=== PATIENT | female | born 1980 | race Caucasian/White ===

== ENCOUNTER → 2019-04-15 09:45 | Outpatient (CLI) | payer OTHER, SELFPAY ==
[2018-07-05 08:37] VITALS: BMI 45.3
[2019-04-15 09:50] LABS: Bacteria 0 SEEN /hpf (None Seen); Mucous, Urine 0 SEEN /hpf (<or=2+); Red Blood Cells-Urine 0 SEEN /hpf (0-5)
[2019-04-15 12:30] LABS: Color, Urine Yellow (Yellow); Glucose, Dipstick Normal (Normal); Ketone-Dipstick Negative (Negative); Leukocyte Esterase-Dipstick 25 /ul (Negative); Nitrite-Dipstick Negative (Negative); Occult Blood-Urine Negative /ul (Negative); Protein-Dipstick Negative (Negative); Specific Gravity, Urine 1.015 (1.002-1.030); Urine Bilirubin Dipstick Negative (Negative); Urine Clarity Clear (Clear); Urine Urobilinogen Normal (Normal)
[2019-04-15 12:39] LABS: Squamous Epithelial Cells - UA 0-5 SEEN /hpf (5-10); White Blood Cells 0-5 SEEN /hpf (0-5)
== END ==
PROVIDERS: Visit Provider Family Medicine
DX: N39.0 Urinary tract infection, site not specified (principal)
CPT/HCPCS: 81001; 87086; 87088

== ENCOUNTER → 2019-04-22 14:59 | Outpatient (CLI) | payer OTHER, SELFPAY ==
--- NOTE | 2019-04-22 15:02 | US_ITS ---
STUDY: RENAL ULTRASOUND - COMPLETE REASON FOR EXAM: Female, 39 years old. Gross hematuria. TECHNIQUE: Ultrasound evaluation of the kidneys was performed with real-time and static henderson-scale imaging. COMPARISON: None. FINDINGS: RIGHT KIDNEY: Normal location of the right kidney, which is normal in size. The right kidney measures 10.2 x 5.2 x 5.6 cm. There is a normal cortex of the right kidney. The renal cortex measures 1.9 cm. There is no right renal mass or cyst. There are no right renal calculi. There is no right hydronephrosis. DISTAL RIGHT URETER: There is non-visualization of the distal right ureter. There is no demonstrated right ureterovesical junction calculus. There is no demonstrated right ureteral jet. LEFT KIDNEY: Normal location of the left kidney, which is normal in size. The left kidney measures 10.1 x 4.1 x 4.9 cm. There is a normal cortex of the left kidney. The renal cortex measures 1.4 cm. There is no left renal mass or cyst. There are no left renal calculi. There is no left hydronephrosis. DISTAL LEFT URETER: There is non-visualization of the distal left ureter. There is no demonstrated left ureterovesical junction calculus. There is no demonstrated left ureteral jet. BLADDER: Grossly normal nondistended bladder contour. There is a normal wall thickness of the distended urinary bladder. There is no demonstrated mass within the urinary bladder. There are no demonstrated bladder calculi. US/Kidney and Bladder IMPRESSION: Normal ultrasound of the kidneys and urinary bladder. Electronically Signed: Giancarlo Villanueva MD at 16:33 EDT , Service support ,
== END ==
PROVIDERS: Family Provider Family Medicine; PCP Family Medicine; Referring Provider Family Medicine; Visit Provider Family Medicine
DX: R31.9 Hematuria, unspecified (principal)
CPT/HCPCS: 76770

== ENCOUNTER → 2019-05-09 17:28 | Outpatient (CLI) | payer OTHER, SELFPAY ==
--- NOTE | 2019-05-09 17:33 | CT_ITS ---
STUDY: CT ABDOMEN AND PELVIS WITH AND WITHOUT CONTRAST REASON FOR EXAM: Female, 39 years old. Hematuria RADIATION DOSAGE (If Supplied By Facility): CTDIvol = ( 28.38 ) mGy, DLP = ( 4203.65 ) mGycm TECHNIQUE: Transaxial images were obtained from the dome of the diaphragm to the symphysis pubis with oral contrast. 100 IV/Oral Isovue 300 was administered. Sagittal and coronal images were reconstructed. Individualized dose optimization techniques were used for this CT. COMPARISON: None. FINDINGS: The visualized lung bases are unremarkable. The visualized portions of the heart are within normal limits. Normal liver. The gallbladder has been removed. Normal spleen. Normal pancreas. Normal bilateral adrenal glands. Normal right kidney. Normal left kidney. Gastric bypass changes are present. Normal small intestine. Normal colon. The appendix is visualized and appears normal. Normal abdominal aorta. Normal inferior vena cava. Normal retroperitoneum. Normal urinary bladder. Normal abdominal wall. Normal osseous structures. CT/CT Abd/Pelvis W/WO Contrast IMPRESSION: No pathology identified in the abdomen or pelvis. Electronically Signed: Albert Jang, at 18:18 EDT Tel , Service support ,
== END ==
PROVIDERS: Family Provider Family Medicine; PCP Family Medicine; Referring Provider Urology; Visit Provider Urology
DX: R31.0 Gross hematuria (principal)
CPT/HCPCS: 74178; Q9967

== ENCOUNTER → 2019-08-09 08:35 | Outpatient (CLI) | payer OTHER, SELFPAY ==
[2019-07-08 08:14] VITALS: BMI 45.3
[2019-08-09 09:47] LABS: Erythrocyte Sedimentation Rate 10 mm/hr (0-20)
[2019-08-09 10:24] LABS: CRP, High Sensitivity Cardiac 4.52 mg/L
[2019-08-12 16:33] LABS: ANTINUCLEAR ANTIBODIES DIRECT Negative (Negative)
[2019-08-14 15:19] LABS: CCP IgG Antibodies 9 units (0-19); HLA B27 Negative (.)
== END ==
PROVIDERS: Family Provider Family Medicine; PCP Family Medicine
DX: M50.30 Other cervical disc degeneration, unspecified cervical region (principal)
CPT/HCPCS: 81374; 84550; 85652; 86038; 86141; 86200; 86431

== ENCOUNTER 2020-01-18 09:27 | Emergency (ER) | payer OTHER, SELFPAY ==
[2019-07-08 08:14] VITALS: BMI 45.3
[2020-01-18 09:28] VITALS: BP 151/114; PULSE 90; RESP 17; TEMP 36.9; O2SAT 98; BMI 44.4
--- NOTE | 2020-01-18 09:38 | RAD_ITS ---
STUDY: X-RAY - RIGHT KNEE REASON FOR EXAM: Female, 40 years old. Pain. TECHNIQUE: 4 view(s) of the knee. COMPARISON: None. FINDINGS: There is no evidence of fracture or dislocation. There are no significant degenerative changes. There are no radiodense foreign bodies. RAD/Knee 4 or More Views IMPRESSION: No fracture or dislocation. Electronically Signed: Amor Barker, at 10:04 EDT Tel , Service support ,
--- NOTE | 2020-01-18 09:39 | ED.DCSUM_ITS ---
History of Present Illness Chief Complaint: Lower Extremity Injury Informant: Patient Onset: Yesterday Mechanism/Context: Blunt Injury Quality of Pain: Dull, Aching Location: Right knee Current Severity: Mild Maximum Severity: Severe Worsened by: Weightbearing Relieved by: Better with rest Associated Symptoms: Loss of function, Inability to ambulate - Only able to toe- touch. Negative for: Parasthesias, Weakness, Loss of consciousness Narrative: Patient a 40-year-old woman who injured her right knee last evening while jumping on the trampoline. She states her knee buckled and the leg went inward and the knee went outward. She felt pops and tears. She has not been able to ambulate. She states she only able to toe-touch on the right side. The pain is predominantly anterior. She has no prior history of knee injury. She denies any other injury. She denies paresthesia, anesthesia or motor weakness. Prior similar symptoms: No Recent Illness/Hospitalization: No Past Medical History - Allergies and Home Meds Allergies/Adverse Reactions: Allergies Penicillins Allergy (Verified 07/08/19 08:07) Rash Sulfa (Sulfonamide Antibiotics) Allergy (Verified 07/08/19 08:07) Hives injectable steroids Allergy (Uncoded 07/05/18 08:39) Other Went into liver failure Primary Care Physician: Ricardo Ma MD [Primary Care Provider] - Surgical History: noncontributory Lives: With Family Smoking Status: Never smoker Alcohol: None Drugs: None Review of Systems Cardiovascular: Denies: Chest pain Respiratory: Denies: Dyspnea Musculoskeletal: Reports: Extremity Pain. Denies: Myalgias, Arthralgias, Neck pain, Back pain Skin: Denies: Rash, Abrasions Neurological: Denies: Headache, Weakness, Parasthesia, Numbness Hematologic: Denies: Easy bruising, Easy bleeding Physical Exam Vital Signs/Narrative: Vital Signs Temp Pulse Resp BP Pulse Ox 01/18/20 09:28 98.4 F 90 17 151/114 H 98 Inital Vital Signs reviewed: Yes General: Well nourished, Well developed, Obese Head: Normocephalic, Atraumatic Eyes: Perrl, EOMI. Negative for: Pale conjunctiva, Scleral icterus ENT: No trauma Neck: Nontender, Full ROM Cardiovascular: Regular rate, Regular rhythm, No murmurs Respiratory: No distress Extremeties: There is no obvious swelling of the right knee compared to left. There is joint line tenderness predominantly lateral. There is pain the patient of the patella, but the patella is not ballotable and there is no obvious effusion. Varus valgus stress testing causes discomfort laterally with no appreciable laxity. Modified Kaleb's test causes pain laterally but there was no click appreciated. Lockman's test was negative. DP and PT pulse are palpable. Skin: Normal color, No rash Neurological: Alert, Oriented x3, Cranial nerves II-XII grossly intact, Normal Strength, Normal Sensation. Negative for: Normal Gait Psychological: Normal affect - Glascow Coma Scale Eye Opening: Spontaneous Motor: Obeys Commands Verbal: Oriented Coma Scale Total: 15 Diagnostic/Tx/Re-eval Chest X-Ray - ED: Read by ED Physician - 4 view x-ray of the right knee was interpreted by me as negative for fracture. There is no soft tissue swelling. There is no effusion noted. There is no asymmetry of the joint. There is no evidence of dislocation or subluxation. Impressions Knee X-Ray 01/18/20 09:38 IMPRESSION: No fracture or dislocation. Electronically Signed: Amor Mj, at 10:04 EDT Tel , Service support , 01/18/20 09:38 Knee 4 or More Views [RAD] Stat - Medical Decision Making X-ray was obtained to evaluate for fracture. Impression is contusion versus meniscus injury versus quadricep strain versus fracture. She was offered pain medicine, which she declined Since patient is unable to weight-bear will discharge with crutches and referral to Dr. José Antonio Del Cid for repeat exam in 5 to 7 days. SPECT patient has a meniscus injury. ED Disposition - Plan for ED Patient: Disposition: Home or Assisted Living Diagnosis: Strain of knee and leg, right Instructions: ED Meniscal Injury Knee Poss Referrals: Ricardo Ma MD [Primary Care Provider] - Amor Del Cid MD [STAFF PHYSICIAN] - 5-7 Days Additional Instructions: Ice 20 to 30 minutes per application 6-8 times a day. Elevate as much as possible. Weight-bear as tolerated.
[2020-01-18 10:12] VITALS: BP 144/64; PULSE 89; RESP 17; O2SAT 98
== END 2020-01-18 10:28 | disposition home or self-care (01) ==
PROVIDERS: Emergency Provider Emergency Medicine; PCP Family Medicine
DX: S86.911A Strain of unspecified muscle(s) and tendon(s) at lower leg level, right leg, initial encounter (principal); X58.XXXA Exposure to other specified factors, initial encounter; Y93.44 Activity, trampolining; Y92.9 Unspecified place or not applicable; Y99.8 Other external cause status; E66.9 Obesity, unspecified; Z68.41 Body mass index [BMI] 40.0-44.9, adult
CPT/HCPCS: 73564; 99283

== ENCOUNTER 2020-04-06 09:06 | Day surgery (SDC) | payer OTHER, SELFPAY ==
[2020-04-06] VITALS (15 sets, daily range): BP systolic 112–160; BP diastolic 49–89; PULSE 75–102; RESP 16; TEMP 36.6–37.4; O2SAT 94–100; BMI 50.1
[2020-04-06 09:31] LABS: Hematocrit 40.8 % (37-47); Hemoglobin 13.8 g/dL (12.0-15.0); Mean Corp Hgb Conc 33.8 g/dL (32-36); Mean Corpuscular Hgb 32.6 pg (27.0-32.0); Mean Corpuscular Volume 96.5 fL (81-99); Mean Platelet Vol. 9.1 fl (6.2-12.0); Platelet Count 310 K/mm3 (150-450); RBC Distribution Width CV 13.2 % (11.6-14.6); Red Blood Count 4.23 M/mm3 (4.2-5.4)
[2020-04-06] MEDS: Lactated Ringers 1,000 ML 100 ML IV ×3 (09:43→14:35)
[2020-04-06 09:44] LABS: Prothrombin Time (Protime)PT. 13.1 SECONDS (11.7-14.9)
[2020-04-06 10:00] LABS: AST(SGOT) 15 U/L (15-37); Alanine Aminotransfer ALT/SGPT 25 U/L (13-56); Albumin, Serum 3.5 g/dL (3.2-5.0); Alkaline Phosphatase 95 U/L (45-117); Bilirubin, Direct 0.07 mg/dL (0.00-0.30); Globulin 3.8 g/dL (2.2-4.2); Protein, Total 7.3 g/dL (6.4-8.2)
[2020-04-06] MEDS: Epinephrine (1 mg/ml) 1 MG/ML VIAL (10:47)
[2020-04-06] MEDS: Bupiv/Epi 0.5% Mpf 30 ML Vial (11:40)
--- NOTE | 2020-04-06 12:43 | OP.PCM_ITS ---
Report of Operation Date of Procedure: 04/06/20 Pre-Operative Diagnosis: Right ACL and medial meniscus tear Post-Operative Diagnosis: same Surgery/Procedure Performed:: D & O arthroscopy with ACL reconstruction using allograft 8.5 mm tibialis posterior tendon and partial medial meniscectomy guillotine trimmer: Calixto Parra Type of Anesthesia:: General/Regional Anesthesiologist: Manuel Edwards - [facility] VTE Documentation VTE Present on Admission: No VTE Mechan Device Prophylaxis: SCD's, Thigh High WILMA Hose VTE Pharm Prophylaxis ordered?: Yes
== END 2020-04-06 16:01 | disposition home or self-care (01) ==
LOC: SDC 09:07 → AC 09:10
PROVIDERS: Anesthesiology; PCP Family Medicine; Referring Provider Orthopaedic Surgery; Visit Provider Orthopaedic Surgery
PROC: (CPT 29888; principal; 2020-04-06 10:30)
DX: S83.511A Sprain of anterior cruciate ligament of right knee, initial encounter (principal); S83.241A Other tear of medial meniscus, current injury, right knee, initial encounter; W19.XXXA Unspecified fall, initial encounter; Z11.59 Encounter for screening for other viral diseases; M79.7 Fibromyalgia; K58.9 Irritable bowel syndrome, unspecified; F32.9 Major depressive disorder, single episode, unspecified
CPT/HCPCS: 01400; 29881; 29888; 64447; 76942; 36415; 80076; 85027; 85610; 85730; 87635; G2023; J7120; J2405; U0003

== ENCOUNTER → 2020-07-31 16:00 | Outpatient (CLI) | payer OTHER, SELFPAY ==
[2020-07-09 08:11] VITALS: BMI 49.4
--- NOTE | 2020-07-31 16:00 | BI_ITS ---
MAMMOGRAPHY - BILATERAL SCREENING REASON FOR EXAM: Female, 40 years old. Routine annual screening examination. PERTINENT HISTORY: Grandmother with breast cancer. TECHNIQUE: Digital bilateral breast norma (3D mammographic acquisition) in the CC and MLO projections. 2-D mediolateral oblique (MLO) and craniocaudad (CC) views of both breasts were obtained. CAD: Full Field Digital Mammography with Computer Added Detection was performed. COMPARISON: Comparison is made with prior examination dated 12/11/2015. FINDINGS: Breast Composition: There are scattered areas of fibroglandular density. There are no dominant masses or suspicious calcifications. No other significant abnormalities are identified. There has been no significant change since the prior study. BI/SCREEN MAMM (CAD) W/NORMA BILAT IMPRESSION: Stable bilateral screening mammogram. Yearly follow-up mammogram recommended. (A) ASSESSMENT CATEGORY: BIRADS Category 1: Negative. A letter regarding these results will be sent to the patient by the facility within 30 days. Approximately 10% of breast cancers are not detected by mammography. A normal mammogram should not delay biopsy of a clinically suspicious abnormality. [id number] Electronically Signed: Clint Fabian, at 15:47 EST , Service support ,
== END ==
PROVIDERS: PCP Family Medicine; Referring Provider Nurse Practitioner Women's Health; Visit Provider Nurse Practitioner Women's Health
DX: Z12.31 Encounter for screening mammogram for malignant neoplasm of breast (principal)
CPT/HCPCS: 77063; 77067

== ENCOUNTER → 2020-08-17 11:46 | Outpatient (CLI) | payer OTHER, SELFPAY ==
[2020-07-09 08:11] VITALS: BMI 49.4
[2020-08-17 15:55] LABS: Absolute Neutrophil Count 5.8 X10^3/uL (2.0-7.7); Basophil# 0.11 X10^3/uL; Basophil% 1.2 % (0-1); Eosinophil# 0.66 X10^3/uL; Hematocrit 43.9 % (37-47); Hemoglobin 14.2 g/dL (12.0-15.0); Lymphocyte % 24.4 % (19-41); Mean Corp Hgb Conc 32.3 g/dL (32-36); Mean Corpuscular Hgb 30.9 pg (27.0-32.0); Mean Corpuscular Volume 95.6 fL (81-99); Mean Platelet Vol. 10.2 fl (6.2-12.0); Monocyte# 0.57 X10^3/uL; NRBC Flagged by Analyzer 0 % (0-5); Neutrophil # 5.77 X10^3/uL (2.7-7.7); Neutrophil % 61.1 % (47-70); Platelet Count 396 K/mm3 (150-450); RBC Distribution Width CV 13.2 % (11.6-14.6); RBC Distribution Width SD 46.9 fl (35.1-43.9); Red Blood Count 4.59 M/mm3 (4.2-5.4); White Blood Count 9.4 K/mm3 (4.4-11.0)
[2020-08-17 16:01] LABS: CRP, High Sensitivity Cardiac 8.51 mg/L
[2020-08-17 16:12] LABS: Erythrocyte Sedimentation Rate 13 mm/hr (0-20)
[2020-08-17 16:28] LABS: ALB/GLOB Ratio 1.1 RATIO (0.9-2.4); AST(SGOT) 57 U/L (15-37); Alanine Aminotransfer ALT/SGPT 45 U/L (13-56); Albumin, Serum 3.9 g/dL (3.2-5.0); Alkaline Phosphatase 137 U/L (45-117); Anion Gap 5 (5-15); BUN 9 mg/dL (7-18); BUN/Creat Ratio 10.9 RATIO (10-20); CRP 9.14 mg/L (0.0-3.0); Calcium,Total 9.3 mg/dL (8.5-10.1); Chloride 103 mmol/L (98-107); Creatinine, Serum 0.83 mg/dL (0.55-1.02); EST Glomerular Filtration Rate 82 mL/min (>60); Est Glom Filt Rate - Afr Amer 99 mL/min (>60); Globulin 3.4 g/dL (2.2-4.2); Glucose 63 mg/dL (74-106); Lipase 148 U/L (73-393); Potassium 3.9 mmol/L (3.5-5.1); Protein, Total 7.3 g/dL (6.4-8.2); Sodium Level 139 mmol/L (136-145)
[2020-08-19 07:05] LABS: SARS-COV-2 TOTAL ABS Nonreactive (Nonreactive)
[2020-08-19 14:59] LABS: ANTINUCLEAR ANTIBODIES DIRECT Negative (Negative)
[2020-08-25 17:30] LABS: CCP IgG Antibodies 7 units (0-19); HLA B27 Negative (.)
== END ==
PROVIDERS: PCP Family Medicine; Visit Provider Family Medicine
DX: R10.13 Epigastric pain (principal); M19.90 Unspecified osteoarthritis, unspecified site
CPT/HCPCS: 36415; 80053; 81374; 83690; 84550; 85025; 85652; 86038; 86140; 86141; 86200; 86431; 86769

== ENCOUNTER → 2020-09-11 11:55 | Outpatient (CLI) | payer OTHER, SELFPAY ==
[2020-07-09 08:11] VITALS: BMI 49.4
[2020-09-11 16:33] LABS: AST(SGOT) 10 U/L (15-37); Alanine Aminotransfer ALT/SGPT 24 U/L (13-56); Albumin, Serum 3.6 g/dL (3.2-5.0); Alkaline Phosphatase 100 U/L (45-117); Anion Gap 5 (5-15); BUN 14 mg/dL (7-18); BUN/Creat Ratio 17.6 RATIO (10-20); Calcium,Total 9.3 mg/dL (8.5-10.1); Chloride 103 mmol/L (98-107); EST Glomerular Filtration Rate 85 mL/min (>60); Est Glom Filt Rate - Afr Amer 103 mL/min (>60); Globulin 3.7 g/dL (2.2-4.2); Glucose 77 mg/dL (74-106); Protein, Total 7.3 g/dL (6.4-8.2); Sodium Level 136 mmol/L (136-145)
== END ==
PROVIDERS: PCP Family Medicine; Referring Provider Family Medicine; Visit Provider Family Medicine
DX: M79.7 Fibromyalgia (principal); R10.13 Epigastric pain
CPT/HCPCS: 36415; 80053; 86140; 86431

== ENCOUNTER → 2021-01-20 16:40 | Outpatient (CLI) | payer OTHER, SELFPAY ==
[2020-07-09 08:11] VITALS: BMI 49.4
--- NOTE | 2021-01-20 16:43 | RAD_ITS ---
STUDY: X-RAY - ABDOMEN/PELVIS REASON FOR EXAM: Female, 41 years old. ABDOMINAL PAIN TECHNIQUE: AP supine and upright views of the abdomen and pelvis. COMPARISON: Prior abdomen and pelvic CT exam of 05/09/2019 FINDINGS: Normal visualized lung bases. There is an unremarkable bowel gas pattern. Evidence of postoperative changes of the stomach. Moderate gas and stool present in the colon. There is no demonstrated free abdominal air. Negative for gross hepatomegaly. Status post cholecystectomy. Normal soft tissue structures. Normal visualized osseous structures. RAD/Abd Inc Decub and/or Erect IMPRESSION: Negative for evidence of bowel perforation or obstruction. Moderate gas and stool present in the colon. Status post cholecystectomy and evidence of prior gastric surgery. Electronically Signed: Tonya Butt MD at 17:07 EDT , Service support ,
== END ==
PROVIDERS: PCP Family Medicine; Referring Provider Family Medicine; Visit Provider Family Medicine
DX: R10.9 Unspecified abdominal pain (principal); Z90.49 Acquired absence of other specified parts of digestive tract
CPT/HCPCS: 74019

== ENCOUNTER → 2021-05-21 | Outpatient (CLI) | payer OTHER, SELFPAY | END | disposition home or self-care (01) | PROVIDERS: Visit Provider Family Medicine | DX: U07.1 COVID-19 (principal) | CPT/HCPCS: 87635; U0005; U0003 ==

== ENCOUNTER 2021-05-25 13:30 | Outpatient (CLI) | payer OTHER, SELFPAY ==
[2021-05-25 14:01] VITALS: BP 139/96; PULSE 94; RESP 18; TEMP 36.8; O2SAT 99; BMI 106.7
[2021-05-25] MEDS: 0.9% Saline Lock 10 ML Syringe IV (14:10)
[2021-05-25 14:36] VITALS: BP 133/83; PULSE 94; RESP 16; TEMP 36.8; O2SAT 99
[2021-05-25 15:35] VITALS: BP 122/86; PULSE 85; RESP 16; TEMP 36.7; O2SAT 100
== END 2021-05-25 15:39 | disposition home or self-care (01) ==
LOC: ICUOUT 13:30 → MS2 13:31
PROVIDERS: Referring Provider Nurse Practitioner Acute Care; Visit Provider Nurse Practitioner Acute Care
DX: Z23 Encounter for immunization (principal); U07.1 COVID-19
CPT/HCPCS: J7050; M0243; A4216; Q0244

== ENCOUNTER → 2021-09-02 11:01 | Outpatient (CLI) | payer OTHER, SELFPAY ==
[2021-09-02 12:04] LABS: NATERA MAILED SPECIMEN
== END ==
PROVIDERS: PCP Family Medicine; Referring Provider Obstetrics & Gynecology; Visit Provider Obstetrics & Gynecology
DX: Z12.39 Encounter for other screening for malignant neoplasm of breast (principal); Z80.3 Family history of malignant neoplasm of breast

== ENCOUNTER → 2021-09-15 14:13 | Outpatient (CLI) | payer OTHER, SELFPAY ==
--- NOTE | 2021-09-15 14:15 | BI_ITS ---
MAMMOGRAPHY - BILATERAL SCREENING REASON FOR EXAM: Female, 41 years old. Routine annual screening examination. PERTINENT HISTORY: Grandmothers with breast cancer. Prior left ultrasound-guided breast biopsy. TECHNIQUE: Digital bilateral breast norma (3D mammographic acquisition) in the CC and MLO projections. 2-D mediolateral oblique (MLO) and craniocaudad (CC) views of both breasts were obtained. CAD: Full Field Digital Mammography with Computer Added Detection was performed. COMPARISON: Comparison is made with prior study dated 07/31/2020. FINDINGS: Breast Composition: There are scattered areas of fibroglandular density. There are no dominant masses or suspicious calcifications. A tissue clip marker is seen along the anterior upper lateral portion of the left breast. Stable small benign-appearing bilateral axillary lymph nodes. No other significant abnormalities are identified. There has been no significant change since the prior study. BI/SCRN MAMM (CAD)W/NORMA BILAT IMPRESSION: Stable bilateral screening mammogram. Yearly follow-up mammogram recommended. (A) ASSESSMENT CATEGORY: BIRADS Category 2: Benign. A letter regarding these results will be sent to the patient by the facility within 30 days. Approximately 10% of breast cancers are not detected by mammography. A normal mammogram should not delay biopsy of a clinically suspicious abnormality. [id number] Electronically Signed: Clint Fabian MD at 15:09 EST , Service support ,
== END ==
PROVIDERS: PCP Family Medicine; Referring Provider Obstetrics & Gynecology; Visit Provider Obstetrics & Gynecology
DX: Z12.31 Encounter for screening mammogram for malignant neoplasm of breast (principal); Z80.3 Family history of malignant neoplasm of breast
CPT/HCPCS: 77063; 77067

== ENCOUNTER → 2022-02-02 | Outpatient (CLI) | payer OTHER, SELFPAY ==
--- NOTE | 2022-02-02 09:23 | VDLE_ITS ---
Reason For Study: Lt calf pain Procedure LEFT This is a venous duplex using B-mode, color GSV is normal. flow and spectral Doppler. CFV is compressible, spontaneous, phasic, Exam performed in department. competent, and demonstrates normal A preliminary report was called and/or faxed augmentation. to Matt. FV is compressible, spontaneous, phasic, competent and demonstrates normal augmentation. POP V is compressible, spontaneous, phasic, competent and demonstrates normal augmentation. T/P Trunk is compressible. PTV is compressible. LT PerV is compressible. VL/Venous Duplex US, Unilateral Interpretation Summary Deep veins of the left lower extremity are patent and compressible segmentally. There is no evidence of left lower extremity deep vein thrombosis. Valvular competence appears intac t within the proximal deep venous system on the left . The left great saphenous vein appears patent a nd compressible segmentally. Ordering Physician: Milagros Gutierrez Referring Physician: Ricardo Ma Performed By: Lyla Saxena RVT
--- NOTE | 2022-02-02 10:40 | CT_ITS ---
STUDY: CT CHEST WITHOUT CONTRAST REASON FOR EXAM: Female, 42 years old. Chronic cough, SOB after viral illness, known RA - concern for in RADIATION DOSAGE (If Supplied By Facility): CTDIvol = ( 20.12 ) mGy, DLP = ( 743.97 ) mGycm TECHNIQUE: Transaxial imaging was performed without the administration of intravenous contrast material. Multiplanar coronal and sagittal images were reformatted. Individualized dose optimization techniques were used for this CT. COMPARISON: No relevant priors. FINDINGS: CHEST The lungs are normal. There is no demonstrated pleural abnormality. Normal heart and pericardium. Normal mediastinum. Normal hilar regions. Normal unenhanced pulmonary arteries. Normal aorta arch and descending thoracic aorta. Normal osseous structures. There is a 1.4 cm cyst in the superior aspect of the right lobe of the liver. The patient is status post subtotal gastrectomy and cholecystectomy. CT/Chest without Contrast IMPRESSION: Normal unenhanced CT chest examination. Electronically Signed: Clint Fabian MD at 11:01 EDT ,
== END | disposition home or self-care (01) ==
PROVIDERS: PCP Family Medicine; Referring Provider Family Medicine; Visit Provider Family Medicine
DX: M79.662 Pain in left lower leg (principal); R05.3 Chronic cough; R06.02 Shortness of breath
CPT/HCPCS: 71250; 93971; 94060; 94726; 94729

== ENCOUNTER → 2022-02-09 | Outpatient (CLI) | payer OTHER, SELFPAY ==
[2022-02-09 13:02] VITALS: PULSE 102; PULSE 111; PULSE 122; PULSE 132; PULSE 136; PULSE 140; PULSE 141; PULSE 142; O2SAT 91; O2SAT 94; O2SAT 95; O2SAT 96; O2SAT 97
--- NOTE | 2022-02-09 13:07 | CPS ---
She did alot of yawning with excerise that she states she does at home also. Slight increase of SOB at end of the 6 minutes but did not really slow down her pace.
--- NOTE | 2022-02-09 15:57 | PCM.PSN.6M ---
PSN 6 Minute Walk Test 6 Minute Walk Test 6 Minute Walk Test: 6 Minute Walk Test PSN:6-Minute Walk Test Start: 02/09/22 13:02 Freq: Status: Active Protocol: [id number] Document 02/09/22 13:02 (Rec: 02/09/22 13:09 FR [id number]) 6 Minute Walk Test Date Performed 02/09/22 Time Performed 12:30 Height 5 ft 6 in Weight: 154.675 kg Weight in Pounds 341.[address]: Ricardo Ma Assistive device used: None Pre-test Oxygen Delivery Method Room Air Pulse Ox (%) 97 Pulse Rate (60-100 beats/min) 102 H Dyspnea Tawnya Scale (0-10) 3 Exertion Tawnya Scale (6-20) 8 1st minute Oxygen Delivery Method Room Air Pulse Ox (%) 96 Pulse Rate (60-100 beats/min) 122 H 2nd minute Oxygen Delivery Method Room Air Pulse Ox (%) 94 Pulse Rate (60-100 beats/min) 132 H 3rd minute Oxygen Delivery Method Room Air Pulse Ox (%) 95 Pulse Rate (60-100 beats/min) 141 H 4th minute Oxygen Delivery Method Room Air Pulse Ox (%) 91 Pulse Rate (60-100 beats/min) 140 H Reported Symptoms Increased Work of Breathing 5th minute Oxygen Delivery Method Room Air Pulse Ox (%) 94 Pulse Rate (60-100 beats/min) 142 H Reported Symptoms Increased Work of Breathing 6th minute Oxygen Delivery Method Room Air Pulse Ox (%) 95 Pulse Rate (60-100 beats/min) 136 H Dyspnea Tawnya Scale (0-10) 6 Exertion Tawnya Scale (6-20) 11 Post-test Oxygen Delivery Method Room Air Pulse Ox (%) 95 Pulse Rate (60-100 beats/min) 111 H Full Laps Walked 17 Partial Lap, Number of Tiles Walked 13 Total Distance Walked (ft) 1016 02/09/22 13:07 Cardiopulmonary Services by Eliza Osullivan She did alot of yawning with excerise that she states she does at home also. Slight increase of SOB at end of the 6 minutes but did not really slow down her pace. Initialized on 02/09/22 13:07 - END OF NOTE Interpretation Interpretation: The patient ambulated 1016 feet over the course of 6 minutes beginning on room air without assistive devices. Pretesting oxygen saturation was noted to be 97% on room air. With ambulation, the kim oxygen saturation was 91%. This represents a significant exertional oxygen desaturation, consistent with a pulmonary limitation to exercise tolerance. Recommendations Recommendations: There is no indication for the use of supplemental oxygen at this time. However, close interval follow-up is recommended, given the degree of oxygen desaturation noted during this study.
== END | disposition home or self-care (01) ==
PROVIDERS: PCP Family Medicine; Visit Provider Family Medicine
DX: R06.02 Shortness of breath (principal); R05.3 Chronic cough
CPT/HCPCS: 94618

== ENCOUNTER → 2022-03-07 | Outpatient (CLI) | payer OTHER, SELFPAY | END | disposition home or self-care (01) | LOC: SL 20:03 | PROVIDERS: PCP Family Medicine; Referring Provider Internal Medicine Critical Care Medicine; Visit Provider Internal Medicine Critical Care Medicine | DX: G47.33 Obstructive sleep apnea (adult) (pediatric) (principal) | CPT/HCPCS: 95810 ==

== ENCOUNTER → 2022-03-10 | Outpatient (CLI) | payer OTHER, SELFPAY ==
[2022-03-10] MEDS: Methacholine Chloride 18 ml neb kit INHALATION (07:07)
--- NOTE | 2022-03-11 08:19 | BRONCHALL ---
Bronchoprovocation Challenge Bronchoprovocation Challenge Bronchoprovocation Challenge: INTRODUCTION: The patient is a 42-year-old female that presents for a bronchoprovocation challenge secondary to a diagnosis of shortness of breath. Respiratory therapy reported good patient effort. INTERPRETATION: Initial spirometry did not show any large airways obstructive ventilatory defect and preserved airflows throughout. The patient was then given progressively increasing doses of methacholine in a standardized fashion. At the highest level, the patient did experience a 19% drop in FEV1. However, this does not meet the 20% drop in FEV1 threshold criteria to be considered a positive test. IMPRESSION: Negative methacholine challenge.
== END | disposition home or self-care (01) ==
PROVIDERS: PCP Family Medicine; Referring Provider Internal Medicine Critical Care Medicine; Visit Provider Internal Medicine Critical Care Medicine
DX: R06.02 Shortness of breath (principal)
CPT/HCPCS: 94070; 95070

== ENCOUNTER 2022-05-25 09:00 | Outpatient (RCR) | payer OTHER, SELFPAY | END 2022-05-25 23:59 | LOC: NS 09:00 | PROVIDERS: PCP Family Medicine; Referring Provider Nurse Practitioner Family; Visit Provider Nurse Practitioner Family | DX: Z71.3 Dietary counseling and surveillance (principal); E66.01 Morbid (severe) obesity due to excess calories; Z68.44 Body mass index [BMI] 60.0-69.9, adult | CPT/HCPCS: 97802; 97803 ==

== ENCOUNTER 2022-06-09 18:16 | Emergency (ER) | payer OTHER, SELFPAY ==
[2022-06-09 18:17] VITALS: BP 173/106; PULSE 96; RESP 16; TEMP 35.8; O2SAT 98; BMI 56.5
[2022-06-09 19:39] VITALS: BP 194/127; PULSE 89; RESP 16; O2SAT 97
[2022-06-09 19:39] LABS: Absolute Lymphocyte Count 4.27 X10^3/uL (0.83-4.51); Absolute Neutrophil Count 7.3 X10^3/uL (2.0-7.7); Basophil# 0.08 X10^3/uL; Basophil% 0.6 % (0-1); Eosinophil# 0.22 X10^3/uL; Eosinophils% 1.7 % (0-5); Hematocrit 42.5 % (37-47); Hemoglobin 14.4 g/dL (12.0-15.0); Lymphocyte # 4.27 X10^3/ul (0.83-4.51); Lymphocyte % 33.7 % (19-41); Mean Corp Hgb Conc 33.9 g/dL (32-36); Mean Corpuscular Hgb 32.7 pg (27.0-32.0); Mean Corpuscular Volume 96.6 fL (81-99); Monocyte% 6.3 % (0-10); NRBC Flagged by Analyzer 0 % (0-5); Neutrophil # 7.27 X10^3/uL (2.7-7.7); Neutrophil % 57.4 % (47-70); Platelet Count 357 K/mm3 (150-450); RBC Distribution Width CV 13.9 % (11.6-14.6); RBC Distribution Width SD 49.1 fl (35.1-43.9); White Blood Count 12.7 K/mm3 (4.4-11.0)
--- NOTE | 2022-06-09 20:06 | EDS_ITS ---
HPI History of Present Illness Chief Complaint: Hypertension Informant: patient Onset/Context/Timing Onset: Days (3) Context: Gradual Onset Timing: Continuous Quality: Aching Location: Behind her eyes Worsened by: Nothing Relieved by: Nothing Narrative Narrative: Patient presents with elevated blood pressures for the past 3 days. Patient states she was recently diagnosed with diastolic dysfunction in April. Patient states that over the last 3 days she was told by her primary care physician to monitor her blood pressure. Patient states her blood pressure at home was 222/118. Patient admits to a headache. Patient describes it as aching. Patient states it is behind her eyes. Patient states nothing makes it better and nothing makes it worse. Patient also admits to pain in her teeth. Patient admits to some nausea but denies any vomiting. Patient admits to some chest pain and shortness of breath. [facility] Medical History Abnormal mammogram Anxiety Depression Fibromyalgia Inflammatory bowel disease Liver injury Perianal fistula Rheumatoid arthritis Vestibular disequilibrium Home Medications Bifidobacterium infantis 1.5 billion cell capsule (Digestive Probiotic) 50 cell PO DAILY 07/05/18 [History Last Taken Unknown] multivitamin 1 tab PO DAILY 07/05/18 [History Last Taken Unknown] omeprazole magnesium 20 mg tablet,delayed release (Prilosec OTC) 20 mg PO DAILY 07/05/18 [History Last Taken 04/06/20 08:30] fluticasone propionate 50 mcg/actuation nasal spray,suspension 2 spray NASAL DAILY 03/30/20 [History Last Taken Unknown] hydroxyzine HCl 10 mg tablet 25 mg PO QHS 03/30/20 [History Last Taken Unknown] levocetirizine 5 mg tablet 5 mg PO DAILY 03/30/20 [History Last Taken Unknown] magnesium oxide 400 mg PO BID 03/30/20 [History Last Taken Unknown] plecanatide 3 mg tablet (Trulance) 3 mg PO DAILY 05/25/21 [History Last Taken Unknown] calcium citrate 250 mg calcium-vitamin D3 5 mcg (200 unit) tablet (Citracal Regular) 1 tab PO DAILY 09/02/21 [History Last Taken Unknown] Turmeric Curcumin 1 tab PO BID 02/17/22 [History Last Taken Unknown] cholecalciferol (vitamin D3) 25 mcg (1,000 unit) capsule 1,000 unit PO DAILY 02/17/22 [History Last Taken Unknown] folic acid 1 mg tablet 1 mg PO 6XW 02/17/22 [History Last Taken Unknown] mecobalamin (vitamin B12) 1,000 mcg chewable tablet 500 mcg PO DAILY 02/17/22 [History Last Taken Unknown] methotrexate sodium 2.5 mg tablet 15 mg PO NAVARRETE 02/17/22 [History Last Taken Unknown] omega-3 fatty acids 1,000 mg capsule 2,000 mg PO BID 02/17/22 [History Last Taken Unknown] ondansetron HCl 4 mg tablet 4 mg PO Q8H PRN motion sickness 02/17/22 [History Last Taken Unknown] promethazine 12.5 mg tablet 12.5 mg PO Q8H PRN nausea and vomiting 02/17/22 [History Last Taken Unknown] riboflavin (vitamin B2) 400 mg tablet 400 mg PO DAILY 02/17/22 [History Last Taken Unknown] albuterol sulfate 90 mcg/actuation aerosol inhaler 2 puff inhalation Q4H PRN shortness of breath or wheezing #8.5 grams 02/22/22 [Rx Last Taken Unknown] calcium carbonate 500 mg calcium (1,250 mg) tablet 500 mg PO DAILY 02/22/22 [History Last Taken Unknown] famotidine 20 mg tablet 20 mg PO BID 02/22/22 [History Last Taken Unknown] loratadine 10 mg tablet (Allergy Relief (loratadine)) 10 mg PO DAILY 02/22/22 [History Last Taken Unknown] mometasone-formoterol HFA 200 mcg-5 mcg/actuation aerosol inhaler (Dulera) 2 puff inhalation BID 02/22/22 [History Last Taken Unknown] abatacept 125 mg/mL subcutaneous auto-injector (Orencia ClickJect) 125 mg subcut QWEEK 06/09/22 [History Last Taken Unknown] duloxetine 60 mg capsule,delayed release (Cymbalta) 60 mg PO DAILY 06/09/22 [History Last Taken Unknown] losartan 25 mg tablet 25 mg PO DAILY #10 tabs 06/09/22 [Rx Last Taken Unknown] prednisone 5 mg tablet 5 mg PO DAILY 06/09/22 [History Last Taken Unknown] Allergy/AdvReac Type Severity Reaction Status Date / Time banana Allergy Unknown Hives Verified 06/09/22 19:37 Penicillins Allergy Unknown Rash/Hives Verified 06/09/22 19:37 strawberry Allergy Unknown Hives Verified 06/09/22 19:37 Sulfa (Sulfonamide Allergy Unknown Hives Verified 06/09/22 19:37 Antibiotics) watermelon Allergy Unknown Hives Verified 06/09/22 19:37 injectable steroids Allergy Other Uncoded 06/09/22 19:37 Family History Father Hypertension Gout Mother Hypotension Grandmother Breast cancer Grandmother Breast cancer Aunt Breast cancer Surgical History Gastric bypass status for obesity (~2012) H/O: hysterectomy (~2016) History of cholecystectomy History of tonsillectomy S/P ACL reconstruction Social History adopted: No household members: family housing: house number of children: 3 current occupational status: employed 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 current occupational exposures/hazards: No pets and animals: Yes history of recent travel: No Smoking Status: Never smoker second hand exposure: No alcohol intake: current alcohol intake frequency: holidays/special occasions only substance use type: does not use diet: gluten free, low salt and other caffeine: No what type of physical activity do you participate in: none seatbelt use: always do you feel safe at home: Yes additional social history: - Bill- [employer] company and Senior [employer] Experience [employer] ROS ROS ED Constitutional Constitutional ED: Denies chills or fever(s) Eyes Eyes: Reports blurry vision; Denies diplopia ENT ENT ED: Denies rhinorrhea or sore throat Cardiovascular Cardiovascular: Reports chest pain; Denies palpitations Respiratory/Chest Respiratory/Chest: Reports dyspnea; Denies cough Gastrointestinal Gastrointestinal: Reports nausea; Denies abdominal pain or vomiting Genitourinary Genitourinary ED: Denies dysuria or hematuria Musculoskeletal Musculoskeletal: Denies back pain or neck pain Integumentary Denies abscess or rash Neurologic Neurologic: Reports headache(s); Denies weakness Psychiatric Psychiatric: Reports anxiety Allergic/Immunologic Allergic/Immunologic ED: Denies mouth swelling or urticaria EXAM Physical Exam Const Vital Signs: 06/09/22 18:17 06/09/22 19:39 06/09/22 19:40 Temperature 96.5 F L Temperature Source Temporal Pulse Rate 96 89 Respiratory Rate 16 16 Respiratory Effort Normal Short of Breath Respiratory Pattern Normal Blood Pressure 173/106 H 194/127 H Blood Pressure Mean 128 149 Pulse Ox 98 97 Oxygen Delivery Method Room Air Room Air 06/09/22 20:15 06/09/22 20:29 06/09/22 21:02 Temperature Temperature Source Pulse Rate 77 Respiratory Rate 16 Respiratory Effort Respiratory Pattern Blood Pressure 159/94 H 174/95 H 148/94 H Blood Pressure Mean 115 121 112 Pulse Ox 98 Oxygen Delivery Method Room Air Positive well nourished, well developed and obese General Appearance ED: well developed and NAD Nutritional Appearance: obese HEENT normocephalic and atraumatic Eyes PERRL and EOMs intact bilaterally Neck supple and no JVD Chest Wall palpation of chest normal Resp normal respiratory effort and clear to auscultation bilaterally Effort and Inspection: Negative for respiratory distress Cardio regular rate, regular rhythm and no murmurs GI normal to inspection, nondistended, normoactive bowel sounds, soft to palpation, non-tender and non-distended Extremity normal to inspection General Extremety ED: Negative for edema or tenderness General Extremity: Negative for edema Neuro oriented x3, CN's II-XII intact bilaterally and no sensory deficits noted Sensorium / Orientation: awake and alert Motor Exam: strength 5/5 throughout Psych mental status grossly normal Skin no rashes or lesions noted MDM MDM MDM Narrative Medical decision making narrative: PA and lateral chest x-ray was obtained. There are 2 views. On my interpretation, lung cleary are clear. There is normal cardiac silhouette. Bony thorax is normal. There is no acute process noted. Radiologist also interpreted the x-ray and agrees. CBC shows a mild leukocytosis of 12.7. Basic metabolic profile was within normal limits. High-sensitivity troponin was normal. Patient was given a dose of hydralazine here. Patient's blood pressure improved with this. Patient was given a prescription for losartan. Patient was instructed to follow-up with her primary care physician in 3 to 5 days. Patient was instructed to continue to monitor her blood pressure. Patient understood and was agreeable with the plan. All questions were answered. Lab Data Labs: Laboratory Results - last 24 hr 06/09/22 06/09/22 19:20 19:20 WBC 12.7 H RBC 4.40 Hgb 14.4 Hct 42.5 MCV 96.6 MCH 32.7 H MCHC 33.9 RDW Std Deviation 49.1 H RDW Coeff of Tanvi 13.9 Plt Count 357 MPV 10.0 Immature Gran % (Auto) 0.300 Neut % (Auto) 57.4 Lymph % (Auto) 33.7 [place] % (Auto) 6.3 Eos % (Auto) 1.7 Baso % (Auto) 0.6 Absolute Neuts (auto) 7.3 Absolute Lymphs (auto) 4.27 Nucleated RBC % 0 Sodium 141 Potassium 4.0 Chloride 105 Carbon Dioxide 28.0 Anion Gap 8 BUN 15 Creatinine 0.93 Estim Creat Clear Calc 74.52 Est GFR (MDRD) Af Amer 86 Est GFR (MDRD) Non-Af 71 BUN/Creatinine Ratio 16.2 Glucose 90 Calcium 9.4 Troponin I High Sens 4 Radiography Chest X-Ray - ED: 2 View, Read by ED Physician, Read by Radiologist and No Acute Disease Diagnostic Testing: Clinical Impression(s) from Imaging Studies Chest X-Ray 06/09/22 20:16 IMPRESSION: There are no acute findings. Electronically Signed: Stewart Daly MD at 20:56 EDT Reading Location ID and State: [facility] / [place] , Service support , Discharge Plan Triage Chief Complaint: Hypertension ED Provider: Ricardo Singh Dx/Rx/DC Orders Clinical Impression: Hypertension, Morbid obesity Instructions: ED Hypertension New Begin Treatment Prescriptions: New losartan 25 mg tablet 25 mg PO DAILY Qty: 10 0RF No Action Digestive Probiotic 1.5 billion cell capsule 50 cell PO DAILY multivitamin tablet 1 tab PO DAILY Prilosec OTC 20 mg tablet,delayed release (DR/EC) 20 mg PO DAILY cholecalciferol (vitamin D3) 25 mcg (1,000 unit) capsule 1,000 unit PO DAILY calcium citrate-vitamin D3 [Citracal Regular] 250 mg-5 mcg (200 unit) tablet 1 tab PO DAILY riboflavin (vitamin B2) 400 mg tablet 400 mg PO DAILY promethazine 12.5 mg tablet 12.5 mg PO Q8H PRN (Reason: nausea and vomiting) ondansetron HCl 4 mg tablet 4 mg PO Q8H PRN (Reason: motion sickness) folic acid 1 mg tablet 1 mg PO 6XW omega-3 fatty acids 1,000 mg capsule 2,000 mg PO BID mecobalamin (vitamin B12) 1,000 mcg tablet,chewable 500 mcg PO DAILY Turmeric Curcumin 260 mg 1 tab PO BID Dulera 200-5 mcg/actuation HFA aerosol inhaler 2 puff inhalation BID loratadine [Allergy Relief (loratadine)] 10 mg tablet 10 mg PO DAILY famotidine 20 mg tablet 20 mg PO BID calcium carbonate 500 mg calcium (1,250 mg) tablet 500 mg PO DAILY albuterol sulfate 90 mcg/actuation HFA aerosol inhaler 2 puff inhalation Q4H PRN (Reason: shortness of breath or wheezing) Qty: 8.5 3RF Rx Instructions: administer with spacer hydroxyzine HCl 10 MG tablet 25 mg PO QHS fluticasone propionate 1 SPRAY spray,suspension 2 spray NASAL DAILY levocetirizine 5 MG tablet 5 mg PO DAILY magnesium oxide 400 MG capsule 400 mg PO BID Trulance 3 mg Tablet 3 mg PO DAILY methotrexate sodium 2.5 mg tablet 15 mg PO NAVARRETE Orencia ClickJect 125 mg/mL auto-injector 125 mg SUBCUT QWEEK Label Comments: USE DIRECTED prednisone 5 mg tablet 5 mg PO DAILY Label Comments: TAKE 1 TABLET BY MOUTH EVERY DAY duloxetine [Cymbalta] 60 mg capsule,delayed release(DR/EC) 60 mg PO DAILY Label Comments: TAKE 2 CAPSULES EVERY DAY BY ORAL ROUTE IN THE EVENING FOR 90 DAYS. Primary Care Provider: Ricardo Ma Referrals: Ricardo Ma MD [Primary Care Provider] - 3-5 Days Disposition Disposition: Home, Self Care
[2022-06-09 20:14] LABS: Anion Gap 8 (5-15); BUN 15 mg/dL (7-18); BUN/Creat Ratio 16.2 RATIO (10-20); Calcium,Total 9.4 mg/dL (8.5-10.1); Chloride 105 mmol/L (98-107); Creatinine, Serum 0.93 mg/dL (0.55-1.02); EST Glomerular Filtration Rate 71 mL/min (>60); Est Glom Filt Rate - Afr Amer 86 mL/min (>60); Estimated Creatinine Clearance 74.52 ml/min; Glucose 90 mg/dL (74-106); Sodium Level 141 mmol/L (136-145); Troponin-I HS 4 pg/mL (3.0-54.0)
[2022-06-09 20:15] VITALS: BP 159/94
--- NOTE | 2022-06-09 20:16 | RAD_ITS ---
STUDY: X-RAY CHEST REASON FOR EXAM: Female, 42 years old. CHEST PAIN Hypertension TECHNIQUE: XR Chest 2 Views COMPARISON: None FINDINGS: There is no demonstrated pleural abnormality. Normal size heart. Normal mediastinum and jerson. Normal visualized pulmonary arteries. Normal visualized aortic arch and descending thoracic aorta. Normal visualized thoracic spine. Normal visualized ribs, clavicles, and shoulders. There is no demonstrated abnormality of the visualized soft tissue structures of the upper abdomen. RAD/Chest PA and Lateral IMPRESSION: There are no acute findings. Electronically Signed: Stewart Daly MD at 20:56 EDT ,
[2022-06-09] MEDS: hydrALAZINE 20 MG/ML Vial 5 MG IV (20:27)
[2022-06-09 20:29] VITALS: BP 174/95; PULSE 77; RESP 16; O2SAT 98
[2022-06-09 21:02] VITALS: BP 148/94
[2022-06-09 21:58] VITALS: BP 161/88; PULSE 81; RESP 17; O2SAT 99
== END 2022-06-09 22:02 | disposition home or self-care (01) ==
PROVIDERS: Emergency Provider Emergency Medicine; PCP Family Medicine; Visit Provider Emergency Medicine
DX: I10 Essential (primary) hypertension (principal); E66.01 Morbid (severe) obesity due to excess calories; Z68.43 Body mass index [BMI] 50.0-59.9, adult
CPT/HCPCS: 71046; 80048; 84484; 85025; 96374; 99283; A4216

== ENCOUNTER → 2022-06-22 | Outpatient (CLI) | payer OTHER, SELFPAY ==
[2022-06-22 18:40] LABS: Color, Urine Yellow (Yellow); Glucose, Dipstick Normal (Normal); Ketone-Dipstick Negative (Negative); Leukocyte Esterase-Dipstick 25 /ul (Negative); Nitrite-Dipstick Negative (Negative); Occult Blood-Urine Negative /ul (Negative); Protein-Dipstick Negative (Negative); Specific Gravity, Urine 1.005 (1.002-1.030); Urine Bilirubin Dipstick Negative (Negative); Urine Clarity Clear (Clear); Urine Urobilinogen Normal (Normal)
== END | disposition home or self-care (01) ==
LOC: LABSPEC 14:36
PROVIDERS: Family Medicine; PCP Family Medicine; Referring Provider Family Medicine; Visit Provider Family Medicine
DX: N39.0 Urinary tract infection, site not specified (principal)
CPT/HCPCS: 81002; 87077; 87086; 87088; 87186

== ENCOUNTER 2022-06-28 13:38 | Outpatient (RCR) | payer OTHER, SELFPAY | END 2022-07-25 23:59 | LOC: NS 13:38 | PROVIDERS: PCP Family Medicine; Referring Provider Nurse Practitioner Family; Visit Provider Nurse Practitioner Family | DX: Z71.3 Dietary counseling and surveillance (principal); E66.01 Morbid (severe) obesity due to excess calories; Z68.44 Body mass index [BMI] 60.0-69.9, adult | CPT/HCPCS: 97803 ==

== ENCOUNTER → 2022-09-20 | Outpatient (CLI) | payer OTHER, SELFPAY ==
--- NOTE | 2022-09-20 11:57 | BI_ITS ---
MAMMOGRAPHY - BILATERAL SCREENING REASON FOR EXAM: Female, 42 years old. Routine annual screening examination. PERTINENT HISTORY: Both grandmothers with breast cancer. Aunt with breast cancer. Left breast ultrasound guided biopsy in 2015. TECHNIQUE: Digital bilateral breast norma (3D mammographic acquisition) in the CC and MLO projections. 2-D mediolateral oblique (MLO) and craniocaudad (CC) views of both breasts were obtained. CAD: Full Field Digital Mammography with Computer Added Detection was performed. COMPARISON: 09/15/2021, 07/31/2020. FINDINGS: Breast Composition: There are scattered areas of fibroglandular density. There are no dominant masses or suspicious calcifications. Stable biopsy marker in the left upper outer breast. Stable small benign-appearing axillary lymph nodes. No other significant abnormalities are identified. There has been no significant change since the prior study. BI/SCRN MAMM (CAD)W/NORMA BILAT IMPRESSION: Stable bilateral screening mammogram. Yearly follow-up mammogram recommended. (A) ASSESSMENT CATEGORY: BIRADS Category 2: Benign. A letter regarding these results will be sent to the patient by the facility within 30 days. Approximately 10% of breast cancers are not detected by mammography. A normal mammogram should not delay biopsy of a clinically suspicious abnormality. Electronically Signed: Gualberto Turner, at 10:15 EST ,
== END | disposition home or self-care (01) ==
LOC: OPBI 11:55
PROVIDERS: PCP Family Medicine; Visit Provider Obstetrics & Gynecology
DX: Z12.31 Encounter for screening mammogram for malignant neoplasm of breast (principal); Z80.3 Family history of malignant neoplasm of breast
CPT/HCPCS: 77063; 77067

== ENCOUNTER → 2022-12-13 | Outpatient (CLI) | payer OTHER, SELFPAY ==
--- NOTE | 2022-12-13 14:05 | RAD_ITS ---
INDICATION: bacterial pneumonia EXAMINATION/TECHNIQUE: X-RAY - XR Chest 2 Views COMPARISON: 06/09/2022 FINDINGS: LINES/DEVICES: None. LUNGS: No consolidation, edema or effusion. No pneumothorax. MEDIASTINUM AND CARDIOVASCULAR STRUCTURES: Cardiac silhouette not enlarged. Central airways and mediastinal contour are unremarkable. BONES AND SOFT TISSUES: Unremarkable. Stable findings. RAD/Chest PA and Lateral IMPRESSION: No radiographic evidence of acute cardiopulmonary disease. Electronically Signed: Altaf Urena MD, DREAD at 15:10 EDT ,
== END | disposition home or self-care (01) ==
LOC: MTRAD 14:04
PROVIDERS: PCP Family Medicine; Referring Provider Nurse Practitioner Family; Visit Provider Nurse Practitioner Family
DX: J15.9 Unspecified bacterial pneumonia (principal)
CPT/HCPCS: 71046

== ENCOUNTER 2023-01-06 13:00 | Outpatient (RCR) | payer OTHER, SELFPAY ==
--- NOTE | 2022-11-15 12:49 | HP.PTEVAL_ITS ---
Patient's Visit Information GALINDO HO is a 42 year old F referred to Physical Therapy by Dr. Ricardo Ma MD with a diagnosis of PFitis. Date of Evaluation: 11/15/22 Physical Therapist: Ricardo Simental, CUAUHTEMOC, OCS, CSCS - Visit Plan Frequency: 2x /Week Duration: 4-6 Weeks Plan: 2x/week for 4-6 for. 1. US nonthermal B heels, STM to B heels and plantarfascia and calves, HS and gastroc stretch. 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 2. orthotics on order for pt from [facility]. 3. educated on shockwave and ionto, but not covered by insurance, may consider these. - Subjective I have B heel pain for 4 months. Not sure what started it. I have RA and messing with meds. 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 Normal joint pain is 4/10 in most joints. Toe 3/4 hurt aloso on L foot. 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 Sleep is Ok, not keeping her up at night. Activities are effected in that getting started to mov e anywhere in after sitting for a bit, once she is up it stays the same. Walks stiff in am first thing. Trying ice and elevation. No meds, tried wall stretches and towel DF pulls and they don't help alot. No foot doctor. Basic Adls are getting done at home but painful. Hobbies: reading , kids 16,13,11. No regular exercises - Pain B heel pain Pain Intensity (Out of 10): 4 Pain Intensity Range: 4, 6 Comment: worse later in day before bed. - Objective Walks without antalgia today with weight through hindfoot and avoids pushoff. stands with weight through hindfoot. Walks safe and I. Trasnfers I bed and chair. Tender max to touch over both medial heel bones, not so much i8n achilles . AROM B ankles 4 degrees B, PF 60, inv/ev WFL. strength PF and DF 5/5, inv/ev 4+ B. reflexes 2+/4 B patella and achilles. sensation LE WNL to gross light touch in LE. - Balance/Special Test Scores Lower Extremity Functional Score: 43 - Goals Goal 1:: Pt I in use of orthotics and ex to manage condition Goal Time Frame: 4-6 Weeks Goal 2:: Pain in heels 0/10 at rest and 2/10 at most with ambulation Goal Time Frame: 4-6 Weeks Goal 3:: LEFS score 53 Goal Time Frame: 4-6 Weeks Goal 4:: Walk grocery store without pain increase. Goal Time Frame: 4-6 Weeks - Rehabilitation Potential Physical Therapy Diagnosis: PFitis, heel inflammation Rehabilitation Potential: Fair - Anticipated Interventions Patient/Client Instruction: Educate patient on: Condition, Plan of Care For the Purpose of:: To decrease pain, To improve muscle performance and motor function, To increase tolerance to activity/condition/position, To improve ability of physical actions for home/community/work/leisure Therapeutic Exercise to Include: Strength training, Flexibilty training, Passive ROM, Active ROM For the Purpose of:: To decrease swelling/inflammation, To increase ROM, To improve muscle performance and motor function, To increase tolerance to activity/condition/position, To improve gait and locomotor functions Manual Therapy Techniques to Include: Passive ROM, Soft tissue mobilization For the Purpose of:: To decrease pain, To decrease swelling/inflammation, To increase ROM, To improve muscle performance and motor function, To increase tolerance to activity/condition/position, To improve ability of physical actions for home/community/work/leisure Cryotherapy (ice pack, ice massage): Yes Ultrasound (thermal/non thermal): Yes - nonthermal B heels For the Purpose of:: To decrease pain, To decrease swelling/inflammation, To increase ROM, To improve nutrient delivery to tissue Thank you for the opportunity to evaluate your patient. For Medicare and Medicare HMO plans, please review the plan of care and approve it. It will need to be FAXED BACK to us at [phone] for Medicare purposes. For Medicare only, by signing this I certify the plan of care. Please let me know if there are questions or concerns regarding this plan of care. Physician Signature: Date:
--- NOTE | 2022-12-13 10:28 | HP.PTREVAL ---
Dr. Ricardo aM MD, It has been my pleasure to treat GALINDO HO over the last 7 visits for PFitis. Please see the progress note below for an update on the physical therapy plan of care! Subjective: Orthotics work well. Achiness if she wears them or stand too long. Pain over the weekend much improved to around 3/10. Exercises going well. Orthotics in all day now, weaned in over weekend. Walking room to room without much trouble. To doctor Anli next week. Doing wall stretch , rolling ball on foot. Activity close to normal. Objective/Function: Tender B calcaneus but mild R>L. Walking normal, steps normal with good forefoot usage. Gait looks better at foot with orthotics in. Plan Plan: Pt wishes to continue with home management vs more therapy and will f/u in 3 weeks to ensure progress. Will call prior if not going well to continue POC, will f/u with doctor next week. Balance/Gait/Functional tests - Balance/Special Test Scores Lower Extremity Functional Score: 57 Goals Goal 1:: Pt I in use of orthotics and ex to manage condition Goal Time Frame: 4-6 Weeks Goal Progress: Goal Met Goal 2:: Pain in heels 0/10 at rest and 2/10 at most with ambulation Goal Time Frame: 4-6 Weeks Goal Progress: Progressing Goal 3:: LEFS score 53 Goal Time Frame: 4-6 Weeks Goal Progress: Goal Met Goal 4:: Walk grocery store without pain increase. Goal Time Frame: 4-6 Weeks Goal Progress: not been lately Anticipated Interventions Patient/Client Instruction: Educate patient on: Condition, Plan of Care For the Purpose of:: To decrease pain, To improve muscle performance and motor function, To increase tolerance to activity/condition/position, To improve ability of physical actions for home/community/work/leisure Therapeutic Exercise to Include: Strength training, Flexibilty training, Passive ROM, Active ROM For the Purpose of:: To decrease swelling/inflammation, To increase ROM, To improve muscle performance and motor function, To increase tolerance to activity/condition/position, To improve gait and locomotor functions Manual Therapy Techniques to Include: Passive ROM, Soft tissue mobilization For the Purpose of:: To decrease pain, To decrease swelling/inflammation, To increase ROM, To improve muscle performance and motor function, To increase tolerance to activity/condition/position, To improve ability of physical actions for home/community/work/leisure Cryotherapy (ice pack, ice massage): Yes Ultrasound (thermal/non thermal): Yes - nonthermal B heels For the Purpose of:: To decrease pain, To decrease swelling/inflammation, To increase ROM, To improve nutrient delivery to tissue Please do not hesitate to contact me at [phone] by phone or if you have questions or concerns regarding this new plan of care! Sincerely, Ricardo Simental, DPT, OCS, CSCS
--- NOTE | 2023-01-06 13:17 | HP.PTDCSUM ---
It has been my pleasure to treat GALINDO HO referred by Dr. Ricardo Ma MD, with the diagnosis of PFitis for a total of 8 visit(s). Discharge Date: 01/06/23 Please see the following information for a summary of their discharge status. Subjective: I am doing OK. Not as good as she had hoped. Still has pain at night and hobbles most nights around bedtime. B foot pain to 4/10 which does not keep her up and is just stiff in the am. Wears orthotics all day and loves them. Did not see doctor as she was rescheduled for January. B heel pain Pain Intensity (Out of 10): 2 % Improvement: 80 Objective/Function: Good AROM of foot and ankle B but tightness persists in gastroc. Tenderness in PF and heel is much better B. Walking without pain today even on heels. Goal 1:: Pt I in use of orthotics and ex to manage condition Goal Progress: Goal Met Goal 2:: Pain in heels 0/10 at rest and 2/10 at most with ambulation Goal Progress: Progressing Goal 3:: LEFS score 53 Goal Progress: Goal Met Goal 4:: Walk grocery store without pain increase. Goal Progress: Goal Met Plan: d/c, pt to doctor in 3 weeks and i expect her to keep getting better. If progress stagnates, would recommned ionto, dry needle or pulse wave all of which would be added expense for patient. Possible foot doctor referral thinks patient for possible injection if progress goes BW. If there are questions or concerns regarding this patient's physical therapy, please feel free to call me at [phone]. Thank you for the referral of this patient. Sincerely, Ricardo Simental, DPT, OCS, CSCS Balance/Gait/Functional tests - Balance/Special Test Scores Lower Extremity Functional Score: 57
== END 2023-01-06 19:00 | disposition home or self-care (01) ==
LOC: PT 13:00
PROVIDERS: PCP Family Medicine; Referring Provider Family Medicine; Visit Provider Family Medicine
DX: M72.2 Plantar fascial fibromatosis (principal); M06.9 Rheumatoid arthritis, unspecified
CPT/HCPCS: 97035; 97140; 97161; 97164; 97530; 97760; 97763

== ENCOUNTER → 2023-09-21 | Outpatient (CLI) | payer OTHER, SELFPAY ==
--- NOTE | 2023-09-21 10:04 | BI_ITS ---
MAMMOGRAPHY - BILATERAL SCREENING 3-D TOMOSYNTHESIS REASON FOR EXAM: Female, 43 years old. Routine annual screening mammogram. PERTINENT HISTORY: Both grandmothers and aunt with breast cancer. Left ultrasound guided biopsy in 2015. TECHNIQUE: 2-D mammograms and 3-D Tomosynthesis of the breast (s) were performed. CAD was performed. COMPARISON: September 20, 2022, September 15, 2021 FINDINGS: The breast composition is almost entirely fat. Normal lymph nodes and scattered benign calcifications, unchanged. No dominant masses, suspicious microcalcifications, asymmetries, skin thickening or nipple retraction. BI/SCRN MAMM (CAD)W/NORMA BILAT IMPRESSION: No interval change and no mammographic signs of malignancy. Routine yearly mammogram recommended. ASSESSMENT CATEGORY: BIRADS Category 2: Benign. A letter regarding these results will be sent to the patient by the facility within 30 days. FOLLOW UP RECOMMENDATION: Yearly follow up mammogram recommended. (A) Approximately 10% of breast cancers are not detected by mammography. A normal mammogram should not delay biopsy of a clinically suspicious abnormality. Electronically Signed: Calixto Paulino MD at 12:57 EST ,
== END | disposition home or self-care (01) ==
LOC: OPBI 10:03
PROVIDERS: PCP Family Medicine; Referring Provider Obstetrics & Gynecology; Visit Provider Obstetrics & Gynecology
DX: Z12.31 Encounter for screening mammogram for malignant neoplasm of breast (principal)
CPT/HCPCS: 77063; 77067

== ENCOUNTER 2024-05-07 14:49 | Emergency (ER) | payer OTHER, SELFPAY ==
[2024-05-07 14:50] VITALS: BP 147/77; PULSE 73; RESP 18; TEMP 36.2; O2SAT 99; BMI 55.6
--- NOTE | 2024-05-07 15:43 | EDS_ITS ---
HPI History of Present Illness Chief Complaint: Syncope [facility] Medical History (Updated 09/05/23 @ 13:34 by Carolyn Matamoros) Rheumatoid arthritis Abnormal mammogram Depression Inflammatory bowel disease Vestibular disequilibrium Liver injury Anxiety Fibromyalgia Perianal fistula Home Medications ?Medication ?Instructions ?Recorded ?Last Taken ?Type Bifidobacterium infantis 1.5 50 cell PO DAILY 07/05/18 Unknown History billion cell capsule (Digestive Probiotic) multivitamin 1 tab PO DAILY 07/05/18 Unknown History fluticasone propionate 50 2 spray NASAL DAILY 03/30/20 Unknown History mcg/actuation nasal spray,suspension hydroxyzine HCl 10 mg tablet 25 mg PO QHS 03/30/20 Unknown History levocetirizine 5 mg tablet 5 mg PO DAILY 03/30/20 Unknown History magnesium oxide 400 mg PO BID 03/30/20 Unknown History calcium citrate 250 mg 1 tab PO DAILY 09/02/21 Unknown History calcium-vitamin D3 5 mcg (200 unit) tablet (Citracal Regular) cholecalciferol (vitamin D3) 25 1,000 unit PO DAILY 02/17/22 Unknown History mcg (1,000 unit) capsule folic acid 1 mg tablet 1 mg PO 6XW 02/17/22 Unknown History mecobalamin (vitamin B12) 1,000 500 mcg PO DAILY 02/17/22 Unknown History mcg chewable tablet methotrexate sodium 2.5 mg tablet 15 mg PO NAVARRETE 02/17/22 Unknown History omega-3 fatty acids 1,000 mg 2,000 mg PO BID 02/17/22 Unknown History capsule ondansetron HCl 4 mg tablet 4 mg PO Q8H PRN motion sickness 02/17/22 Unknown History promethazine 12.5 mg tablet 12.5 mg PO Q8H PRN nausea and 02/17/22 Unknown History vomiting riboflavin (vitamin B2) 400 mg 400 mg PO DAILY 02/17/22 Unknown History tablet calcium carbonate 500 mg PO DAILY 02/22/22 Unknown History loratadine 10 mg tablet (Allergy 10 mg PO DAILY 02/22/22 Unknown History Relief (loratadine)) duloxetine 60 mg capsule,delayed 60 mg PO DAILY 06/09/22 Unknown History release (Cymbalta) prednisone 5 mg tablet 5 mg PO DAILY 06/09/22 Unknown History nebivolol 10 mg tablet 10 mg PO DAILY #30 tabs 09/09/22 Unknown Rx nebivolol 20 mg tablet (Bystolic) 20 mg PO DAILY 09/09/22 Unknown History buspirone 5 mg tablet See Rx Instructions .Route 10/10/23 Unknown Rx .COMPLEX #60 tabs infliximab 100 mg intravenous mg .Route 10/13/23 Unknown History solution (Remicade) metoclopramide HCl 5 mg tablet 5 mg PO Q8H PRN PRN headache 3 05/07/24 Unknown Rx (Reglan) days #10 tabs Allergy/AdvReac Type Severity Reaction Status Date / Time banana Allergy Unknown Hives Verified 05/07/24 14:50 Penicillins Allergy Unknown Rash/Hives Verified 05/07/24 14:50 strawberry Allergy Unknown Hives Verified 05/07/24 14:50 Sulfa (Sulfonamide Allergy Unknown Hives Verified 05/07/24 14:50 Antibiotics) watermelon Allergy Unknown Hives Verified 05/07/24 14:50 Corticosteroids AdvReac Liver Verified 05/07/24 14:50 (Glucocorticoids) failure Family History Father Hypertension Gout Mother Hypotension Grandmother Breast cancer Grandmother Breast cancer Aunt Breast cancer Surgical History S/P ACL reconstruction History of tonsillectomy History of cholecystectomy Gastric bypass status for obesity (~2012) H/O: hysterectomy (~2016) Social History adopted: No household members: family housing: house number of children: 3 current occupational status: employed 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 current occupational exposures/hazards: No pets and animals: Yes history of recent travel: No Smoking Status: Never smoker second hand exposure: No alcohol intake: current alcohol intake frequency: holidays/special occasions only substance use type: does not use diet: gluten free, low salt and other caffeine: No what type of physical activity do you participate in: none seatbelt use: always do you feel safe at home: Yes 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 EXAM Physical Exam Const Vital Signs: 05/07/24 14:50 05/07/24 16:49 05/07/24 18:00 Temperature 97.2 F L Temperature Source Temporal Pulse Rate 73 70 68 Respiratory Rate 18 18 17 Blood Pressure 147/77 H 129/64 H 109/78 Blood Pressure Mean 100 85 88 Pulse Ox 99 98 98 Oxygen Delivery Method Room Air Room Air Room Air 05/07/24 18:15 Temperature 98.1 F Temperature Source Pulse Rate 78 Respiratory Rate 17 Blood Pressure 112/53 L Blood Pressure Mean 72 Pulse Ox 98 Oxygen Delivery Method [facility] Narrative Medical decision making narrative: HISTORY OF PRESENT ILLNESS: 46-year-old female presents with concern about a syncopal episode that she had at 215 p.m. she notes she fell down striking the right side of her face. Patient has had headache all day. She does note headaches started yesterday evening at approximate 7 PM is been gradual in onset. Patient states she is yelling at her daughter when she lost consciousness. She know she fell down and hit her head. Denies any chest pain, shortness of breath. Denies any personal or family history of brain aneurysms, connective tissue disorders. Patient denies sudden onset or thunderclap headache, denies maximal intensity within 1 minute, vomiting, neck pain, stiffness, changes in vision, fever, history malignancy, or seizures . She does not take blood thinners. REVIEW OF SYSTEMS: Pertinent positives: Syncope, headache Pertinent negatives: Chest pain, abdominal pain, palpitations PHYSICAL EXAM: Nursing triage notes reviewed, Vital signs reviewed Constitutional: please see mdm HENT: MMM Eyes: Pupils equal round and reactive to light, Extraocular muscles intact Neck: No stridor, no JVD, full neck ROM Lungs: Clear to auscultation, No wheezing or rales. No increased work of breathing, no conversational dyspnea, no accessory muscle use, no nasal flaring. No respiratory distress noted Heart: Regular rate and rhythm, No murmurs, No rubs and No gallops, 2+ distal pulses (radial, femoral, posterior tibial) in all extremities Abdomen: Soft, there is no tenderness, rigidity, rebound or guarding, no obvious peritoneal signs, no palpable pulsatile abdominal masses, no auscultated abdominal bruit : No CVAT Extremities: No edema Neuro: Alert and oriented x3, neuro exam at baseline, cranial nerves II through XII are intact. No pain with extraocular muscle movement. There is negative test of skew. 5 of 5 strength in upper and lower extremities in flexion extension. Intact sensation to light touch in upper and lower extremity de rmatomes. No truncal or extremity ataxia. No dysdiadochokinesia. Normal gait. 2+ reflexes in upper and lower extremities. No meningeal signs. Negative Babinski. NIH of 0. Skin: No rash or lesions noted MEDICAL DECISION MAKING: Chief Complaint: Syncope, headache External records reviewed: Imaging reviewed: No recent advanced imaging of the brain Factors affecting care: Obesity, TED, hypertension, anxiety Social determinants of health: none History obtained from others: none Consults: none [facility] Narrative: Patient was hemodynamically stable, afebrile, nontoxic-appearing. Exam without focal neurologic deficits, NIH 0. I considered the following differential diagnosis: Arrhythmia, anemia, electro disturbance, dehydration, subarachnoid hemorrhage, ICH I gave IV fluids (1 L), 5 mg IV Reglan, Tylenol for symptomatic control. While I considered pulm embolism as a potential cause of patient's syncope the patient had no chest pain, shortness of breath and low risk Wells score. Will consider obtaining a CT of the chest however thought this was not indicated at this time given low risk Wells score While I considered aortic dissection the patient had no history of connective tissue disorders, pulse deficits or focal neurologic deficits to suggest aortic dissection. I consider obtaining a CT of the chest abdomen pelvis however thought this was not indicated at this time given lack of physical exam findings to suggest this etiology. ALL IMAGES (IF OBTAINED) HAVE BEEN PERSONALLY REVIEWED AND INTERPRETED BY MYSELF. EKG with normal sinus rhythm, left axis deviation, normal intervals, no STEMI CBC without leukocytosis, severe anemia, no thrombocytopenia. CT scan of brain shows no evidence of acute intracranial normality such as ICH I have personally reviewed the patient's chest x-ray. Chest x-ray is unremarkable for pulmonary edema, pneumothorax, pneumonia or focal cardiopulmonary abnormality. High-sensitivity troponin is negative, no evidence of myocardial ischemia Urine test is negative BMP without evidence of significant electrolyte abnormalities, no anion gap, no acute kidney injury. On reassessment patient had a nonfocal neuroexam. Noted symptomatic improvement after Reglan. My suspicion is that the patient had a vasovagal event given her yelling at her daughter and syncope. Low suspicion for ACS, PE or dissection at this time. CT scan ruled out subarachnoid hemorrhage, ICH. No signs of significant cardiac abnormalities. The patient is appropriate discharge home with close outpatient follow-up for echocardiogram/Holter monitor/stress test per her PCPs recommendation. The patient and/or family, caregivers express understanding. The patient and/or family, caregivers agrees with the plan. Shared decision making: I will have a discussion with the patient and or visitors regarding risk/benefits of further testing or admission. They will be made aware of of the risk/benefits inherent in this decision they will be given the opportunity to voice understanding. Total critical care time today provided was at least 0 minutes. This excludes separately billable procedures. Critical care time (if documented) is secondary to the patient having high probability of clinically significant/life threatening deterioration in the patient's condition which required my urgent intervention. Impression: 1. Syncope 2. Headache Dispo: Discharge home This note was generated with Moven dictation software. It may contain incorrect words, spelling, and punctuation that were not noted in review of the chart prior to signing. Lab Data Labs: Laboratory Results - last 24 hr 05/07/24 05/07/24 15:14 16:16 WBC 10.4 RBC 4.12 L Hgb 13.5 Hct 39.4 MCV 95.6 MCH 32.8 H MCHC 34.3 RDW Std Deviation 47.9 H RDW Coeff of Tanvi 13.7 Plt Count 407 MPV 10.5 Sodium 137 Potassium 3.9 Chloride 101 Carbon Dioxide 31.0 Anion Gap 5 BUN 12 Creatinine 0.80 Estim Creat Clear Calc 140.42 Est GFR (MDRD) Af Amer 100 Est GFR (MDRD) Non-Af 83 BUN/Creatinine Ratio 15.0 Glucose 82 Calcium 9.6 Troponin I High Sens < 3 L Urine Test Negative Radiography Diagnostic Testing: Clinical Impression(s) from Imaging Studies Brain CT 05/07/24 16:07 IMPRESSION: 1. No acute intracranial abnormality. 2. Left maxillary sinus retention cyst or polyp. Electronically Signed: Nakul Yin MD at 16:53 EDT , Chest X-Ray 05/07/24 16:35 IMPRESSION: No radiographic evidence of acute cardiopulmonary disease. Electronically Signed: Nakul Yin MD at 16:51 EDT , Discharge Plan Triage Chief Complaint: Syncope ED Provider: iRos Bishop Dx/Rx/DC Orders Instructions: ED Fainting, Vagal Reaction Prescriptions: New metoclopramide HCl [Reglan] 5 mg tablet 5 mg PO Q8H PRN PRN (Reason: headache) 3 Days Qty: 10 0RF No Action Digestive Probiotic 1.5 billion cell capsule 50 cell PO DAILY multivitamin tablet 1 tab PO DAILY cholecalciferol (vitamin D3) 25 mcg (1,000 unit) capsule 1,000 unit PO DAILY calcium citrate-vitamin D3 [Citracal Regular] 250 mg-5 mcg (200 unit) tablet 1 tab PO DAILY nebivolol [Bystolic] 20 mg tablet 20 mg PO DAILY nebivolol 10 mg tablet 10 mg PO DAILY Qty: 30 0RF riboflavin (vitamin B2) 400 mg tablet 400 mg PO DAILY promethazine 12.5 mg tablet 12.5 mg PO Q8H PRN (Reason: nausea and vomiting) ondansetron HCl 4 mg tablet 4 mg PO Q8H PRN (Reason: motion sickness) folic acid 1 mg tablet 1 mg PO 6XW omega-3 fatty acids 1,000 mg capsule 2,000 mg PO BID mecobalamin (vitamin B12) 1,000 mcg tablet,chewable 500 mcg PO DAILY loratadine [Allergy Relief (loratadine)] 10 mg tablet 10 mg PO DAILY calcium carbonate 500 mg calcium (1,250 mg) tablet 500 mg PO DAILY infliximab [Remicade] 100 mg recon soln .Route Rx Instructions: iv infusion hydroxyzine HCl 10 MG tablet 25 mg PO QHS fluticasone propionate 1 SPRAY spray,suspension 2 spray NASAL DAILY levocetirizine 5 MG tablet 5 mg PO DAILY magnesium oxide 400 MG capsule 400 mg PO BID methotrexate sodium 2.5 mg tablet 15 mg PO NAVARRETE prednisone 5 mg tablet 5 mg PO DAILY Patient Comments: TAKE 1 TABLET BY MOUTH EVERY DAY duloxetine [Cymbalta] 60 mg capsule,delayed release(DR/EC) 60 mg PO DAILY Patient Comments: TAKE 2 CAPSULES EVERY DAY BY ORAL ROUTE IN THE EVENING FOR 90 DAYS. buspirone 5 mg tablet See Rx Instructions .ROUTE .COMPLEX Qty: 60 12RF Dose Instruction: TAKE 1 TABLET BY MOUTH TWICE A DAY Rx Instructions: TAKE 1 TABLET BY MOUTH TWICE A DAY Primary Care Provider: Ricardo Ma Referrals: Ricardo Ma MD [Primary Care Provider] - Activity Restrictions/Additional Instructions: Thank you for trusting us with your care today! Please take Tylenol (2 pills, 650 mg), ibuprofen (2 pills, 400 mg) every 6 hours as needed for pain and fever control. Please take Reglan as needed for headache control. Please return to the emergency department if your symptoms change or worsen. Please follow with your primary care physician for further outpatient evaluation and management. Print Language: Azeri Disposition Disposition: Home, Self Care Discharge Date/Time: 05/07/24 18:23
--- NOTE | 2024-05-07 16:07 | CT_ITS ---
EXAM: CT HEAD WITHOUT INTRAVENOUS CONTRAST CLINICAL INDICATION: Headache TECHNIQUE: Multiple axial images were obtained of the head without intravenous contrast. This CT exam was performed using one or more of the following dose reduction techniques: automated exposure control, adjustment of the mA and/or kV according to patient size, and/or use of iterative reconstruction technique. COMPARISON: No relevant prior studies available. FINDINGS: BRAIN AND EXTRA-AXIAL SPACES: Unremarkable. No intra- or extra-axial hemorrhage. No evidence of acute infarct. No intracranial mass or mass effect. There is preservation of the rain/white matter interface. Posterior fossa structures are unremarkable. Ventricles are appropriate for age. No hydrocephalus. Basal cisterns are patent. BONES/JOINTS: Unremarkable. No discrete lytic or blastic abnormalities. SINUSES: There is retention cyst or polyp in the left maxillary sinus. MASTOID AIR CELLS: Unremarkable. Clear. ORBITS: Visualized globes, extraocular muscles, optic nerves and retrobulbar fat appear unremarkable. CT/Brain/Head without Contrast IMPRESSION: 1. No acute intracranial abnormality. 2. Left maxillary sinus retention cyst or polyp. Electronically Signed: Nakul Yin MD at 16:53 EDT ,
[2024-05-07 16:16] LABS: Hematocrit 39.4 % (37-47); Hemoglobin 13.5 g/dL (12.0-15.0); Mean Corp Hgb Conc 34.3 g/dL (32-36); Mean Corpuscular Hgb 32.8 pg (27.0-32.0); Mean Corpuscular Volume 95.6 fL (81-99); Mean Platelet Vol. 10.5 fl (6.2-12.0); Platelet Count 407 K/mm3 (150-450); RBC Distribution Width CV 13.7 % (11.6-14.6); RBC Distribution Width SD 47.9 fl (35.1-43.9); Red Blood Count 4.12 M/mm3 (4.2-5.4); White Blood Count 10.4 K/mm3 (4.4-11.0)
[2024-05-07] MEDS: 0.9% Normal Saline (1000mL) 1,000 ML 1000 ML IV (16:21)
[2024-05-07] MEDS: Metoclopramide 10 MG/2 ML Vial 5 MG IV (16:21)
[2024-05-07] MEDS: Acetaminophen 500 MG Tablet PO (16:22)
--- NOTE | 2024-05-07 16:27 | NURSING ---
NO OLD EKGS
[2024-05-07 16:32] LABS: Anion Gap 5 (5-15); BUN 12 mg/dL (7-18); Calcium,Total 9.6 mg/dL (8.5-10.1); Chloride 101 mmol/L (98-107); EST Glomerular Filtration Rate 83 mL/min (>60); Est Glom Filt Rate - Afr Amer 100 mL/min (>60); Estimated Creatinine Clearance 140.42 ml/min; Glucose 82 mg/dL (74-106); Potassium 3.9 mmol/L (3.5-5.1); Sodium Level 137 mmol/L (136-145); Troponin-I HS < 3 pg/mL (3.0-54.0)
--- NOTE | 2024-05-07 16:35 | RAD_ITS ---
EXAM: XR CHEST, 1 VIEW CLINICAL INDICATION: Syncope TECHNIQUE: Frontal view of the chest. COMPARISON: 12/13/2022 FINDINGS: LUNGS AND PLEURAL SPACES: Unremarkable. No consolidation or edema. No pneumothorax. No effusion. HEART: Unremarkable. Cardiac silhouette not enlarged. MEDIASTINUM: Central airways and mediastinal contour are unremarkable. BONES/JOINTS: Unremarkable. No acute fracture. SOFT TISSUES: Unremarkable. RAD/Chest 1 View (Portable) IMPRESSION: No radiographic evidence of acute cardiopulmonary disease. Electronically Signed: Nakul Yin MD at 16:51 EDT ,
[2024-05-07 16:41] LABS: Internal QC Validated? YES +Cl - CLEAR BKGD; Pregnancy, Urine Negative Negative
[2024-05-07 16:49] VITALS: BP 129/64; PULSE 70; RESP 18; O2SAT 98
[2024-05-07 18:00] VITALS: BP 109/78; PULSE 68; RESP 17; O2SAT 98
[2024-05-07 18:15] VITALS: BP 112/53; PULSE 78; RESP 17; TEMP 36.7; O2SAT 98
== END 2024-05-07 18:23 | disposition home or self-care (01) ==
PROVIDERS: Emergency Provider Emergency Medicine; PCP Family Medicine; Visit Provider Emergency Medicine
DX: R55 Syncope and collapse (principal)
CPT/HCPCS: 70450; 71045; 80048; 81025; 84484; 85027; 93005; 96361; 96374; 99283; J7030; A4216

== ENCOUNTER → 2024-08-16 | Outpatient (CLI) | payer OTHER, SELFPAY | END | disposition home or self-care (01) | PROVIDERS: PCP Family Medicine; Referring Provider Family Medicine; Visit Provider Family Medicine | DX: R19.7 Diarrhea, unspecified (principal) ==

== ENCOUNTER → 2024-09-30 | Outpatient (CLI) | payer OTHER, SELFPAY ==
--- NOTE | 2024-09-30 12:43 | RAD_ITS ---
STUDY: X-RAY - LEFT FOOT CLINICAL: Female, 44 years old. Two weeks, mid foot, left pain. TECHNIQUE: 3 views of the left foot. COMPARISON: None. FINDINGS: Intact talus, calcaneus, and tarsal bones. There are small plantar and posterior calcaneal spurs. Normal visualized subtalar, talonavicular, calcaneocuboid, tarsal and tarsometatarsal articulations. Normal metatarsi. Normal metatarsophalangeal joint of the great toe. Normal tibial and fibular sesamoid bones. Normal interphalangeal joint of the great toe. Normal phalanges of the great toe. Normal second through fifth metatarsophalangeal joints. Normal interphalangeal joints and phalanges of the lesser toes. The soft tissue structures are unremarkable. There is no demonstrated fracture. RAD/Foot min 3 Views IMPRESSION: Small plantar and posterior calcaneal spurs. No demonstrated fracture. Electronically Signed: Dilan Walter MD at 12:45 EST ,
== END | disposition home or self-care (01) ==
LOC: MTRAD 12:39
PROVIDERS: PCP Family Medicine; Referring Provider Family Medicine; Visit Provider Family Medicine
DX: M79.672 Pain in left foot (principal)
CPT/HCPCS: 73630

== ENCOUNTER → 2024-11-01 | Outpatient (CLI) | payer OTHER, SELFPAY ==
--- NOTE | 2024-11-01 08:50 | BI_ITS ---
PROCEDURE: SCRN MAMM (CAD)W/NORMA BILAT REASON FOR EXAM: F, Age 44 y/o, grandmothers with breast cancer. Aunt with breast cancer. Routine annual follow-up. TECHNIQUE: Bilateral screening digital breast tomosynthesis with 2D and 3D images. Computer aided detection. COMPARISON: Prior exam(s) dating back to September 21, 2023.. FINDINGS: There are scattered areas of fibroglandular density. Stable examination. Stable small bilateral fat containing axillary lymph nodes. No suspicious masses, areas of developing architectural distortion, or suspicious calcifications. BI/SCRN MAMM (CAD)W/NORMA BILAT IMPRESSION: BI-RADS 2: BENIGN. RECOMMEND ANNUAL MAMMOGRAPHIC SCREENING. Follow-up code: Routine Follow-up The patient will be notified of the results by letter. Reading Location: [place] [id number]
== END | disposition home or self-care (01) ==
LOC: OPBI 08:50
PROVIDERS: PCP Family Medicine; Referring Provider Nurse Practitioner Family; Visit Provider Nurse Practitioner Family
DX: Z12.31 Encounter for screening mammogram for malignant neoplasm of breast (principal); Z80.3 Family history of malignant neoplasm of breast
CPT/HCPCS: 77063; 77067

== ENCOUNTER → 2024-12-16 | Outpatient (CLI) | payer OTHER, SELFPAY ==
--- NOTE | 2024-12-16 13:04 | ECHOCS_ITS ---
Reason For Study Reason For Study: DYSPNEA Procedure This was a 2D Doppler, Color Flow transthoracic echocardiogram. The study was technically difficult. Contrast injection was performed. Exam performed in department. Left Ventricle Normal LV size. Left ventricular systolic function is normal. The left ventricular ejection fraction is 65 %. No regional wall motion abnormalities noted. Right Ventricle Normal RV size. Normal systolic function. Atria Normal left atrium. Normal right atrium. Mitral Valve Normal mitral valve. Tricuspid Valve Normal tricuspid valve. Aortic Valve Trisinus/trileaflet aortic valve. Pulmonic Valve Normal pulmonic valve. Great Vessels Normal aortic root. The pulmonary artery is normal size. Inferior vena cava collapse with respiration. Pericardium/Pleural No pericardial effusion. Medication 22 gauge I.V. with prn adaptor inserted into right arm. Diluted definity 1ml given slow IV push to enhance endocardial definition. MMode/2D Measurements & Calculations LVIDd: 4.6 cm IVSd: 0.72 cm LVOT diam: 2.1 cm LVIDs: 3.2 cm LVPWd: 1.2 cm FS: 31.4 % LVOT area: 3.5 cm2 Ao root diam: 3.3 cm LAV(MOD-bp): 36.5 ml LVAd ap4: 35.7 cm2 LAV(MOD-bp) Indexed: 14.5 ml/m2 LVLd ap4: 7.7 cm LAV(MOD-sp2): 30.4 ml EDV(MOD-sp4): 137.0 ml LAV(MOD-sp4): 37.6 ml EDV(sp4-el): 140.9 ml LVAs ap4: 15.6 cm2 LVLs ap4: 6.2 cm ESV(MOD-sp4): 34.9 ml ESV(sp4-el): 33.1 ml EF(MOD-sp4): 74.6 % EF(sp4-el): 76.5 % SV(MOD-sp4): 102.1 ml SV(sp4-el): 107.9 ml LA A4 area: 14.8 cm2 SI(MOD-sp4): 40.5 ml/m2 LA dimension(2D): 3.6 cm RA A4 area: 13.6 cm2 Time Measurements MV dec time: 0.20 sec Doppler Measurements & Calculations MV E max alex: 77.7 cm/sec Lat Peak E' Alex: 17.3 cm/sec Med Peak E' Alex: 11.1 cm/sec MV A max alex: 63.8 cm/sec E/E' lat: 4.5 E/E' med: 7.0 MV E/A: 1.2 MV V2 max: 84.3 cm/sec MV dec slope: 392.7 cm/sec2 Ao V2 max: 133.1 cm/sec MV max P.8 mmHg Ao max P.1 mmHg MV V2 mean: 61.1 cm/sec Ao V2 mean: 93.8 cm/sec MV mean P.6 mmHg Ao mean P.0 mmHg MV V2 VTI: 28.8 cm Ao V2 VTI: 29.6 cm MVA(VTI): 3.4 cm2 AV (velocity ratio): 0.96 MAYELIN(I,D): 3.3 cm2 MAYELIN(V,D): 3.2 cm2 LV V1 max: 122.0 cm/sec SV(LVOT): 98.3 ml PA V2 max: 106.8 cm/sec LV V1 max P.0 mmHg PA V2 mean: 69.8 cm/sec LV V1 mean P.7 mmHg LV V1 mean: 91.4 cm/sec LV V1 VTI: 28.3 cm ECHO/Echo Complete W/ Contrast Interpretation Summary Normal LV size. Left ventricular systolic function is normal. The left ventricular ejection fraction is 65 %. Contrast injection was performed. Ordering Physician: Mateo Hunter Referring Physician: Mateo Hunter Performed By: Heather Craven RCS
== END | disposition home or self-care (01) ==
LOC: CVS 13:02
PROVIDERS: PCP Family Medicine; Referring Provider Internal Medicine Cardiovascular Disease; Visit Provider Internal Medicine Cardiovascular Disease
DX: R06.09 Other forms of dyspnea (principal)
CPT/HCPCS: 93306; Q9957; A4216; C8929

== ENCOUNTER 2025-02-04 09:00 | Outpatient (RCR) | payer OTHER, SELFPAY ==
--- NOTE | 2024-12-04 08:45 | HP.PTEVAL ---
Patient's Visit Information Visit Information Visit Information: GALINDO HO is a 44 year old F referred to Physical Therapy by TONY DICKSON with a diagnosis of Knee OA. Date of Evaluation: 12/04/24 Physical Therapist: YAN Mason Visit Plan Frequency: 2x /Week Duration: 2 Months Plan: 2X/ week for 8 weeks for AT for B knee, hip and ankle strength. Some core strength and general mobility would be beneficial as well with a HEP. Subjective Subjective: Pt saw her RA last week and had some B deep knee pain. She has fallen. She heard a popping sound and she went on vacation and over vacation she had bruising up the side of her leg and but her in a walking boot for 9 weeks. Both of her ankle hurt. She was seen 2 years ago for plantar fasciitis and does a lot of stretching. thinks that she needs to move more and she would not hurt. She has fallen 3X since April and smashes her face. She passed out in April. She is getting worked up for that. In May she was told her blood pressure had dropped. 10 days before her infusion she develops syncope. She is now having episodes of atrial tachycardia. She is getting an Echo and some point. She has not passed out since that last time in April. She reports that her knee pain is deep and constant and always hot. Her x-rays show OA. Everyone keeps saying to lose weight. Her knee pain hurts the most after she tries to walk around or push to do anything. She can do steps but she is SOB. Pain B knee pain: Pain Intensity (Out of 10): 4 Objective Objective: Gait: Walks with forefoot abduction, decreased stride and wider NORBERTO Pt is able to heel raise but increase pain in R heel and toe raise but with B decreased ROM LE MMT: R hip flex 12.3 and L 11.3 R knee ext 25.1 and L 25.6 R knee flex 16.7 and L 16.7 Hip ABD B 4/5 and hip add 4/5 B knee AROM:R -2 to 117 and L -2 to 114 degrees knee flexion Good HS length. Some B quad tightness. Bridge: Able to do a full bridge Balance/Special Test Scores Lower Extremity Functional Score: 31 Goals Goal 1:: I HEP Goal Time Frame: 8-12 Weeks Goal 2:: Increase LE strength (at the time of the eval: LE MMT: R hip flex 12.3 and L 11.3 R knee ext 25.1 and L 25.6 R knee flex 16.7 and L 16.7 Hip ABD B 4/5 and hip add 4/5). Goal Time Frame: 8-12 Weeks Goal 3:: Pt to report 50% less B knee pain with walking Goal Time Frame: 8-12 Weeks Goal 4:: Be able to go up and down the steps recip with 1 hand rail with 50% less pain Goal Time Frame: 8-12 Weeks Rehabilitation Potential Rehabilitation Potential: Good Anticipated Interventions Patient/Client Instruction: Educate patient on: Condition and Plan of Care For the Purpose of:: To decrease pain, To increase ROM, To improve nutrient delivery to tissue, To improve muscle performance and motor function, To improve ability to perform ADL's, To increase tolerance to activity/condition/position, To improve performance and independence with ADL's, To decrease level of supervision to perform tasks, To improve ability of physical actions for home/community/work/leisure, To improve gait and locomotor functions, To improve health of tissue, To decrease soft tissue restriction and To increase flexibility/ROM Therapeutic Exercise to Include: Strength training, Endurance training, Flexibilty training, Gait and locomotor training, Passive ROM and Active ROM For the Purpose of:: To decrease pain, To increase ROM, To improve nutrient delivery to tissue, To improve muscle performance and motor function, To improve ability to perform ADL's, To increase tolerance to activity/condition/position, To improve performance and independence with ADL's, To decrease level of supervision to perform tasks, To improve ability of physical actions for home/community/work/leisure, To improve gait and locomotor functions, To improve health of tissue, To decrease soft tissue restriction and To increase flexibility/ROM Functional Training to Include: Gait training For the Purpose of:: To improve gait and locomotor functions Text: Thank you for the opportunity to evaluate your patient. For Medicare and Medicare HMO plans, please review the plan of care and approve it. It will need to be FAXED BACK to us at [phone] for Medicare purposes. For Medicare only, by signing this I certify the plan of care. Please let me know if there are questions or concerns regarding this plan of care. Physician Signature: Date:
--- NOTE | 2025-02-04 09:36 | HP.PTDCSUM ---
Discharge Summary D/C summary: It has been my pleasure to treat GALINDO HO referred by TONY DICKSON, with the diagnosis of Knee OA for a total of 16 visit(s). Discharge Date: 02/04/25 Please see the following information for a summary of their discharge status. Subjective Subjective: Pt has no knee pain today. She had last pain Monday being cramped in the car. She is doin HEP on land and her parents have an inground pool and will do that when the weather is warmer. Pain B knee pain: Pain Intensity (Out of 10): 4 R hip: Pain Intensity (Out of 10): 3 B ankles: Pain Intensity (Out of 10): 4 Overall jt pn: Pain Intensity (Out of 10): 4 BACK: Pain Intensity (Out of 10): 3 R heel: Pain Intensity (Out of 10): 5 Overall Improvement % Improvement: 80 Objective Objective/Function: LE MMT: R hip flex 14.8 and L 12.3 R knee ext 30.5 and L 36 R knee flex 21.7 and L 21.7 Hip ABD B 4+/5 and hip add 4+/5 Stairs: up and down recip with no hand rail going up (slight discomfort at the top step) and light touch on the rail descending the step. Goals Goal 1:: I HEP Goal Progress: Goal Met Goal 2:: Increase LE strength (at the time of the eval: LE MMT: R hip flex 12.3 and L 11.3 R knee ext 25.1 and L 25.6 R knee flex 16.7 and L 16.7 Hip ABD B 4/5 and hip add 4/5). Goal Progress: Goal Met Goal 3:: Pt to report 50% less B knee pain with walking Goal Progress: Goal Met Goal 4:: Be able to go up and down the steps recip with 1 hand rail with 50% less pain Goal Progress: Goal Met Plan Plan: DC PT to HEP D/C Information Discharge Comments: DC PT to HEP d/c sentence: If there are questions or concerns regarding this patient's physical therapy, please feel free to call me at [phone]. Thank you for the referral of this patient. Sincerely, Ofelia Pennington, MPT Balance/Gait/Functional tests Balance/Special Test Scores Lower Extremity Functional Score: 56 Improvement % Improvement: 80
== END 2025-02-04 19:00 | disposition home or self-care (01) ==
LOC: PT 09:00
PROVIDERS: PCP Family Medicine
DX: M17.9 Osteoarthritis of knee, unspecified (principal)
CPT/HCPCS: 97113; 97161; 97530

== ENCOUNTER → 2025-06-06 | Outpatient (CLI) | payer OTHER, SELFPAY ==
--- NOTE | 2025-06-06 07:00 | MRI_ITS ---
PROCEDURE: LOWER EXT JOINT ONLY (ROUTINE) 06/06/2025 REASON FOR EXAM: RT ACHILLES TENDONITIS TECHNIQUE: Procedure Code: MRILEJ Modality: MR Procedure: LOWER EXT JOINT ONLY (ROUTINE) Multiplanar and multisequence images were obtained without IV contrast administration. COMPARISON: COMPARISON : None FINDINGS: Bone Marrow: No edema. No fracture. No destructive process. Effusion: None. Joint: No dislocation. No significant degenerative change Soft Tissues: Mild soft tissue edema both medially and laterally about the ankle. No abnormal fluid collection. No soft tissue mass. Ligaments and Tendons: Normal extensor tendons. Normal appearance of the flexor digitorum longus and tibialis posterior. Split appearance of the peroneal tendons with tenosynovitis. No full-thickness tear. Thickening of the Achilles tendon with small amount of fluid. No full-thickness tear. Plantar tendon is of normal thickness and signal. Intrinsic ligaments of the ankle appear unremarkable. Deltoid ligament is within normal limits. MRI/Lower Ext Joint Only (Routine) IMPRESSION: Tendinosis of the Achilles tendon without full-thickness tear. Mild tendinosis of the peroneal tendons. Mild soft tissue edema in the medial and lateral aspect of the ankle. No joint effusion or acute fracture. Reading Location: [id number]
--- OUTSIDE RECORDS SUMMARY | 2025-06-06 07:02 | XMS RPT_ITS | CCD ---
Author Organization [facility] Providers Care Online Content Editor Name Role Phone Unavailable Unavailable Unavailable Jaciel Pascual D Unavailable Unavailable Ankur Jaciel D Unavailable Unavailable Mutchler, Tata Unavailable Unavailable Che BLACKTOP PAVER OPERATOR, Alta Unavailable Unavailable Alonzo Mercado Unavailable Unavailable Che BLACKTOP PAVER OPERATOR, Alta Unavailable Unavailable White, Bipin W Unavailable Unavailable Che BLACKTOP PAVER OPERATOR, Alta Unavailable Unavailable Luis Alfredo Benton B Unavailable Unavailable Che BLACKTOP PAVER OPERATOR, Alta Unavailable Unavailable Zaynab, Salim W Unavailable Unavailable Che BLACKTOP PAVER OPERATOR, Alta Unavailable Unavailable Zaynab, Salim W Primary Care Provider Alonzo Mercado Unavailable Unavailable ZaynabVerenice Primary Care Provider Armand Ma MD Primary Care Provider Dr. Armand Ma Primary Care Provider Dr. Armand Ma Referring Provider Dr. Armand Ma Other Provider Dr. Julito Renee Attending Provider Dr. Virgil Dickson Attending Provider Alonzo Mercado Unavailable Unavailable Armand Ma MD Primary Care Provider Alonzo Mercado Unavailable Unavailable Armand Ma MD Primary Care Provider Dr. Armand Ma Primary Care Provider [phone] Dr. Armand Ma Referring Provider [phone] Dr. Ayala Mcgee Attending Provider Alonzo Mercado Unavailable Unavailable Armand Ma MD Primary Care Provider [phone] SYSTEM, PROVIDER NOT IN Attending Unavaila Armand Swartz MD Primary Care Provider Dr. Armand Ma Primary Care Provider [phone] Armand Ma Referring Provider [phone] Dr. Ayala Mcgee Attending Provider [phone] Anil ALEJO, Armand Jewell Primary Care Provider [phone] Alonzo Mercado DO Unavailable [phone] Anil ALEJO, Armand Jewell Primary Care Provider Verenice Worthy Primary Care Provider [phone] Alonzo Mercado DO Unavailable Anil ALEJO, Dr. Silva Primary Care Provider Anil ALEJO, Dr. Silva Attending Provider [phone] Anil ALEJO, Dr. Silva Referring Provider Avtar CHEMICAL PROJECT ENGINEER-CDalila Attending Provider Avtar DE ANDA-CDalila Referring Provider Dr. Mateo Hunter MD Attending Provider Dr. Mateo Hunter MD Referring Provider Teresa ALEJO, Dr. Dyer Attending Provider SINCERE DICKSON Attending Provider SINCERE DICKSON Referring Provider Dr. Armand Ma MD Primary Care Provider Dr. Armand Ma MD Referring Provider [phone] SINCERE DICKSON Attending Provider SINCERE DICKSON Referring Provider GARY BARRAZA Referring Unavailable ARMAND MA Primary Care Unavailable ERLINDA HARDWICK Attending Unavailab lali Ma MD, Dr. Silva Primary Care Provider [phone] Armand Ma MD Referring Provider [phone] Shanna Lucas Attending Provider [phone] ARMAND MA Primary Care Unavailable SINCERE DICKSON Referring Unavailable ARMAND MA Primary Care Unavailable SINCERE DICKSON Referring Unavailable MA, ARMAND A Primary Care Unavailable BROWN, SINCERE Referring Unavailable MA, ARMAND A Primary Care Unavailable BROWN, SINCERE Referring Unavailable JULITA BURGOS Attending Unavailable MA, ARMAND A Primary Care Unavailable BROWN, SINCERE Referring Unavailable MA, ARMAND A Primary Care Unavailable GARY BARRAZA Attending Unavailable MA, ARMAND A Primary Care Unavailable BROWN, SINCERE Referring Unavailable MA, ARMAND A Primary Care Unavailable AM, ARMAND A Primary Care Unavailable BROWN, SINCERE Referring Unavailable BROWN, SINCERE Referring Unavailable MA, ARMAND A Primary Care Unavailable DESTINEE VÁSQUEZ Attending Unavailable MA, ARMAND A Primary Care Unavailable MA, ARMAND A Primary Care Unavailable BROWN, SINCERE Referring Unavailable GARY BARRAZA Attending Unavailable MADI, XIAOXI Referring Unavailable MA, ARMAND A Primary Care Unavailable PATRICIA BUTTERFIELD Attending Unavailable BROWN, SINCERE Referring Unavailable MA, ARMAND A Primary Care Unavailable MA, ARMAND A Primary Care Unavailable BROWN, SINCERE Referring Unavailable MA, ARMAND A Primary Care Unavailable BROWN, SINCERE Referring Unavailable MA, ARMAND A Primary Care Unavailable MA, ARMAND A Primary Care Unavailable BROWN, SINCERE Referring Unavailable BROWN, SINCERE Referring Unavailable MA, ARMAND A Primary Care Unavailable MA, ARMAND A Primary Care Unavailable BROWN, SINCERE Referring Unavailable MA, ARMAND A Primary Care Unavailable BROWN, SINCERE Attending Unavailable MA, ARMAND A Primary Care Unavailable BROWN, SINCERE Referring Unavailable Ma, Armand Referring Unavailable Shanna Lucas Attending Unavail able Ma, Armand Primary Care Unavailable Ma, Armand Referring Unavailable Ma, Armand Primary Care Unavailable Dalila Nova Attending Unavailable Gomez Moore Attending Unavailable Ma, Armand Primary Care Unavailable Ma, Armand Referring Unavailable Ma, Armand Primary Care Unavailable Mateo Hunter Attending Unavailable Mateo Hunter Referring Unavailable Ma, Armand Primary Care Unavailable Mateo Hunter Attending Unavailable Ma, Armand Primary Care Unavailable Albert Abdalla Attending Unavailable Albert Abdalla Referring Unavailable RUBINASTONE Attending Unavailable RUBINA, RITTER Referring Unavailable Ma, Armand Primary Care Unavailable Ma, Armand Attending Unavailable Ma, Armand Referring Unavailable Ma, Armand Primary Care Unavailable Ma, Armand Attending Unavailable Ma, Armand Referring Unavailable Ma, Armand Primary Care Unavailable Ma, Armand Primary Care Unavailable Dalila Nova Attending Unavailable Dalila Nova Referring Unavailable Allergies Allergy Classification Reported Allergen(s) Allergy Type Date of Onset Reaction(s) Facility (1 source) Banana Extract; Translations: [MS [place]] Drug Allergy 11-04-19 [facility] Repository (20 sources) Banana Extract; Translations: [Banana] Drug Allergy 11-04-19 Shortness of Breath [facility] Comment on above: Injectable steriods (20 sources) Latex; Translations: [Latex] Propensity to adverse reactions (disorder) 11-04-19 [facility] Repository (1 source) NSAIDs; Translations: [NSAIDs] Propensity to adverse reactions (disorder) 11-04-19 [facility] Repository (1 source) Penicillin; Translations: [MS Penicillin G] Drug Allergy 11-04-19 [facility] Repository (20 sources) Penicillin; Translations: [Penicillin G] Drug Allergy 11-04-19 [facility] Repository (20 sources) strawberry allergenic extract; Translations: [[place]] Drug Allergy 11-04-19 Other: See Comments, [facility] Repository (1 source) strawberry allergenic extract; Translations: [MS [place]] Drug Allergy 11-04-19 [facility] Repository (1 source) Sulfonamides (Antibiotic); Translations: [Sulfa Antibiotics] Propensity to adverse reactions (disorder) 11-04-19 [facility] Repository (1 source) MS Sulfa Antibiotics; Translations: [MS Sulfa Antibiotics] Propensity to adverse reactions (disorder) 11-04-19 [facility] Repository (1 source) MS NSAIDs; Translations: [MS NSAIDs] Propensity to adverse reactions (disorder) 11-04-19 [facility] Repository (1 source) MS Latex; Translations: [MS Latex] Propensity to adverse reactions (disorder) 11-04-19 [facility] Repository (1 source) Fruits, Miscellaneous; Translations: [Fruits, Miscellaneous] Propensity to adverse reactions (disorder) 11-04-19 [facility] Repository (20 sources) Sulfonamides (Antibiotic); Translations: [SULFA (SULFONAMIDE ANTIBIOTICS)] Drug Allergy 04-10-20 [facility] (20 sources) watermelon preparation; Translations: [[place]] Drug Allergy 11-08-19 06 Diarrhea [facility] Work Phone: (20 sources) bananas [Other] Propensity to adverse reactions 11-08-19 06 Shortness of Breath [facility] Work Phone: (20 sources) seasonal [Other] Propensity to adverse reactions 11-08-19 06 [facility] (10 sources) Penicillins; Translations: [Penicillins] Allergy to substance 09-02-20 Rash, Rash/Hives [facility] (5 sources) injectable steroids Allergy to substance 09-02-20 21 Other [facility] (7 sources) Sulfonamides (Antibiotic) Allergy to substance 06-09-20 22 Hives [facility] (4 sources) Glucocorticoid Receptor Agonists Propensity to adverse reactions 01-19-20 23 Liver failure [facility] (1 source) OTHER; Translations: [OTHER] Propensity to adverse reactions (disorder) 11-08-19 [facility] Repository (1 source) Corticosteroids Drug allergy (disorder) 05-09-20 [facility] Repository (1 source) Sulfonamides (Antibiotic) Drug allergy (disorder) 05-09-20 [facility] Repository (1 source) watermelon allergenic extract Drug Allergy 05-09-20 [facility] Repository Medications Current Medications Medication Drug Class(es) Dates Sig (Normalized) Sig (Original) amitriptyline hydrochloride 25 mg oral tablet (4 sources) Tricyclic Antidepressant Start: 11-15-2024 End: 05-09-2025 take 1 tablet by mouth at bedtime as needed Amitriptyline 25 mg tablet Active 25 mg PO AT BEDTIME as needed May 09, 2025 11:40am baclofen 10 mg oral tablet (20 sources) gamma-Aminobutyric Acid-ergic Agonist Start: 01-03-2019 take 1 tablet by mouth three times daily as needed for muscle spasms baclofen (LIORESAL) 10 mg tablet TAKE 1 TABLET BY MOUTH 3 TIMES A DAY NEEDED FOR SPASMS 0 01/03/2019 Active Comment on above: TAKE 1 TABLET BY ADRIANO 3 TIMES A DAY NEEDED FOR SPASMS bifidobacterium infantis [id number] unt oral capsule (20 sources) Start: 07-05-2018 Bifidobacterium infantis 1.5 billion cell cap Bifidobacterium Infantis Bifidobacterium Infantis (Digestive Probiotic) 1.5 billion cell capsule Active 1500 MMU CELLS PO DAILY July 05, 2018 8:40am 07-05-2018 [facility] ([id number]) 07/05/2018 Active Start: 07-05-2018 take 1.5 capsules by mouth once daily Bifidobacterium Infantis (Digestive Probiotic) 1.5 billion cell capsule Active 50 CELL PO DAILY July 05, 2018 12:00am Comment on above: Bifidobacterium Infa ntis Bifidobacterium Infantis (Digestive Probiotic) 1.5 billion cell capsule Active 1500 MMU CELLS PO DAILY July 05, 2018 8:40am 07-05-2018 [facility] ([id number]) calcium citrate/vitamin D3 (CALCIUM CITRATE + D ORAL) (20 sources) calcium citrate/ vitamin D3 (CALCIUM CITRATE + D ORAL) Take by mouth. Active calcium citrate/ vitamin D3 (CALCIUM CITRATE + D ORAL) Take by mouth. 0 Active Comment on above: Take by mouth. docosahexaenoic acid/epa (FI SH OIL ORAL) (20 sources) docosahexaenoic acid/epa (FISH OIL ORAL) Take by mouth. Active docosahexaenoic acid/epa (FISH OIL ORAL) Take by mouth. 0 Active Comment on above: Take by mouth. doxycycline hyclate 150 mg delayed release oral tablet (20 sources) Tetracycline-class Drug take 1 tablet by mouth once daily doxycycline hyclate 150 mg Delayed Release Tablet Take 150 mg by mouth once daily. Active Comment on above: Take 150 mg by mouth once daily. DULoxetine 60 mg delayed release oral capsule (20 sources) Serotonin and Norepinephrine Reuptake Inhibitor Start: 10-22-19 take 2 capsules by mouth once daily Duloxetine (Cymbalta) 60 mg capsule,delayed release(DR/EC) Active 120 mg PO DAILY October 22, 2024 10:33am Start: 06-09-2022 End: 10-22-2024 take 1 capsule by mouth once daily Duloxetine (Cymbalta) 60 mg capsule,delayed release(DR/EC) Discontinued 60 mg PO DAILY June 09, 2022 12:00am October 22, 2024 10:42am Start: 02-17-2022 End: 02-22-2022 take 1 capsule by mouth twice daily Duloxetine (Cymbalta) 60 mg capsule,delayed release(DR/EC) Discontinued 60 mg PO TWICE A DAY February 17, 2022 10:30am February 22, 2022 10:59am Start: 07-05-2018 End: 02-17-2022 take 2 capsules by mouth once daily Duloxetine (Cymbalta) 60 mg capsule,delayed release(DR/EC) Discontinued 120 mg PO DAILY July 05, 2018 12:00am February 17, 2022 10:52am Comment on above: Take 2 capsules by m out once daily. enteric contrast (will be provided with radiology test) (2 sources) Start: 3 End: 3 enteric contrast (will be provided with radiology test) For CT ENTEROGRAPHY W IVCON order Administer, As Directed One Time Only, via Oral, Rectal, both Oral and Rectal, Enteric Tube, Stoma or Indwelling Catheter, Enteric Contrast as designated per enteric contrast guidelines. 1 Each 0 11/18/2022 11/19/2022 Active Comment on above: For CT ENTEROGRAPHY W IVCON order Administer, As Directed One Time Only, via Oral, Rectal, both Oral and Rectal, Enteric Tube, Stoma or Indwelling Catheter, Enteric Contrast as designated per enteric contrast guidelines. fluticasone propionate 0.05 mg/actuat metered dose nasal spray (20 sources) Corticosteroid Start: 0 take 2 spray(s) nasal route once daily fluticasone (FLONASE) 50 mcg/actuation nasal spray Use 2 Sprays in each nostril once daily. 08/05/2020 Active Start: 03-30-2020 Fluticasone Pr opionate 1 SPRAY spray,suspension Active 2 NMA NASAL DAILY March 30, 2020 12:00am Start: 03-30-2020 Fluticasone Pr opionate Active 2 SPRAY NASAL DAILY March 29, 2020 11:00pm Comment on above: Use 2 Sprays in each nostril once daily. folic acid 1 mg oral tablet (20 sources) Start: 08-12-2024 folic acid 1 mg tablet Take one pill each day of the week EXCEPT the day you take methotrexate 90 tablet 3 08/12/2024 Active Start: 02-17-2022 take 1 tablet by adriano six times weekly Folic Acid 1 mg tablet Active 1 mg PO 6 times per week February 17, 2022 12:00am Start: 10-02-2020 End: 08-09-2024 folic acid 1 mg tablet TAKE ONE PILL EACH DAY OF THE WEEK EXCEPT THE DAY YOU TAKE METHOTREXATE 90 tablet 3 07/05/2024 08/09/2024 Discontinued Comment on above: TAKE ONE PILL EACH D AY OF THE WEEK EXCEPT THE DAY YOU TAKE METHOTREXATE hydrOXYzine hydrochloride 25 mg oral tablet (20 sources) Antihistamine Start: 09-11-20 take 1 tablet by mouth once daily at bedtime hydrOXYzine HCl (ATARAX) 25 mg tablet Take 25 mg by mouth daily at bedtime. 09/11/2020 Active Start: 03-30-2020 Hydroxyzine Hc l 10 MG tablet Active 25 mg PO AT BEDTIME March 30, 2020 12:00am Start: 03-30-2020 take 25 mg by mouth at bedtime Hydroxyzine Hcl Active 25 MG PO AT BEDTIME March 29, 2020 11:00pm Comment on above: Take 25 mg by mouth daily at bedtime. indapamide 1.25 mg oral tablet (20 sources) Thiazide-like Diuretic Start: 09-09-2022 take 1 tablet by mouth once daily in the morning Indapamide 1.25 mg tablet Active 1.25 mg PO EVERY MORNING October 17, 2024 1:00am Comment on above: 1.25 mg once daily. inFLIXimab (18 sources) Tumor Necrosis Factor Lev infliximab (REMICADE INTRAVENOUS) Inject intravenously. Active Infliximab (Remicade) 100 mg recon soln (6 sources) Start: 10-22-2024 Infliximab (Remicade) 100 mg recon soln Active mg .Route every 6 weeks October 22, 2024 10:42am every 6 weeks; iv infusion Start: 10-13-2023 End: 10-22-2024 Infliximab (Remicade) 100 mg recon soln Discontinued mg .Route October 13, 2023 1:00am October 22, 2024 10:42am iv infusion iv contrast (will be provide d with radiology test) (3 sources) Start: 12-05-2022 End: 12-06-2022 iv contrast (will be provide d with radiology test) CT Chest W -Inject, intravenously, once for 1 dose.No IV access, insert saline lock prior to the beginning of sedation, infusion, injection of imaging exam. Discontinue saline lock post exam. If Pt. has a central line or IVAD, may access for administration according to line specific nursing protocol. Once exam is complete flush line and de-access according to line specific nursing protocol in the CT contrast administration guidelines link. 1 Each 0 12/05/2022 12/06/2022 Active Start: 11-18-2022 End: 11-19-2022 iv contrast (will be provide d with radiology test) CT Enterography W Inject, intravenously, once for 1 dose.No IV access, insert saline lock prior to the beginning of sedation, infusion, injection of imaging exam. Discontinue saline lock post exam. If Pt. has a central line or IVAD, may access for administration according to line specific nursing protocol. Once exam is complete flush line and de-access according to line specific nursing protocol in the CT contrast administration guidelines link. 1 Each 0 11/18/2022 11/19/2022 Active Comment on above: CT Enterography W In ject, intravenously, once for 1 dose.No IV access, insert saline lock prior to the beginning of sedation, infusion, injection of imaging exam. Discontinue saline lock post exam. If Pt. has a central line or IVAD, may access for administration according to line specific nursing protocol. Once exam is complete flush line and de-access according to line specific nursing protocol in the CT contrast administration guidelines link. CT Chest W -Inject, intravenously, once for 1 dose.No IV access, insert saline lock prior to the beginning of sedation, infusion, injection of imaging exam. Discontinue saline lock post exam. If Pt. has a central line or IVAD, may access for administration according to line specific nursing protocol. Once exam is complete flush line and de-access according to line specific nursing protocol in the CT contrast administration guidelines link. levocetirizine dihydrochloride 5 mg oral tablet (20 sources) Histamine-1 Receptor Antagonist Start: take 1 tablet by mouth once daily Levocetirizine 5 MG tablet Active 5 mg PO DAILY March 30, 2020 12:00am Comment on above: Take 5 mg by mouth o nce daily. magnesium oxide 400 mg oral capsule (20 sources) Start: take 1 capsule by mouth twice daily Magnesium Oxide 400 MG capsule Active 400 mg PO TWICE A DAY March 30, 2020 12:00am Start: 02-11-2019 take 1 tablet by adriano th twice daily magnesium oxide (MAG-OX) 400 mg (241.3 mg magnesium) tablet Take 1 tablet by mouth twice daily. 3 02/11/2019 Active Comment on above: [facility]. methotrexate 2.5 mg oral tablet (20 sources) Folate Analog Metabolic Inhibitor Start: take 6 tablets by mouth every week methotrexate 2.5 mg tablet Take 6 tablets by mouth one time a week. 72 tablet 3 08/12/2024 Active Start: 11-24-2022 End: 08-09-2024 take 6 tablets by mouth every week methotrexate 2.5 mg tablet TAKE 6 TABLETS BY MOUTH ONCE WEEKLY 72 tablet 3 10/27/2023 08/09/2024 Discontinued Start: 08-04-2022 End: 11-22-2022 take 6 tablets by mouth every week methotrexate 2.5 mg tablet TAKE 6 TABLETS BY MOUTH ONE TIME A WEEK. 72 tablet 3 08/04/2022 11/22/2022 Discontinued Start: 02-17-2022 Methotrexate S odium 2.5 mg tablet Active 15 mg PO NAVARRETE February 17, 2022 10:45am Start: 02-17-2022 Methotrexate S odium Active 15 MG PO NAVARRETE February 17, 2022 9:45am Start: 11-29-2021 take 6 tablets by mo [facility] every week methotrexate 2.5 mg tablet TAKE 6 TABLETS BY MOUTH ONE TIME A WEEK. 72 tablet 3 11/29/2021 Active Start: 05-25-2021 End: 02-17-2022 Methotrexate Sodium (Methotr exate (Anti-Rheumatic)) 2.5 mg Tablet Discontinued 21 mg PO NAVARRETE May 25, 2021 12:00am February 17, 2022 10:52am Start: 10-02-2020 End: 03-31-2021 take 6 tablets by mouth every week methotrexate 2.5 mg tablet Take 6 tablets by mouth one time a week. 64 tablet 2 10/02/2020 03/31/2021 Discontinued Comment on above: TAKE 6 TABLETS BY MO UT ONE TIME A WEEK. TAKE 6 TABLETS BY MO UTH ONCE WEEKLY MULTIVITAMIN ORAL (20 sources) End: 05-18-2022 MULTIVITAMIN ORAL Take by mouth. 05/18/2022 Discontinued (Duplicate Entry) MULTIVITAMIN ORA L Take by mouth once daily. Active MULTIVITAMIN ORA L Take by mouth once daily. 0 Active End: 05-18-2022 MULTIVITAMIN ORAL Take by mo [facility]. 0 05/18/2022 Discontinued (Duplicate Entry) MULTIVITAMIN ORA L Take by mouth. 0 Active Comment on above: Take by mouth. Take by mouth once d aily. Multivitamin preparation (6 sources) Start: 07-05-2018 take 1 tablet by mouth once daily Multivitamin Active 1 TABLET PO DAILY July 05, 2018 8:41am Start: 07-05-2018 take 1 tablet by adriano th once daily Multivitamin Active 1 TABLET PO DAILY July 04, 2018 11:00pm Start: 07-05-2018 take 1 tablet by adriano th once daily Multivitamin Active 1 TABLET PO DAILY July 05, 2018 12:00am nebivolol 10 mg oral tablet (20 sources) Start: 09-09-2022 take 1 tablet by mouth once daily Nebivolol 10 mg tablet Active 10 mg PO DAILY 30 0 September 09, 2022 1:00am Start: 09-09-2022 End: 10-17-2024 take 1 tablet by mouth once daily Nebivolol (Bystolic) 20 mg tablet Discontinued 20 mg PO DAILY September 09, 2022 1:00am October 17, 2024 10:30am [place]-3 Fatty Acids (5 sources) Start: 02-17-2022 take 2000 mg by mout h twice daily [place]-3 Fatty Acids Active 2000 MG PO TWICE A DAY February 16, 2022 11:00pm Start: 02-17-2022 take 2000 mg by mouth twice da juan [place]-3 Fatty Acids Active 2000 MG PO TWICE A DAY February 17, 2022 12:00am [place]-3 Fatty Acids 1,000 mg capsule (3 sources) Start: 02-17-2022 take 1 capsule by mouth twice daily [place]-3 Fatty Acids 1,000 mg capsule Active 2000 mg PO TWICE A DAY February 17, 2022 12:00am omeprazole 40 mg delayed release oral capsule (20 sources) Proton Pump Inhibitor Start: 01-29-2025 take 1 capsule by mouth once daily omeprazole (PRILOSEC) 40 mg capsule Take 1 capsule by mouth once daily. 30 capsule 1 01/29/2025 Active Start: 02-11-2019 End: 08-12-2024 take 1 capsule by mouth once daily omeprazole (PRILOSEC) 20 mg capsule TAKE ONE CAPSULE BY MOUTH EVERY DAY 02/11/2019 08/12/2024 Discontinued Start: 07-05-2018 End: 10-13-2023 take 1 tablet by mouth once daily Omeprazole Magnesium (Prilosec Otc) 20 mg tablet,delayed release (DR/EC) Discontinued 20 mg PO DAILY July 05, 2018 12:00am October 13, 2023 12:03pm Comment on above: TAKE ONE CAPSULE BY MOUTH EVERY DAY Take 20 mg by mouth once daily. ondansetron 4 mg oral tablet (20 sources) Serotonin-3 Receptor Antagonist Start: 0 take 1 tablet by mouth every eight hours as needed Ondansetron Hcl 4 mg tablet Active 4 mg PO Q8H as needed for motion sickness February 17, 2022 12:00am Comment on above: 1 (ONE) TABLET EVERY 8 HOURS FOR NAUSEA OR MOTION SICKNESS pregabalin 100 mg oral capsule (20 sources) Start: take 1 capsule by mouth twice daily Pregabalin (Lyrica) 100 mg capsule Active 100 mg PO TWICE A DAY October 22, 2024 1:00am Start: 10-17-2024 End: 10-22-2024 take 1 capsule by mouth twice daily Pregabalin (Lyrica) 25 mg capsule Discontinued 25 mg PO TWICE A DAY October 17, 2024 1:00am October 22, 2024 10:38am Start: 09-13-2021 End: 02-22-2022 take 1 capsule by mouth twice daily Pregabalin 100 mg capsule Discontinued 100 mg PO TWICE A DAY February 17, 2022 12:00am February 22, 2022 11:01am Start: 09-02-2021 End: 02-17-2022 take 1 capsule by mouth once daily Pregabalin (Lyrica) 75 mg capsule Discontinued 75 mg PO DAILY September 02, 2021 1:00am February 17, 2022 10:30am vit/iron fum/folic ac ( 1 PLUS 1 ORAL) (20 sources) take 1 dose by mouth before mealtime vit/iron fum/folic ac ( 1 PLUS 1 ORAL) Take by mouth. Active vit/iro n fum/folic ac ( 1 PLUS 1 ORAL) Take by mouth. 0 Active Comment on above: Take by mouth. promethazine hydrochloride 12.5 mg oral tablet (20 sources) Phenothiazine Start: 020 take 1 tablet by mouth every eight hours as needed for nausea and vomiting Promethazine 12.5 mg tablet Active 12.5 mg PO Q8H as needed for nausea and vomiting February 17, 2022 12:00am Comment on above: 1/2 TO 1 TABLET EVER Y 8 HOURS FOR NAUSEA, HEADACHE, OR COUGH ramipril 5 mg oral capsule (20 sources) Angiotensin Converting Enzyme Inhibitor Start: 025 take 1 capsule by mouth once daily Ramipril 5 mg capsule Active 5 mg PO daily October 17, 2024 1:00am tirzepatide, weight loss (ZEPBOUND) 2.5 mg/0.5 mL pen injector (5 sources) Start: 025 tirzepatide, weight loss (ZEPBOUND) 2.5 mg/0.5 mL pen injector Indications: Gastric bypass status for obesity , Class 3 obesity (HCC) , Body mass index 50.0-59.9, adult (HCC) Inject 2.5 mg subcutaneously one time a week. 2 mL 02/03/2025 Active Start: 02-03-2025 End: 03-05-2025 tirzepatide, weight loss (ZE PBOUND) 2.5 mg/0.5 mL pen injector Indications: Gastric bypass status for obesity , Class 3 obesity , Body mass index 50.0-59.9, adult (HCC) Inject 2.5 mg subcutaneously one time a week. 2 mL 02/03/2025 03/05/2025 Active tirzepatide, weight loss (ZEPBOUND) 5 mg/0.5 mL pen injector (5 sources) Start: 03-05-2025 End: 04-04-2025 tirzepatide, weight loss (ZEPBOUND) 5 mg/0.5 mL pen injector Indications: Gastric bypass status for obesity , Class 3 obesity (HCC) , Body mass index 50.0-59.9, adult (HCC) Inject 5 mg subcutaneously one time a week. Patient should start on March 05, 2025. 2 mL 03/05/2025 04/04/2025 Active Start: 03-05-2025 End: 04-04-2025 tirzepatide, weight loss (ZE PBOUND) 5 mg/0.5 mL pen injector Indications: Gastric bypass status for obesity , Class 3 obesity , Body mass index 50.0-59.9, adult (HCC) Inject 5 mg subcutaneously one time a week. Patient should start on March 05, 2025. 2 mL 03/05/2025 04/04/2025 Active Turmeric Curcumin (5 sources) Start: 02-17-2022 take 1 tablet by adriano th twice daily Turmeric Curcumin Active 1 TABLET PO TWICE A DAY February 16, 2022 11:00pm Start: 02-17-2022 take 1 tablet by adriano th twice daily Turmeric Curcumin Active 1 TABLET PO TWICE A DAY February 17, 2022 12:00am vitamin b12 1 mg sublingual tablet (20 sources) Vitamin B12 Cyanocobalamin 1 ,000 mcg subl Dissolve 1,000 mcg under the tongue. Vitamin b12 Active Comment on above: Dissolve 1,000 mcg u nder the tongue. Dissolve 1,000 mcg u nder the tongue. Vitamin b12 Completed/Discontinued Medications Medication Drug Class(es) Dates Sig (Normalized) Sig (Original) 1 ml abatacept 125 mg/ml auto-injector (20 sources) Selective T Cell Costimulation Modulator Start: 02-04-2022 End: 10-13-2023 Abatacept (Orencia Clickject) 125 mg/mL auto-injector Discontinued 125 mg SC EVERY WEEK June 09, 2022 12:00am October 13, 2023 12:03pm Start: 01-17-2022 End: 01-31-2022 inject 1 mL by subcutaneous injection every week abatacept (ORENCIA CLICKJECT) 125 mg/mL Indications: Seropositive rheumatoid arthritis of multiple sites (HCC) Inject 1 mL subcutaneously one time a week. 4 mL 3 01/17/2022 01/31/2022 Discontinued Comment on above: Inject 1 mL subcutan eously one time a week. acetaminophen 325 mg oral tablet (6 sources) Start: 02-05-20 End: 02-05-20 take 1 dose by mouth once, then take 4000 mg by mouth once daily 650 mg, ORAL, ONCE, 1 dose, On Mon02/04/25 at 1330, No more than 4000 mg of acetaminophen should be given per day (FROM ALL SOURCES) Start: 08-16-2024 End: 08-16-2024 take 1 dose by mouth once, then take 4000 mg by mouth once daily 650 mg, ORAL, ONCE, 1 dose, On Mon08/16/24 at 0900, No more than 4000 mg of acetaminophen should be given per day (FROM ALL SOURCES) Start: 07-05-2024 End: 07-05-2024 take 1 dose by mouth once as needed for pain, then take 4000 mg by mouth once daily as needed for pain 650 mg, ORAL, ONCE, 1 dose, On Mon07/05/24 at 0830, No more than 4000 mg of acetaminophen should be given per day (FROM ALL SOURCES), If ordered PRN for pain, patient/guardian may elect to receive this medication for higher pain levels INSTEAD of the opioid, if preferred: N/A Start: 05-16-2024 End: 05-16-2024 take 1 dose by mouth once as needed for pain, then take 4000 mg by mouth once daily as needed for pain 650 mg, ORAL, ONCE, 1 dose, On Silvia 05/16/24 at 1130, No more than 4000 mg of acetaminophen should be given per day (FROM ALL SOURCES), If ordered PRN for pain, patient/guardian may elect to receive this medication for higher pain levels INSTEAD of the opioid, if preferred: N/A Start: 04-04-2024 End: 04-04-2024 acetaminophen 650 mg tab(s) (TYLENOL) Start: 02-23-2024 End: 02-23-2024 acetaminophen 650 mg tab(s) (TYLENOL) 0.4 ml adalimumab 100 mg/ml auto-injector (10 sources) Tumor Necrosis Factor Lev Start: 08-11-2021 End: 05-18-2022 adalimumab (HUMIRA,CF, PEN) 40 mg/0.4 mL pen kit Indications: Seropositive rheumatoid arthritis (HCC) Inject 40 mg (1 pen) subcutaneously every 2 weeks. 6 Pen 2 08/11/2021 05/18/2022 Discontinued (Course of therapy completed) Start: 05-25-2021 Adalimumab (Hu maricarmen) 40 mg/0.8 mL Syringe Kit Active 40 MG SC Q14D May 25, 2021 2:08pm Comment on above: Inject 40 mg (1 pen) subcutaneously every 2 weeks. [id number] 200 actuat albuterol 0.09 mg/actuat metered dose inhaler (9 sources) beta2-Adrenergic Agonist Start: 02-22-2022 End: 05-18-2022 albuterol HFA (PROVENTIL HFA, VENTOLIN HFA) 90 mcg/actuation inhaler Inhale 1 Puff as instructed as needed. FOR SOB 0 02/22/2022 05/18/2022 Discontinued (Course of therapy completed) Start: 02-22-2022 End: 10-13-2023 Albuterol Sulfate 90 mcg/act uation HFA aerosol inhaler Discontinued 2 NMA INHALATION Q4H as needed for shortness of breath or wheezing 8.5 3 February 22, 2022 12:00am October 13, 2023 12:03pm administer with spacer Start: 02-22-2022 take 1 puff(s) by in halation every four hours Albuterol Sulfate Active 2 PUFF INHALATION Q4H 8.5 February 21, 2022 11:00pm administer with spacer Comment on above: Inhale 1 Puff as ins tructed as needed. FOR SOB Bifidobacterium Infantis (Digestive Probiotic) 1.5 billion cell capsule (6 sources) Start: 018 End: 025 take 1.5 capsules by mouth once daily Bifidobacterium Infantis (Digestive Probiotic) 1.5 billion cell capsule Discontinued 50 NMA PO DAILY July 05, 2018 12:00am May 09, 2025 11:41am Start: 07-05-2018 take 1.5 capsules by mouth once daily Bifidobacterium Infantis (Digestive Probiotic) 1.5 billion cell capsule Active 50 NMA PO DAILY July 05, 2018 12:00am Start: 07-05-2018 take 1.5 capsules by mouth once daily Bifidobacterium Infantis (Digestive Probiotic) 1.5 billion cell capsule Active 50 CELL PO DAILY July 05, 2018 12:00am Start: 07-05-2018 take 1.5 capsules by mouth once daily Bifidobacterium Infantis (Digestive Probiotic) 1.5 billion cell capsule Active 50 CELL PO DAILY July 04, 2018 11:00pm busPIRone hydrochloride 5 mg oral tablet (20 sources) Start: 09-09-2022 End: 10-17-2024 take 1 tablet by mouth twice daily Buspirone 5 mg tablet Discontinued 0 .ROUTE .COMPLEX 60 October 10, 2023 9:50am October 17, 2024 11:06am TAKE 1 TABLET BY MOUTH TWICE A DAY calcium carbonate 1250 mg oral tablet (17 sources) Start: 02-22-2022 End: 10-17-2024 take 1 tablet by mouth once daily Calcium Carbonate 500 mg calcium (1,250 mg) tablet Discontinued 500 mg PO DAILY February 22, 2022 12:00am October 17, 2024 10:29am Start: 07-05-2018 End: 09-02-2021 take 1 tablet by mouth three times daily Calcium Carbonate (Calcium 500) 500 mg calcium (1,250 mg) tablet,chewable Discontinued 500 mg PO THREE TIMES A DAY July 05, 2018 12:00am September 02, 2021 11:17am calcium citrate 1190 mg / cholecalciferol 0.005 mg oral tablet (9 sources) Vitamin D Start: 09-02-2021 End: 05-09-2025 Calcium Citrate-Vitamin D3 (Citracal Regular) 250 mg-5 mcg (200 unit) tablet Discontinued 1 {tbl} PO DAILY September 02, 2021 1:00am May 09, 2025 11:41am 1 ml certolizumab pegol 200 mg/ml prefilled syringe (20 sources) Start: 11-04-2022 End: 08-12-2024 certolizumab pegol (CIMZIA) 400 mg/2 mL (200 mg/mL x 2) sub-q syringe kit Inject 400mg (2 syringes) subcutaneously every 4 weeks. 3 Kit 1 11/04/2022 08/12/2024 Discontinued Start: 11-04-2022 End: 08-12-2024 certolizumab pegol (CIMZIA S ADITHYA KIT) 400 mg/2 mL (200 mg/mL x 2) sub-q syringe kit Inject 400 mg (2 syringes) subcutaneously on weeks 0, 2, and 4 3 Each 11/04/2022 08/12/2024 Discontinued Start: 11-04-2022 certolizumab p egol (CIMZIA) 400 mg/2 mL (200 mg/mL x 2) sub-q syringe kit Starter kid 400 mg subcut x1 on week 0,2,4 3 Kit 0 11/04/2022 Active Comment on above: Starter kid 400 mg s ubcut x1 on week 0,2,4 Inject 2 mL subcutan eously every 4 weeks. Inject 400 mg (2 syr inges) subcutaneously on weeks 0, 2, and 4 Inject 400mg (2 syri nges) subcutaneously every 4 weeks. cholecalciferol 0.025 mg oral capsule (20 sources) Vitamin D Start: 022 End: take 1 capsule by mouth once daily Cholecalciferol (Vitamin D3) 25 mcg (1,000 unit) capsule Discontinued 1000 U PO DAILY February 17, 2022 10:44am May 09, 2025 11:41am Start: 07-08-2019 End: 02-17-2022 take 5 capsules by mouth once daily Cholecalciferol (Vitamin D3) 1,000 unit capsule Discontinued 5000 U PO DAILY July 08, 2019 12:00am February 17, 2022 10:52am Start: 07-08-2019 End: 02-17-2022 take 5000 [IU] by mouth once daily Cholecalciferol (Vitamin D3) Discontinued 5000 UNIT PO DAILY July 07, 2019 11:00pm February 17, 2022 9:52am cholecalciferol (VITAMIN D3) 5,000 unit tab Take 5,000 Units by mouth. Active Comment on above: Take 5,000 Units by mouth. cobamamide 0.1 mg / vitamin b12 5 mg sublingual tablet (9 sources) Vitamin B12 Start: 07-05-2018 End: 02-17-2022 Cyanocobalamin-Cobamamide (B12) 5,000-100 mcg lozenge Discontinued 5000 NMA SL DAILY 0 July 05, 2018 12:00am February 17, 2022 10:47am Start: 07-05-2018 End: 02-17-2022 Cyanocobalamin-Cobamamide (B 12) 5,000-100 mcg lozenge Discontinued 5000 LOZENGE SL DAILY July 04, 2018 11:00pm February 17, 2022 9:47am diclofenac sodium 0.01 mg/mg topical gel (3 sources) Nonsteroidal Anti-inflammatory Drug Start: 10-22-2024 End: 05-09-2025 Diclofenac Sodium (Arthritis Pain (Diclofenac)) 1 % gel Discontinued 2 g TOPICAL ONCE October 22, 2024 1:00am May 09, 2025 11:41am apply to single elbow, wrist or hand; for hand includes palm/fingers/back of hand diphenhydrAMINE hydrochloride 25 mg oral capsule (6 sources) Histamine-1 Receptor Antagonist Start: 02-04-2025 End: 02-04-2025 take 1 dose by mouth once 25 mg, ORAL, ONCE, 1 dose, On Mon02/04/25 at 1330 Start: 08-16-2024 End: 08-16-2024 take 1 dose by mouth once 25 mg, ORAL, ONCE, 1 dose, O n 08/16/24 at 0900 Start: 07-05-2024 End: 07-05-2024 take 1 dose by mouth once 25 mg, ORAL, ONCE, 1 dose, O n 07/05/24 at 0830 Start: 05-16-2024 End: 05-16-2024 take 1 dose by mouth once 25 mg, ORAL, ONCE, 1 dose, O n Silvia 05/16/24 at 1130 Start: 04-04-2024 End: 04-04-2024 diphenhydrAMINE 25 mg capsul e (BENADRYL) Start: 02-23-2024 End: 02-23-2024 diphenhydrAMINE 25 mg capsul e (BENADRYL) famotidine 20 mg oral tablet (20 sources) Histamine-2 Receptor Antagonist Start: 02-22-2022 End: 08-12-2024 take 1 tablet by mouth twice daily Famotidine 20 mg tablet Discontinued 20 mg PO TWICE A DAY February 22, 2022 12:00am October 13, 2023 12:03pm Comment on above: Take 20 mg by mouth twice daily. 1 ml fentaNYL 0.05 mg/ml injection (1 source) Opioid Agonist Start: 02-19-2025 End: 02-19-2025 INTRAVENOUS, X (OR/PROCEDURE) PRN, Starting on Mon02/19/25 at 1303, Until Mon02/19/25 at 1311, Intraprocedure 60 actuat formoterol fumarate 0.005 mg/actuat / mometasone furoate 0.2 mg/actuat metered dose inhaler (20 sources) Corticosteroid, beta2-Adrenergic Agonist Start: 05-02-2022 End: 08-12-2024 take 2 puff(s) by inhalation twice daily DULERA 200-5 mcg/actuation inhaler Inhale 2 Puffs as instructed twice daily. 05/02/2022 08/12/2024 Discontinued Start: 02-22-2022 End: 10-13-2023 Mometasone-Formoterol (Duler a) 200-5 mcg/actuation HFA aerosol inhaler Discontinued 2 NMA INHALATION TWICE A DAY February 22, 2022 12:00am October 13, 2023 12:03pm Start: 02-22-2022 take 1 puff(s) by in halation twice daily Mometasone-Formoterol (Dulera) 200-5 mcg/actuation HFA aerosol inhaler Active 2 PUFF INHALATION TWICE A DAY February 21, 2022 11:00pm Comment on above: Inhale 2 Puffs as in structed twice daily. inFLIXimab-dyyb 1,100 mg in NaCl 0.9% 250 mL (INFLECTRA) (5 sources) Start: 08-16-2024 End: 08-16-2024 1,100 mg (rounded from 1,106.7 mg = 7 mg/kg/dose 158.1 kg Order-specific weight), INTRAVENOUS, at 83.33-250 mL/hr, Administer over 1-3 Hours, ONCE, 1 dose, On Mon08/16/24 at 0900, Total Volume: = 250 mL exp 0900 08/17/24 (room temp) Administer with 0.2 micron filter., Medication Substitution: [facility] preferred product has been replaced with the insurance mandated product Start: 07-05-2024 End: 07-05-2024 1,100 mg (rounded from 1,106 .7 mg = 7 mg/kg/dose 158.1 kg Order-specific weight), INTRAVENOUS, at 83.33-250 mL/hr, Administer over 1-3 Hours, ONCE, 1 dose, On Mon07/05/24 at 0830, Total Volume: = 250 mL Administer with 0.2 micron filter., Medication Substitution: [facility] preferred product has been replaced with the insurance mandated product Start: 05-16-2024 End: 05-16-2024 1,100 mg (rounded from 1,106 .7 mg = 7 mg/kg/dose 158.1 kg Order-specific weight), INTRAVENOUS, at 83.33-250 mL/hr, Administer over 1-3 Hours, ONCE, 1 dose, On Silvia 05/16/24 at 1130, Total Volume: = 250 mL exp 1130 05/17/24 (room temp) Administer with 0.2 micron filter., Medication Substitution: [facility] preferred product has been replaced with the insurance mandated product Start: 04-04-2024 End: 04-04-2024 inFLIXimab-dyyb 1,100 mg in NaCl 0.9% 250 mL (INFLECTRA) Start: 02-23-2024 End: 02-23-2024 inFLIXimab-dyyb 1,100 mg in NaCl 0.9% 250 mL (INFLECTRA) inFLIXimab-dyyb 1,100 mg in NaCl 0.9% 275 mL (INFLECTRA) (4 sources) Start: 03-20-2025 End: 03-20-2025 1,100 mg (rounded from 1,106 .7 mg = 7 mg/kg/dose 158.1 kg Order-specific weight), INTRAVENOUS, at 91.67-275 mL/hr, Administer over 1-3 Hours, ONCE, 1 dose, On Silvia 03/20/25 at 1030, TOTAL VOLUME = 275 ML - Expires: 03/21/25 @ 1015 Administer with 0.2 micron filter., Medication Substitution: [facility] preferred product has been replaced with the insurance mandated product Start: 02-04-2025 End: 02-04-2025 1,100 mg (rounded from 1,106 .7 mg = 7 mg/kg/dose 158.1 kg Order-specific weight), INTRAVENOUS, at 91.67-275 mL/hr, Administer over 1-3 Hours, ONCE, 1 dose, On Mon02/04/25 at 1330, TOTAL VOLUME = 275 ML - Expires: 1330 02/05/25 Administer with 0.2 micron filter., Medication Substitution: [facility] preferred product has been replaced with the insurance mandated product Start: 12-20-2024 End: 12-20-2024 1,100 mg (rounded from 1,106 .7 mg = 7 mg/kg/dose 158.1 kg Order-specific weight), INTRAVENOUS, at 91.67-275 mL/hr, Administer over 1-3 Hours, ONCE, 1 dose, On Mon12/20/24 at 1100, Total Volume: = 275 ml Administer with 0.2 micron filter., Medication Substitution: [facility] preferred product has been replaced with the insurance mandated product Start: 11-08-2024 End: 11-08-2024 1,100 mg (rounded from 1,106 .7 mg = 7 mg/kg/dose 158.1 kg Order-specific weight), INTRAVENOUS, Administer over 1-3 Hours, ONCE, 1 dose, On Mon11/08/24 at 0900, Total Volume: = 275 ml exp 0911/09/24 (room temp) Administer with 0.2 micron filter., Medication Substitution: [facility] preferred product has been replaced with the insurance mandated product linaclotide 0.072 mg oral capsule (20 sources) Guanylate Cyclase-C Agonist Start: 02-08-2019 End: 08-12-2024 take 1 capsule by mouth once daily LINZESS 72 mcg capsule Take 72 mcg by mouth once daily. 1 02/08/2019 08/12/2024 Discontinued Comment on above: Take 72 mcg by mouth once daily. loratadine 10 mg oral tablet (20 sources) Start: 02-22-2022 End: 10-17-2024 take 1 tablet by mouth once daily Loratadine (Allergy Relief (Loratadine)) 10 mg tablet Discontinued 10 mg PO DAILY February 22, 2022 12:00am October 17, 2024 10:30am Comment on above: Take 10 mg by mouth as needed. losartan potassium 25 mg oral tablet (7 sources) Angiotensin 2 Receptor Lev Start: 06-09-2022 End: 10-13-2023 take 1 tablet by mouth once daily Losartan 25 mg tablet Discontinued 25 mg PO DAILY 10 June 09, 2022 12:00am October 13, 2023 12:03pm mecobalamin 1 mg chewable tablet (9 sources) Start: 02-17-2022 End: 05-18-2022 take 1 tablet by mouth once daily mecobalamin, vitamin B12, 1,000 mcg chew Take 1 tablet by mouth once daily. 0 02/17/2022 05/18/2022 Discontinued (Duplicate Entry) Start: 02-17-2022 Mecobalamin (V itamin B12) 1,000 mcg tablet,chewable Active 500 ug PO DAILY February 17, 2022 12:00am Start: 02-17-2022 take 500 ug by mouth once daily Mecobalamin (Vitamin B12) Active 500 MCG PO DAILY February 16, 2022 11:00pm Comment on above: Take 1 tablet by adriano once daily. metoclopramide 5 mg oral tablet (3 sources) Dopamine-2 Receptor Antagonist Start: 024 End: take 1 tablet by mouth every eight hours as needed for headache Metoclopramide Hcl (Reglan) 5 mg tablet Discontinued 5 mg PO EVERY 8 HOURS NEEDED as needed for headache 10 3 0 May 07, 2024 6:10pm October 17, 2024 10:30am 5 ml midazolam 1 mg/ml injection (1 source) Benzodiazepine Start: End: INTRAVENOUS, X (OR/PROCEDURE) PRN, Starting on Mon02/19/25 at 1303, Until Mon02/19/25 at 1311, Intraprocedure modafinil 200 mg oral tablet (9 sources) Sympathomimetic-like Agent Start: End: take 1 tablet by mouth once daily in the morning modafinil (PROVIGIL) 200 mg tablet TAKE 1 TABLET BY MOUTH EVERY DAY IN THE MORNING 09/10/2020 05/18/2022 Discontinued (Course of therapy completed) Comment on above: TAKE 1 TABLET BY [facility] EVERY DAY IN THE MORNING mometasone furoate 0.001 mg/mg topical ointment (6 sources) Corticosteroid Start: End: Mometasone 0.1 % ointment Discontinued 1 NMA TOPICAL daily as needed November 15, 2024 12:22pm May 09, 2025 11:41am Multivitamin tablet (3 sources) Start: 018 End: Multivitamin tablet Discontinued 1 {tbl} PO DAILY July 05, 2018 12:00am May 09, 2025 11:41am Start: 07-05-2018 Multivitamin t ablet Active 1 {tbl} PO DAILY July 05, 2018 12:00am perflutren lipid microspheres 1.3 mL in NaCl (PF) 0.9% 10 mL injection (BTC Trip) (20 sources) Start: 01-04-2022 End: 04-05-2023 perflutren lipid microspheres 1.3 mL in NaCl (PF) 0.9% 10 mL injection (DEFINITY) plecanatide 3 mg oral tablet (17 sources) Start: 02-08-2021 End: 10-13-2023 take 1 tablet by mouth once daily Plecanatide (Trulance) 3 mg Tablet Discontinued 3 mg PO DAILY May 25, 2021 12:00am October 13, 2023 12:03pm Comment on above: Take 3 mg by mouth o nce daily. predniSONE 5 mg oral tablet (20 sources) Start: 02-17-2022 End: 02-22-2022 take 2.5 mg by mouth once daily Prednisone 5 mg tablet Discontinued 2.5 mg PO DAILY February 17, 2022 10:30am February 22, 2022 11:01am Start: 02-17-2022 End: 02-22-2022 take 2.5 mg by mouth once daily Prednisone Discontinue d 2.5 MG PO DAILY February 17, 2022 9:30am February 22, 2022 10:01am Start: 05-25-2021 End: 05-09-2025 take 1 tablet by mouth once daily as needed Prednisone 5 mg tablet Discontinued 5 mg PO DAILY as needed October 17, 2024 10:30am May 09, 2025 11:41am Start: 10-02-2020 End: 01-03-2021 predniSONE (DELTASONE) 5 mg tablet Take 15 mg a day for 5 days, then 10 mg a day for 5 days, then 5 mg a day 90 tablet 2 10/02/2020 01/03/2021 Discontinued Comment on above: TAKE 1 TABLET BY ADRIANO TH ONCE DAILY TAKE 1 TABLET BY ADRIANO TH EVERY DAY riboflavin 25 mg oral tablet (20 sources) Start: 07-08-2019 End: 02-17-2022 take 1 tablet by mouth once daily Riboflavin (Vitamin B2) 25 mg tablet Discontinued 25 mg PO DAILY July 08, 2019 12:00am February 17, 2022 10:32am Start: 02-07-2019 End: 05-18-2022 take 1 tablet by mouth once daily Riboflavin (Vitamin B2) 400 mg tablet Active 400 mg PO DAILY February 17, 2022 12:00am Comment on above: Take 1 tablet by adriano th daily at bedtime. semaglutide, weight loss, (WEGOVY) 0.25 mg/0.5 mL pen injector (6 sources) Start: End: inject 0.25 mg by subcutaneous injection every week semaglutide, weight loss, (WEGOVY) 0.25 mg/0.5 mL pen injector Indications: Severe obesity (BMI >= 40) (HCC) Inject 0.25 mg subcutaneously one time a week. 2 mL 2 12/30/2024 01/29/2025 Discontinued (Cost of medication) Start: 12-30-2024 inject 0.25 mg by navarrete bcutaneous injection every week semaglutide, weight loss, (WEGOVY) 0.25 mg/0.5 mL pen injector Indications: Severe obesity (BMI >= 40) (HCC) Inject 0.25 mg subcutaneously one time a week. 2 mL 2 12/30/2024 Active 125 ml sodium chloride 9 mg/ml prefilled syringe (20 sources) Start: 01-04-2022 End: 04-05-2023 sodium chloride 0.9 % (flush) 10 mL (BD POSIFLUSH) tirzepatide, weight loss (ZEPBOUND) 2.5 mg/0.5 mL solution (2 sources) Start: 01-29-2025 End: 02-03-2025 inject 0.5 mL by subcutaneous injection every week for obesity, then inject 1 mL by subcutaneous injection every week for obesity tirzepatide, weight loss (ZEPBOUND) 2.5 mg/0.5 mL solution Indications: Gastric bypass status for obesity , Vertigo Inject 0.5 mL subcutaneously one time a week for 30 days, THEN 1 mL one time a week. 6 mL 01/29/2025 02/03/2025 Discontinued (Changing Therapy/Dosage Form) Start: 01-29-2025 End: 03-30-2025 inject 0.5 mL by subcutaneous injection every week for obesity, then inject 1 mL by subcutaneous injection every week for obesity tirzepatide, weight loss (ZEPBOUND) 2.5 mg/0.5 mL solution Indications: Gastric bypass status for obesity , Vertigo Inject 0.5 mL subcutaneously one time a week for 30 days, THEN 1 mL one time a week. 6 mL 01/29/2025 03/30/2025 Active Turmeric Curcumin 260 mg (3 sources) Start: 02-17-2022 End: 10-13-2023 take 260 mg by mouth twice daily Turmeric Curcumin 260 mg Discontinued 1 {tbl} PO TWICE A DAY 0 February 17, 2022 12:00am October 13, 2023 12:04pm Start: 02-17-2022 End: 10-13-2023 take 260 mg by mouth twice daily Turmeric Curcumin 260 mg Discontinued 1 {tbl} PO TWICE A DAY February 17, 2022 12:00am October 13, 2023 12:04pm Problems Active Problems Problem Classification Problem Date Documented Da te Episodic/Chronic Abdominal pain (3 sources) Abdominal pain; Translations: [Unspecified abdominal pain] Episodic Anxiety disorders (10 sources) Anxiety; Translations: [Anxiety disorder, unspecified] Chronic Comment on above: lori. maria l add ed, recommend counseling Cardiac dysrhythmias (6 sources) Tachycardia; Translations: [Tachycardia, unspecified] 11-15-2024 Episodic Essential hypertension (19 sources) Hypertensive disorder; Translations: [Essential (primary) hypertension] Onset: 04-25-2025 09-09-2022 Chronic Gastroduodenal ulcer (except hemorrhage) (6 sources) Ulcer of anastomosis; Translations: [Gastrojejunal ulcer, unspecified as acute or chronic, without hemorrhage or perforation] Onset: 01-24-2025 02-04-2025 Chronic Noninfectious gastroenteritis (3 sources) Inflammatory bowel disease; Translations: [Noninfective gastroenteritis and colitis, unspecified] Episodic Other aftercare (5 sources) Taking high risk medication; Translations: [Other rn long term care (current) drug therapy] Episodic Other and ill-defined heart disease (3 sources) Diastolic dysfunction; Translations: [Other ill-defined heart diseases] Chronic Other connective tissue disease (3 sources) Fibromyalgia; Translations: [Fibromyalgia] 10-22-2024 Episodic Other connective tissue disease (1 source) Achilles tendinitis, right leg; Translations: [Achilles tendinitis, right leg] Onset: 06-03-2025 Episodic Other connective tissue disease (1 source) Calcaneal spur, right foot; Translations: [Calcaneal spur, right foot] Onset: 06-03-2025 Episodic Other gastrointestinal disorders (3 sources) Chronic idiopathic constipation; Translations: [Chronic idiopathic constipation] 10-22-2024 Chronic Other gastrointestinal disorders (1 source) History of bariatric surgical procedure; Translations: [Bariatric surgery status] 12-30-2024 Episodic Other gastrointestinal disorders (2 sources) History of bypass of stomach; Translations: [Bariatric surgery status] 01-29-2025 Episodic Other inflammatory condition of skin (3 sources) Psoriasis; Translations: [Psoriasis, unspecified] 10-17-2024 Chronic Other lower respiratory disease (14 sources) Dyspnea; Translations: [Shortness of breath] Episodic Other lower respiratory disease (1 source) Cough; Translations: [Cough, unspecified type] Episodic Other nervous system disorders (1 source) Other chronic pain; Translations: [Chronic pain of both knees] Onset: 11-28-2024 Chronic Other nervous system disorders (2 sources) Intermittent tremor; Translations: [Tremor, unspecified] Episodic Other nutritional; endocrine; and metabolic disorders (13 sources) Obese class III; Translations: [Obesity, unspecified] 09-02-2021 Chronic Comment on above: discussed weight man agement options, medication, had xochilt en y 2013. Other nutritional; endocrine; and metabolic disorders (13 sources) Morbid obesity; Translations: [Morbid (severe) obesity due to excess calories] 06-09-2022 Chronic Other nutritional; endocrine; and metabolic disorders (1 source) Morbid (severe) obesity due to excess calories; Translations: [Morbid obesity] Chronic Other nutritional; endocrine; and metabolic disorders (3 sources) Obesity; Translations: [Obesity, unspecified] 11-28-2024 Chronic Other nutritional; endocrine; and metabolic disorders (11 sources) Body mass index 40+ - severely obese; Translations: [Body mass index (BMI) 50.0-59.9, adult] 11-29-2024 Chronic Other nutritional; endocrine; and metabolic disorders (1 source) Insulin resistance; Translations: [Insulin resistance] 12-30-2024 Chronic Other nutritional; endocrine; and metabolic disorders (2 sources) Body mass index (BMI) 50.0-59.9, adult; Translations: [Body mass index 50.0-59.9, adult (HCC)] Onset: 01-24-2025 Chronic Other nutritional; endocrine; and metabolic disorders (1 source) Dysmetabolic syndrome X; Translations: [Dysmetabolic syndrome X] Onset: 04-25-2025 Chronic Other nutritional; endocrine; and metabolic disorders (1 source) Obesity, unspecified; Translations: [Obesity, unspecified class, unspecified obesity type, unspecified whether serious comorbidity present] Onset: 11-29-2024 Chronic Other nutritional; endocrine; and metabolic disorders (7 sources) Weight increased; Translations: [Abnormal weight gain] 02-04-2025 Episodic Residual codes; unclassified (8 sources) Obstructive sleep apnea syndrome; Translations: [Obstructive sleep apnea (adult) (pediatric)] 02-22-2022 Chronic Residual codes; unclassified (1 source) Obstructive sleep apnea (adult) (pediatric); Translations: [Obstructive sleep apnea (adult)(pediatric)] Chronic Residual codes; unclassified (11 sources) Family history of breast cancer; Translations: [Family history of malignant neoplasm of breast] 09-13-2021 Episodic Comment on above: negative empower stephanie t Residual codes; unclassified (1 source) H/O: Disorder; Translations: [Personal history of other specified conditions] 01-29-2025 Episodic Rheumatoid arthritis and related disease (20 sources) Rheumatoid arthritis of multiple joints; Translations: [Rheumatoid arthritis with rheumatoid factor of multiple sites without organ or systems involvement] Onset: 12-13-2022 Chronic Sprains and strains (9 sources) Strain of muscle of lower limb; Translations: [Strain of unspecified muscle(s) and tendon(s) at lower leg level, right leg, initial encounter] 01-19-2020 Episodic Unclassified (1 source) Unknown / UNK(Unknown) Onset: 01-31-2018 Unclassified (1 source) [facility] Review Required; Translations: [[facility] Review Required] Onset: 10-14-2022 Unclassified (1 source) Chronic pain of both knees 11-28-2024 Unclassified (1 source) Obesity, Class III, BMI 40-49.9 (morbid obesity) (HCC); Translations: [Obesity, Class III, BMI 40-49.9 (morbid obesity) (HCC)] Onset: 04-25-2025 Viral infection (9 sources) Disease caused by 2019-nCoV; Translations: [COVID-19] 05-24-2021 Episodic Past or Other Problems Problem Classification Problem Date Documented Da te Episodic/Chronic Conditions associated with dizziness or vertigo (3 sources) Vertigo; Translations: [Dizziness and giddiness] Onset: 01-29-2025 01-29-2025 Episodic Other aftercare (1 source) Other fdc (current) drug therapy; Translations: [High risk medication use] Onset: 08-14-2024 Episodic Other connective tissue disease (1 source) Pain in left foot; Translations: [Pain in left foot] Onset: 10-22-2024 Episodic Other gastrointestinal disorders (1 source) Bariatric surgery status; Translations: [Gastric bypass status for obesity] Onset: 01-29-2025 Episodic Other gastrointestinal disorders (1 source) Diarrhea, unspecified; Translations: [Diarrhea, unspecified] Onset: 09-11-2024 Episodic Other lower respiratory disease (2 sources) Shortness of breath; Translations: [Shortness of breath] Onset: 11-15-2024 Episodic Other lower respiratory disease (1 source) Other forms of dyspnea; Translations: [Other forms of dyspnea] Onset: 12-21-2024 Episodic Other non-traumatic joint disorders (3 sources) Pain in right knee; Translations: [Pain in joint, lower leg] Onset: 11-28-2024 11-28-2024 Episodic Other non-traumatic joint disorders (1 source) Pain in left knee; Translations: [Chronic pain of both knees] Onset: 11-28-2024 Episodic Other nutritional; endocrine; and metabolic disorders (2 sources) Abnormal weight gain; Translations: [Weight gain] Onset: 01-24-2025 Episodic Other screening for suspected conditions (not mental disorders or infectious disease) (7 sources) Patient encounter status; Translations: [Encounter for screening mammogram for malignant neoplasm of breast] Onset: 11-18-2024 09-05-2023 Episodic Syncope (2 sources) Syncope; Translations: [Syncope and collapse] Onset: 08-16-2024 11-28-2024 Episodic Unclassified (1 source) [facility] Review Required; Translations: [[facility] L[facility] Review Required] Onset: 10-14-2022 Urinary tract infections (1 source) Urinary tract infection, site not specified; Translations: [Urinary tract infection without hematuria, site unspecified] Onset: 09-03-2024 Episodic Results Test Name Value Interpretation Reference Range Facility Cardiology Visit Reporton Cardiology Visit Report [facility] [address] [place] [address] OFFICE VISIT Date of Service: 05/09/25 MR#: [id number] Acct: [id number] Name: GALINDO HO Rep #: [id number] : 1980 Provider: SULAIMAN Cornejo Age/Sex: 45/F [place] [facility] [place] Status: Signed HPI HPI History of Present Illness Details: Patient is a 89year-old white female that established with us for abnormal event monitor. 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 She has noted that she was having tach tachycardias and had a 14- day event monitor which shows an ectopic atrial tachycardia with and without symptoms. Maximum heart rate was in 160s for about 36 beats. She did not have any definitive atrial fibrillation. She did have some sinus tach and sinus bradycardia her PAC burden was less than 0.1%. PVC burden was less than 0.1%. The patient wore the event monitor for 14 days. The patient has a history of hypertension which has been mild but has been well-controlled with medical therapy she also history of morbid obesity status post gastric bypass back in 2012 a year later she had gastric ulcer and hepatic failure. Patient has a history of obstructive sleep apnea treated she has a history of syncope that was felt to be vasovagal she actually fell down and hurt herself in April 2024 and presented to the emergency department. She feels that these occur within the 10 days prior to her next infusion for her rheumatoid arthritis. Section carries a history of irritable bowel syndrome fibromyalgia and the rheumatoid arthritis which has disrupted her life significantly. Patient had an echocardiogram done back in January 2022 which was difficult due to her body habitus her left ventricular was normal with an EF of 65% she had grade 1 diastolic dysfunction the right ventricle was normal in size and function there was no significant valve abnormalities. This was done at the [facility]. Patient also has a history of carotid ultrasound April 2017 which showed normal coronary arteries and she has no evidence of atherosclerotic disease. Pt notes that she she had coffee yesterday and this caused some palpitations. Previous to that she has been doing well. Intake Vital Signs 11/15/24 11:20 05/09/25 11:30 Height 5 ft 6 in 5 ft 6 in Weight: 335 lb BMI 54.1 BP 120/77 Blood Pressure Location Lt brachial Position Sitting Respiration 18 Pulse 81 Pulse Source Monitor Pulse Oximetry (%) 98 Intake Visit Reasons: 6 M FU Meteorological Aide Required: No Is patient in pain?: No Allergies banana Allergy (Unknown, Verified 05/09/25 11:39) Hives Penicillins Allergy (Unknown, Verified 05/09/25 11:39) Rash/Hives strawberry Allergy (Unknown, Verified 05/09/25 11:39) Hives Sulfa (Sulfonamide Antibiotics) Allergy (Unknown, Verified 05/09/25 11:39) Hives watermelon Allergy (Unknown, Verified 05/09/25 11:39) Hives Corticosteroids (Glucocorticoids) Adverse Reaction (Verified 05/09/25 11:39) Liver failure latex Adverse Reaction (Verified 05/09/25 11:39) Rash Medications ???Medication ???Instructions ???Recorded ???Confirmed ???Type fluticasone propionate 50 2 spray NASAL DAILY 03/30/2005/09 History mcg/actuation nasal spray,suspension hydroxyzine HCl 10 mg tablet 25 mg PO QHS 03/30/20 05/09/25 His tory levocetirizine 5 mg tablet 5 mg PO DAILY 03/30/20 05/09/25 Hi story magnesium oxide 400 mg PO BID 03/30/20 05/09/25 Hi story folic acid 1 mg tablet 1 mg PO 6XW 02/17/22 05/09/25 Hist ory mecobalamin (vitamin B12) 1,000 500 mcg PO DAILY 02/17/22 05/09/25 History mcg chewable tablet methotrexate sodium 2.5 mg tablet 15 mg PO NAVARRETE 02/17/22 05/09/25 His tory omega-3 fatty acids 1,000 mg 2,000 mg PO BID 02/17/22 05/09/25 History capsule ondansetron HCl 4 mg tablet 4 mg PO Q8H PRN motion sickness 05/09/25 History promethazine 12.5 mg tablet 12.5 mg PO Q8H PRN nausea and 01/2405/09/25 History vomiting riboflavin (vitamin B2) 400 mg 400 mg PO DAILY 02/17/22 05/09/25 History tablet nebivolol 10 mg tablet 10 mg PO DAILY #30 tabs 09/09/22 0 05/09/25 Rx buspirone 5 mg tablet See Rx Instructions .Route 5 05/09/25 Rx .COMPLEX #60 tabs indapamide 1.25 mg tablet 1.25 mg PO QAM 10/17/24 05/09/25 H istory ramipril 5 mg capsule 5 mg PO QDAY 10/17/24 05/09/25 His tory duloxetine 60 mg capsule,delayed 120 mg PO DAILY 10/22/24 05/09/25 History release (Cymbalta) infliximab 100 mg intravenous mg .Route Q6W 10/22/24 05/09/25 Hi story solution (Remicade) pregabalin 100 mg capsule (Lyrica) 100 mg PO BID 10/22/24 05/09/25 History amitriptyline 25 mg tablet 25 mg PO QHS PRN 05/09/25 05/09/25 History Have you fallen in the past year?: Yes [facility] Medical Histo (more content not included)... Normal [facility] ALBUMIN/CREATININE RATIO, UR INEon 04-25-2025 Albumin DL <= 20 mg/L (U) [Mass/Vol] 99.7 mg/L Normal [facility] Comment on above: Order Comment: Speci men Type: URINE SPECIMEN Ordering Facility: [facility] Address: [facility] [address] [place] [id number] Performed By: #### U ACR #### [facility] CLIA [id number] [address] [place] [address] [place] Albumin/Creatinine (U) [Mass ratio] 57 mg/g High <30 [facility] Comment on above: Order Comment: Speci men Type: URINE SPECIMEN Ordering Facility: [facility] Address: [facility] [place] [address] Result Comment: Adul t Male and Female Nephrotic Criteria: <30 mg/g is considered normal to mildly increased 30-300 mg/g is considered moderately increased >300 mg/g is considered severely increased KDIGO. (2013). KDIGO 2012 Clinical Practice Guideline for the Evaluation and Management of Chronic Kidney Disease. Official Journal of the International Society of Nephrology, 3(1), 1-150. Performed By: #### U ACR #### [facility] CLIA [id number] [address] [place] [address] [place] Creatinine (U) [Mass/Vol] 174.6 mg/dL Normal 20.0-300.0 [facility] Comment on above: Order Comment: Speci men Type: URINE SPECIMEN Ordering Facility: [facility] Address: [address] [facility] [place] [address] Performed By: #### U ACR #### [facility] CLIA [id number] [address] [place] [address] [place] CBC W Auto Differential pane l (Bld)on 04-25-2025 Basophils (Bld) [#/Vol] 0.07 10*3/uL Normal <0.11 [facility] Comment on above: Order Comment: Speci men Type: URINE SPECIMEN Ordering Facility: [facility] Address: [address] [facility] [place] [address] Performed By: #### U A #### [facility] CLIA [id number] [address] [place] [address] [place] Basophils/100 WBC (Bld) 1.1 % Normal [facility] Comment on above: Order Comment: Speci men Type: URINE SPECIMEN Ordering Facility: [facility] Address: [address] [place] [address] Performed By: #### U A #### [facility] CLIA [id number] [address] [place] [address] [place] Differential cell count method Nom (Bld) Auto Normal [facility] Comment on above: Order Comment: Speci men Type: URINE SPECIMEN Ordering Facility: [facility] Address: [address] [place] [address] Performed By: #### U A #### [facility] CLIA [id number] [address] [place] [address] [place] Eosinophils (Bld) [#/Vol] 0.25 10*3/uL Normal <0.46 [facility] Comment on above: Order Comment: Speci men Type: URINE SPECIMEN Ordering Facility: [facility] Address: [facility] [place] [address] Performed By: #### U A #### [facility] CLIA [id number] [address] [place] [address] [place] Eosinophils/100 WBC (Bld) 3.8 % Normal [facility] Comment on above: Order Comment: Speci men Type: URINE SPECIMEN Ordering Facility[facility] [place] [address] Performed By: #### U A #### [facility] CLIA [id number] [address] [place] [address] [place] Erythrocyte distribution width (RBC) [Ratio] 13.4 % Normal 11.5-15.0 [facility] Comment on above: Order Comment: Speci men Type: URINE SPECIMEN Ordering Facility: [facility] Address: [facility] [place] [address] Performed By: #### U A #### [facility] CLIA [id number] [address] [place] [address] [place] Hematocrit (Bld) [Volume fraction] 39.7 % Normal 36.0-46.0 [facility] Comment on above: Order Comment: Speci men Type: URINE SPECIMEN Ordering Facility: [facility] Address: [facility] [address] [facility] [place] [address] Performed By: #### U A #### [facility] CLIA [id number] [address] [place] [address] [place] Hemoglobin (Bld) [Mass/Vol] 13.8 g/dL Normal 11.5-15.5 [facility] Comment on above: Order Comment: Speci men Type: URINE SPECIMEN Ordering Facility: [facility] Address: [place] [address] Performed By: #### U A #### [facility] CLIA [id number] [address] [place] [address] [place] Immature granulocytes (Bld) [#/Vol] 10*3/uL Normal <0.10 [facility] Comment on above: Order Comment: Speci men Type: URINE SPECIMEN Ordering Facility: [facility] Address: [facility] [place] [address] Performed By: #### U A #### [facility] CLIA [id number] [address] [place] [address] [place] Immature granulocytes/100 WBC (Bld) 0.2 % Normal [facility] Comment on above: Order Comment: Speci men Type: URINE SPECIMEN Ordering Facility: [facility] Address: [facility] [place] [address] Performed By: #### U A #### [facility] CLIA [id number] [address] [place] [address] [place] Lymphocytes (Bld) [#/Vol] 2.27 10*3/uL Normal 1.00-4.00 [facility] Comment on above: Order Comment: Speci men Type: URINE SPECIMEN Ordering Facility: [facility] Address: [facility] [place] [address] Performed By: #### U A #### [facility] CLIA [id number] [address] [place] [address] [place] Lymphocytes/100 WBC (Bld) 34.6 % Normal [facility] Comment on above: Order Comment: Speci men Type: URINE SPECIMEN Ordering Facility: [facility] Address: [address] [place] [id number] Performed By: #### U A #### [facility] CLIA [id number] [address] [place] MCH (RBC) [Entitic mass] 32.7 pg Normal 26.0-34.0 [facility] Comment on above: Order Comment: Speci men Type: URINE SPECIMEN Ordering Facility: [facility] Address: [address] [place] [address] Performed By: #### U A #### [facility] CLIA [id number] [address] [place] [address] [place] MCHC (RBC) [Mass/Vol] 34.8 g/dL Normal 30.5-36.0 [facility] Comment on above: Order Comment: Speci men Type: URINE SPECIMEN Ordering Facility: [facility] Address: [address] [place] [address] Performed By: #### U A #### [facility] CLIA [id number] [address] [place] [address] [place] MCV (RBC) [Entitic vol] 94.1 fL Normal 80.0-100.0 [facility] Comment on above: Order Comment: Speci men Type: URINE SPECIMEN Ordering Facility[facility] Address: [address] [address] Performed By: #### U A #### [facility] CLIA [id number] [address] [place] [address] [place] Monocytes (Bld) [#/Vol] 0.57 10*3/uL Normal <0.87 [facility] Comment on above: Order Comment: Speci men Type: URINE SPECIMEN Ordering Facility: [facility] Address: [address] [address] Performed By: #### U A #### [facility] CLIA [id number] [address] [address] [place] Monocytes/100 WBC (Bld) 8.7 % Normal [facility] Comment on above: Order Comment: Speci men Type: URINE SPECIMEN Ordering Facility[facility] Address: [place] [address] Performed By: #### U A #### [facility] CLIA [id number] [address] [place] [id number] [place] Neutrophils (Bld) [#/Vol] 3.40 10*3/uL Normal 1.45-7.50 [facility] Comment on above: Order Comment: Speci men Type: URINE SPECIMEN Ordering Facility[facility] Address: [facility] [place] [address] Performed By: #### U A #### [facility] CLIA [id number] [address] [place] [id number] [place] Neutrophils/100 WBC (Bld) 51.6 % Normal [facility] Comment on above: Order Comment: Speci men Type: URINE SPECIMEN Ordering Facility[facility] Address: [facility] [place] [address] Performed By: #### U A #### [facility] CLIA [id number] [address] [place] [id number] [place] Nucleated RBC (Bld) [#/Vol] 10*3/uL Normal <0.01 [facility] Comment on above: Order Comment: Speci men Type: URINE SPECIMEN Ordering Facility[facility] Address: [facility] [address] [facility] [place] [address] Performed By: #### U A #### [facility] CLIA [id number] [address] [place] [id number] [place] Nucleated RBC/100 WBC (Bld) [Ratio] 0.0 /100 WBC Normal [facility] Comment on above: Order Comment: Speci men Type: URINE SPECIMEN Ordering Facility: [facility] Address: [facility] [place] [address] Performed By: #### U A #### [facility] CLIA [id number] [address] [place] [address] [place] Platelet mean volume (Bld) [Entitic vol] 9.6 fL Normal 9.0-12.7 [facility] Comment on above: Order Comment: Speci men Type: URINE SPECIMEN Ordering Facility: [facility] Address: [place] [address] Performed By: #### U A #### [facility] CLIA [id number] [address] [place] [address] [place] Platelets (Bld) [#/Vol] 322 10*3/uL Normal 150-400 [facility] Comment on above: Order Comment: Speci men Type: URINE SPECIMEN Ordering Facility: [facility] Address: [place] [address] Performed By: #### U A #### [facility] CLIA [id number] [address] [place] [address] [place] RBC (Bld) [#/Vol] 4.22 10*6/uL Normal 3.90-5.20 [facility] Comment on above: Order Comment: Speci men Type: URINE SPECIMEN Ordering Facility[facility] Address: [place] [address] Performed By: #### U A #### [facility] CLIA [id number] [address] [place] [address] [place] WBC (Bld) [#/Vol] 6.57 10*3/uL Normal 3.70-11.00 [facility] Comment on above: Order Comment: Speci men Type: URINE SPECIMEN Ordering Facility: [facility] Address: [place] [address] Performed By: #### U A #### [facility] CLIA [id number] [address] [place] [address] [place] Comprehensive metabolic 2000 panelon 04-25-2025 Albumin [Mass/Vol] 4.1 g/dL Normal 3.9-4.9 [facility] Comment on above: Order Comment: Speci men Type: URINE SPECIMEN Ordering Facility: [facility] Address: [address] [place], [place] [address] Performed By: #### U A #### [facility] CLIA [id number] [address] [place] [address] [place] ALP [Catalytic activity/Vol] 74 U/L Normal 34-123 [facility] Comment on above: Order Comment: Speci men Type: URINE SPECIMEN Ordering Facility: [facility] Address: [address] [place], [place] [address] Performed By: #### U A #### [facility] CLIA [id number] [address] [place] [address] [place] ALT [Catalytic activity/Vol] 15 U/L Normal 7-38 [facility] Comment on above: Order Comment: Speci men Type: URINE SPECIMEN Ordering Facility: [facility] Address: [address] [place], [place] [address] Performed By: #### U A #### [facility] CLIA [id number] [address] [place] [address] [place] Anion gap [Moles/Vol] 14 mmol/L Normal 8-15 [facility] Comment on above: Order Comment: Speci men Type: URINE SPECIMEN Ordering Facility[facility] Address: [address] [place] [address] Performed By: #### U A #### [facility] CLIA [id number] [address] [place] [address] [place] AST [Catalytic activity/Vol] 15 U/L Normal 13-35 [facility] Comment on above: Order Comment: Speci men Type: URINE SPECIMEN Ordering Facility[facility] Address: [facility] [address] [place], [place] [address] Performed By: #### U A #### [facility] CLIA [id number] [address] [place] [address] [place] Bilirubin [Mass/Vol] 0.5 mg/dL Normal 0.2-1.3 [facility] Comment on above: Order Comment: Speci men Type: URINE SPECIMEN Ordering Facility[facility] Address: [facility] [address] [place], [place] [address] Performed By: #### U A #### [facility] CLIA [id number] [address] [place] [address] [place] Calcium [Mass/Vol] 9.7 mg/dL Normal 8.5-10.2 [facility] Comment on above: Order Comment: Speci men Type: URINE SPECIMEN Ordering Facility[facility] Address: [facility] [address], [place] [address] Performed By: #### U A #### [facility] CLIA [id number] [address] [place] [address] [place] Chloride [Moles/Vol] 98 mmol/L Normal 98-107 [facility] Comment on above: Order Comment: Speci men Type: URINE SPECIMEN [facility] Address: [facility] [place] [address] Performed By: #### U A #### [facility] CLIA [id number] [address] [place] [address] [place] CO2 [Moles/Vol] 25 mmol/L Normal 22-30 [facility] Comment on above: Order Comment: Speci men Type: URINE SPECIMEN Ordering Facility: [facility] Address: [address], [place] [address] Performed By: #### U A #### [facility] CLIA [id number] [address] [place] [address] [place] Creatinine [Mass/Vol] 0.75 mg/dL Normal 0.58-0.96 [facility] Comment on above: Order Comment: Speci men Type: URINE SPECIMEN Ordering Facility: [facility] Address: [address], [place] [id number] Performed By: #### U A #### [facility] CLIA [id number] [address] [place] [address] [place] eGFRcr SerPlBld CKD-EPI 2020 101 mL/min/1.73m??? Normal >=60 [facility] Comment on above: Order Comment: Speci men Type: URINE SPECIMEN Ordering Facility: [facility] Address: [address], [place] [address] Result Comment: Joan mated Glomerular Filtration Rate (eGFR) is calculated using the 2020 CKD-EPI creatinine equation. This equation utilizes serum creatinine, sex, and age as parameters. The creatinine assay has traceable calibration to isotope dilution-mass spectrometry. Refer to KDIGO guidelines for clinical interpretation. In patients with unstable renal function, e.g. those with acute kidney injury, the eGFR may not accurately reflect actual GFR. Performed By: #### U A #### [facility] CLIA [id number] [address] [place] [address] [place] Glucose [Mass/Vol] 100 mg/dL High 74-99 [facility] Comment on above: Order Comment: Speci men Type: URINE SPECIMEN Ordering Facility: [facility] Address: [address], [place] [address] Result Comment: The [place] Diabetes Association (ADA) provides guidance for cutoff values for fasting glucose and random glucose. The ADA defines fasting as no caloric intake for at least 8 hours. Fasting plasma glucose results between 100 to 125 mg/dL indicate increased risk for diabetes (prediabetes). Fasting plasma glucose results greater than or equal to 126 mg/dL meet the criteria for diagnosis of diabetes. In the absence of unequivocal hyperglycemia, results should be confirmed by repeat testing. In a patient with classic symptoms of hyperglycemia or hyperglycemic crisis, random plasma glucose results greater than or equal to 200 mg/dL meet the criteria for diagnosis of diabetes. Reference: Standards of Medical Care in Diabetes 2016, Japanese Diabetes Association. Diabetes Care. 2016.39(Suppl 1). Performed By: #### U A #### [facility] CLIA [id number] [facility] [place] [address] [place] Potassium [Moles/Vol] 3.9 mmol/L Normal 3.7-5.1 [facility] Comment on above: Order Comment: Speci men Type: URINE SPECIMEN Ordering Facility: [facility] Address: [address] [address] Performed By: #### U A #### [facility] CLIA [id number] [facility] [place] [address] [place] Protein [Mass/Vol] 7.1 g/dL Normal 6.3-8.0 [facility] Comment on above: Order Comment: Speci men Type: URINE SPECIMEN Ordering Facility: [facility] Address: [address] [address] Performed By: #### U A #### [facility] CLIA [id number] [address] [place] [address] [place] Sodium [Moles/Vol] 137 mmol/L Normal 136-144 [facility] Comment on above: Order Comment: Speci men Type: URINE SPECIMEN Ordering Facility: [facility] Address: [address] [address] Performed By: #### U A #### [facility] CLIA [id number] [address] [place], [place] [address] [place] Urea nitrogen [Mass/Vol] 16 mg/dL Normal 7-21 [facility] Comment on above: Order Comment: Speci men Type: URINE SPECIMEN Ordering Facility: [facility] Address: [address] [place] [address] Performed By: #### U A #### [facility] CLIA [id number] [address] [facility] [id number] [place], [place] [id number] [place] HbA1c (Bld)on 04-25-2025 Average glucose Estimated from glycated hemoglobin (Bld) [Mass/Vol] 91 mg/dL Normal [facility] Comment on above: Order Comment: Speci men Type: BLOOD SPECIMENOrdering Facility: [facility] Address: [address] [place] [address] Result Comment: eAG: (Estimated average glucose) is a calculated value from HgbA1c and is traffic workforce representative of the average blood glucose level in the last 2-3 month period. Performed By: #### 5 5454-3 ####[facility] [id number] [place] [address] [place] HbA1c (Bld) [Mass fraction] 4.8 % Normal 4.3-5.6 [facility] Comment on above: Order Comment: Hayleyi eduar Type: BLOOD SPECIMENOrdering Facility: [facility] Address: [address] [place] [address] Result Comment: Amer ican Diabetes Association guidelines indicate that patients with HgbA1c in the range 5.7-6.4% are at increased risk for development of diabetes, and intervention by lifestyle modification may be beneficial. HgbA1c greater or equal to 6.5% is considered diagnostic of diabetes. Performed By: #### 5 5454-3 ####[facility] [id number] [place] [id number] [place] INSULIN, FREE, SERUMon 04-25 Insulin Free Qn 12.2 uU/mL Normal 2.6-24.9 [facility] Comment on above: Order Comment: Hayleyi men Type: URINE SPECIMEN Ordering Facility: [facility] Address: [facility] [place] [address] Result Comment: Refe rence intervals established for fasting specimens. This test was developed, and its performance characteristics determined by the [facility] Department of Pathology and Laboratory Medicine. It has not been cleared or approved by the FDA. The [facility] Department of Pathology and Laboratory Medicine is regulated under CLIA as qualified to perform high-complexity testing. This test is used for clinical purposes. It should not be regarded as investigational or for research. Performed By: #### U A #### [facility] CLIA [id number] [address] [place] [address] [place] Insulin SerPl-aCncon 025 Insulin Qn 21.2 uU/mL Normal 2.6-24.9 [facility] Comment on above: Order Comment: Speci men Type: URINE SPECIMEN Ordering Facility: [facility] Address: [address] [place] [address] Result Comment: Refe rence intervals established for fasting specimens. Performed By: #### U A #### [facility] CLIA [id number] [address] [place] [address] [place] Lipid 1996 panelon 5 Cholesterol [Mass/Vol] 182 mg/dL Normal <200 [facility] Comment on above: Order Comment: Viet witt Type: URINE SPECIMEN Ordering Facility: [facility] Address: [address] [place] [address] Result Comment: <200 mg/dL, Desirable 200-239 mg/dL, Borderline high >239 mg/dL, High Performed By: #### U A #### [facility] CLIA [id number] [address] [place] [address] [place] Cholesterol in HDL [Mass/Vol] 51 mg/dL Normal >39 [facility] Comment on above: Order Comment: Viet witt Type: URINE SPECIMEN Ordering Facility: [facility] Address: [address] [place] [address] Result Comment: 40-5 9 mg/dL, Acceptable >59 mg/dL, High: Negative risk factor for coronary heart disease <40 mg/dL, Low: Positive risk factor for coronary heart disease Performed By: #### U A #### [facility] CLIA [id number] [address] [place] [address] [place] Cholesterol in LDL [Mass/Vol] 108 mg/dL High <100 [facility] Comment on above: Order Comment: Speci men Type: URINE SPECIMEN Ordering Facility: [facility] Address: [address], [place] [address] Result Comment: <100 mg/dL, Optimal 100-129 mg/dL, Near optimal/above optimal 130-159 mg/dL, Borderline high 160-189 mg/dL, High >189 mg/dL, Very high Secondary prevention optimal LDL Cholesterol levels are recommended to be <70 mg/dL LDL cholesterol is calculated using the Benz-NIH equation. Performed By: #### U A #### [facility] CLIA [id number] [address] [place] [address] [place] Cholesterol in LDL/Cholesterol in HDL [Mass ratio] 2.12 {ratio} Normal <2.54 [facility] Comment on above: Order Comment: Speci men Type: URINE SPECIMEN Ordering Facility: [facility] Address: [address], [place] [address] Result Comment: Earnest saul: 1. National Cholesterol Education Program ATP III Guideline At-A-Glance Quick Desk Reference: National Heart, Lung, and Blood [place]. National Institutes of Health. 2001: NIH Publication No. 01-3305. 2. An International Atherosclerosis Society position paper: global recommendations for the management of dyslipidemia: executive summary, Atherosclerosis. 2014: 232(2):410-413. Performed By: #### U A #### [facility] CLIA [id number] [facility] [place] [address] [place] Cholesterol in VLDL [Mass/Vol] 22 mg/dL Normal <30 [facility] Comment on above: Order Comment: Speci men Type: URINE SPECIMEN Ordering Facility: [facility] Address: [address], [place] [address] Performed By: #### U A #### [facility] CLIA [id number] [address] [place] [address] [place] Cholesterol non HDL [Mass/Vol] 131 mg/dL High <130 [facility] Comment on above: Order Comment: Speci men Type: URINE SPECIMEN Ordering Facility: [facility] Address: [address], [place] [address] Result Comment: <130 mg/dL, Optimal 130-159 mg/dL, Near optimal/above optimal 160-189 mg/dL, Borderline high 190-219 mg/dL, High >219 mg/dL, Very high Secondary prevention optimal non HDL Cholesterol levels are recommended to be <100 mg/dL Performed By: #### U A #### [facility] CLIA [id number] [facility] [place] [address] [place] Cholesterol.total/C holesterol in HDL [Mass ratio] 3.57 {ratio} Normal <5.10 [facility] Comment on above: Order Comment: Speci men Type: URINE SPECIMEN Ordering Facility: [facility] Address: [address], [place] [address] Performed By: #### U A #### [facility] CLIA [id number] [address] [place] [address] [place] FASTING TIME 12 hrs Normal [facility] Comment on above: Order Comment: Speci men Type: URINE SPECIMEN Ordering Facility: [facility] Address: [address] [place] [address] Performed By: #### U A #### [facility] CLIA [id number] [address] [place] [address] [place] Triglyceride [Mass/Vol] 129 mg/dL Normal <150 [facility] Comment on above: Order Comment: Speci men Type: URINE SPECIMEN Ordering Facility: [facility] Address: [address], [place] [address] Result Comment: <150 mg/dL, Normal 150-199 mg/dL, Borderline high 200-499 mg/dL, High >499 mg/dL, Very high Performed By: #### U A #### [facility] CLIA [id number] [address] [place] [address] [place] EGD Study observation Clementina gerard 02-19-2025 A31 Gastrointestinal Endoscopy Patient Name: Galindo Ho Procedure Date: 02/19/2025 12:48 PM Date of : 1980 Admit Type: Outpatient Age: 45 Room: [address] Gender: Female Note Status: Finalized Attending MD: Gary Barraza , , Procedure: Upper GI endoscopy Indications: Assessment following gastric bypass Providers: Gary Barraza Patient Profile: This is a 45 year old female. Refer to note in patient chart for documentation of history and physical. Referring Physician: Gary Barraza (Referring MD) Medicines: Fentanyl 125 micrograms IV, Midazolam 5 mg IV Requesting Provider: Procedure: Pre-Anesthesia Assessment: - Prior to the procedure, a History and Physical was performed, and patient medications and allergies were reviewed. The patient is competent. The risks and benefits of the procedure and the sedation options and risks were discussed with the patient. All questions were answered and informed consent was obtained. Patient identification and proposed procedure were verified by the physician and the nurse in the endoscopy suite. Mental Status Examination: alert and oriented. Airway Examination: normal oropharyngeal airway and neck mobility. Respiratory Examination: clear to auscultation. CV Examination: normal. Prophylactic Antibiotics: The patient does not require prophylactic antibiotics. Prior Anticoagulants: The patient has taken no anticoagulant or antiplatelet agents. ASA Grade Assessment: II - A patient with mild systemic disease. After reviewing the risks and benefits, the patient was deemed in satisfactory condition to undergo the procedure. The anesthesia plan was to use moderate sedation / analgesia (conscious sedation). Immediately prior to administration of medications, the patient was re-assessed for adequacy to receive sedatives. The heart rate, respiratory rate, oxygen saturations, blood pressure, adequacy of pulmonary ventilation, and response to care were monitored throughout the procedure. The physical status of the patient was re-assessed after the procedure. After obtaining informed consent, the endoscope was passed under direct vision. Throughout the procedure, the patient's blood pressure, pulse, and oxygen saturations were monitored continuously. The GIF-HQ190 was introduced through the mouth, and advanced to the second part of duodenum. The upper GI endoscopy was accomplished without difficulty. The patient tolerated the procedure well. Moderate Sedation: The administration of moderate sedation was initiated at 13:03. Moderate (conscious) sedation was administered by the nurse and supervised by the endoscopist. The patient's oxygen saturation, heart rate, blood pressure and response to care were monitored. Findings: No gross lesions were noted in the esophagus. Evidence of a gastric bypass was found. A gastric pouch with a 4 cm length from the GE junction to the gastrojejunal anastomosis was found. The staple line appeared intact. The gastrojejunal anastomosis was characterized by healthy appearing mucosa. This was traversed. The gdbkf-vm-eywdlhh limb was characterized by healthy appearing mucosa. The excluded stomach was not examined as it could not be found. Impression: - No gross lesions in the esophagus. - Gastric bypass with a pouch 4 cm in length and intact staple line. Gastrojejunal anastomosis characterized by healthy appearing mucosa. - No specimens collected. Estimated Blood Loss: Estimated blood loss: none. Recommendation: - Discharge patient to home. - Resume previous diet. - Continue present medications. - Return to my office as previously scheduled. Procedure Code(s): --- Professional --- 27094, Esophagogastroduodenoscopy, flexible, (more content not included)... PROVATION [facility] Radiology Study observation (narrative) [facility] NURSING PROGon 02-19-2025 NURSING PROG HNO ID: [id number] Author: CJ CAGLE RN Service: Nursing Author Type: Registered Nurse Type: Nursing Progress Note Filed: 02/19/2025 13:25 Note Text: AMBULATORY PATIENT EDUCATION NOTE TOPIC: GI PROCEDURES: Esophagogastroduodenoscopy(E GD) with or without biopies based on clinical findings, removal of polyps or lesions READINESS TO LEARN INSTRUCTION PROVIDED TO: Patient, readness to learn accessed prior to procedure and Patient and family member COGNITIVE ABILITY: Alert and oriented PTED MOTIVATION TO LEARN: Interested FAMILY SUPPORT: High - Very involved in pt care IPATIENT LEARNS BEST BY: Individual Instruction Written Instruction - Hand-outs Verbal Instruction FACTORS AFFECTING LEARNING: None PHYSICAL LIMITATIONS AFFECTING LEARNING: None LEARNING RESPONSE METHOD OF INSTRUCTION: Individual instruction PATIENT / FAMILY RESPONSE: Verbalizes understanding of: WORSENING CONDITION-Signs and symptoms of a worsening condition that warrant a call to the physician FOLLOW-UP PLAN: Patient instructed to call with any further issues Recommend - Recommend continued instruction and follow up as directed Contact information given. SUPPLEMENTAL MATERIAL: Procedure Discharge Instructions REFERRAL (RECOMMENDATION): None Electronically Signed By: Cj Cagle RN [facility] NURSING PROG HNO ID: [id number] Author: ZEE HARVEY RN Service: ? Author Type: Registered Nurse Type: Nursing Progress Note Filed: 02/19/2025 12:38 Note Text: PRE OP LEARNING ASSESSMENT PROCEDURE/SURGERY: GI PROCEDURES: EGD READINESS TO LEARN COGNITIVE ABILITY: Alert and oriented MOTIVATION TO LEARN: Interested FAMILY SUPPORT: Unable to assess - Family not present PATIENT LEARNS BEST BY: Individual Instruction FACTORS AFFECTING LEARNING: None PHYSICAL LIMITATIONS AFFECTING LEARNING: None Electronically Signed By: Zee Harvey RN In Department: GASTROENTEROLOGY [facility] Upper GI endoscopyon 025 Upper GI endoscopy A31 Gastrointestinal Endoscopy Patient Name: Galindo Ho Procedure Date: 02/19/2025 12:48 PM Date of : 1980 Admit Type: Outpatient Age: 45 Room: [address] Gender: Female Note Status: Finalized Attending MD: Gary Barraza , , Procedure: Upper GI endoscopy Indications: Assessment following gastric bypass Providers: Gary Barraza Patient Profile: This is a 45 year old female. Refer to note in patient chart for documentation of history and physical. Referring Physician: Gary Barraza (Referring MD) Medicines: Fentanyl 125 micrograms IV, Midazolam 5 mg IV Requesting Provider: Procedure: Pre-Anesthesia Assessment: - Prior to the procedure, a History and Physical was performed, and patient medications and allergies were reviewed. The patient is competent. The risks and benefits of the procedure and the sedation options and risks were discussed with the patient. All questions were answered and informed consent was obtained. Patient identification and proposed procedure were verified by the physician and the nurse in the endoscopy suite. Mental Status Examination: alert and oriented. Airway Examination: normal oropharyngeal airway and neck mobility. Respiratory Examination: clear to auscultation. CV Examination: normal. Prophylactic Antibiotics: The patient does not require prophylactic antibiotics. Prior Anticoagulants: The patient has taken no anticoagulant or antiplatelet agents. ASA Grade Assessment: II - A patient with mild systemic disease. After reviewing the risks and benefits, the patient was deemed in satisfactory condition to undergo the procedure. The anesthesia plan was to use moderate sedation / analgesia (conscious sedation). Immediately prior to administration of medications, the patient was re-assessed for adequacy to receive sedatives. The heart rate, respiratory rate, oxygen saturations, blood pressure, adequacy of pulmonary ventilation, and response to care were monitored throughout the procedure. The physical status of the patient was re-assessed after the procedure. After obtaining informed consent, the endoscope was passed under direct vision. Throughout the procedure, the patient's blood pressure, pulse, and oxygen saturations were monitored continuously. The GIF-HQ190 was introduced through the mouth, and advanced to the second part of duodenum. The upper GI endoscopy was accomplished without difficulty. The patient tolerated the procedure well. Moderate Sedation: The administration of moderate sedation was initiated at 13:03. Moderate (conscious) sedation was administered by the nurse and supervised by the endoscopist. The patient's oxygen saturation, heart rate, blood pressure and response to care were monitored. Findings: No gross lesions were noted in the esophagus. Evidence of a gastric bypass was found. A gastric pouch with a 4 cm length from the GE junction to the gastrojejunal anastomosis was found. The staple line appeared intact. The gastrojejunal anastomosis was characterized by healthy appearing mucosa. This was traversed. The xncdd-yy-qbpamsg limb was characterized by healthy appearing mucosa. The excluded stomach was not examined as it could not be found. Impression: - No gross lesions in the esophagus. - Gastric bypass with a pouch 4 cm in length and intact staple line. Gastrojejunal anastomosis characterized by healthy appearing mucosa. - No specimens collected. Estimated Blood Loss: Estimated blood loss: none. Recommendation: - Discharge patient to home. - Resume previous diet. - Continue present medications. - Return to my office as previously scheduled. Procedure Code(s): --- Professional --- 46261, Esophagogastroduodenoscopy, flexible, transoral; diagnostic, including collection of specimen(s) by brushing or washing, when performed (separate procedure) Diagnosis Code(s): --- Professional --- Z98.84, Bariatric surgery status Z09, Encounter for follow-up examination after completed treatment for conditions other than malignant neoplasm CPT copyright 2021 Japanese Medical Association. All rights reserved. The codes documented in this report are preliminary and upon printed circuit boards router review may be revised to meet current compliance requirements. Attending Participation: I personally performed the entire procedure. Scope In: 1:09:33 PM Scope Out: 1:14:21 PM Gary Barraza, 02/19/2025 1:20:44 PM Number of Addenda: 0 Note Initiated On: 02/19/2025 12:48 PM [facility] NURSING PROGon 02-11-2025 NURSING PROG HNO ID: [id number] Author: NAYA MARAVILLA, RN Service: ? Author Type: Registered Nurse Type: Nursing Progress Note Filed: 02/11/2025 15:57 Note Text: GI Pre-Procedure Spoke with patient: Yes Confirmed date scheduled and patient report time: Yes Procedure Planned:Esophagogastroduoden oscopy(EGD) for control of bleeding,dilation(any means),imaging,tube placement Is the patient on blood thinners?no Procedure Instructions given to patient: Yes, and they verbalized their understanding of instructions given Patient instructed to take prescribed preparation prior to procedure:Yes, and they verbalized their understanding of instructions given Patient instructed to have family/friend present for procedure transport home:Patient/patient traffic workforce representative was told that if they do not have a responsible adult accompany them to their procedure; and remain in the endoscopy area until they are discharged; that their procedure cannot be done with sedation or anesthesia and may be cancelled. and They verbalized their understanding and agree to have a responsible adult accompany the patient to their procedure and remain in the endoscopy area. Any barriers to Patient learning: Patient/Patient Script Supervisor responded appropriately on phone. Type of instruction given: Verbal by telephone contact. Naya Maravilla MA [facility] [place] 02-06-2025 MARGRETN Telephone (RHEUMN) GALINDO HO ([id number]) 1980 F Date Time Provider Department 02/06/25 SINCERE DICKSON During your visit today, we recorded the following information about you: Sharri Solorio Ma 02/06/2025 10:40 AM Signed Received discharge summary - rehabilitation services 02/04/25 from [facility] Scan on 02/05/2025 1:21 PM by Provider, Bryan, SHASHANK: Consultation - PT/OT/Speech Allergies As of Date: 02/06/2025 Noted Allergy Reaction BANANA 12/30/2024 12 - Shortness of Breath PENICILLIN G 04/10/2019 2 - Rash STRAWBERRY 11/04/2016 14 - Other: See Comments 4 - Hives SULFA (SULFONAMIDE ANTIBIOTICS) 04/10/2019 4 - Hives WATERMELON 11/08/2005 6 - Diarrhea LATEX 11/04/2016 2 - Rash Date Reviewed: 02/04/2025 Reviewed by: Madalyn Hall RN - Fully Assessed Reason for Visit: Received Outside Medical Records [3579] Prescriptions as of 02/06/2025 - tirzepatide, weight loss (ZEPBOUND) 2.5 mg/0.5 mL pen injector Inject 2.5 mg subcutaneously one time a week. - tirzepatide, weight loss (ZEPBOUND) 5 mg/0.5 mL pen injector Inject 5 mg subcutaneously one time a week. Patient should start on March 05, 2025. - omeprazole (PRILOSEC) 40 mg capsule Take 1 capsule by mouth once daily. - nebivolol (BYSTOLIC) 10 mg tablet Take 10 mg by mouth once daily. - ramipril (ALTACE) 5 mg capsule Take 5 mg by mouth once daily. - busPIRone (BUSPAR) 5 mg tablet Take 5 mg by mouth two times a day. - riboflavin, vitamin B2, 400 mg tab Take 1 tablet by mouth daily at bedtime. - infliximab (REMICADE INTRAVENOUS) Inject intravenously. - methotrexate 2.5 mg tablet Take 6 tablets by mouth one time a week. - predniSONE (DELTASONE) 5 mg tablet Take 1 tablet by mouth every afternoon. - folic acid 1 mg tablet Take one pill each day of the week EXCEPT the day you take methotrexate - doxycycline hyclate 150 mg Delayed Release Tablet Take 150 mg by mouth once daily. - indapamide (LOZOL) 1.25 mg tablet 1.25 mg once daily. - MULTIVITAMIN ORAL Take by mouth once daily. - DULoxetine (CYMBALTA) 60 mg capsule Take 2 capsules by mouth once daily. - pregabalin (LYRICA) 100 mg capsule - levocetirizine 5 mg tablet Take 5 mg by mouth once daily. - fluticasone (FLONASE) 50 mcg/actuation nasal spray Use 2 Sprays in each nostril once daily. - promethazine (PHENERGAN) 12.5 mg tablet 1/2 TO 1 TABLET EVERY 8 HOURS FOR NAUSEA, HEADACHE, OR COUGH - ondansetron (ZOFRAN) 4 mg tablet 1 (ONE) TABLET EVERY 8 HOURS FOR NAUSEA OR MOTION SICKNESS - Bifidobacterium infantis 1.5 billion cell cap Bifidobacterium Infantis Bifidobacterium Infantis (Digestive Probiotic) 1.5 billion cell capsule Active 1500 MMU CELLS PO DAILY July 05, 2018 8:40am 07-05-2018 [facility] (63[address]) - hydrOXYzine HCl (ATARAX) 25 mg tablet Take 25 mg by mouth daily at bedtime. - docosahexaenoic acid/epa (FISH OIL ORAL) Take by mouth. - baclofen (LIORESAL) 10 mg tablet TAKE 1 TABLET BY MOUTH 3 TIMES A DAY NEEDED FOR SPASMS - cholecalciferol (VITAMIN D3) 5,000 unit tab Take 5,000 Units by mouth. - Cyanocobalamin 1,000 mcg subl Dissolve 1,000 mcg under the tongue. Vitamin b12 - magnesium oxide (MAG-OX) 400 mg (241.3 mg magnesium) tablet Take 1 tablet by mouth twice daily. - calcium citrate/vitamin D3 (CALCIUM CITRATE + D ORAL) Take by mouth. - vit/iron fum/folic ac ( 1 PLUS 1 ORAL) Take by mouth. Problem List As Of Date 02/06/2025 Noted Resolved Seronegative rheumatoid arthritis (HCC) [M06.00]12/13/2022 Encounter Status:Closed by SHARRI SOLORIO MA on 02/06/25 Normal [facility] Gastrointestinal tract up per Views W barium contrast Alejandrina 02-05-2025 IMPRESSION: Xochilt-en-Y gastric bypass. Otherwise unremarkable Art Conservator: PRAVIN Transcribe Date/Time: Feb 05 2025 1:35P Dictated by : JESSIE GUTHRIE MD This examination was interpreted and the report reviewed and electronically signed by: JESSIE GUTHRIE MD on Feb 05 2025 1:44PM [facility] [place] HeelsO * * *Final Report* * * DATE OF EXAM: Feb 05 2025 8:14AM AWX 5380 - XR UPPER GI SINGLE CONTRAST / PROCEDURE REASON: multiple diagnoses * * * * Physician Interpretation * * * * UPPER GI CLINICAL INFORMATION: Weight gain, abdominal pain. History of Xochilt-en-Y gastric bypass.. TECHNIQUE: A single phase exam was performed with low density barium (EZpaque 264 mL). Study performed by Cj Downs RPA. FINDINGS: Postsurgical changes Xochilt-en-Y gastric bypass Contrast passes into the gastric pouch and small bowel loops There is no hiatal hernia, mass, ring, stricture, or esophagitis. No gross mass or ulcer present. No reflux was elicited despite provocative maneuvers. Total fluoroscopy time 0:54 (min:sec) [facility] SYNGO Provider, [facility] - 02/05/2025 * * *Final Report* * * DATE OF EXAM: Feb 05 2025 8:14AM AWX 5380 - XR UPPER GI SINGLE CONTRAST / PROCEDURE REASON: multiple diagnoses * * * * Physician Interpretation * * * * UPPER GI CLINICAL INFORMATION: Weight gain, abdominal pain. History of Xochilt-en-Y gastric bypass.. TECHNIQUE: A single phase exam was performed with low density barium (EZpaque 264 mL). Study performed by Cj Downs RPA. FINDINGS: Postsurgical changes Xochilt-en-Y gastric bypass Contrast passes into the gastric pouch and small bowel loops There is no hiatal hernia, mass, ring, stricture, or esophagitis. No gross mass or ulcer present. No reflux was elicited despite provocative maneuvers. Total fluoroscopy time 0:54 (min:sec) IMPRESSION IMPRESSION: Xochilt-en-Y gastric bypass. Otherwise unremarkable Art Conservator: PRAVIN Transcribe Date/Time: Feb 05 2025 1:35P Dictated by : JESSIE GUTHRIE MD This examination was interpreted and the report reviewed and electronically signed by: JESSIE GUTHRIE MD on Feb 05 2025 1:44PM EST [facility] Radiology Study observation (narrative) [facility] RF Gastrointestinal tract up per Views W barium contrast POOrdered By: Ccf Provider on 02-05-2025 [facility] XR UPPER GI SINGLE CONTRASTo n 02-05-2025 XR UPPER GI SINGLE CONTRAST * * *Final Report* * * DATE OF EXAM: Feb 05 2025 8:14AM AWX 5380 - XR UPPER GI SINGLE CONTRAST / PROCEDURE REASON: multiple diagnoses * * * * Physician Interpretation * * * * UPPER GI CLINICAL INFORMATION: Weight gain, abdominal pain. History of Xochilt-en-Y gastric bypass.. TECHNIQUE: A single phase exam was performed with low density barium (EZpaque 264 mL). Study performed by Cj Downs RPA. FINDINGS: Postsurgical changes Xochilt-en-Y gastric bypass Contrast passes into the gastric pouch and small bowel loops There is no hiatal hernia, mass, ring, stricture, or esophagitis. No gross mass or ulcer present. No reflux was elicited despite provocative maneuvers. Total fluoroscopy time 0:54 (min:sec) IMPRESSION: Xochilt-en-Y gastric bypass. Otherwise unremarkable Art Conservator: [facility]ITALAndrea Transcribe Date/Time: Feb 05 2025 1:35P Dictated by : JESSIE GUTHRIE MD This examination was interpreted and the report reviewed and electronically signed by: JESSIE GUTHRIE MD on Feb 05 2025 1:44PM EST [id number] Normal [facility] PT D/C Summary (1)on 025 PT D/C Summary (1) [facility] Physical Therapy Health[address] [place] [address] / REHABILITATION SERVICES DISCHARGE SUMMARY MR#: [id number] Acct: [id number] Name: GALINDO HO Rep #: [id number] : 1980 45 From: Ofelia HEREDIA Referring : OUT OF TOWN DOCTOR Status: REG R CR Insurance: [facility] SELF PAY INSURANCE Discharge Summary D/C summary: It has been my pleasure to treat GALINDO HO referred by SINCERE DICKSON, with the diagnosis of Knee OA for a total of 16 visit(s). Discharge Date: 02/04/25 Please see the following information for a summary of their discharge status. Subjective Subjective: Pt has no knee pain today. She had last pain Monday being cramped in the car. She is doin HEP on land and her parents have an inground pool and will do that when the weather is warmer. Pain B knee pain: Pain Intensity (Out of 10): 4 R hip: Pain Intensity (Out of 10): 3 B ankles: Pain Intensity (Out of 10): 4 Overall jt pn: Pain Intensity (Out of 10): 4 BACK: Pain Intensity (Out of 10): 3 R heel: Pain Intensity (Out of 10): 5 Overall Improvement % Improvement: 80 Objective Objective/Function: LE MMT: R hip flex 14.8 and L 12.3 R knee ext 30.5 and L 36 R knee flex 21.7 and L 21.7 Hip ABD B 4+/5 and hip add 4+/5 Stairs: up and down recip with no hand rail going up (slight discomfort at the top step) and light touch on the rail descending the step. Goals Goal 1:: I HEP Goal Progress: Goal Met Goal 2:: Increase LE strength (at the time of the eval: LE MMT: R hip flex 12.3 and L 11.3 R knee ext 25.1 and L 25.6 R knee flex 16.7 and L 16.7 Hip ABD B 4/5 and hip add 4/5). Goal Progress: Goal Met Goal 3:: Pt to report 50% less B knee pain with walking Goal Progress: Goal Met Goal 4:: Be able to go up and down the steps recip with 1 hand rail with 50% less pain Goal Progress: Goal Met Plan Plan: DC PT to HEP D/C Information Discharge Comments: DC PT to HEP d/c sentence: If there are questions or concerns regarding this patient's physical therapy, please feel free to call me at [phone]. Thank you for the referral of this patient. Sincerely, Ofelia Pennington, MPT Balance/Gait/Functional tests Balance/Special Test Scores Lower Extremity Functional Score: 56 Improvement % Improvement: 80 02/04/25 0936 CC: SINCERE DICKSON; Dr. Armand Ma MD Signed Normal [facility] A-Tocopherol Vit E SerPl-mCn con 02-03-2025 Alpha tocopherol [Mass/Vol] 12.2 mg/L Normal 6.0-23.0 [facility] Comment on above: Order Comment: Speci men Type: BLOOD SPECIMENOrdering Facility: [facility] Address: [address] [place] [address] Performed By: #### 2 923-1, 182- ####[facility] LABCLIA [id number] [place] [id number] [place] Alpha tocopherol [Mass/Vol]o n 02-03-2025 Beta+gamma tocopherol [Mass/Vol] 1.5 mg/L Normal 0.3-3.2 [facility] Comment on above: Order Comment: Speci [facility] Type: BLOOD SPECIMENOrdering Facility: [facility] Address: [address] [place] [address] Result Comment: This test was developed, and its performance characteristics determined by the [facility] Department of Pathology and Laboratory Medicine. It has not been cleared or approved by the FDA. The [facility] Department of Pathology and Laboratory Medicine is regulated under CLIA as qualified to perform high-complexity testing. This test is used for clinical purposes. It should not be regarded as investigational or for research. Performed By: #### 2 923-1, 1823-4 ####[facility] LABCLIA [id number] [place] [address] [place] CBC W Auto Differential pane l (Bld)on 02-03-2025 Basophils (Bld) [#/Vol] 0.06 10*3/uL Normal <0.11 [facility] Comment on above: Order Comment: Speci men Type: BLOOD SPECIMENOrdering Facility: [facility] Address: [address] [place] [address] Performed By: #### 5 7021-8 ####[facility] LABCLIA [id number] [place] [id number] [place] Basophils/100 WBC (Bld) 0.9 % Normal [facility] Comment on above: Order Comment: Speci men Type: BLOOD SPECIMENOrdering Facility: [facility] Address: [address] [place] [address] Performed By: #### 5 7021-8 ####[facility] LABIA [id number] [place] [address] [place] Differential cell count method Nom (Bld) Auto Normal [facility] Comment on above: Order Comment: Speci men Type: BLOOD SPECIMENOrdering Facility: [facility] Address: [address] [place] [address] Performed By: #### 5 7021-8 ####[facility] LABIA [id number] [place] [id number] [place] Eosinophils (Bld) [#/Vol] 0.41 10*3/uL Normal <0.46 [facility] Comment on above: Order Comment: Speci men Type: BLOOD SPECIMENOrdering Facility: [facility] Address: [address] [place] [address] Performed By: #### 5 7021-8 ####[facility] [id number] [place] [id number] [place] Eosinophils/100 WBC (Bld) 6.4 % Normal [facility] Comment on above: Order Comment: Speci men Type: BLOOD SPECIMENOrdering Facility: [facility] Address: [address] [place] [address] Performed By: #### 5 7021-8 ####[facility] LABIA [id number] [place] [id number] [place] Erythrocyte distribution width (RBC) [Ratio] 13.7 % Normal 11.5-15.0 [facility] Comment on above: Order Comment: Speci men Type: BLOOD SPECIMENOrdering Facility: [facility] Address: [address] [place] [address] Performed By: #### 5 7021-8 ####[facility] LABIA [id number] [place] [address] [place] Hematocrit (Bld) [Volume fraction] 39.8 % Normal 36.0-46.0 [facility] Comment on above: Order Comment: Speci men Type: BLOOD SPECIMENOrdering Facility: [facility] Address: [address] [place] [address] Performed By: #### 5 7021-8 ####[facility] LABIA [id number] [place] [id number] [place] Hemoglobin (Bld) [Mass/Vol] 14.1 g/dL Normal 11.5-15.5 [facility] Comment on above: Order Comment: Speci men Type: BLOOD SPECIMENOrdering Facility: [facility] Address: [address] [place] [address] Performed By: #### 5 7021-8 ####[facility] [id number] [place] [id number] [place] Immature granulocytes (Bld) [#/Vol] 10*3/uL Normal <0.10 [facility] Comment on above: Order Comment: Speci men Type: BLOOD SPECIMENOrdering Facility: [facility] Address: [address] [place] [address] Performed By: #### 5 7021-8 ####[facility] [id number] [place] [id number] [place] Immature granulocytes/100 WBC (Bld) 0.3 % Normal [facility] Comment on above: Order Comment: Speci men Type: BLOOD SPECIMENOrdering Facility: [facility] Address: [address] [place] [address] Performed By: #### 5 7021-8 ####[facility] LABIA [id number] [place] [id number] [place] Lymphocytes (Bld) [#/Vol] 1.87 10*3/uL Normal 1.00-4.00 [facility] Comment on above: Order Comment: Speci men Type: BLOOD SPECIMENOrdering Facility: [facility] Address: [address] [place] [address] Performed By: #### 5 7021-8 ####[facility] [id number] [place] [id number] [place] Lymphocytes/100 WBC (Bld) 29.2 % Normal [facility] Comment on above: Order Comment: Speci men Type: BLOOD SPECIMENOrdering Facility: [facility] Address: [address] [place] [address] Performed By: #### 5 7021-8 ####[facility] [id number] [place] [id number] [place] MCH (RBC) [Entitic mass] 33.3 pg Normal 26.0-34.0 [facility] Comment on above: Order Comment: Speci men Type: BLOOD SPECIMENOrdering Facility: [facility] Address: [address] [place] [address] Performed By: #### 5 7021-8 ####[facility] [id number] [place] [id number] [place] MCHC (RBC) [Mass/Vol] 35.4 g/dL Normal 30.5-36.0 [facility] Comment on above: Order Comment: Speci men Type: BLOOD SPECIMENOrdering Facility: [facility] Address: [address] [place] [address] Performed By: #### 5 7021-8 ####[facility] [id number] [place] [id number] [place] MCV (RBC) [Entitic vol] 93.9 fL Normal 80.0-100.0 [facility] Comment on above: Order Comment: Speci men Type: BLOOD SPECIMENOrdering Facility: [facility] Address: [address] [place] [address] Performed By: #### 5 7021-8 ####[facility] [id number] [place] [id number] [place] Monocytes (Bld) [#/Vol] 0.46 10*3/uL Normal <0.87 [facility] Comment on above: Order Comment: Speci men Type: BLOOD SPECIMENOrdering Facility: [facility] Address: [address] [place] [address] Performed By: #### 5 7021-8 ####[facility] LABCLIA [id number] [place] [address] [place] Monocytes/100 WBC (Bld) 7.2 % Normal [facility] Comment on above: Order Comment: Speci men Type: BLOOD SPECIMENOrdering Facility: [facility] Address: [address] [place] [address] Performed By: #### 5 7021-8 ####[facility] LABCLIA [id number] [place] [id number] [place] Neutrophils (Bld) [#/Vol] 3.59 10*3/uL Normal 1.45-7.50 [facility] Comment on above: Order Comment: Speci men Type: BLOOD SPECIMENOrdering Facility: [facility] Address: [address] [place] [address] Performed By: #### 5 7021-8 ####[facility] LABIA [id number] [place] [id number] [place] Neutrophils/100 WBC (Bld) 56.0 % Normal [facility] Comment on above: Order Comment: Speci men Type: BLOOD SPECIMENOrdering Facility: [facility] Address: [address] [place] [address] Performed By: #### 5 7021-8 ####[facility] LABCLIA [id number] [place] [address] [place] Nucleated RBC (Bld) [#/Vol] 10*3/uL Normal <0.01 [facility] Comment on above: Order Comment: Speci men Type: BLOOD SPECIMENOrdering Facility: [facility] Address: [address] [place] [address] Performed By: #### 5 7021-8 ####[facility] LABCLIA [id number] [place] [address] [place] Nucleated RBC/100 WBC (Bld) [Ratio] 0.0 /100 WBC Normal [facility] Comment on above: Order Comment: Speci men Type: BLOOD SPECIMENOrdering Facility: [facility] Address: [address] [place] [address] Performed By: #### 5 7021-8 ####[facility] LABIA [id number] [place] [id number] [place] Platelet mean volume (Bld) [Entitic vol] 9.9 fL Normal 9.0-12.7 [facility] Comment on above: Order Comment: Speci men Type: BLOOD SPECIMENOrdering Facility: [facility] Address: [address] [place] [address] Performed By: #### 5 7021-8 ####[facility] [id number] [place] [id number] [place] Platelets (Bld) [#/Vol] 358 10*3/uL Normal 150-400 [facility] Comment on above: Order Comment: Speci men Type: BLOOD SPECIMENOrdering Facility: [facility] Address: [address] [place] [address] Performed By: #### 5 7021-8 ####[facility] LABIA [id number] [place] [id number] [place] RBC (Bld) [#/Vol] 4.24 10*6/uL Normal 3.90-5.20 [facility] Comment on above: Order Comment: Speci men Type: BLOOD SPECIMENOrdering Facility: [facility] Address: [address] [place] [address] Performed By: #### 5 7021-8 ####[facility] LABIA [id number] [place] [address] [place] WBC (Bld) [#/Vol] 6.41 10*3/uL Normal 3.70-11.00 [facility] Comment on above: Order Comment: Speci men Type: BLOOD SPECIMENOrdering Facility: [facility] Address: [address] [place] [address] Performed By: #### 5 7021-8 ####[facility] LABCLIA [id number] [place] [address] [place] COPPER BLOODon 02-03-2025 Copper [Mass/Vol] 122 ug/dL Normal 80-155 [facility] Comment on above: Order Comment: Speci men Type: URINE SPECIMEN Ordering Facility: [facility] Address: [address] [facility] [place] [address] Result Comment: This test was developed, and its performance characteristics determined by the [facility] Department of Pathology and Laboratory Medicine. It has not been cleared or approved by the FDA. The [facility] Department of Pathology and Laboratory Medicine is regulated under CLIA as qualified to perform high-complexity testing. This test is used for clinical purposes. It should not be regarded as investigational or for research. Performed By: #### U A #### [facility] CLIA [id number] [address] [place] [address] [place] [address] [place] Comprehensive metabolic 2000 panelon 02-03-2025 Albumin [Mass/Vol] 4.0 g/dL Normal 3.9-4.9 [facility] Comment on above: Order Comment: Speci men Type: BLOOD SPECIMENOrdering Facility: [facility] Address: [address] [place] [address] Performed By: #### 2 4323-8, 71919-9 ####[facility] LABCLIA [id number] [facility] [address] [address] [place] ALP [Catalytic activity/Vol] 75 U/L Normal 34-123 [facility] Comment on above: Order Comment: Speci men Type: BLOOD SPECIMENOrdering Facility: [facility] Address: [address] [place] [id number] Performed By: #### 2 4323-8, ####[facility] LABCLIA [id number] [facility] [address] [place] [address] [place] ALT [Catalytic activity/Vol] 28 U/L Normal 7-38 [facility] Comment on above: Order Comment: Speci men Type: BLOOD SPECIMENOrdering Facility: [facility] Address: [address] [place] [address] Performed By: #### 2 4323-8, ####[facility] LABCLIA [id number] [facility] [address] [place] [address] [place] Anion gap [Moles/Vol] 12 mmol/L Normal 8-15 [facility] Comment on above: Order Comment: Speci men Type: BLOOD SPECIMENOrdering Facility: [facility] Address: [address] [place] [address] Performed By: #### 2 432-8, ####[facility] LABCLIA [id number] [address], [facility]95 [place] AST [Catalytic activity/Vol] 34 U/L Normal 13-35 [facility] Comment on above: Order Comment: Speci men Type: BLOOD SPECIMENOrdering Facility: [facility] Address: [address] [place] [address] Performed By: #### 2 432-8, ####[facility] LABCLIA [id number] [address], [facility]95 [place] Bilirubin [Mass/Vol] 0.4 mg/dL Normal 0.2-1.3 [facility] Comment on above: Order Comment: Speci men Type: BLOOD SPECIMENOrdering Facility: [facility] Address: [address] [place], [place] [address] Performed By: #### 2 4323-8, ####[facility] LABCLIA [id number] [address] [place] [address] [place] Calcium [Mass/Vol] 9.9 mg/dL Normal 8.5-10.2 [facility] Comment on above: Order Comment: Speci men Type: BLOOD SPECIMENOrdering Facility: [facility] Address: [address] [place], [place] [address] Performed By: #### 2 4323-8, ####[facility] LABCLIA [id number] ST. [facility] [address] [place] [address] [place] Chloride [Moles/Vol] 99 mmol/L Normal 98-107 [facility] Comment on above: Order Comment: Speci men Type: BLOOD SPECIMENOrdering Facility: [facility] Address: [address] [place], [place] [address] Performed By: #### 2 432-8, ####[facility] LABCLIA [id number] [place] [id number] [place] CO2 [Moles/Vol] 26 mmol/L Normal 22-30 [facility] Comment on above: Order Comment: Speci men Type: BLOOD SPECIMENOrdering Facility: [facility] Address: [address] [place], [place] [address] Performed By: #### 2 4323-8, ####[facility] LABCLIA [id number] [address] [address] [place] Creatinine [Mass/Vol] 0.74 mg/dL Normal 0.58-0.96 [facility] Comment on above: Order Comment: Speci men Type: BLOOD SPECIMENOrdering Facility: [facility] Address: [address] [place] [address] Performed By: #### 2 4323-8, ####[facility] LABCLIA [id number] [address] [address] [place] Creatinine and Glomerular filtration rate.predicted panel (S/P/Bld) 102 mL/min/1.73m??? Normal >=60 [facility] Comment on above: Order Comment: Speci men Type: BLOOD SPECIMENOrdering Facility: [facility] Address: [address] [place] [address] Result Comment: Joan mated Glomerular Filtration Rate (eGFR) is calculated using the 2020 CKD-EPI creatinine equation. This equation utilizes serum creatinine, sex, and age as parameters. The creatinine assay has traceable calibration to isotope dilution-mass spectrometry. Refer to KDIGO guidelines for clinical interpretation. In patients with unstable renal function, e.g. those with acute kidney injury, the eGFR may not accurately reflect actual GFR. Performed By: #### 2 4322-8, ####[facility] [id number] [place] [id number] [place] Glucose [Mass/Vol] 87 mg/dL Normal 74-99 [facility] Comment on above: Order Comment: Viet witt Type: BLOOD SPECIMENOrdering Facility: [facility] Address: [address] [place] [address] Result Comment: The [place] Diabetes Association (ADA) provides guidance for cutoff values for fasting glucose and random glucose. The ADA defines fasting as no caloric intake for at least 8 hours. Fasting plasma glucose results between 100 to 125 mg/dL indicate increased risk for diabetes (prediabetes). Fasting plasma glucose results greater than or equal to 126 mg/dL meet the criteria for diagnosis of diabetes. In the absence of unequivocal hyperglycemia, results should be confirmed by repeat testing. In a patient with classic symptoms of hyperglycemia or hyperglycemic crisis, random plasma glucose results greater than or equal to 200 mg/dL meet the criteria for diagnosis of diabetes. Reference: Standards of Medical Care in Diabetes 2016, Japanese Diabetes Association. Diabetes Care. 2016.39(Suppl 1). Performed By: #### 2 4322-8, ####[facility] [id number] [address] [address] [place] Potassium [Moles/Vol] 4.4 mmol/L Normal 3.7-5.1 [facility] Comment on above: Order Comment: Viet witt Type: BLOOD SPECIMENOrdering Facility: [facility] Address: [address] [place] [id number] Performed By: #### 2 4323-04, ####[facility] LABCLIA [id number] [facility] [address] [place] [address] [place] Protein [Mass/Vol] 7.0 g/dL Normal 6.3-8.0 [facility] Comment on above: Order Comment: Speci men Type: BLOOD SPECIMENOrdering Facility: [facility] Address: [address] [place] [address] Performed By: #### 2 4323-8, ####[facility] LABCLIA [id number] [facility] [address] [place] [address] [place] Sodium [Moles/Vol] 137 mmol/L Normal 136-144 [facility] Comment on above: Order Comment: Speci men Type: BLOOD SPECIMENOrdering Facility: [facility] Address: [address] [place] [address] Performed By: #### 2 4323-8, ####[facility] LABCLIA [id number] [facility] [address], [facility]95 [place] Urea nitrogen [Mass/Vol] 10 mg/dL Normal 7-21 [facility] Comment on above: Order Comment: Speci men Type: BLOOD SPECIMENOrdering Facility: [facility] Address: [address] [place] [address] Performed By: #### 2 4323-8, ####[facility] LABCLIA [id number] [facility] [address] [place] [address] [place] Ferritin SerPl-mCncon 2024 Ferritin [Mass/Vol] 92.2 ng/mL Normal 14.7-205.1 [facility] Comment on above: Order Comment: Speci men Type: BLOOD SPECIMENOrdering Facility: [facility] Address: [address] [place] [address] Performed By: #### 2 132-9, 2276-4 ####[facility] LABCLIA [id number] [facility] [place] [place] [id number] [place] HbA1c (Bld)on 02-03-2025 Average glucose Estimated from glycated hemoglobin (Bld) [Mass/Vol] 94 mg/dL Normal [facility] Comment on above: Order Comment: Viet witt Type: BLOOD SPECIMENOrdering Facility: [facility] Address: [address] [place] [address] Result Comment: eAG: (Estimated average glucose) is a calculated value from HgbA1c and is traffic workforce representative of the average blood glucose level in the last 2-3 month period. Performed By: #### 5 5454-3 ####[facility] LABIA [id number] [place] [address] [place] HbA1c (Bld) [Mass fraction] 4.9 % Normal 4.3-5.6 [facility] Comment on above: Order Comment: Viet witt Type: BLOOD SPECIMENOrdering Facility: [facility] Address: [address] [place] [address] Result Comment: Amer ican Diabetes Association guidelines indicate that patients with HgbA1c in the range 5.7-6.4% are at increased risk for development of diabetes, and intervention by lifestyle modification may be beneficial. HgbA1c greater or equal to 6.5% is considered diagnostic of diabetes. Performed By: #### 5 5454-3 ####[facility] LABIA [id number] [place] [id number] [place] Magnesium SerPl-mCncon 02-03 Magnesium [Mass/Vol] 2.1 mg/dL Normal 1.7-2.3 [facility] Comment on above: Order Comment: Hayleyi men Type: BLOOD SPECIMENOrdering Facility: [facility] Address: [address] [place] [address] Performed By: #### 2 4323-8, 59642-2 ####[facility] LABIA [id number] [place] [id number] [place] VITAMIN B1 (THIAMINE), WHOLE BLOODon 02-03-2025 Thiamine (Bld) [Moles/Vol] 151.0 nmol/L Normal 84.3-213.3 [facility] Comment on above: Order Comment: Speci men Type: BLOOD SPECIMENOrdering Facility: [facility] Address: [address] [place], [place] [address] [address] Result Comment: This assay measures the concentration of thiamine diphosphate (TDP), the primary active form of vitamin B1. Approximately 90 percent of vitamin B1 present in whole blood is TDP. Thiamine and thiamine monophosphate, which comprise the remaining 10 percent, are not measured. This test was developed, and its performance characteristics determined by the [facility] Department of Pathology and Laboratory Medicine. It has not been cleared or approved by the FDA. The [facility] Department of Pathology and Laboratory Medicine is regulated under CLIA as qualified to perform high-complexity testing. This test is used for clinical purposes. It should not be regarded as investigational or for research. Performed By: #### B 1WB ####[facility] LABCLIA [id number] [place] [address] [place] VITAMIN Edvin 02-03-2025 VITAMIN K 2.05 nmol/L Normal 0.22-4.88 [facility] Comment on above: Order Comment: Speci men Type: BLOOD SPECIMENOrdering Facility: [facility] Address: [facility] KEONMartin [place] [address] Result Comment: INTE RPRETIVE INFORMATION: Vitamin K1, Serum Vitamin K concentration is reported as nanomoles per liter (nmol/L). To convert concentration to nanograms per milliliter (ng/mL), multiply the result by 0.45. This test was developed and its performance characteristics determined by [facility]. It has not been cleared or approved by the US Food and Drug Administration. This test was performed in a CLIA certified laboratory and is intended for clinical purposes. Performed By: [facility] [address] [place] [address] Teasel Gig Operator: Vikram Argueta MD, PhD CLIA Number: [id number] Performed By: #### V ITK ####[facility] [id number] [place] [id number] Vit A SerPl-mCncon 5 Retinol [Mass/Vol] 0.33 mg/L Normal 0.30-1.20 [facility] Comment on above: Order Comment: Speci men Type: BLOOD SPECIMENOrdering Facility: [facility] Address: [address] [place] [address] Result Comment: This test was developed, and its performance characteristics determined by the [facility] Department of Pathology and Laboratory Medicine. It has not been cleared or approved by the FDA. The [facility] Department of Pathology and Laboratory Medicine is regulated under CLIA as qualified to perform high-complexity testing. This test is used for clinical purposes. It should not be regarded as investigational or for research. Performed By: #### 2 923-1, 1823-4 ####[facility] LABCLIA [id number] [place] [address] [place] Vit B12 SerPl-mCncon 025 Cobalamin (Vitamin B12) [Mass/Vol] 603 pg/mL Normal 232-1245 [facility] Comment on above: Order Comment: Speci men Type: BLOOD SPECIMENOrdering Facility: [facility] Address: [address] [place] [address] Performed By: #### 2 132-9, 2276-4 ####[facility] LABIA [id number] [place] [address] [place] Zinc SerPl-mCncon 02-03-2025 Zinc [Mass/Vol] 65 ug/dL Normal 60-120 [facility] Comment on above: Order Comment: Speci men Type: URINE SPECIMEN Ordering Facility: [facility] Address: [address], [place] [address] Result Comment: This test was developed, and its performance characteristics determined by the [facility] Department of Pathology and Laboratory Medicine. It has not been cleared or approved by the FDA. The [facility] Department of Pathology and Laboratory Medicine is regulated under CLIA as qualified to perform high-complexity testing. This test is used for clinical purposes. It should not be regarded as investigational or for research. Performed By: #### U A #### [facility] CLIA [id number] [place] [id number] [facility] CNOVon 01-29-2025 CNOV Office Visit (BMINO) GALINDO HO ([id number]) 1980 F Date Time Provider Department 01/29/25 9:30 AM JULITA BURGOS BMINO During your visit today, we recorded the following information about you: Pulse Blood pressure Weight Height 73/minute 135/83 156.4 kg 1.672 m Julita Burgos, AIR BRAKE MECHANIC.DRY ROOM OPERATOR 01/29/2025 4:35 PM Signed IMPRESSION: BMI Obesity Medicine Initial Bariatric Surgery Consult January 29, 2025 BMI Surgical Pathway Visit type: Obesity Medicine Visit Consultation requested by Dr. Barraza for an opinion regarding potential fistula repair and medical weight loss. My final recommendations will be communicated back to the requesting physician by way of shared Medical record or letter to requesting physician via US mail. Patient Summary:: Galindo is a 45-year-old female, with a history of bariatric surgery, presenting for a follow-up and weight management. Galindo underwent gastric bypass surgery in [address] Ruano in [place]. She initially did well for the first year but began to regain weight around month 11 or 12, gaining back 10-15% of what she had lost. She was told this was normal and remained stable for about 2-3 years. In 2013, she was hospitalized for a liver injury and an anastomotic ulcer in the jejunum, which took a long time to heal. 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 She has had COVID-19 three times, with the last episode resulting in long COVID and elevated rheumatoid markers. She was referred to rheumatology and was diagnosed with rheumatoid arthritis (RA), which she believes was triggered by COVID-19. She was started on prednisone, which she took daily for over a year or two, but it did not help with weight loss. She reports that she does not get hungry and is not able to eat a lot, but she has still gained weight despite taking all her vitamins. Over the last 6 years, she has followed an anti-inflammatory diet, avoiding gluten, dairy, and refined sugar, but this did not help with weight loss. Two years ago, she tried intermittent fasting for 18 months, eating only during a 6-hour period and drinking water or black coffee the rest of the time, but this also did not result in weight loss. For the last 8 months, she has been eating whatever her family eats. In 2018, she had uncontrolled periods and underwent a hysterectomy. She developed foot drop after the surgery and was diagnosed with fibromyalgia in 2019. She has been on Remicade infusions for her RA and has been experiencing atrial tachycardia and dizziness 10 days before her infusions are due. She has been tracking this since April and finds it predictable. She has had a 14-day cardiac event monitor, which showed atrial tachycardia, and an echocardiogram, which was normal. She has been diagnosed with inflammatory bowel disease and experiences diarrhea 6-8 times a day. She has been taking fiber to manage this. She denies any issues with urination, stress incontinence, or kidney stones. She has never had a blood clot. She has osteoarthritis in her knees and ankles, which she attributes to her weight. She has tried metformin in the past but did not tolerate it well. She denies a history of seizures or migraines. She sleeps 6-8 hours a night and feels rested the next day. She had a sleep study in 2020 or 2021, which was normal. She can walk about 0.9 miles a couple of times a week but experiences joint pain. She has been doing aqua therapy for 12 weeks, which she finds helpful for her joint pain and mobility. 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 She is with three children, aged 18, 15, and 13. Galindo Ho is a 45 year old female who presents on January 29, 2025 for medical assessment of obesity. The patient is interested in non-surgical weight management Weight History: She reports a strong family history of obesity and early onset weight gain. She states her weight gain is related to the following factors, including reduced physical activity and consumption of unhealthy foods. Exercise: Regular exercise: Yes Barriers to regular exercise? Joint pain due to RA Stress test: no Functional Status: Walk a block or two on level ground (2.75 METs) Climb a flight of stairs or walk up a hill (5.50 METs) ?Sleep: TED NO ; CPAP NO Duration: greater than 6 hours No TED ??Past Medical History PAST MEDICAL HISTORY Diagnosis Date Atrial tachycardia (HCC) Essential hypertension Fibromyalgia Gastric fistula Generalized anxiety disorder Hypertension Inflammatory bowel disease Irritable bowel syndrome Pneumonia due to adenovirus 07/26/2001 Rheumatoid arthritis (HCC) Treatment at [facility] No history of [place], COPD, asthma, peptic ulcer disease, dyslipidemia, (more content not included)... Normal [facility] CNPNon 01-20-2025 CNPN Telephone ([employer]) GALINDO HO ([id number]) 1980 F Date Time Provider Department 01/20/25 SARAH ABREU During your visit today, we recorded the following information about you: Sarah Abreu MA 01/20/2025 3:14 PM Signed Insurance Verified : MMO Coverage: yes CPT Codes: 41182, 42790, 63967, 65124 and [address]2394 Nutrition Requirements: # 0 Special requirements: pulm/cards In Net % 80 Deductible 750 OOP Max $7000 Copay IOQ/CHARLEE/BDC Rep Name: [email or web address] Ref # [id number] Allergies As of Date: 01/20/2025 Noted Allergy Reaction BANANA 12/30/2024 12 - Shortness of Breath PENICILLIN G 04/10/2019 2 - Rash STRAWBERRY 11/04/2016 14 - Other: See Comments 4 - Hives SULFA (SULFONAMIDE ANTIBIOTICS) 04/10/2019 4 - Hives WATERMELON 11/08/2005 6 - Diarrhea LATEX 11/04/2016 2 - Rash Date Reviewed: 12/30/2024 Reviewed by: Destinee Vásquez MD - Fully Assessed Reason for Visit: Benefit Check [Other] Prescriptions as of 01/20/2025 - semaglutide, weight loss, (WEGOVY) 0.25 mg/0.5 mL pen injector Inject 0.25 mg subcutaneously one time a week. - nebivolol (BYSTOLIC) 10 mg tablet Take 10 mg by mouth once daily. - ramipril (ALTACE) 5 mg capsule Take 5 mg by mouth once daily. - busPIRone (BUSPAR) 5 mg tablet Take 5 mg by mouth two times a day. - riboflavin, vitamin B2, 400 mg tab Take 1 tablet by mouth daily at bedtime. - infliximab (REMICADE INTRAVENOUS) Inject intravenously. - methotrexate 2.5 mg tablet Take 6 tablets by mouth one time a week. - predniSONE (DELTASONE) 5 mg tablet Take 1 tablet by mouth every afternoon. - folic acid 1 mg tablet Take one pill each day of the week EXCEPT the day you take methotrexate - doxycycline hyclate 150 mg Delayed Release Tablet Take 150 mg by mouth once daily. - indapamide (LOZOL) 1.25 mg tablet 1.25 mg once daily. - MULTIVITAMIN ORAL Take by mouth once daily. - DULoxetine (CYMBALTA) 60 mg capsule Take 2 capsules by mouth once daily. - pregabalin (LYRICA) 100 mg capsule - levocetirizine 5 mg tablet Take 5 mg by mouth once daily. - fluticasone (FLONASE) 50 mcg/actuation nasal spray Use 2 Sprays in each nostril once daily. - promethazine (PHENERGAN) 12.5 mg tablet 1/2 TO 1 TABLET EVERY 8 HOURS FOR NAUSEA, HEADACHE, OR COUGH - ondansetron (ZOFRAN) 4 mg tablet 1 (ONE) TABLET EVERY 8 HOURS FOR NAUSEA OR MOTION SICKNESS - Bifidobacterium infantis 1.5 billion cell cap Bifidobacterium Infantis Bifidobacterium Infantis (Digestive Probiotic) 1.5 billion cell capsule Active 1500 MMU CELLS PO DAILY July 05, 2018 8:40am 07-05-2018 [facility] ([id number]) - hydrOXYzine HCl (ATARAX) 25 mg tablet Take 25 mg by mouth daily at bedtime. - docosahexaenoic acid/epa (FISH OIL ORAL) Take by mouth. - baclofen (LIORESAL) 10 mg tablet TAKE 1 TABLET BY MOUTH 3 TIMES A DAY NEEDED FOR SPASMS - cholecalciferol (VITAMIN D3) 5,000 unit tab Take 5,000 Units by mouth. - Cyanocobalamin 1,000 mcg subl Dissolve 1,000 mcg under the tongue. Vitamin b12 - magnesium oxide (MAG-OX) 400 mg (241.3 mg magnesium) tablet Take 1 tablet by mouth twice daily. - calcium citrate/vitamin D3 (CALCIUM CITRATE + D ORAL) Take by mouth. - vit/iron fum/folic ac ( 1 PLUS 1 ORAL) Take by mouth. Problem List As Of Date 01/20/2025 Noted Resolved Seronegative rheumatoid arthritis (HCC) [M06.00]12/13/2022 Encounter Status:Closed by SARAH ABREU on 01/20/25 [facility] 01-09-2025 [facility] Tele[facility] (EMQ) GALINDO HO ([id number]) 1980 F Date Time Provider Department 01/09/25 DESTINEE VÁSQUEZ EM During your visit today, we recorded the following information about you: Mahnaz Vance 01/09/2025 1:16 PM Signed Initiated PA for semaglutide, weight loss, (WEGOVY) 0.25 mg/0.5 mL pen injector through [employer] Chart notes attached Questions Completed Waiting for determination Mahnaz Prior Sales Department Clerk Endocrinology and Metabolism [place] Mahnaz Vance 02/03/2025 6:32 PM Signed Dear Provider, Your patient's medication semaglutide, weight loss, (WEGOVY) 0.25 mg/0.5 mL pen injector was denied. Denial letters are sent directly to the patient and at times to the healthcare providers. If we receive a denial letter, it will be indexed for your review. If you want to appeal the decision. Please submit your request via staff message to the Peggy Prior Auth Appeals Pool ([phone]). You can find templates listed below to support your appeal in [facility] (Epic drop down, select patient care, select send letter). If it is an urgent request, you can email the [place] auth Team at [email or web address] . Please make sure the documents below are completed in order to process your request. If the appeal is denied, do you want to schedule a peer to peer Yes/No. We will schedule peer to peer automatically if yes. Thank You, Peggy Prior Auth Appeals Team Peggy PA Appeal letter Pgegy HILARIO Letter of Medical Necessity Peggy Boo Prior Sales Department Clerk Endocrinology and Metabolism [place] Allergies As of Date: 01/09/2025 Noted Allergy Reaction BANANA 12/30/2024 12 - Shortness of Breath PENICILLIN G 04/10/2019 2 - Rash STRAWBERRY 11/04/2016 14 - Other: See Comments 4 - Hives SULFA (SULFONAMIDE ANTIBIOTICS) 04/10/2019 4 - Hives WATERMELON 11/08/2005 6 - Diarrhea LATEX 11/04/2016 2 - Rash Date Reviewed: 12/30/2024 Reviewed by: Destinee Vásquez MD - Fully Assessed Reason for Visit: Insurance Authorization [[id number]] Cmt: semaglutide, weight loss, (WEGOVY) 0.25 mg/0.5 mL pen injector Prescriptions as of 02/03/2025 - tirzepatide, weight loss (ZEPBOUND) 2.5 mg/0.5 mL pen injector Inject 2.5 mg subcutaneously one time a week. - tirzepatide, weight loss (ZEPBOUND) 5 mg/0.5 mL pen injector Inject 5 mg subcutaneously one time a week. Patient should start on March 05, 2025. - omeprazole (PRILOSEC) 40 mg capsule Take 1 capsule by mouth once daily. - nebivolol (BYSTOLIC) 10 mg tablet Take 10 mg by mouth once daily. - ramipril (ALTACE) 5 mg capsule Take 5 mg by mouth once daily. - busPIRone (BUSPAR) 5 mg tablet Take 5 mg by mouth two times a day. - riboflavin, vitamin B2, 400 mg tab Take 1 tablet by mouth daily at bedtime. - infliximab (REMICADE INTRAVENOUS) Inject intravenously. - methotrexate 2.5 mg tablet Take 6 tablets by mouth one time a week. - predniSONE (DELTASONE) 5 mg tablet Take 1 tablet by mouth every afternoon. - folic acid 1 mg tablet Take one pill each day of the week EXCEPT the day you take methotrexate - doxycycline hyclate 150 mg Delayed Release Tablet Take 150 mg by mouth once daily. - indapamide (LOZOL) 1.25 mg tablet 1.25 mg once daily. - MULTIVITAMIN ORAL Take by mouth once daily. - DULoxetine (CYMBALTA) 60 mg capsule Take 2 capsules by mouth once daily. - pregabalin (LYRICA) 100 mg capsule - levocetirizine 5 mg tablet Take 5 mg by mouth once daily. - fluticasone (FLONASE) 50 mcg/actuation nasal spray Use 2 Sprays in each nostril once daily. - promethazine (PHENERGAN) 12.5 mg tablet 1/2 TO 1 TABLET EVERY 8 HOURS FOR NAUSEA, HEADACHE, OR COUGH - ondansetron (ZOFRAN) 4 mg tablet 1 (ONE) TABLET EVERY 8 HOURS FOR NAUSEA OR MOTION SICKNESS - Bifidobacterium infantis 1.5 billion cell cap Bifidobacterium Infantis Bifidobacterium Infantis (Digestive Probiotic) 1.5 billion cell capsule Active 1500 MMU CELLS PO DAILY July 05, 2018 8:40am 07-05-2018 [facility] ([id number]) - hydrOXYzine HCl (ATARAX) 25 mg tablet Take 25 mg by mouth daily at bedtime. - docosahexaenoic acid/epa (FISH OIL ORAL) Take by mouth. - baclofen (LIORESAL) 10 mg tablet TAKE 1 TABLET BY MOUTH 3 TIMES A DAY NEEDED FOR SPASMS - cholecalciferol (VITAMIN D3) 5,000 unit tab Take 5,000 Units by mouth. - Cyanocobalamin 1,000 mcg subl Dissolve 1,000 mcg under the tongue. Vitamin b12 - magnesium oxide (MAG-OX) 400 mg (241.3 mg magnesium) tablet Take 1 tablet by mouth twice daily. - calcium citrate/vitamin D3 (CALCIUM CITRATE + D ORAL) Take by mouth. - vit/iron fum/folic ac ( 1 PLUS 1 ORAL) Take by mouth. Problem List As Of Date 01/09/2025 Noted Resolved Seronegative rheumatoid arthritis (HCC) [M06.00]12/13/2022 Encounter Status:Closed by BRAULIO VANCE (more content not included)... Normal [facility]07[facility]20[facility]ENMedivo[facility] GALINDO HO ([id number]) 1980 F Date Time Provider Department 01/07/25 DESTINEE VÁSQUEZ During your visit today, we recorded the following information about you: Nelly Brumfield 01/07/2025 3:21 PM Signed Received a prior authorization request from [facility]'s via [employer] for patient's prescription: semaglutide, weight loss, (WEGOVY) 0.25 mg/0.5 mL pen injector REFERENCE SHIN: Submitted request via fax to [facility] Prior Authorizations. Transmitted successfully. Nelly Brumfield Patient Support [facility] [place] [facility] X20 Allergies As of Date: 01/07/2025 Noted Allergy Reaction BANANA 12/30/2024 12 - Shortness of Breath PENICILLIN G 04/10/2019 2 - Rash STRAWBERRY 11/04/2016 14 - Other: See Comments 4 - Hives SULFA (SULFONAMIDE ANTIBIOTICS) 04/10/2019 4 - Hives WATERMELON 11/08/2005 6 - Diarrhea LATEX 11/04/2016 2 - Rash Date Reviewed: 12/30/2024 Reviewed by: Destinee Vásquez MD - Fully Assessed Reason for Visit: Insurance Authorization [[id number]] Cmt: semaglutide, weight loss, (WEGOVY) 0.25 mg/0.5 mL pen injector Prescriptions as of 01/07/2025 - semaglutide, weight loss, (WEGOVY) 0.25 mg/0.5 mL pen injector Inject 0.25 mg subcutaneously one time a week. - nebivolol (BYSTOLIC) 10 mg tablet Take 10 mg by mouth once daily. - ramipril (ALTACE) 5 mg capsule Take 5 mg by mouth once daily. - busPIRone (BUSPAR) 5 mg tablet Take 5 mg by mouth two times a day. - riboflavin, vitamin B2, 400 mg tab Take 1 tablet by mouth daily at bedtime. - infliximab (REMICADE INTRAVENOUS) Inject intravenously. - methotrexate 2.5 mg tablet Take 6 tablets by mouth one time a week. - predniSONE (DELTASONE) 5 mg tablet Take 1 tablet by mouth every afternoon. - folic acid 1 mg tablet Take one pill each day of the week EXCEPT the day you take methotrexate - doxycycline hyclate 150 mg Delayed Release Tablet Take 150 mg by mouth once daily. - indapamide (LOZOL) 1.25 mg tablet 1.25 mg once daily. - MULTIVITAMIN ORAL Take by mouth once daily. - DULoxetine (CYMBALTA) 60 mg capsule Take 2 capsules by mouth once daily. - pregabalin (LYRICA) 100 mg capsule - levocetirizine 5 mg tablet Take 5 mg by mouth once daily. - fluticasone (FLONASE) 50 mcg/actuation nasal spray Use 2 Sprays in each nostril once daily. - promethazine (PHENERGAN) 12.5 mg tablet 1/2 TO 1 TABLET EVERY 8 HOURS FOR NAUSEA, HEADACHE, OR COUGH - ondansetron (ZOFRAN) 4 mg tablet 1 (ONE) TABLET EVERY 8 HOURS FOR NAUSEA OR MOTION SICKNESS - Bifidobacterium infantis 1.5 billion cell cap Bifidobacterium Infantis Bifidobacterium Infantis (Digestive Probiotic) 1.5 billion cell capsule Active 1500 MMU CELLS PO DAILY July 05, 2018 8:40am 07-05-2018 [facility] ([id number]) - hydrOXYzine HCl (ATARAX) 25 mg tablet Take 25 mg by mouth daily at bedtime. - docosahexaenoic acid/epa (FISH OIL ORAL) Take by mouth. - baclofen (LIORESAL) 10 mg tablet TAKE 1 TABLET BY MOUTH 3 TIMES A DAY NEEDED FOR SPASMS - cholecalciferol (VITAMIN D3) 5,000 unit tab Take 5,000 Units by mouth. - Cyanocobalamin 1,000 mcg subl Dissolve 1,000 mcg under the tongue. Vitamin b12 - magnesium oxide (MAG-OX) 400 mg (241.3 mg magnesium) tablet Take 1 tablet by mouth twice daily. - calcium citrate/vitamin D3 (CALCIUM CITRATE + D ORAL) Take by mouth. - vit/iron fum/folic ac ( 1 PLUS 1 ORAL) Take by mouth. Problem List As Of Date 01/07/2025 Noted Resolved Seronegative rheumatoid arthritis (HCC) [M06.00]12/13/2022 Encounter Status:Closed by NELLY BRUMFIELD on 01/07/25 Normal [facility] Echo Complete W/ Contraston 12-16-2024 Echo Complete W/ Contrast [facility] [address] [place] [address] Echo Complete W/ Contrast 12/16/24 1314 MR#: [id number] Acct: [id number] Name: GALINDO HO Rep #: [id number] : 1980 44 From: Gomez Moore MD Attending Dr: Dr. Mateo Hunter MD Status: RE G CLI Ordering Dr: Mateo Hunter MD Date: 12/16/24 Location: CVS Sex: F C Admitted: Reason For Study Reason For Study: DYSPNEA Procedure This was a 2D Doppler, Color Flow transthoracic echocardiogram. The study was technically difficult. Contrast injection was performed. Exam performed in department. Left Ventricle Normal LV size. Left ventricular systolic function is normal. The left ventricular ejection fraction is 65 %. No regional wall motion abnormalities noted. Right Ventricle Normal RV size. Normal systolic function. Atria Normal left atrium. Normal right atrium. Mitral Valve Normal mitral valve. Tricuspid Valve Normal tricuspid valve. Aortic Valve Trisinus/trileaflet aortic valve. Pulmonic Valve Normal pulmonic valve. Great Vessels Normal aortic root. The pulmonary artery is normal size. Inferior vena cava collapse with respiration. Pericardium/Pleural No pericardial effusion. Medication 22 gauge I.V. with prn adaptor inserted into right arm. Diluted definity 1ml given slow IV push to enhance endocardial definition. MMode/2D Measurements Calculations LVIDd: 4.6 cm IVSd: 0.72 cm LVOT diam: 2.1 cm LVIDs: 3.2 cm LVPWd: 1.2 cm FS: 31.4 % LVOT area: 3.5 cm2 Ao root diam: 3.3 cm LAV(MOD-bp): 36.5 ml LVAd ap4: 35.7 cm2 LAV(MOD-bp) Indexed: 14.5 ml/m2 LVLd ap4: 7.7 cm LAV(MOD-sp2): 30.4 ml EDV(MOD-sp4): 137.0 ml LAV(MOD-sp4): 37.6 ml EDV(sp4-el): 140.9 ml LVAs ap4: 15.6 cm2 LVLs ap4: 6.2 cm ESV(MOD-sp4): 34.9 ml ESV(sp4-el): 33.1 ml EF(MOD-sp4): 74.6 % EF(sp4-el): 76.5 % SV(MOD-sp4): 102.1 ml SV(sp4-el): 107.9 ml LA A4 area: 14.8 cm2 SI(MOD-sp4): 40.5 ml/m2 LA dimension(2D): 3.6 cm RA A4 area: 13.6 cm2 Time Measurements MV dec time: 0.20 sec Doppler Measurements Calculations MV E max john: 77.7 cm/sec Lat Peak E' John: 17.3 cm/sec Med Peak E' John: 11.1 cm/sec MV A max john: 63.8 cm/sec E/E' lat: 4.5 E/E' med: 7.0 MV E/A: 1.2 MV V2 max: 84.3 cm/sec MV dec slope: 392.7 cm/sec2 Ao V2 max: 133.1 cm/sec MV max P.8 mmHg Ao max P.1 mmHg MV V2 mean: 61.1 cm/sec Ao V2 mean: 93.8 cm/sec MV mean P.6 mmHg Ao mean P.0 mmHg MV V2 VTI: 28.8 cm Ao V2 VTI: 29.6 cm MVA(VTI): 3.4 cm2 AV (velocity ratio): 0.96 MAYELIN(I,D): 3.3 cm2 MAYELIN(V,D): 3.2 cm2 LV V1 max: 122.0 cm/sec SV(LVOT): 98.3 ml PA V2 max: 106.8 cm/sec LV V1 max P.0 mmHg PA V2 mean: 69.8 cm/sec LV V1 mean P.7 mmHg LV V1 mean: 91.4 cm/sec LV V1 VTI: 28.3 cm ECHO/Echo Complete W/ Contrast Interpretation Summary Normal LV size. Left ventricular systolic function is normal. The left ventricular ejection fraction is 65 %. Contrast injection was performed. Ordering Physician: Mateo Hunter Referring Physician: Mateo Hunter Performed By: Heather Craven RCS 12/16/24 1634 Date Gomez Moore MD CC: Dr. Armand Ma MD; Dr. Mateo Hunter MD Date Dictated: 12/16/244 Date Transcribed: 12/16/24 163 Art Conservator: Signed Normal [facility] Echocardiogram study reportO rdered By: Gomez Moore on 12-16-2024 Study report [facility] Cardiovascular Services [address] [place] [address] Echo Complete W/ Contrast 12/16/24 1314 MR#: [id number] Acct: [id number] Name: GALINDO HO Rep #:[id number] : 1980 44 From: Gomez Salazar Attending Dr: Dr. Mateo Hunter MD Status: REG CLI Ordering Dr: Mateo Hunter MD Date: 12/16/24 Location: [facility] Sex: F C Admitted: Reason For Study Reason For Study: DYSPNEA Procedure This was a 2D Doppler, Color Flow transthoracic echocardiogram. The study was technically difficult. Contrast injection was performed. Exam performed in department. Left Ventricle Normal LV size. Left ventricular systolic function is normal. The left ventricular ejection fraction is 65 %. No regional wall motion abnormalities noted. Right Ventricle Normal RV size. Normal systolic function. Atria Normal left atrium. Normal right atrium. Mitral Valve Normal mitral valve. Tricuspid Valve Normal tricuspid valve. Aortic Valve Trisinus/trileaflet aortic valve. Pulmonic Valve Normal pulmonic valve. Great Vessels Normal aortic root. The pulmonary artery is normal size. Inferior vena cava collapse with respiration. Pericardium/Pleural No pericardial effusion. Medication 22 gauge I.V. with prn adaptor inserted into right arm. Diluted definity 1ml given slow IV push to enhance endocardial definition. MMode/2D Measurements & Calculations LVIDd: 4.6 cm IVSd: 0.72 cm LVOT diam: 2.1 cm LVIDs: 3.2 cm LVPWd: 1.2 cm FS: 31.4 % LVOT area: 3.5 cm2 Ao root diam: 3.3 cm LAV(MOD-bp): 36.5 ml LVAd ap4: 35.7 cm2 LAV(MOD-bp) Indexed: 14.5 ml/m2 LVLd ap4: 7.7 cm LAV(MOD-sp2): 30.4 ml EDV(MOD-sp4): 137.0 ml LAV(MOD-sp4): 37.6 ml EDV(sp4-el): 140.9 ml LVAs ap4: 15.6 cm2 LVLs ap4: 6.2 cm ESV(MOD-sp4): 34.9 ml ESV(sp4-el): 33.1 ml EF(MOD-sp4): 74.6 % EF(sp4-el): 76.5 % SV(MOD-sp4): 102.1 ml SV(sp4-el): 107.9 ml LA A4 area: 14.8 cm2 SI(MOD-sp4): 40.5 ml/m2 LA dimension(2D): 3.6 cm RA A4 area: 13.6 cm2 Time Measurements MV dec time: 0.20 sec Doppler Measurements & Calculations MV E max john: 77.7 cm/sec Lat Peak E' John: 17.3 cm/sec Med Peak E' John: 11.1 cm/sec MV A max john: 63.8 cm/sec E/E' lat: 4.5 E/E' med: 7.0 MV E/A: 1.2 MV V2 max: 84.3 cm/sec MV dec slope: 392.7 cm/sec2 Ao V2 max: 133.1 cm/sec MV max P.8 mmHg Ao max P.1 mmHg MV V2 mean: 61.1 cm/sec Ao V2 mean: 93.8 cm/sec MV mean P.6 mmHg Ao mean P.0 mmHg MV V2 VTI: 28.8 cm Ao V2 VTI: 29.6 cm MVA(VTI): 3.4 cm2 AV (velocity ratio): 0.96 MAYELIN(I,D): 3.3 cm2 MAYELIN(V,D): 3.2 cm2 ____ LV V1 max: 122.0 cm/sec SV(LVOT): 98.3 ml PA V2 max: 106.8 cm/sec LV V1 max P.0 mmHg PA V2 mean: 69.8 cm/sec LV V1 mean P.7 mmHg LV V1 mean: 91.4 cm/sec LV V1 VTI: 28.3 cm ECHO/Echo Complete W/ Contrast Interpretation Summary Normal LV size. Left ventricular systolic function is normal. The left ventricular ejection fraction is 65 %. Contrast injection was performed. Ordering Physician: Mateo Hunter Referring Physician: Mateo Hunter Performed By: Heather Craven RCS 12/16/241633 Date _ Gomez Moore MD CC: Dr. Armand Ma MD; Dr. Mateo Hunter MD ~ Date Dictated: 12/16/24 1314 Date Transcribed: 12/16/24 163 Art Conservator: Signed [facility] Work Phone: CNPNon 12-12-2024 CNPN Telephone (RHEUMN) GALINDO HO ([id number]) 1980 F Date Time Provider Department 12/12/24 SINCERE DICKSON During your visit today, we recorded the following information about you: Sharri Solorio Ma 12/12/2024 4:20 PM Signed Faxed plan of care to [facility] 12/04/24 Allergies As of Date: 12/12/2024 Noted Allergy Reaction bananas [Other] 11/08/2005 12 - Shortness of Breath PENICILLIN G 04/10/2019 2 - Rash seasonal [Other] 11/08/2005 STRAWBERRY 11/04/2016 14 - Other: See Comments 4 - Hives SULFA (SULFONAMIDE ANTIBIOTICS) 04/10/2019 4 - Hives WATERMELON 11/08/2005 6 - Diarrhea LATEX 11/04/2016 2 - Rash Date Reviewed: 11/28/2024 Reviewed by: Shanna Kaur MA - Fully Assessed Reason for Visit: Received Outside Medical Records [[id number]] Prescriptions as of 12/12/2024 - nebivolol (BYSTOLIC) 10 mg tablet Take 10 mg by mouth once daily. - ramipril (ALTACE) 5 mg capsule Take 5 mg by mouth once daily. - busPIRone (BUSPAR) 5 mg tablet Take 5 mg by mouth two times a day. - riboflavin, vitamin B2, 400 mg tab Take 1 tablet by mouth daily at bedtime. - infliximab (REMICADE INTRAVENOUS) Inject intravenously. - methotrexate 2.5 mg tablet Take 6 tablets by mouth one time a week. - predniSONE (DELTASONE) 5 mg tablet Take 1 tablet by mouth every afternoon. - folic acid 1 mg tablet Take one pill each day of the week EXCEPT the day you take methotrexate - doxycycline hyclate 150 mg Delayed Release Tablet Take 150 mg by mouth once daily. - indapamide (LOZOL) 1.25 mg tablet 1.25 mg once daily. - MULTIVITAMIN ORAL Take by mouth once daily. - DULoxetine (CYMBALTA) 60 mg capsule Take 2 capsules by mouth once daily. - pregabalin (LYRICA) 100 mg capsule - levocetirizine 5 mg tablet Take 5 mg by mouth once daily. - fluticasone (FLONASE) 50 mcg/actuation nasal spray Use 2 Sprays in each nostril once daily. - promethazine (PHENERGAN) 12.5 mg tablet 1/2 TO 1 TABLET EVERY 8 HOURS FOR NAUSEA, HEADACHE, OR COUGH - ondansetron (ZOFRAN) 4 mg tablet 1 (ONE) TABLET EVERY 8 HOURS FOR NAUSEA OR MOTION SICKNESS - Bifidobacterium infantis 1.5 billion cell cap Bifidobacterium Infantis Bifidobacterium Infantis (Digestive Probiotic) 1.5 billion cell capsule Active 1500 MMU CELLS PO DAILY July 05, 2018 8:40am 07-05-2018 [facility] ([id number]) - hydrOXYzine HCl (ATARAX) 25 mg tablet Take 25 mg by mouth daily at bedtime. - docosahexaenoic acid/epa (FISH OIL ORAL) Take by mouth. - baclofen (LIORESAL) 10 mg tablet TAKE 1 TABLET BY MOUTH 3 TIMES A DAY NEEDED FOR SPASMS - cholecalciferol (VITAMIN D3) 5,000 unit tab Take 5,000 Units by mouth. - Cyanocobalamin 1,000 mcg subl Dissolve 1,000 mcg under the tongue. Vitamin b12 - magnesium oxide (MAG-OX) 400 mg (241.3 mg magnesium) tablet Take 1 tablet by mouth twice daily. - calcium citrate/vitamin D3 (CALCIUM CITRATE + D ORAL) Take by mouth. - vit/iron fum/folic ac ( 1 PLUS 1 ORAL) Take by mouth. Problem List As Of Date 12/12/2024 Noted Resolved Seronegative rheumatoid arthritis (HCC) [M06.00]12/13/2022 Encounter Status:Closed by SHARRI SOLORIO MA on 12/12/24 Normal [facility] Inital Evaluation (1) - PTon 12-04-2024 Inital Evaluation (1) - PT [facility] Physical Therapy [facility] [address] [place] [address] [address] [place] [address] / REHABILITATION SERVICES INITIAL EVALUATION MR#: [id number] Acct: [id number] Name: GALINDO HO Rep #: [id number] : 1980 44 From: Ofelia HEREDIA Referring Dr.: SINCERE DICKSON Status: REG RCR Insurance: [facility] SELF PAY INSURANCE Patient's Visit Information Visit Information Visit Information: GALINDO HO is a 44 year old F referred to Physical Therapy by SINCERE DICKSON with a diagnosis of Knee OA. Date of Evaluation: 12/04/24 Physical Therapist: YAN Mason Visit Plan Frequency: 2x /Week Duration: 2 Months Plan: 2X/ week for 8 weeks for AT for B knee, hip and ankle strength. Some core strength and general mobility would be beneficial as well with a HEP. Subjective Subjective: Pt saw her RA last week and had some B deep knee pain. She has fallen. She heard a popping sound and she went on vacation and over vacation she had bruising up the side of her leg and but her in a walking boot for 9 weeks. Both of her ankle hurt. She was seen 2 years ago for plantar fasciitis and does a lot of stretching. Dr thinks that she needs to move more and she would not hurt. She has fallen 3X since April and smashes her face. She passed out in April. She is getting worked up for that. In May she was told her blood pressure had dropped. 10 days before her infusion she develops syncope. She is now having episodes of atrial tachycardia. She is getting an Echo and some point. She has not passed out since that last time in April. She reports that her knee pain is deep and constant and always hot. Her x-rays show OA. Everyone keeps saying to lose weight. Her knee pain hurts the most after she tries to walk around or push to do anything. She can do steps but she is SOB. Pain B knee pain: Pain Intensity (Out of 10): 4 Objective Objective: Gait: Walks with forefoot abduction, decreased stride and wider NORBERTO Pt is able to heel raise but increase pain in R heel and toe raise but with B decreased ROM LE MMT: R hip flex 12.3 and L 11.3 R knee ext 25.1 and L 25.6 R knee flex 16.7 and L 16.7 Hip ABD B 4/5 and hip add 4/5 B knee AROM:R -2 to 117 and L -2 to 114 degrees knee flexion Good HS length. Some B quad tightness. Bridge: Able to do a full bridge Balance/Special Test Scores Lower Extremity Functional Score: 31 Goals Goal 1:: I HEP Goal Time Frame: 8-12 Weeks Goal 2:: Increase LE strength (at the time of the eval: LE MMT: R hip flex 12.3 and L 11.3 R knee ext 25.1 and L 25.6 R knee flex 16.7 and L 16.7 Hip ABD B 4/5 and hip add 4/5). Goal Time Frame: 8-12 Weeks Goal 3:: Pt to report 50% less B knee pain with walking Goal Time Frame: 8-12 Weeks Goal 4:: Be able to go up and down the steps recip with 1 hand rail with 50% less pain Goal Time Frame: 8-12 Weeks Rehabilitation Potential Rehabilitation Potential: Good Anticipated Interventions Patient/Client Instruction: Educate patient on: Condition and Plan of Care For the Purpose of:: To decrease pain, To increase ROM, To improve nutrient delivery to tissue, To improve muscle performance and motor function, To improve ability to perform ADL's, To increase tolerance to activity/condition/position, To improve performance and independence with ADL's, To decrease level of supervision to perform tasks, To improve ability of physical actions for home/community/work/leisure, To improve gait and locomotor functions, To improve health of tissue, To decrease soft tissue restriction and To increase flexibility/ROM Therapeutic Exercise to Include: Strength training, Endurance training, Flexibilty training, Gait and locomotor training, Passive ROM and Active ROM For the Purpose of:: To decrease pain, To increase ROM, To improve nutrient delivery to tissue, To improve muscle performance and motor function, To improve ability to perform ADL's, To increase tolerance to activity/condition/position, To improve performance and independence with ADL's, To decrease level of supervision to perform tasks, To improve ability of physical actions for home/community/work/leisure, To improve gait and locomotor functions, To improve health of tissue, To decrease soft tissue restriction and To increase flexibility/ROM Functional Training to Include: Gait training For the Purpose of:: To improve gait and locomotor functions Text: Thank you for the opportunity to evaluate your patient. For Medicare and Medicare HMO plans, please review the plan of care and approve it. It will need to be FAXED BACK to us at [phone] for Medicare purposes. For Medicare only, by signing this I certify the plan of care. Please let me know if there are questions or concerns regarding this plan of care. Physician Signature: ____ (more content not included)... [facility] CNPShilpa 11-29-2024 CNPN Telephone (RHEUMN) GALINDO HO ([id number]) 1980 F Date Time Provider Department 11/29/24 SINCERE DICKSON During your visit today, we recorded the following information about you: Leena Franco 11/29/2024 3:34 PM Signed Per patient phone call, faxed 11/28/24 letter ordering physical/water therapy to [employer] at fax . Received confirmation Allergies As of Date: 11/29/2024 Noted Allergy Reaction bananas [Other] 11/08/2005 12 - Shortness of Breath PENICILLIN G 04/10/2019 2 - Rash seasonal [Other] 11/08/2005 STRAWBERRY 11/04/2016 14 - Other: See Comments 4 - Hives SULFA (SULFONAMIDE ANTIBIOTICS) 04/10/2019 4 - Hives WATERMELON 11/08/2005 6 - Diarrhea LATEX 11/04/2016 2 - Rash Date Reviewed: 11/28/2024 Reviewed by: Shanna Kaur MA - Fully Assessed Reason for Visit: Orders [[id number]] Prescriptions as of 12/05/2024 - nebivolol (BYSTOLIC) 10 mg tablet Take 10 mg by mouth once daily. - ramipril (ALTACE) 5 mg capsule Take 5 mg by mouth once daily. - busPIRone (BUSPAR) 5 mg tablet Take 5 mg by mouth two times a day. - riboflavin, vitamin B2, 400 mg tab Take 1 tablet by mouth daily at bedtime. - infliximab (REMICADE INTRAVENOUS) Inject intravenously. - methotrexate 2.5 mg tablet Take 6 tablets by mouth one time a week. - predniSONE (DELTASONE) 5 mg tablet Take 1 tablet by mouth every afternoon. - folic acid 1 mg tablet Take one pill each day of the week EXCEPT the day you take methotrexate - doxycycline hyclate 150 mg Delayed Release Tablet Take 150 mg by mouth once daily. - indapamide (LOZOL) 1.25 mg tablet 1.25 mg once daily. - MULTIVITAMIN ORAL Take by mouth once daily. - DULoxetine (CYMBALTA) 60 mg capsule Take 2 capsules by mouth once daily. - pregabalin (LYRICA) 100 mg capsule - levocetirizine 5 mg tablet Take 5 mg by mouth once daily. - fluticasone (FLONASE) 50 mcg/actuation nasal spray Use 2 Sprays in each nostril once daily. - promethazine (PHENERGAN) 12.5 mg tablet 1/2 TO 1 TABLET EVERY 8 HOURS FOR NAUSEA, HEADACHE, OR COUGH - ondansetron (ZOFRAN) 4 mg tablet 1 (ONE) TABLET EVERY 8 HOURS FOR NAUSEA OR MOTION SICKNESS - Bifidobacterium infantis 1.5 billion cell cap Bifidobacterium Infantis Bifidobacterium Infantis (Digestive Probiotic) 1.5 billion cell capsule Active 1500 MMU CELLS PO DAILY July 05, 2018 8:40am 07-05-2018 [facility] ([id number]) - hydrOXYzine HCl (ATARAX) 25 mg tablet Take 25 mg by mouth daily at bedtime. - docosahexaenoic acid/epa (FISH OIL ORAL) Take by mouth. - baclofen (LIORESAL) 10 mg tablet TAKE 1 TABLET BY MOUTH 3 TIMES A DAY NEEDED FOR SPASMS - cholecalciferol (VITAMIN D3) 5,000 unit tab Take 5,000 Units by mouth. - Cyanocobalamin 1,000 mcg subl Dissolve 1,000 mcg under the tongue. Vitamin b12 - magnesium oxide (MAG-OX) 400 mg (241.3 mg magnesium) tablet Take 1 tablet by mouth twice daily. - calcium citrate/vitamin D3 (CALCIUM CITRATE + D ORAL) Take by mouth. - vit/iron fum/folic ac ( 1 PLUS 1 ORAL) Take by mouth. Problem List As Of Date 11/29/2024 Noted Resolved Seronegative rheumatoid arthritis (HCC) [M06.00]12/13/2022 Encounter Status:Closed by LEENA FRANCO on 12/05/24 Normal [facility] CNCOon 11-28-2024 CNCO Letter Text Normal [facility] CNOVon 11-28-2024 CNOV Office Visit (RHEUMN ) GALINDO HO ([id number]) 1980 F Date Time Provider Department 11/28/24 8:00 AM SINCERE DICKSON During your visit today, we recorded the following information about you: Temperature Pulse Blood pressure Weight 97.4 degrees 71/minute 117/49 156.7 kg Height 1.676 m Sincere Dickson MD 11/28/2024 8:54 AM Signed [facility] [place] Department of Rheumatic and Immunologic Diseases SUBJECTIVE: . Brief History of Present Illness: 44 year old female is evaluated in the Rheumatology Clinic for +RF elevated CRP and bilateral wrist pain Hx of questionable inflammatory bowel syndrome (multiple biopsies, one showing suspicion for IBD) Fibromyalgia/post traumatic syndrome + rapid response to glucocorticoids 09/2020 started methotrexate 04/2021 started humira, worked very well, but concerned about twitching so stopped 05/16 started orencia but not having twitches Feels it doesn't work as well the 01/15 cimkya denied, went to remicade TODAY April passed out Was wondering if it could be associated with her remicade infusions? It occurs a few weeks after the infusion Saw cards, thinks she's having episodes of tachycardia Feels her RA is doing well No significant stiffness in the mornings Feels her knees are bothering her more though Hard moving deep pain No infections on the remicade PMHx: PAST MEDICAL HISTORY Diagnosis Date Irritable bowel syndrome Pneumonia due to adenovirus 07/26 PSHx: PAST SURGICAL HISTORY Procedure Laterality Date COLONOSCOPY FLX DX W/COLLJ SPEC WHEN PFRMD Colonoscopy SKIN BX, 1 LESION On neck and Right shoulder blade, benign TONSILLECTOMY PRIMARY/SECONDARY AGE 13/> MEDICATIONS: methotrexate 2.5 mg tablet Take 6 tablets by mouth one time a week. predniSONE (DELTASONE) 5 mg tablet Take 1 tablet by mouth every afternoon. folic acid 1 mg tablet Take one pill each day of the week EXCEPT the day you take methotrexate doxycycline hyclate 150 mg Delayed Release Tablet Take 150 mg by mouth once daily. indapamide (LOZOL) 1.25 mg tablet 1.25 mg once daily. MULTIVITAMIN ORAL Take by mouth once daily. DULoxetine (CYMBALTA) 60 mg capsule Take 2 capsules by mouth once daily. pregabalin (LYRICA) 100 mg capsule levocetirizine 5 mg tablet Take 5 mg by mouth once daily. fluticasone (FLONASE) 50 mcg/actuation nasal spray Use 2 Sprays in each nostril once daily. promethazine (PHENERGAN) 12.5 mg tablet 1/2 TO 1 TABLET EVERY 8 HOURS FOR NAUSEA, HEADACHE, OR COUGH ondansetron (ZOFRAN) 4 mg tablet 1 (ONE) TABLET EVERY 8 HOURS FOR NAUSEA OR MOTION SICKNESS Bifidobacterium infantis 1.5 billion cell cap Bifidobacterium Infantis Bifidobacterium Infantis (Digestive Probiotic) 1.5 billion cell capsule Active 1500 MMU CELLS PO DAILY July 05, 2018 8:40am 07-05-2018 [facility] ([id number]) hydrOXYzine HCl (ATARAX) 25 mg tablet Take 25 mg by mouth daily at bedtime. docosahexaenoic acid/epa (FISH OIL ORAL) Take by mouth. baclofen (LIORESAL) 10 mg tablet TAKE 1 TABLET BY MOUTH 3 TIMES A DAY NEEDED FOR SPASMS (Patient not taking: No sig reported) cholecalciferol (VITAMIN D3) 5,000 unit tab Take 5,000 Units by mouth. Cyanocobalamin 1,000 mcg subl Dissolve 1,000 mcg under the tongue. Vitamin b12 magnesium oxide (MAG-OX) 400 mg (241.3 mg magnesium) tablet Take 1 tablet by mouth twice daily. calcium citrate/vitamin D3 (CALCIUM CITRATE + D ORAL) Take by mouth. vit/iron fum/folic ac ( 1 PLUS 1 ORAL) Take by mouth. (Patient not taking: Reported on 10/20/2022) ALLERGIES: ALLERGIES Allergen Reactions Bananas [Other] Shortness of Breath Penicillin G Rash Seasonal [Other] [place] Other: See Comments, Hives Sulfa (Sulfonamide * Hives Watermelon Diarrhea Latex Rash OBJECTIVE: Physical Examination: Vitals: BP (!) 117/49 Pulse 71 Temp 36.3 ?C (97.4 ?F) (Temporal) Ht 167.6 cm (5' 6) Wt (!) 156.7 kg (345 lb 7.4 oz) LMP 10/18/2005 BMI 55.76 kg/m? General: Looks well, NAD, A AND Ox3. HEENT: PERRLA AND EOMs intact. Throat clear without exudates. Neck: No LAD. No bruits. CVS: RRR, nl S1/S2, no R/M/G, Resp: CTAB. No rales or wheezing. Abdo: NL BS present, soft AND non-tender, Ext: No edema. Neuro: Gait Normal. Skin: No rash. No ulcers. Musculoskeletal: Shoulders: No swelling, no tenderness, good ROM Elbows: No swelling, no tenderness, no flexion contractures, no nodules, good ROM Wrists: No swelling, no tenderness, no limitation in flexion and extension Hands: No evidence of synovitis. Able to make full fist bilaterally Knees: No effusion, no tenderness, good ROM Ankles: No swelling, no tenderness, good ROM Feet/Toes/ MTP: No evidence of synovitis ASSESSMENT/PLAN: 44 year old female with + RF and inflammatory arthritis Currently on in (more content not included)... Normal [facility] XR KNEE 4V AP/PA/LAT/MERCH B ILon 11-28-2024 XR KNEE 4V AP/PA/LAT/MERCH DANISH * * *Final Report* * * DATE OF EXAM: Nov 28 2024 11:51AM WOX 5618 - XR KNEE 4V AP/PA/LAT/MERCH DANISH / PROCEDURE REASON: multiple diagnoses * * * * Physician Interpretation * * * * HISTORY: Chronic pain of both knees Chronic pain of both knees Chronic pain of both knees . chronic bilateral knee pain. TECHNIQUE: XR KNEE 4V AP/PA/LAT/MERCH DANISH Laterality: BILATERAL Number of different views (projections): 4 COMPARISON: None RESULT: Limited evaluation on merchant views bilaterally. Right knee: No evidence of acute fracture or dislocation. Postoperative changes of ACL reconstruction with metallic Endobutton about the lateral aspect of the distal femur. Minimal medial and lateral compartment narrowing. Small tricompartmental osteophytes. No joint effusion. Left knee: No evidence of acute fracture or dislocation. Minimal narrowing of the medial joint compartment. Tiny tricompartmental osteophytes. No joint effusion. Suspicion of 7 mm mineralized loose body overlying the anterior knee joint line. No joint effusion. IMPRESSION: Limited exam. Minimal bilateral knee degenerative changes. Postoperative changes of the right knee. Suspicion of subcentimeter loose body of the left knee. Art Conservator: PRAVIN Transcribe Date/Time: Nov 30 2024 4:39P Dictated by : AMARILYS KING MD This examination was interpreted and the report reviewed and electronically signed by: AMARILYS KING MD on Nov 30 2024 4:42PM EST [id number] Normal [facility] 12 Lead EKG performed by [facility] [place] 11-15-2024 12 Lead EKG performed by [id number] [place] [address] 12 Lead EKG performed by [facility] 11/15/24 1318 MR#: [id number] Acct: [id number] Name: GALINDO OH [place] Rep #: [id number] : 1980 44 From: Mateo Hunter MD Attending Dr: Dr. Mateo Hunter MD Status: DE P AMB Ordering Dr: Mateo Hunter MD Date: 11/15/24 [place] [facility] [place]: F C Admitted: [facility]12 Lead EKG performed by [facility] ECG Report Interpretation Si nus Rhythm Low voltage in precordial leads. -Incomplete right bundle branch block. - Nonspecific T-abnormality. ABNORMAL Electronically signed on 11/15/2024 at 12:[address] Mateo Hunter [place] Software Version [id number] 11/15/24 1216 Date Mateo Hunter MD CC: Dr. Armand Ma MD Date Dictated: 11/15/241317 Date Transcribed: 11/15/241317 Art Conservator: Signed Normal [facility] Cardiology Visit Reporton Cardiology Visit Report [facility] [address] [place] [address] OFFICE VISIT Date of Service: 11/15/24 MR#: [id number] Acct: [id number] Name: GALINDO HO Rep #: [id number] : 1980 Provider: Dr. Mateo ramirez MD Age/Sex: 44/F [place] [facility] Status: Signed HPI HPI History of Present Illness Details: Patient is a 44-year-old white female that comes in for new patient visit for abnormal event monitor. 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 She has noted that she was having tach tachycardias and had a 14- day event monitor which shows an ectopic atrial tachycardia with and without symptoms. Maximum heart rate was in 160s for about 36 beats. She did not have any definitive atrial fibrillation. She did have some sinus tach and sinus bradycardia her PAC burden was less than 0.1%. PVC burden was less than 0.1%. The patient wore the event monitor for 14 days. The patient has a history of hypertension which has been mild but has been well-controlled with medical therapy she also history of morbid obesity status post gastric bypass back in 2012 a year later she had gastric ulcer and hepatic failure. Patient has a history of obstructive sleep apnea treated she has a history of syncope that was felt to be vasovagal she actually fell down and hurt herself in April 2024 and presented to the emergency department. She feels that these occur within the 10 days prior to her next infusion for her rheumatoid arthritis. Section carries a history of irritable bowel syndrome fibromyalgia and the rheumatoid arthritis which has disrupted her life significantly. Patient reports that she continues to have some lightheaded dizzy spells and near syncope about once a month. They attended to appear to occur in clusters around the time right before her next rheumatoid arthritis medication infusion. The patient is on a beta-lev. The patient's VMR5AW2-VSIw score is 2 given her hypertension and female gender. Patient had an echocardiogram done back in January 2022 which was difficult due to her body habitus her left ventricular was normal with an EF of 65% she had grade 1 diastolic dysfunction the right ventricle was normal in size and function there was no significant valve abnormalities. This was done at the [facility]. Patient also has a history of carotid ultrasound April 2017 which showed normal coronary arteries and she has no evidence of atherosclerotic disease. Intake Vital Signs 05/07/24 14:50 10/17/24 09:35 11/15/24 11:20 Height 5 ft 6 in 5 ft 6 in 5 ft 6 in Weight: 344 lb BMI 55.5 BP 100/72 Blood Pressure Location Lt radial Position Sitting Respiration 18 Pulse 78 Pulse Source Monitor Pulse Oximetry (%) 97 Oxygen Delivery Method room air Intake Visit Reasons: Paroxysmal Atrial Fibrillation (Anil) Meteorological Aide Required: No Accompanied by: Self Is patient in pain?: No Allergies banana Allergy (Unknown, Verified 10/17/24 09:29) Hives Penicillins Allergy (Unknown, Verified 10/17/24 09:29) Rash/Hives strawberry Allergy (Unknown, Verified 10/17/24 09:29) Hives Sulfa (Sulfonamide Antibiotics) Allergy (Unknown, Verified 10/17/24 09:29) Hives watermelon Allergy (Unknown, Verified 10/17/24 09:29) Hives Corticosteroids (Glucocorticoids) Adverse Reaction (Verified 10/17/24 09:29) Liver failure latex Adverse Reaction (Verified 11/15/24 11:20) Rash Medications ???Medication ???Instructions ???Recorded ???Confirmed ???Type Bifidobacterium infantis 1.5 50 cell PO DAILY 07/05/18 11/15/24 History billion cell capsule (Digestive Probiotic) multivitamin 1 tab PO DAILY 07/05/18 11/15/24 H istory fluticasone propionate 50 2 spray NASAL DAILY 03/30/2011/15 History mcg/actuation nasal spray,suspension hydroxyzine HCl 10 mg tablet 25 mg PO QHS 03/30/20 11/15/24 His tory levocetirizine 5 mg tablet 5 mg PO DAILY 03/30/20 11/15/24 Hi story magnesium oxide 400 mg PO BID 03/30/20 11/15/24 Hi story calcium 250 mg (as 1 tab PO DAILY 09/02/21 11/15/24 H istory citrate)-vitamin D3 5 mcg (200 unit) tablet (Citracal Regular) cholecalciferol (vitamin D3) 25 1,000 unit PO DAILY 02/17/2211/15 History mcg (1,000 unit) capsule folic acid 1 mg tablet 1 mg PO 6XW 02/17/22 11/15/24 Hist ory mecobalamin (vitamin B12) 1,000 500 mcg PO DAILY 02/17/22 11/15/24 History mcg chewable tablet methotrexate sodium 2.5 mg tablet 15 mg PO NAVARRETE 02/17/22 11/15/24 His tory omega-3 fatty acids 1,000 mg 2,000 mg PO BID 02/17/22 11/15/24 History capsule ondansetron HCl 4 mg tablet 4 mg PO Q8H PRN motion sickness 11/15/24 History promethazine 12.5 mg tablet 12.5 mg PO Q8H PRN nausea and 01/2411/15/24 History vomiting riboflavin (vitamin B2) 400 mg (more content not included)... Normal [facility] CBC W Auto Differential pane l (Bld)on 11-01-2024 Basophils (Bld) [#/Vol] 0.05 10*3/uL Normal <0.11 [facility] Comment on above: Order Comment: Speci men Type: URINE SPECIMEN Ordering Facility: [facility] Address: [address] [place] [address] Performed By: #### U A #### [facility] CLIA [id number] [address] [place] [address] [place] Basophils/100 WBC (Bld) 0.9 % Normal [facility] Comment on above: Order Comment: Speci men Type: URINE SPECIMEN Ordering Facility: [facility] Address: [address] [address] Performed By: #### U A #### [facility] CLIA [id number] [facility] [place] [address] [place] Differential cell count method Nom (Bld) Auto Normal [facility] Comment on above: Order Comment: Speci men Type: URINE SPECIMEN Ordering Facility: [facility] Address: [address] [facility] [place] [address] Performed By: #### U A #### [facility] CLIA [id number] [address] [place] [address] [place] Eosinophils (Bld) [#/Vol] 0.18 10*3/uL Normal <0.46 [facility] Comment on above: Order Comment: Speci men Type: URINE SPECIMEN Ordering Facility: [facility] Address: [address] [place] [address] Performed By: #### U A #### [facility] CLIA [id number] [address] [place] [address] [place] Eosinophils/100 WBC (Bld) 3.1 % Normal [facility] Comment on above: Order Comment: Speci men Type: URINE SPECIMEN Ordering Facility: [facility] Address: [facility] [place] [address] Performed By: #### U A #### [facility] CLIA [id number] [address] [place] [address] [place] Erythrocyte distribution width (RBC) [Ratio] 13.2 % Normal 11.5-15.0 [facility] Comment on above: Order Comment: Speci men Type: URINE SPECIMEN Ordering Facility: [facility] Address: [place] [address] Performed By: #### U A #### [facility] CLIA [id number] [address] [place] [address] [place] Hematocrit (Bld) [Volume fraction] 39.6 % Normal 36.0-46.0 [facility] Comment on above: Order Comment: Speci men Type: URINE SPECIMEN Ordering Facility: [facility] Address: [address] [place] [address] Performed By: #### U A #### [facility] CLIA [id number] [address] [address] [place] Hemoglobin (Bld) [Mass/Vol] 13.9 g/dL Normal 11.5-15.5 [facility] Comment on above: Order Comment: Speci men Type: URINE SPECIMEN Ordering Facility: [facility] Address: [facility] [place] [address] Performed By: #### U A #### [facility] CLIA [id number] [address] [place] [address] [place] Immature granulocytes (Bld) [#/Vol] 10*3/uL Normal <0.10 [facility] Comment on above: Order Comment: Speci men Type: URINE SPECIMEN Ordering Facility: [facility] Address: [facility] [place] [address] Performed By: #### U A #### [facility] CLIA [id number] [address] [place] [address] [place] Immature granulocytes/100 WBC (Bld) 0.2 % Normal [facility] Comment on above: Order Comment: Speci men Type: URINE SPECIMEN Ordering Facility: [facility] Address: [place] [address] Performed By: #### U A #### [facility] CLIA [id number] [address] [place], [place] [address] [place] Lymphocytes (Bld) [#/Vol] 1.96 10*3/uL Normal 1.00-4.00 [facility] Comment on above: Order Comment: Speci men Type: URINE SPECIMEN Ordering Facility: [facility] Address: [facility] [address] [facility] [place] [address] Performed By: #### U A #### [facility] CLIA [id number] [address] [place], [place] [address] [place] Lymphocytes/100 WBC (Bld) 34.2 % Normal [facility] Comment on above: Order Comment: Speci men Type: URINE SPECIMEN Ordering Facility: [facility] Address: [place] [address] Performed By: #### U A #### [facility] CLIA [id number] [address] [place] [address] [place] MCH (RBC) [Entitic mass] 33.1 pg Normal 26.0-34.0 [facility] Comment on above: Order Comment: Speci men Type: URINE SPECIMEN Ordering Facility: [facility] Address: [facility] [address] Performed By: #### U A #### [facility] CLIA [id number] [address] [place] [address] [place] MCHC (RBC) [Mass/Vol] 35.1 g/dL Normal 30.5-36.0 [facility] Comment on above: Order Comment: Speci men Type: URINE SPECIMEN Ordering Facility: [facility] Address: [facility] [place] [address] Performed By: #### U A #### [facility] CLIA [id number] [address] [place] [address] [place] MCV (RBC) [Entitic vol] 94.3 fL Normal 80.0-100.0 [facility] Comment on above: Order Comment: Speci men Type: URINE SPECIMEN Ordering Facility: [facility] Address: [address] [place] [address] Performed By: #### U A #### [facility] CLIA [id number] [address] [place] [address] [place] Monocytes (Bld) [#/Vol] 0.50 10*3/uL Normal <0.87 [facility] Comment on above: Order Comment: Speci men Type: URINE SPECIMEN Ordering Facility: [facility] Address: [address] [place] [address] Performed By: #### U A #### [facility] CLIA [id number] [address] [address] [place] Monocytes/100 WBC (Bld) 8.7 % Normal [facility] Comment on above: Order Comment: Speci men Type: URINE SPECIMEN Ordering Facility: [facility] Address: [address] [place] [address] Performed By: #### U A #### [facility] CLIA [id number] [address] [place] [id number] [place] Neutrophils (Bld) [#/Vol] 3.03 10*3/uL Normal 1.45-7.50 [facility] Comment on above: Order Comment: Speci men Type: URINE SPECIMEN Ordering Facility: [facility] Address: [address] [place] [address] Performed By: #### U A #### [facility] CLIA [id number] [address] [place], [place] [address] [place] Neutrophils/100 WBC (Bld) 52.9 % Normal [facility] Comment on above: Order Comment: Speci men Type: URINE SPECIMEN Ordering Facility: [facility] Address: [address] [place] [address] Performed By: #### U A #### [facility] CLIA [id number] [address] [place], [place] [address] [place] Nucleated RBC (Bld) [#/Vol] 10*3/uL Normal <0.01 [facility] Comment on above: Order Comment: Speci men Type: URINE SPECIMEN Ordering Facility: [facility] Address: [address] [place] [address] Performed By: #### U A #### [facility] CLIA [id number] [facility] [place] [id number] [place] Nucleated RBC/100 WBC (Bld) [Ratio] 0.0 /100 WBC Normal [facility] Comment on above: Order Comment: Speci men Type: URINE SPECIMEN Ordering Facility: [facility] Address: [address] [place] [address] Performed By: #### U A #### [facility] CLIA [id number] [address] [place] [address] [place] Platelet mean volume (Bld) [Entitic vol] 9.7 fL Normal 9.0-12.7 [facility] Comment on above: Order Comment: Speci men Type: URINE SPECIMEN Ordering Facility: [facility] Address: [facility] [address] [place], [place] [id number] Performed By: #### U A #### [facility] CLIA [id number] [address] [place] [address] [place] Platelets (Bld) [#/Vol] 328 10*3/uL Normal 150-400 [facility] Comment on above: Order Comment: Speci men Type: URINE SPECIMEN Ordering Facility: [facility] Address: [facility] [address], [place] [address] Performed By: #### U A #### [facility] CLIA [id number] [address] [place] [address] [place] RBC (Bld) [#/Vol] 4.20 10*6/uL Normal 3.90-5.20 [facility] Comment on above: Order Comment: Speci men Type: URINE SPECIMEN Ordering Facility: [facility] Address: [facility] [place] [id number] Performed By: #### U A #### [facility] CLIA [id number] [address] [place] [id number] [place] WBC (Bld) [#/Vol] 5.73 10*3/uL Normal 3.70-11.00 [facility] Comment on above: Order Comment: Speci men Type: URINE SPECIMEN Ordering Facility: [facility] Address: [address] [place] [address] Performed By: #### U A #### [facility] CLIA [id number] [address] [place] [address] [place] Comprehensive metabolic 2000 panelon 11-01-2024 Albumin [Mass/Vol] 4.0 g/dL Normal 3.9-4.9 [facility] Comment on above: Order Comment: Speci men Type: BLOOD SPECIMENOrdering Facility: [facility] Address: [address] [place] [address] Performed By: #### 2 4323-8 ####[facility] [id number] [place] [address] [place] ALP [Catalytic activity/Vol] 65 U/L Normal 34-123 [facility] Comment on above: Order Comment: Speci men Type: BLOOD SPECIMENOrdering Facility: [facility] Address: [address] [place] [address] Performed By: #### 2 4323-8 ####[facility] [id number] [place] [address] [place] ALT [Catalytic activity/Vol] 17 U/L Normal 7-38 [facility] Comment on above: Order Comment: Speci men Type: BLOOD SPECIMENOrdering Facility: [facility] Address: [address] [place] [address] Performed By: #### 2 4323-8 ####[facility] [id number] [place] [id number] [place] Anion gap [Moles/Vol] 11 mmol/L Normal 8-15 [facility] Comment on above: Order Comment: Speci men Type: BLOOD SPECIMENOrdering Facility: [facility] Address: [address] [place] [id number] Performed By: #### 2 4323-8 ####[facility] [id number] [place] [id number] [place] AST [Catalytic activity/Vol] 22 U/L Normal 13-35 [facility] Comment on above: Order Comment: Speci men Type: BLOOD SPECIMENOrdering Facility: [facility] Address: [address] [place] [address] Performed By: #### 2 4323-8 ####[facility] [id number] [place] [address] [place] Bilirubin [Mass/Vol] 0.5 mg/dL Normal 0.2-1.3 [facility] Comment on above: Order Comment: Speci men Type: BLOOD SPECIMENOrdering Facility: [facility] Address: [address] [place] [address] Performed By: #### 2 4323-8 ####[facility] [id number] [place] [address] [place] Calcium [Mass/Vol] 9.4 mg/dL Normal 8.5-10.2 [facility] Comment on above: Order Comment: Speci men Type: BLOOD SPECIMENOrdering Facility: [facility] Address: [address] [place] [address] Performed By: #### 2 4323-8 ####[facility] [id number] [place] [address] [place] Chloride [Moles/Vol] 101 mmol/L Normal 98-107 [facility] Comment on above: Order Comment: Speci men Type: BLOOD SPECIMENOrdering Facility: [facility] Address: [address] [place], [place] [address] Performed By: #### 2 4323-8 ####[facility] [id number] [place] [id number] [place] CO2 [Moles/Vol] 29 mmol/L Normal 22-30 [facility] Comment on above: Order Comment: Speci men Type: BLOOD SPECIMENOrdering Facility: [facility] Address: [address] [place] [address] Performed By: #### 2 4323-8 ####[facility] [id number] [place] [id number] [place] Creatinine [Mass/Vol] 0.73 mg/dL Normal 0.58-0.96 [facility] Comment on above: Order Comment: Viet men Type: BLOOD SPECIMENOrdering Facility: [facility] Address: [address] [place] [address] Performed By: #### 2 4323-8 ####[facility] [id number] [place] [address] [place] Creatinine and Glomerular filtration rate.predicted panel (S/P/Bld) 105 mL/min/1.73m??? Normal >=60 [facility] Comment on above: Order Comment: Viet men Type: BLOOD SPECIMENOrdering Facility: [facility] Address: [address] [place] [address] Result Comment: Joan mated Glomerular Filtration Rate (eGFR) is calculated using the 2020 CKD-EPI creatinine equation. This equation utilizes serum creatinine, sex, and age as parameters. The creatinine assay has traceable calibration to isotope dilution-mass spectrometry. Refer to KDIGO guidelines for clinical interpretation. In patients with unstable renal function, e.g. those with acute kidney injury, the eGFR may not accurately reflect actual GFR. Performed By: #### 2 4323-8 ####[facility] [id number] [place] [address] [place] Glucose [Mass/Vol] 87 mg/dL Normal 74-99 [facility] Comment on above: Order Comment: Hayleyi men Type: BLOOD SPECIMENOrdering Facility: [facility] Address: [address] [place] [address] Result Comment: The [place] Diabetes Association (ADA) provides guidance for cutoff values for fasting glucose and random glucose. The ADA defines fasting as no caloric intake for at least 8 hours. Fasting plasma glucose results between 100 to 125 mg/dL indicate increased risk for diabetes (prediabetes). Fasting plasma glucose results greater than or equal to 126 mg/dL meet the criteria for diagnosis of diabetes. In the absence of unequivocal hyperglycemia, results should be confirmed by repeat testing. In a patient with classic symptoms of hyperglycemia or hyperglycemic crisis, random plasma glucose results greater than or equal to 200 mg/dL meet the criteria for diagnosis of diabetes. Reference: Standards of Medical Care in Diabetes 2016, [place] Diabetes Association. Diabetes Care. 2016.39(Suppl 1). Performed By: #### 2 4323-8 ####[facility] LABCLIA [id number] [place] [address] [place] Potassium [Moles/Vol] 4.0 mmol/L Normal 3.7-5.1 [facility] Comment on above: Order Comment: Hayleyi eduar Type: BLOOD SPECIMENOrdering Facility: [facility] Address: [address] [place] [address] Performed By: #### 2 4323-8 ####[facility] LABIA [id number] [place] [address] [place] Protein [Mass/Vol] 6.8 g/dL Normal 6.3-8.0 [facility] Comment on above: Order Comment: Hayleyi eduar Type: BLOOD SPECIMENOrdering Facility: [facility] Address: [address] [place] [address] Performed By: #### 2 4323-8 ####[facility] LABCLIA [id number] [place] [address] [place] Sodium [Moles/Vol] 141 mmol/L Normal 136-144 [facility] Comment on above: Order Comment: Hayleyi men Type: BLOOD SPECIMENOrdering Facility: [facility] Address: [address] [place] [address] Performed By: #### 2 4323-8 ####[facility] LABCLIA [id number] [place] [address] [place] Urea nitrogen [Mass/Vol] 11 mg/dL Normal 7-21 [facility] Comment on above: Order Comment: Speci men Type: BLOOD SPECIMENOrdering Facility: [facility] Address: [address] [place] [address] Performed By: #### 2 4323-8 ####[facility] LABCLIA [id number] [address] [place] [address] [place] SCRN MAMM (CAD)W/NORMA BILATo n 11-01-2024 SCRN MAMM (CAD)W/NORMA BILAT [facility] Imaging Services [address] [place] [address] SCRN MAMM (CAD)W/NORMA BILAT MR#: [id number] Acct: [id number] Name: GALINDO HO Rep #: [id number] : 1980 F 44 From: Clint purdy MD PCP: Dr. Armand Ma MD Status: [facility] Study: SCRN MAMM (CAD)W/NORMA BILAT Date of Exam: 04/18 Exam# [id number] Ordering Dr: Dalila Nova CHEMICAL PROJECT ENGINEER-Mario PROCEDURE: SCRN MAMM (CAD)W/NORMA BILAT REASON FOR EXAM: F, Age 44 y/o, grandmothers with breast cancer. Aunt with breast cancer. Routine annual follow-up. TECHNIQUE: Bilateral screening digital breast tomosynthesis with 2D and 3D images. Computer aided detection. COMPARISON: Prior exam(s) dating back to September 21, 2023.. FINDINGS: There are scattered areas of fibroglandular density. Stable examination. Stable small bilateral fat containing axillary lymph nodes. No suspicious masses, areas of developing architectural distortion, or suspicious calcifications. BI/SCRN MAMM (CAD)W/NORMA BILAT IMPRESSION: BI-RADS 2: BENIGN. RECOMMEND ANNUAL MAMMOGRAPHIC SCREENING. Follow-up code: Routine Follow-up The patient will be notified of the results by letter. Reading Location: [place] [address] CC: GEORGE Nova; Dr. Armand Ma MD Art Conservator: Signed Normal [facility] Vice President Of Procurement Office Visit Reporton 10-17-2024 Vice President Of Procurement Office Visit Report [facility] [address], [address] [place] [address] OFFICE VISIT Date of Service: 10/17/24 MR#: [id number] Acct: [id number] Name: GALINDO HO Rep #: [id number] : 1980 Provider: GEORGE [place] Age/Sex: 44/F [place] [facility] [place]: Signed Intake Vital Signs 10/13/23 11:05 05/07/24 14:50 10/17/24 09:27 10/17/24 09:35 Height 5 ft 6 in 5 ft 6 in 5 ft 6 in 5 ft 6 in Weight: 353 lb 2 oz BMI 56.9 BP 115/80 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) Meteorological Aide Required: No Is patient in pain?: Yes (concussion from fall last weekend) Allergies banana Allergy (Unknown, Verified 10/17/24 09:29) Hives Penicillins Allergy (Unknown, Verified 10/17/24 09:29) Rash/Hives strawberry Allergy (Unknown, Verified 10/17/24 09:29) Hives Sulfa (Sulfonamide Antibiotics) Allergy (Unknown, Verified 10/17/24 09:29) Hives watermelon Allergy (Unknown, Verified 10/17/24 09:29) Hives Corticosteroids (Glucocorticoids) Adverse Reaction (Verified 10/17/24 09:29) Liver failure Medications ???Medication ???Instructions ???Recorded ???Confirmed ???Type Bifidobacterium infantis 1.5 50 cell PO DAILY 07/05/18 10/17/24 History billion cell capsule (Digestive Probiotic) multivitamin 1 tab PO DAILY 07/05/18 10/17/24 History fluticasone propionate 50 2 spray NASAL DAILY 03/30/20 10/17/24 History mcg/actuation nasal spray,suspension hydroxyzine HCl 10 mg tablet 25 mg PO QHS 03/30/20 10/17/24 History levocetirizine 5 mg tablet 5 mg PO DAILY 03/30/20 10/17/24 History magnesium oxide 400 mg PO BID 03/30/20 10/17/24 History calcium 250 mg (as 1 tab PO DAILY 09/02/21 10/17/24 History citrate)-vitamin D3 5 mcg (200 unit) tablet (Citracal Regular) cholecalciferol (vitamin D3) 25 1,000 unit PO DAILY 02/17/22 10/17/24 History mcg (1,000 unit) capsule folic acid 1 mg tablet 1 mg PO 6XW 02/17/22 10/17/24 History mecobalamin (vitamin B12) 1,000 500 mcg PO DAILY 02/17/22 10/17/24 History mcg chewable tablet methotrexate sodium 2.5 mg tablet 15 mg PO NAVARRETE 02/17/22 10/17/24 History omega-3 fatty acids 1,000 mg 2,000 mg PO BID 02/17/22 10/17/24 History capsule ondansetron HCl 4 mg tablet 4 mg PO Q8H PRN motion sickness 02/17/22 10/17/24 History promethazine 12.5 mg tablet 12.5 mg PO Q8H PRN nausea and 02/17/22 10/17/24 History vomiting riboflavin (vitamin B2) 400 mg 400 mg PO DAILY 02/17/22 10/17/24 History tablet duloxetine 60 mg capsule,delayed 60 mg PO DAILY 06/09/22 10/17/24 History release (Cymbalta) nebivolol 10 mg tablet 10 mg PO DAILY #30 tabs 09/09/22 09/09/22 Rx infliximab 100 mg intravenous mg .Route 10/13/23 10/17/24 History solution (Remicade) buspirone 5 mg tablet See Rx Instructions .Route 10/17/24 10/17/24 Rx .COMPLEX #60 tabs indapamide 1.25 mg tablet 1.25 mg PO QAM 10/17/24 10/17/24 History prednisone 5 mg tablet 5 mg PO DAILY PRN 10/17/24 10/17/24 History pregabalin 25 mg capsule (Lyrica) 25 mg PO BID 10/17/24 10/17/24 History ramipril 5 mg capsule 5 mg PO QDAY 10/17/24 10/17/24 History Is last menstrual period known: No Patient : No [facility] (Updated 10/17/24 @ 09:33 by Carolina Esquivel) Psoriasis Rheumatoid arthritis Abnormal mammogram Depression Inflammatory bowel disease Vestibular disequilibrium Liver injury Anxiety Fibromyalgia Perianal fistula Surgical History S/P ACL reconstruction History of tonsillectomy History of cholecystectomy Gastric bypass status for obesity ( 2013) H/O: hysterectomy ( 2017) Family History Father Hypertension Gout Mother Hypotension Grandmother Breast cancer Grandmother Breast cancer Aunt Breast cancer Social History (Updated 10/17/24 @ 09:34 by Carolina Esquivel) adopted: No household members: family housing: house number of children: 3 current occupational status: employed 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 current occupational exposures/hazards: No pets and animals: Yes history of recent travel: No Smoking Status: Never smoker second hand exposure: No alcohol intake: current alcohol intake frequency: holidays/special occasions only substance use type: does not use diet: gluten free, low salt and other caffeine: No what type of physical activity do you participate in: none seatbelt use: always do you feel safe at home: Yes additional social history: - [employer]- [employer] and [employer] History 3 Elective abortions Hx Para 3 Spontaneous abortions Hx # Term Pregnancies Ectopic pregnancies Hx # Pregnancies Multiple births # of living children (more content not included)... Normal [facility] Foot min 3 Viewson 5 Foot min 3 Views [facility] Imaging Services [address] [place] [address] [id number] Foot min 3 Views MR#: [id number] Acct: [id number] Name: GALINDO HO Rep #: [id number] : 1980 F 44 From: Dilan Walter MD PCP: Dr. Armand Ma MD Status: REG CLI Study: Foot min 3 Views Date of Exam: 09/30/24 Exam# [id number] Ordering Dr: Armand Ma MD :[id number] STUDY: X-RAY - LEFT FOOT CLINICAL: Female, 44 years old. Two weeks, mid foot, left pain. TECHNIQUE: 3 views of the left foot. COMPARISON: None. FINDINGS: Intact talus, calcaneus, and tarsal bones. There are small plantar and posterior calcaneal spurs. Normal visualized subtalar, talonavicular, calcaneocuboid, tarsal and tarsometatarsal articulations. Normal metatarsi. Normal metatarsophalangeal joint of the great toe. Normal tibial and fibular sesamoid bones. Normal interphalangeal joint of the great toe. Normal phalanges of the great toe. Normal second through fifth metatarsophalangeal joints. Normal interphalangeal joints and phalanges of the lesser toes. The soft tissue structures are unremarkable. There is no demonstrated fracture. RAD/Foot min 3 Views IMPRESSION: Small plantar and posterior calcaneal spurs. No demonstrated fracture. Electronically Signed: Dilan Walter MD at 12:45 EST , CC: Dr. Armand Ma MD Art Conservator: Signed Normal [facility] Bacteria Ur Culton 4 Bacteria identified Cx Nom (U) ORGANISM ID: 1 >=100,000 CFU/ml Escherichia coli ORGANISM ID: 2 <10,000 CFU/ml Lactose positive gram negative bacilli Insignificant colony count. No further workup. ORGANISM ID: 1 (ESCHERICHIA COLI) ------ ANTIBIOTIC INTERPRETATION PACO STATUS REFERENCE RANGE ------ Ampicillin R >=32 F Susceptible <=8 , Intermediate >8 , Resistant >16 Cefazolin S 8 F Susceptible 0-16 , Intermediate <0 or >16 , Resistant >16 For uncomplicated urinary tract infections, cefazolin results can be used to predict susceptibility or resistance to cephalexin. Ceftriaxone S <=1 F Susceptible <=1 , Intermediate >1 , Resistant >=4 Cefepime S <=1 F Susceptible <=2 , Susceptible-Dose Dependent >2 , Resistant >=16 Ertapenem S <=0.5 F Susceptible <=0.5 , Intermediate >.5 , Resistant >1 Meropenem S <=0.25 F Susceptible <=1 , Intermediate >1 , Resistant >2 Ampicillin/Sulbact R >=32 F Susceptible <=8 , Intermediate >8 , Resistant >16 Piperacillin/Tazobac S 8 F Susceptible <16 , Susceptible-Dose Dependent >=16 , Resistant >=32 Gentamicin S <=1 F Susceptible <=2 , Intermediate >2 , Resistant >=8 Tobramycin S <=1 F Susceptible <4 , Intermediate >=4 , Resistant >=8 Trimeth sulfameth S <=20 F Susceptible <=40 , Resistant >40 Ciprofloxacin S <=0.25 F Susceptible <0.5 , Intermediate >=.5 , Resistant >=1 Nitrofurantoin S <=16 F Susceptible <=32 , Intermediate >32 , Resistant >64 Abnormal [facility] Comment on above: Performed By: #### 6 30-4 ####[facility] LABCLIA [id number] [address] [address] [place] URINALYSIS, DIPSTICK ONLYon 09-03-2024 Bilirubin Ql (U) Negative Normal Negative [facility] Comment on above: Order Comment: Speci men Type: URINE SPECIMEN Ordering Facility: [facility] Address: [address], [place] [address] Performed By: #### U A #### [facility] CLIA [id number] [address] [place] [address] [place] Clarity (Unsp spec) Clear Normal Clear Os[facility] Comment on above: Order Comment: Speci men Type: URINE SPECIMEN Ordering Facility: [facility] Address: [place] [address] Performed By: #### U A #### [facility] CLIA [id number] [address] [place] [address] [place] Color (U) Yellow Normal Yellow [facility] Comment on above: Order Comment: Speci men Type: URINE SPECIMEN Ordering Facility: [facility] Address: [place] [address] Performed By: #### U A #### [facility] CLIA [id number] [address] [place] [address] [place] Glucose Test strip (U) [Mass/Vol] Negative Normal Negative [facility] Comment on above: Order Comment: Speci men Type: URINE SPECIMEN Ordering Facility: [facility] Address: [place] [address] Performed By: #### U A #### [facility] CLIA [id number] [address] [place] [address] [place] Hemoglobin Ql (U) Negative Normal Negative [facility] Comment on above: Order Comment: Speci men Type: URINE SPECIMEN Ordering Facility: [facility] Address: [address] [place] [address] Performed By: #### U A #### [facility] CLIA [id number] [address] [place] [address] [place] Ketones Ql (U) Negative Normal Negative [facility] Comment on above: Order Comment: Speci men Type: URINE SPECIMEN Ordering Facility: [facility] Address: [address] [place] [address] Performed By: #### U A #### [facility] CLIA [id number] [address] [place] [address] [place] Leukocyte esterase Test strip Ql (U) 2+ Abnormal Negative [facility] Comment on above: Order Comment: Speci men Type: URINE SPECIMEN Ordering Facility: [facility] Address: [facility] [place] [address] Performed By: #### U A #### [facility] CLIA [id number] [address] [place] [address] [place] Nitrite Ql (U) Positive Abnormal Negative [facility] Comment on above: Order Comment: Speci men Type: URINE SPECIMEN Ordering Facility: [facility] Address: [facility] [place] [address] Performed By: #### U A #### [facility] CLIA [id number] [address] [place] [address] [place] pH (U) 6.5 [pH] Normal <8.5 [facility] Comment on above: Order Comment: Speci men Type: URINE SPECIMEN Ordering Facility: [facility] Address: [facility] [place] [address] Performed By: #### U A #### [facility] CLIA [id number] [address] [place] [address] [place] Protein (U) [Mass/Vol] Negative Normal Negative [facility] Comment on above: Order Comment: Speci men Type: URINE SPECIMEN Ordering Facility: [facility] Address: [facility] [place] [address] Performed By: #### U A #### [facility] CLIA [id number] [address] [place] [address] [place] Specific gravity (U) [Rel density] 1.009 Normal 1.005-1.030 [facility] Comment on above: Order Comment: Speci men Type: URINE SPECIMEN Ordering Facility: [facility] Address: [facility] [address], [place] [address] Performed By: #### U A #### [facility] CLIA [id number] [address] [place] [address] [place] Urobilinogen Ql (U) 0.2 EU/dL Normal 0.2-1.0 EU/dL [facility] Comment on above: Order Comment: Speci men Type: URINE SPECIMEN Ordering Facility: [facility] Address: [address], [place] [address] Performed By: #### U A #### [facility] CLIA [id number] [address] [place] [address] [place] Miscellaneous Lab Procedureo n 08-23-2024 [facility] TEST Normal [facility] Comment on above: Order Comment: [id number] STOOL CULTURE RT Result Comment: STOO L CULTURE Salmonella/Shigella Screen Final Report Result 1 NO Salmonella or Shigella recovered. Campylobacter Culture Final Report Result 1 NO Campylobacter species isolated. E. coli Shiga Toxin EIA [facility] ORIGINAL REPORT ON FILE IN LAB CONTAINS ADDITIONAL TEST SITE INFORMATION. Performed By: #### L 801.1541 #### [facility] [address] [place], [address] CBC W Auto Differential pane l (Bld)on 08-14-2024 Basophils (Bld) [#/Vol] 0.06 10*3/uL Normal <0.11 [facility] Comment on above: Order Comment: Speci men Type: BLOOD SPECIMENOrdering Facility: [facility] Address: [address] [place] [address] Performed By: #### 5 7021-8 ####[facility] MILLWNCLIA [id number] [place] [address] [place] Basophils/100 WBC (Bld) 0.8 % Normal [facility] Comment on above: Order Comment: Speci men Type: BLOOD SPECIMENOrdering Facility: [facility] Address: [address] [place] [address] Performed By: #### 5 7021-8 ####[facility] [id number] [place] [address] [place] Differential cell count method Nom (Bld) Auto Normal [facility] Comment on above: Order Comment: Speci men Type: BLOOD SPECIMENOrdering Facility: [facility] Address: [address] [place] [address] Performed By: #### 5 7021-8 ####[facility] [id number] [place] [address] [place] Eosinophils (Bld) [#/Vol] 0.27 10*3/uL Normal <0.46 [facility] Comment on above: Order Comment: Speci men Type: BLOOD SPECIMENOrdering Facility: [facility] Address: [address] [place] [address] Performed By: #### 5 7021-8 ####[facility] [id number] [place] [address] [place] Eosinophils/100 WBC (Bld) 3.4 % Normal [facility] Comment on above: Order Comment: Speci men Type: BLOOD SPECIMENOrdering Facility: [facility] Address: [address] [place] [address] Performed By: #### 5 7021-8 ####[facility] [id number] [place] [address] [place] Erythrocyte distribution width (RBC) [Ratio] 13.6 % Normal 11.5-15.0 [facility] Comment on above: Order Comment: Speci men Type: BLOOD SPECIMENOrdering Facility: [facility] Address: [address] [place] [address] Performed By: #### 5 7021-8 ####[facility] [id number] [place] [address] [place] Hematocrit (Bld) [Volume fraction] 39.1 % Normal 36.0-46.0 [facility] Comment on above: Order Comment: Speci men Type: BLOOD SPECIMENOrdering Facility: [facility] Address: [address] [place] [address] Performed By: #### 5 7021-8 ####[facility] [id number] [place] [address] [place] Hemoglobin (Bld) [Mass/Vol] 14.0 g/dL Normal 11.5-15.5 [facility] Comment on above: Order Comment: Speci men Type: BLOOD SPECIMENOrdering Facility: [facility] Address: [address] [place] [address] Performed By: #### 5 7021-8 ####[facility] [id number] [place] [address] [place] Immature granulocytes (Bld) [#/Vol] 10*3/uL Normal <0.10 [facility] Comment on above: Order Comment: Speci men Type: BLOOD SPECIMENOrdering Facility: [facility] Address: [address] [place] [address] Performed By: #### 5 7021-8 ####[facility] [id number] [place] [address] [place] Immature granulocytes/100 WBC (Bld) 0.3 % Normal [facility] Comment on above: Order Comment: Speci men Type: BLOOD SPECIMENOrdering Facility: [facility] Address: [address] [place] [address] Performed By: #### 5 7021-8 ####[facility] LORETTADRISSA [id number] [place] [address] [place] Lymphocytes (Bld) [#/Vol] 3.15 10*3/uL Normal 1.00-4.00 [facility] Comment on above: Order Comment: Speci men Type: BLOOD SPECIMENOrdering Facility: [facility] Address: [address] [place] [address] Performed By: #### 5 7021-8 ####[facility] [id number] [place] [address] [place] Lymphocytes/100 WBC (Bld) 40.1 % Normal [facility] Comment on above: Order Comment: Speci men Type: BLOOD SPECIMENOrdering Facility: [facility] Address: [address] [place] [address] Performed By: #### 5 7021-8 ####[facility] [id number] [place] [address] [place] MCH (RBC) [Entitic mass] 34.0 pg Normal 26.0-34.0 [facility] Comment on above: Order Comment: Speci men Type: BLOOD SPECIMENOrdering Facility: [facility] Address: [address] [place] [address] Performed By: #### 5 7021-8 ####[facility] [id number] [place] [address] [place] MCHC (RBC) [Mass/Vol] 35.8 g/dL Normal 30.5-36.0 [facility] Comment on above: Order Comment: Speci men Type: BLOOD SPECIMENOrdering Facility: [facility] Address: [address] [place] [address] Performed By: #### 5 7021-8 ####[facility] MILLWNCLIA [id number] [place] [address] [place] MCV (RBC) [Entitic vol] 94.9 fL Normal 80.0-100.0 [facility] Comment on above: Order Comment: Speci men Type: BLOOD SPECIMENOrdering Facility: [facility] Address: [address] [place] [address] Performed By: #### 5 7021-8 ####[facility] [id number] [place] [address] [place] Monocytes (Bld) [#/Vol] 0.68 10*3/uL Normal <0.87 [facility] Comment on above: Order Comment: Speci men Type: BLOOD SPECIMENOrdering Facility: [facility] Address: [address] [place] [address] Performed By: #### 5 7021-8 ####[facility] [id number] [place] [address] [place] Monocytes/100 WBC (Bld) 8.7 % Normal [facility] Comment on above: Order Comment: Speci men Type: BLOOD SPECIMENOrdering Facility: [facility] Address: [address] [place] [address] Performed By: #### 5 7021-8 ####[facility] [id number] [place] [address] [place] Neutrophils (Bld) [#/Vol] 3.67 10*3/uL Normal 1.45-7.50 [facility] Comment on above: Order Comment: Speci men Type: BLOOD SPECIMENOrdering Facility: [facility] Address: [address] [place] [address] Performed By: #### 5 7021-8 ####[facility] [id number] [place] [address] [place] Neutrophils/100 WBC (Bld) 46.7 % Normal [facility] Comment on above: Order Comment: Speci men Type: BLOOD SPECIMENOrdering Facility: [facility] Address: [address] [place] [address] Performed By: #### 5 7021-8 ####[facility] [id number] [place] [address] [place] Nucleated RBC (Bld) [#/Vol] 10*3/uL Normal <0.01 [facility] Comment on above: Order Comment: Speci men Type: BLOOD SPECIMENOrdering Facility: [facility] Address: [address] [place] [address] Performed By: #### 5 7021-8 ####[facility] [id number] [place] [address] [place] Nucleated RBC/100 WBC (Bld) [Ratio] 0.0 /100 WBC Normal [facility] Comment on above: Order Comment: Speci men Type: BLOOD SPECIMENOrdering Facility: [facility] Address: [address] [place] [address] Performed By: #### 5 7021-8 ####[facility] [id number] [place] [address] [place] Platelet mean volume (Bld) [Entitic vol] 9.4 fL Normal 9.0-12.7 [facility] Comment on above: Order Comment: Speci men Type: BLOOD SPECIMENOrdering Facility: [facility] Address: [address] [place] [address] Performed By: #### 5 7021-8 ####[facility] [id number] [place] [address] [place] Platelets (Bld) [#/Vol] 349 10*3/uL Normal 150-400 [facility] Comment on above: Order Comment: Speci men Type: BLOOD SPECIMENOrdering Facility: [facility] Address: [address] [place] [address] Performed By: #### 5 7021-8 ####[facility] [id number] [place] [address] [place] RBC (Bld) [#/Vol] 4.12 10*6/uL Normal 3.90-5.20 [facility] Comment on above: Order Comment: Speci men Type: BLOOD SPECIMENOrdering Facility: [facility] Address: [address] [place] [address] Performed By: #### 5 7021-8 ####[facility] [id number] [place] [address] [place] WBC (Bld) [#/Vol] 7.85 10*3/uL Normal 3.70-11.00 [facility] Comment on above: Order Comment: Speci men Type: BLOOD SPECIMENOrdering Facility: [facility] Address: [address] [place] [address] Performed By: #### 5 7021-8 ####[facility] [id number] [place] [address] [place] CRP SerPl [facility] 08-14-20 24 CRP High sensitivity method [Mass/Vol] 6.5 mg/L High <3.1 [facility] Comment on above: Order Comment: Speci men Type: BLOOD SPECIMENOrdering Facility: [facility] Address: [address] [place] [address] Result Comment: hsCR P < 1.0 mg/L, relative risk is low hsCRP 1.0-3.0 mg/L, relative risk is average hsCRP > 3.0 mg/L, relative risk is high Reference: Nathan TA, Quintin GA, Prateek RW, et al. Markers of Inflammation and Cardiovascular Disease. Application to Clinical and Public Health Practice. A Statement for Healthcare Professionals from the Centers for Disease Control and Prevention and the [place] [employer] Association. Circulation 2003;107:499-511. Performed By: #### 3 0522-7, 96674-2, 6-3 ####[facility] LABCLIA [id number] [place] [address] [place]#### 96733-7 ####[facility] MILLTOWNCLIA [id number] [place] [address] [place] Comprehensive metabolic 2000 panelon 08-14-2024 Albumin [Mass/Vol] 4.2 g/dL Normal 3.9-4.9 [facility] Comment on above: Order Comment: Speci men Type: BLOOD SPECIMENOrdering Facility: [facility] Address: [address] [place] [address] Performed By: #### 3 0522-7, , 6-3 ####[facility] LABCLIA [id number] [address] [place]#### 12371-5 ####[facility] MILLTOWNCLIA [id number] [place] [address] [place] ALP [Catalytic activity/Vol] 72 U/L Normal 34-123 [facility] Comment on above: Order Comment: Speci men Type: BLOOD SPECIMENOrdering Facility: [facility] Address: [address] [place] [address] Performed By: #### 3 0522-7, , 6-3 ####[facility] LABCLIA [id number] [place] [address] [place]#### 33271-7 ####[facility] MILLTOWNCLIA [id number] [place] [address] [place] ALT [Catalytic activity/Vol] 19 U/L Normal 7-38 [facility] Comment on above: Order Comment: Speci men Type: BLOOD SPECIMENOrdering Facility: [facility] Address: [address] [place] [address] Performed By: #### 3 0522-7, 35373-5, 6-3 ####[facility] LABCLIA [id number] [place] [address] [place]#### 56485-9 ####[facility] MILLTOWNCLIA [id number] [place] [address] [place] Anion gap [Moles/Vol] 13 mmol/L Normal 8-15 [facility] Comment on above: Order Comment: Speci men Type: BLOOD SPECIMENOrdering Facility: [facility] Address: [address] [place] [address] Performed By: #### 3 0522-7, , 63 ####[facility] LABCLIA [id number] [place] [address] [place]#### 64492-8 ####[facility] MILLWNCLIA [id number] [place] [address] [place] AST [Catalytic activity/Vol] 19 U/L Normal 13-35 [facility] Comment on above: Order Comment: Speci men Type: BLOOD SPECIMENOrdering Facility: [facility] Address: [address] [place] [address] Performed By: #### 3 0522-7, , 6-3 ####[facility] LABCLIA [id number] [place] [address] [place]#### 20020-3 ####[facility] MILLTOWNCLIA [id number] [place] [address] [place] Bilirubin [Mass/Vol] 0.4 mg/dL Normal 0.2-1.3 [facility] Comment on above: Order Comment: Speci men Type: BLOOD SPECIMENOrdering Facility: [facility] Address: [address] [place] [address] Performed By: #### 3 0522-7, 77941-8, 6-3 ####[facility] LABCLIA [id number] [place] [address] [place]#### 67824-7 ####[facility] MILLTOWNCLIA [id number] [place] [address] [place] Calcium [Mass/Vol] 9.9 mg/dL Normal 8.5-10.2 [facility] Comment on above: Order Comment: Speci men Type: BLOOD SPECIMENOrdering Facility: [facility] Address: [address] [place] [address] Performed By: #### 3 0522-7, , 3015-3 ####[facility] LABCLIA [id number] [place] [address] [place]#### 13256-4 ####[facility] MILLTOWNCLIA [id number] [place] [address] [place] Chloride [Moles/Vol] 98 mmol/L Normal 98-107 [facility] Comment on above: Order Comment: Speci men Type: BLOOD SPECIMENOrdering Facility: [facility] Address: [address] [place] [address] Performed By: #### 3 0522-7, , 6-3 ####[facility] LABCLIA [id number] [place] [address] [place]#### 65176-9 ####[facility] MILLTOWNCLIA [id number] [place] [address] [place] CO2 [Moles/Vol] 25 mmol/L Normal 22-30 [facility] Comment on above: Order Comment: Speci men Type: BLOOD SPECIMENOrdering Facility: [facility] Address: [address] [place] [address] Performed By: #### 3 0522-7, 44301-7, 3 ####[facility] LABCLIA [id number] [address]#### 43218-7 ####[facility] [id number] [address] Creatinine [Mass/Vol] 0.69 mg/dL Normal 0.58-0.96 [facility] Comment on above: Order Comment: Speci men Type: BLOOD SPECIMENOrdering Facility: [facility] Address: [address] [place] [address] Performed By: #### 3 0522-7, 23767-0, 3015-11 ####[facility] LABCLIA [id number] [address]#### 30015-6 ####[facility] [id number] [address] Creatinine and Glomerular filtration rate.predicted panel (S/P/Bld) 111 mL/min/1.73m??? Normal >=60 [facility] Comment on above: Order Comment: Speci men Type: BLOOD SPECIMENOrdering Facility: [facility] Address: [address] [place] [address] Result Comment: Joan mated Glomerular Filtration Rate (eGFR) is calculated using the 2020 CKD-EPI creatinine equation. This equation utilizes serum creatinine, sex, and age as parameters. The creatinine assay has traceable calibration to isotope dilution-mass spectrometry. Refer to KDIGO guidelines for clinical interpretation. In patients with unstable renal function, e.g. those with acute kidney injury, the eGFR may not accurately reflect actual GFR. Performed By: #### 3 0522-7, , 3015-11 ####[facility] LABCLIA [id number] [place] [address] [place]#### 23689-5 ####[facility] [id number] [place] [address] [place] Glucose [Mass/Vol] 105 mg/dL High 74-99 [facility] Comment on above: Order Comment: Speci men Type: BLOOD SPECIMENOrdering Facility: [facility] Address: [address] [place] [address] Result Comment: The [place] Diabetes Association (ADA) provides guidance for cutoff values for fasting glucose and random glucose. The ADA defines fasting as no caloric intake for at least 8 hours. Fasting plasma glucose results between 100 to 125 mg/dL indicate increased risk for diabetes (prediabetes). Fasting plasma glucose results greater than or equal to 126 mg/dL meet the criteria for diagnosis of diabetes. In the absence of unequivocal hyperglycemia, results should be confirmed by repeat testing. In a patient with classic symptoms of hyperglycemia or hyperglycemic crisis, random plasma glucose results greater than or equal to 200 mg/dL meet the criteria for diagnosis of diabetes. Reference: Standards of Medical Care in Diabetes 2016, [place] Diabetes Association. Diabetes Care. 2016.39(Suppl 1). Performed By: #### 3 0522-7, 74181-9, 3015-3 ####[facility] LABCLIA [id number] [place] [address] [place]#### 71831-5 ####[facility] [id number] [place] [address] [place] Potassium [Moles/Vol] 3.7 mmol/L Normal 3.7-5.1 [facility] Comment on above: Order Comment: Viet men Type: BLOOD SPECIMENOrdering Facility: [facility] Address: [address] [place] [address] Performed By: #### 3 0522-7, 25902-6, 3015-3 ####[facility] LABCLIA [id number] [address] [place]#### 86420-6 ####[facility] MILLTOWNCLIA [id number] [place] [address] [place] Protein [Mass/Vol] 7.0 g/dL Normal 6.3-8.0 [facility] Comment on above: Order Comment: Speci men Type: BLOOD SPECIMENOrdering Facility: [facility] Address: [address] [place] [address] Performed By: #### 3 0522-7, , 3015-3 ####[facility] LABCLIA [id number] [place] [address] [place]#### 65411-2 ####[facility] [id number] [place] [address] [place] Sodium [Moles/Vol] 136 mmol/L Normal 136-144 [facility] Comment on above: Order Comment: Speci men Type: BLOOD SPECIMENOrdering Facility: [facility] Address: [address] [place] [address] Performed By: #### 3 0522-7, , 6-3 ####[facility] LABCLIA [id number] [place] [address] [place]#### 26560-0 ####[facility] MILLTOWNCLIA [id number] [place] [address] [place] Urea nitrogen [Mass/Vol] 11 mg/dL Normal 7-21 [facility] Comment on above: Order Comment: Speci men Type: BLOOD SPECIMENOrdering Facility: [facility] Address: [address] [place] [address] Performed By: #### 3 0522-7, , 6-3 ####[facility] LABCLIA [id number] [place] [address] [place] [facility]#### 15304-9 ####[facility] [id number] [place] [address] [place] Magnesium SerPl-mCncon 08-14 Magnesium [Mass/Vol] 1.9 mg/dL Normal 1.7-2.3 [facility] Comment on above: Order Comment: Speci men Type: BLOOD SPECIMENOrdering Facility: [facility] Address: [address], [place] [address] Performed By: #### 3 0522-7, 09992-1, 3015-3 ####[facility] LABCLIA [id number] [facility] [address]#### 73681-2 ####[facility] [id number] [place] [address] [place] TSH SerPl-aCncon 08-14-2024 TSH Qn 1.930 m[IU]/L Normal 0.270-4.200 [facility] Comment on above: Order Comment: Hayleyi eduar Type: BLOOD SPECIMENOrdering Facility: [facility] Address: [facility] [address], [place] [address] Result Comment: If t he patient is , TSH reference range varies by gestational period: First Trimester (weeks 9-12): 0.180-2.990 mIU/L Second Trimester: 0.110-3.980 mIU/L Third Trimester: 0.480-4.710 mIU/L Erick Hernandez et al. A Practical Approach for the Verifications and Determination of Site- and Trimester-Specific Reference Intervals for Thyroid Function tests in . Thyroid, 2019:29:3:412-420. Prateek Blake et al. 2017 Guidelines of the [place] Thyroid Association for the Diagnosis and Management of Thyroid Disease during and the . Thyroid, 2017:27:3:315-389. Performed By: #### 3 0522-7, 53902-4, 3015-3 ####[facility] LABCLIA [id number] [place] [id number] [place]#### 62415-0 ####[facility] BURGOSWNCLIA [id number] [place] [address] [place] CNOVSPon 07-05-2024 CNOVSP Visit (SP) Office (H EMAWS) GALINDO HO ([id number]) 1980 F Date Time Provider Department 07/05/24 8:30 AM TREATMENT RM 15 [facility] WSTRHEMAWS During your visit today, we recorded the following information about you: Temperature Pulse Blood pressure 97.9 degrees 76/minute 120/76 Referring Provider: SINCERE DICKSON [[id number]] Allergies As of Date: 07/05/2024 Noted Allergy Reaction bananas [Other] 11/08/2005 12 - Shortness of Breath PENICILLIN G 04/10/2019 2 - Rash seasonal [Other] 11/08/2005 STRAWBERRY 11/04/2016 14 - Other: See Comments 4 - Hives SULFA (SULFONAMIDE ANTIBIOTICS) 04/10/2019 4 - Hives WATERMELON 11/08/2005 6 - Diarrhea LATEX 11/04/2016 2 - Rash Date Reviewed: 07/05/2024 Reviewed by: Yolette De Los Santos, REGINO - Fully Assessed Reason for Visit: Non-Chemotherapy Treatment [795] Primary Visit Diagnosis:Seronegative rheumatoid arthritis (HCC) [M06.00] Order(s):TREATMENT PARAMETER-NOT NEEDED [[id number]] Order #: [id number]: 1 BCN NURSING COMMUNICATION [[id number]] Order #: [id number]: 1 [] diphenhydrAMINE 25 mg capsule (BENADRYL)Disp: Rfl: [] acetaminophen 650 mg tab(s) (TYLENOL)Disp: Rfl: [] inFLIXimab-dyyb 1,100 mg in NaCl 0.9% 250 mL (INFLECTRA)Disp: Rfl: NaCl 0.9% iv infusionDisp: Rfl: diphenhydrAMINE 50 mg injection (BENADRYL)Disp: Rfl: hydrocortisone sodium succinate (PF) 100 mg injection (Solu-CORTEF)Disp: Rfl: EPINEPHrine HCl (PF) 1 mg/mL (1 mL) 0.3 mg injectionDisp: Rfl: N NURSING COMMUNICATION [[id number]] Order #: [id number]: 1 STANDING Prescriptions as of 07/05/2024 - methotrexate 2.5 mg tablet TAKE 6 TABLETS BY MOUTH ONCE WEEKLY - predniSONE (DELTASONE) 5 mg tablet take 1 tablet by mouth every day - doxycycline hyclate 150 mg Delayed Release Tablet Take 150 mg by mouth once daily. - folic acid 1 mg tablet TAKE ONE PILL EACH DAY OF THE WEEK EXCEPT THE DAY YOU TAKE METHOTREXATE - certolizumab pegol (CIMZIA STARTER KIT) 400 mg/2 mL (200 mg/mL x 2) sub-q syringe kit Inject 400 mg (2 syringes) subcutaneously on weeks 0, 2, and 4 - certolizumab pegol (CIMZIA) 400 mg/2 mL (200 mg/mL x 2) sub-q syringe kit Inject 400mg (2 syringes) subcutaneously every 4 weeks. - indapamide (LOZOL) 1.25 mg tablet 1.25 mg once daily. - MULTIVITAMIN ORAL Take by mouth once daily. - DULoxetine (CYMBALTA) 60 mg capsule Take 2 capsules by mouth once daily. - famotidine (PEPCID) 20 mg tablet Take 20 mg by mouth twice daily. - loratadine (CLARITIN) 10 mg tablet Take 10 mg by mouth as needed. - DULERA 200-5 mcg/actuation inhaler Inhale 2 Puffs as instructed twice daily. - pregabalin (LYRICA) 100 mg capsule - levocetirizine 5 mg tablet Take 5 mg by mouth once daily. - fluticasone (FLONASE) 50 mcg/actuation nasal spray Use 2 Sprays in each nostril once daily. - promethazine (PHENERGAN) 12.5 mg tablet 1/2 TO 1 TABLET EVERY 8 HOURS FOR NAUSEA, HEADACHE, OR COUGH - ondansetron (ZOFRAN) 4 mg tablet 1 (ONE) TABLET EVERY 8 HOURS FOR NAUSEA OR MOTION SICKNESS - Bifidobacterium infantis 1.5 billion cell cap Bifidobacterium Infantis Bifidobacterium Infantis (Digestive Probiotic) 1.5 billion cell capsule Active 1500 MMU CELLS PO DAILY July 05, 2018 8:40am 07-05-2018 [facility] ([id number]) - hydrOXYzine HCl (ATARAX) 25 mg tablet Take 25 mg by mouth daily at bedtime. - docosahexaenoic acid/epa (FISH OIL ORAL) Take by mouth. - baclofen (LIORESAL) 10 mg tablet TAKE 1 TABLET BY MOUTH 3 TIMES A DAY NEEDED FOR SPASMS - cholecalciferol (VITAMIN D3) 5,000 unit tab Take 5,000 Units by mouth. - Cyanocobalamin 1,000 mcg subl Dissolve 1,000 mcg under the tongue. Vitamin b12 - LINZESS 72 mcg capsule Take 72 mcg by mouth once daily. - magnesium oxide (MAG-OX) 400 mg (241.3 mg magnesium) tablet Take 1 tablet by mouth twice daily. - omeprazole (PRILOSEC) 20 mg capsule TAKE ONE CAPSULE BY MOUTH EVERY DAY - calcium citrate/vitamin D3 (CALCIUM CITRATE + D ORAL) Take by mouth. - vit/iron fum/folic ac ( 1 PLUS 1 ORAL) Take by mouth. Facility-Administered Medications as of 07/05/2024 - NaCl 0.9% iv infusion - diphenhydrAMINE 50 mg injection (BENADRYL) - hydrocortisone sodium succinate (PF) 100 mg injection (Solu-CORTEF) - EPINEPHrine HCl (PF) 1 mg/mL (1 mL) 0.3 mg injection Problem List As Of Date 07/05/2024 Noted Resolved Seronegative rheumatoid arthritis (HCC) [M06.00]12/13/2022 Encounter Status:Closed by YOLETTE DE LOS SANTOS on 07/05/24 [facility] CNOVSPon 05-16-2024 CNOVSP Visit (SP) Office (H EMAWS) VICGALINDO H ([id number]) 1980 F Date Time Provider Department 05/16/24 11:00 AM TREATMENT RM 16 [facility] WSTRHEMAWS During your visit today, we recorded the following information about you: Temperature Pulse Blood pressure 97.1 degrees 81/minute 122/81 Referring Provider: SINCERE DICKSON [[id number]] Allergies As of Date: 05/16/2024 Noted Allergy Reaction bananas [Other] 11/08/2005 12 - Shortness of Breath PENICILLIN G 04/10/2019 2 - Rash seasonal [Other] 11/08/2005 STRAWBERRY 11/04/2016 14 - Other: See Comments 4 - Hives SULFA (SULFONAMIDE ANTIBIOTICS) 04/10/2019 4 - Hives WATERMELON 11/08/2005 6 - Diarrhea LATEX 11/04/2016 2 - Rash Date Reviewed: 05/16/2024 Reviewed by: Raine Maher RN - Fully Assessed Reason for Visit: Non-Chemotherapy Treatment [795] Primary Visit Diagnosis:Seronegative rheumatoid arthritis (HCC) [M06.00] Order(s):TREATMENT PARAMETER-NOT NEEDED [[id number]] Order #: [id number]: 1 BCN NURSING COMMUNICATION [[id number]] Order #: [id number]: 1 BCN NURSING COMMUNICATION [[id number]] Order #: [id number]: 1 [] diphenhydrAMINE 25 mg capsule (BENADRYL)Disp: Rfl: [] acetaminophen 650 mg tab(s) (TYLENOL)Disp: Rfl: [] inFLIXimab-dyyb 1,100 mg in NaCl 0.9% 250 mL (INFLECTRA)Disp: Rfl: NaCl 0.9% iv infusionDisp: Rfl: diphenhydrAMINE 50 mg injection (BENADRYL)Disp: Rfl: hydrocortisone sodium succinate (PF) 100 mg injection (Solu-CORTEF)Disp: Rfl: EPINEPHrine HCl (PF) 1 mg/mL (1 mL) 0.3 mg injectionDisp: Rfl: BCN NURSING COMMUNICATION [[id number]] Order #: [id number]: 1 STANDING Prescriptions as of 05/16/2024 - methotrexate 2.5 mg tablet TAKE 6 TABLETS BY MOUTH ONCE WEEKLY - predniSONE (DELTASONE) 5 mg tablet take 1 tablet by mouth every day - doxycycline hyclate 150 mg Delayed Release Tablet Take 150 mg by mouth once daily. - folic acid 1 mg tablet TAKE ONE PILL EACH DAY OF THE WEEK EXCEPT THE DAY YOU TAKE METHOTREXATE - certolizumab pegol (CIMZIA STARTER KIT) 400 mg/2 mL (200 mg/mL x 2) sub-q syringe kit Inject 400 mg (2 syringes) subcutaneously on weeks 0, 2, and 4 - certolizumab pegol (CIMZIA) 400 mg/2 mL (200 mg/mL x 2) sub-q syringe kit Inject 400mg (2 syringes) subcutaneously every 4 weeks. - indapamide (LOZOL) 1.25 mg tablet 1.25 mg once daily. - MULTIVITAMIN ORAL Take by mouth once daily. - DULoxetine (CYMBALTA) 60 mg capsule Take 2 capsules by mouth once daily. - famotidine (PEPCID) 20 mg tablet Take 20 mg by mouth twice daily. - loratadine (CLARITIN) 10 mg tablet Take 10 mg by mouth as needed. - DULERA 200-5 mcg/actuation inhaler Inhale 2 Puffs as instructed twice daily. - pregabalin (LYRICA) 100 mg capsule - levocetirizine 5 mg tablet Take 5 mg by mouth once daily. - fluticasone (FLONASE) 50 mcg/actuation nasal spray Use 2 Sprays in each nostril once daily. - promethazine (PHENERGAN) 12.5 mg tablet 1/2 TO 1 TABLET EVERY 8 HOURS FOR NAUSEA, HEADACHE, OR COUGH - ondansetron (ZOFRAN) 4 mg tablet 1 (ONE) TABLET EVERY 8 HOURS FOR NAUSEA OR MOTION SICKNESS - Bifidobacterium infantis 1.5 billion cell cap Bifidobacterium Infantis Bifidobacterium Infantis (Digestive Probiotic) 1.5 billion cell capsule Active 1500 MMU CELLS PO DAILY July 05, 2018 8:40am 07-05-2018 [facility] ([id number]) - hydrOXYzine HCl (ATARAX) 25 mg tablet Take 25 mg by mouth daily at bedtime. - docosahexaenoic acid/epa (FISH OIL ORAL) Take by mouth. - baclofen (LIORESAL) 10 mg tablet TAKE 1 TABLET BY MOUTH 3 TIMES A DAY NEEDED FOR SPASMS - cholecalciferol (VITAMIN D3) 5,000 unit tab Take 5,000 Units by mouth. - Cyanocobalamin 1,000 mcg subl Dissolve 1,000 mcg under the tongue. Vitamin b12 - LINZESS 72 mcg capsule Take 72 mcg by mouth once daily. - magnesium oxide (MAG-OX) 400 mg (241.3 mg magnesium) tablet Take 1 tablet by mouth twice daily. - omeprazole (PRILOSEC) 20 mg capsule TAKE ONE CAPSULE BY MOUTH EVERY DAY - calcium citrate/vitamin D3 (CALCIUM CITRATE + D ORAL) Take by mouth. - vit/iron fum/folic ac ( 1 PLUS 1 ORAL) Take by mouth. Facility-Administered Medications as of 05/16/2024 - NaCl 0.9% iv infusion - diphenhydrAMINE 50 mg injection (BENADRYL) - hydrocortisone sodium succinate (PF) 100 mg injection (Solu-CORTEF) - EPINEPHrine HCl (PF) 1 mg/mL (1 mL) 0.3 mg injection Problem List As Of Date 05/16/2024 Noted Resolved Seronegative rheumatoid arthritis (HCC) [M06.00]12/13/2022 Encounter Status:Closed by GABRIEL MICHAEL on 05/16/24 Normal [facility] CT ENTEROGRAPHY W IVCONon Radiology Result ACTIONABLE Abnormal [facility] C-REACTIVE PROTEIN (CRP)on 0 10-20-2022 CRP [Mass/Vol] 1.8 mg/dL High <0.9 mg/dL [facility] ESR Westergren method (Bld) [Velocity]on 10-20-2022 ESR (Bld) [Velocity] 22 mm/h High 0 - 20 mm/hr [facility] Bilirubin Test strip Ql (U)o n 06-22-2022 Bilirubin Ql (U) Negative Negative [facility] Work Phone: Ketones Test strip Ql (U)on 06-22-2022 Ketones Ql (U) Negative Negative [facility] Work Phone: Nitrite Test strip Ql (U)on 06-22-2022 Nitrite Ql (U) Negative Negative [facility] Work Phone: Protein Test strip Ql (U)on 06-22-2022 Protein Ql (U) Negative Negative [facility] Work Phone: [phone] Urine blood detectionon 05-27 RBC Ql (U) Negative Negative [facility] Work Phone: Urine clarityon 06-22-2022 Clarity (U) Clear Clear [facility] Work Phone: Urine color determinationon 06-22-2022 Color (U) Yellow Yellow [facility] Work Phone: Urine glucose detectionon Glucose Ql (U) Normal mg/dl Normal [facility] Work Phone: Urine leukocyte esterase det ection by dipstickon 06-22-2022 Leukocyte esterase Test strip Ql (U) 25 /ul Negative [facility] Work Phone: Urine pHon 06-22-2022 pH (U) 7.0 [pH] 5.0 - 8.0 [facility] Work Phone: Urine specific gravity measu rementon 06-22-2022 Specific gravity (U) [Rel density] 1.005 1.002-1.030 [facility] Work Phone: [phone] Urobilinogen Auto test strip Ql (U)on 06-22-2022 Urobilinogen Ql (U) Normal mg/dl Normal [facility] Work Phone: Absolute lymphocyte counton 06-09-2022 Lymphocytes Auto (Unsp spec) [#/Vol] 4.27 10*3/uL 0.83-4.51 [facility] Work Phone: Basophil percentageon 2021 Basophils/100 WBC (Bld) 0.6 % 0-1 [facility] Work Phone: Chloride [Moles/Vol] 105 mmol/L 98-107 [facility] Work Phone: Eosinophils/100 WBC (Bld) 1.7 % 0-5 [facility] Work Phone: Glucose [Mass/Vol] 90 mg/dL 74-106 [facility] Work Phone: Neutrophils (Bld) [#/Vol] 7.3 10*3/uL 2.0-7.7 [facility] Work Phone: Neutrophils/100 WBC (Bld) 57.4 % 47-70 [facility] Work Phone: Potassium [Moles/Vol] 4.0 mmol/L 3.5-5.1 [facility] Work Phone: Comment on above: Slight Hemolysis, Re sult may be falsely increased. Sodium [Moles/Vol] 141 mmol/L 136-145 [facility] Work Phone: WBC (Bld) [#/Vol] 12.7 10*3/uL 4.4-11.0 [facility] Work Phone: Blood erythrocytes count (nu mber/volume)on 06-09-2022 RBC (Bld) [#/Vol] 4.40 10*6/uL 4.2-5.4 [facility] Work Phone: Blood hemoglobin measurement (mass/volume)on 06-09-2022 Hemoglobin (Bld) [Mass/Vol] 14.4 g/dL 12.0-15.0 [facility] Work Phone: Blood lymphocytes/100 leukoc yteson 06-09-2022 Lymphocytes/100 WBC (Bld) 33.7 % 19-41 [facility] Work Phone: Blood monocytes/100 leukocyt eson 06-09-2022 Monocytes/100 WBC (Bld) 6.3 % 0-10 [facility] Work Phone: Blood platelet mean volumeon 06-09-2022 Platelet mean volume (Bld) [Entitic vol] 10.0 fL 6.2-12.0 [facility] Work Phone: Determination of erythrocyte mean corpuscular volume (MCV)on 06-09-2022 MCV (RBC) [Entitic vol] 96.6 fL 81-99 [facility] Work Phone: [phone] Hematocrit Auto (Bld) [Volum e fraction]on 06-09-2022 Hematocrit (Bld) [Volume fraction] 42.5 % 37-47 [facility] Work Phone: [phone] Laboratory - Chemistry and C hemistry - challengeon 06-09-2022 CO2 [Moles/Vol] 28.0 mmol/L 21.0-32.0 [facility] Work Phone: [phone] Urea nitrogen/Creatinine [Mass ratio] 16.2 mg/mg 10-20 [facility] Work Phone: [phone] Laboratory - Hematology and Cell countson 06-09-2022 Erythrocyte distribution width (RBC) [Entitic vol] 49.1 fL 35.1-43.9 [facility] Work Phone: [phone] Erythrocyte distribution width (RBC) [Ratio] 13.9 % 11.6-14.6 [facility] Work Phone: [phone] Immature granulocytes/100 WBC (Bld) 0.300 % 0.0-0.9 [facility] Work Phone: [phone] Comment on above: IG% - Immature Granu locytes (promyelocytes, myelocytes and metamyelocytes) > 1% indicates that a LEFT SHIFT is Present. MCH (RBC) [Entitic mass] 32.7 pg 27.0-32.0 [facility] Work Phone: [phone] Nucleated RBC/100 WBC (Bld) [Ratio] 0 % 0-5 [facility] Work Phone: [phone] MCHC Auto (RBC) [Mass/Vol]on 06-09-2022 MCHC (RBC) [Mass/Vol] 33.9 g/dL 32-36 [facility] Work Phone: [phone] No Panel Informationon 06-09 Estimated Creatinine Clearance Calc 74.52 ml/min [facility] Work Phone: [phone] Estimated GFR (MDRD) Amer 86 mL/min >60 [facility] Work Phone: [phone] Comment on above: GFR Calc Estimated GFR (MDRD) Non-Af Amer 71 mL/min >60 [facility] Work Phone: Comment on above: Non- GFR Calc Troponin I High Sensitivity 4 pg/mL 3.0-54.0 [facility] Work Phone: Comment on above: Please Note: New Stephanie t Units and Gender Specific Reference Ranges. For more information see Policy Stat Procedure [place] High Sensitivity Troponin (TNIH) and attachments. Platelets bldon 06-09-2022 Platelets (Bld) [#/Vol] 357 10*3/uL 150-450 [facility] Work Phone: Serum or plasma calcium xochilt urement (mass/volume)on 06-09-2022 Calcium [Mass/Vol] 9.4 mg/dL 8.5-10.1 [facility] Work Phone: Serum or plasma creatinine m easurement (mass/volume)on 06-09-2022 Creatinine [Mass/Vol] 0.93 mg/dL 0.55-1.02 [facility] Work Phone: Comment on above: The validity of the calculated GFR & GFRAA in patients over 70 years has not been determined. Clinical correlation is essential. Serum or plasma urea nitroge n measurement (mass/volume)on 06-09-2022 Urea nitrogen [Mass/Vol] 15 mg/dL 7-18 [facility] Work Phone: Thin prep Papanicolaou smear with manual screeningon 06-09-2022 Thin prep Papanicolaou smear with manual screening 8 - [facility] Work Phone: NT PRO BNPon 05-18-2022 Natriuretic peptide.B prohormone N-Terminal [Mass/Vol] <125 pg/mL [facility] XR Chest PA and Lateralon IMPRESSION: No acute radiographic abnormality. Art Conservator: PSCAndrea Transcribe Date/Time: Nov 26 2020 11:09A Dictated by : AZALEA CLARK MD This examination was interpreted and the report reviewed and electronically signed by: AZALEA CLARK MD on Nov 26 2020 11:10AM [facility] DIVISION OF RADIOLOGY * * *Final Report* * * DATE OF EXAM: Nov 26 2020 11:08AM WOX 5291 - XR CHEST 2V FRONTAL/LAT / PROCEDURE REASON: SOB (shortness of breath) * * * * Physician Interpretation * * * * EXAMINATION: CHEST RADIOGRAPH (2 VIEW FRONTAL & LATERAL) CLINICAL HISTORY: SOB (shortness of breath) MQ: XC2_6 EXAM DATE/TIME: 11/26/2020 11:08 AM COMPARISON: No relevant prior studies available. RESULT: Lines, tubes, and devices: None. Lungs and pleura: No consolidation. No lung mass. No pleural effusion. No pneumothorax. Cardiomediastinal silhouette: Normal cardiomediastinal silhouette. Bones and soft tissues: Unremarkable. DIVISION OF RADIOLOGY Provider, [facility] Amaury [facility] - 11/26/2020 * * *Final Report* * * DATE OF EXAM: Nov 26 2020 11:08AM WOX 5291 - XR CHEST 2V FRONTAL/LAT / PROCEDURE REASON: SOB (shortness of breath) * * * * Physician Interpretation * * * * EXAMINATION: CHEST RADIOGRAPH (2 VIEW FRONTAL & LATERAL) CLINICAL HISTORY: SOB (shortness of breath) MQ: XC2_6 EXAM DATE/TIME: 11/26/2020 11:08 AM COMPARISON: No relevant prior studies available. RESULT: Lines, tubes, and devices: None. Lungs and pleura: No consolidation. No lung mass. No pleural effusion. No pneumothorax. Cardiomediastinal silhouette: Normal cardiomediastinal silhouette. Bones and soft tissues: Unremarkable. IMPRESSION IMPRESSION: No acute radiographic abnormality. Art Conservator: PSCB Transcribe Date/Time: Nov 26 2020 11:09A Dictated by : AZALEA CLARK MD This examination was interpreted and the report reviewed and electronically signed by: AZALEA CLARK MD on Nov 26 2020 11:10AM EST [facility] Radiology Study observation (narrative) [facility] XR Chest PA and LateralOrder ed By: [facility] Provider on 11-26-2020 [facility] C-Reactive Protein,High Sens iton 08-15-2018 Protein mass conc 4.4 mg/L High <2.0 [facility] Comment on above: Result Comment: High er riskIn adults, increased CRP is associated with an increasedrisk for ischemic cardiovascular events. CRP is an acutephase reactant; consider repeat analysis of CRP in 2-4weeks to establish baseline value.Test Performed by:[place] [id number] Performed By: #### L 400.0059, L400.0065, L400.0302, L400.0400, L400.2100, L400.5300, L404.9000 ####[facility] ([facility])[address], [place] [phone] Nivar, MD Cyclic Citrullinated Peptide on 08-15-2018 Cyclic Citrullinated Peptide <15.6 Normal [facility] Comment on above: Result Comment: Refe rence Range: <20.0 (Negative)Test Performed by:[facility] [place] [address] Performed By: #### L 400.0059, L400.0065, L400.0302, L400.0400, L400.2100, L400.5300, L404.9000 ####[facility] ([facility])[address], [place] [phone] Nivar, MD HLA-B27on 08-15-2018 HLA-B27 See Comments Normal [facility] Comment on above: Result Comment: Test Result Flag Unit RefValue --HLA-B27, B HLA-B27 Result Negative-- REFERENCE VALUE --Not Applicable Interpretation See CommentsRESULT: HLA-B27 antigen was not detected. ADDITIONAL INFORMATION Method: Flow CytometryPerforming Laboratory CLIA# [id number] Performed by:[place] [id number] Performed By: #### L 400.0059, L400.0065, L400.0302, L400.0400, L400.2100, L400.5300, L404.9000 ####[facility] ([facility])[address], [place] [phone] Nivar, MD Phospholipid Abs,IgG & IgMon 08-15-2018 Phospholipid Ab, IgG <9.4 Normal [facility] Comment on above: Result Comment: Refe rence Range: <15.0 (Negative)Test Performed by:[place] [address] Performed By: #### L 400.0059, L400.0065, L400.0302, L400.0400, L400.2100, L400.5300, L404.9000 ####[facility] ([facility])[address], [place] [phone] Nivar, MD Phospholipid Ab, IgM <9.4 Normal [facility] Comment on above: Result Comment: Refe rence Range: <15.0 (Negative) Performed By: #### L 400.0059, L400.0065, L400.0302, L400.0400, L400.2100, L400.5300, L404.9000 ####[facility] ([facility])[address], [place] [phone] Nivar, MD GURU Screenon 08-11-2018 GURU Screen Negative Normal Negative [facility] Comment on above: Performed By: #### L 400.0059, L400.0065, L400.0302, L400.0400, L400.2100, L400.5300, L404.9000 ####[facility] ([facility])[address], [place] [phone] Nivar, MD Erythrocyte Sedimentation Ra campbell 08-10-2018 ESR Velocity (Bld) 18 mm/h Normal <=20 [facility] Comment on above: Performed By: #### L 400.0059, L400.0065, L400.0302, L400.0400, L400.2100, L400.5300, L404.9000 ####[facility] ([facility])[address], [place] [phone] Nivar, MD Rheumatoid Factor Screenon 1 10-10-2017 Rheumatoid Factor Screen Negative Normal Negative [facility] Comment on above: Performed By: #### L 400.0059, L400.0065, L400.0302, L400.0400, L400.2100, L400.5300, L404.9000 ####[facility] ([facility])[address], [place] [phone] Nivar, MD Uric Acidon 08-10-2018 Urate mass conc 5.3 mg/dL Normal 2.6-8.0 [facility] Comment on above: Performed By: #### L 400.0059, L400.0065, L400.0302, L400.0400, L400.2100, L400.5300, L404.9000 ####[facility] ([facility])[address] [place], [place] [phone] Nivar, MD Hepatitis B Surface Abson Hepatitis B Surf Ab, Qt < 5.0 Normal [facility] Comment on above: Result Comment: ---- REFERENCE VALUE Unvaccinated: <5.0Vaccinated: >=12.0Test Performed by:[address] [address] Performed By: #### V ZVAB, HBSABS ####Unless otherwise noted, all testing performed by [place] [address], [place] [phone]: [id number] Director: Vikram Hanks M.D. Hepatitis B Surface Abs Negative Normal [facility] Comment on above: Result Comment: Leah sutton is presumed to be not immune to infection with HBV. REFERENCE VALUE Unvaccinated: NegativeVaccinated: Positive Performed By: #### V ZVAB, HBSABS ####Unless otherwise noted, all testing performed by [address] [phone]: [id number] Director: Vikram Hanks M.D. Varicella Zoster Virus,Abs S cron 05-09-2018 Varicella Zoster Virus,Abs Scr Immune Normal [facility] Comment on above: Result Comment: Assa y performed using Diasorin CLIA methodology.Test Performed by [facility] [address] [place] [address] Performed By: #### V ZVAB, HBSABS ####Unless otherwise noted, all testing performed by [place] [phone]: [id number] Director: Vikram Hanks M.D. XR Abdomen 1 View KUBon 05-0 XR Abdomen 1 View KUB [facility] Radiology Department Patient: GALINDO [address] : 1980 Sex: [place], [place] [address] Location: [facility] [phone] [id number] Ordering Phys: Tata Tapia PA-C Exam Date: 01/31/18 Exam: MAIN XR Abdomen 1 View KUB Result: STUDY: X-RAY - ABDOMEN/PELVIS REASON FOR EXAM: Female, 38 years old. Constipation TECHNIQUE: Two AP supine views of the abdomen and pelvis. COMPARISON: None. FINDINGS: Normal visualized lung bases. There is stool throughout the colon, in amounts suggesting constipation in the appropriate clinical setting. There is no demonstrated free abdominal air. The visualized liver, spleen and kidneys are grossly normal in size and morphology. Cholecystectomy clips are seen in the right upper quadrant of the abdomen. Normal visualized osseous structures. IMPRESSION: Constipation. Electronically Signed: Trey Schuster DO at 11:18 EDT Tel , Service support , cc: Alta Che BLACKTOP PAVER OPERATOR; Tata Tapia PA-C Dictated by: Trey Schuster DO on 02/01/18 1118 Technologist: Claudette Ma Transcribed by: Trey Schuster on 02/01/18 1118 Report Signed by: Trey Schuster DO on 02/01/18 1118 Normal [facility] MRI Abdomen w/wo Contraston 11-09-2017 MRI Abdomen w/wo Contrast [facility] Radiology Department Patient: GALINDO [address] : 1980 Sex: [place] [address] Location: [facility] [phone] Unit #: [id number] Ordering Phys: Luis Alfredo Benton MD Exam Date: 11/10/17 Exam: MRI MRI Abdomen w/wo Contrast Result: ADDENDUM: ADDENDUM Oral contrast was utilized for this MR enterography exam. Electronically Signed: Chapincito Kahn MD at 14:09 EST , Service support , Addendum Dictated by: Chapincito Kahn MD on 11/14/17 at 1409 Transcribed by: Chapincito Kahn on 11/14/17 at 1409 Report Signed by: Chapincito Kahn MD on 11/14/17 1408 STUDY: MRI ABDOMEN AND PELVIS WITH CONTRAST REASON FOR EXAM: Female, 37 years old. Chronic diarrhea. Abdominal pain. Prior gastric bypass. TECHNIQUE: Standardized fat and water weighted pulse sequences were obtained in all 3 orthogonal planes post contrast administration. 20 ml of Magnevist contrast material was administered intravenously. COMPARISON: CT August 10, 2017. FINDINGS: The visualized lung bases are unremarkable. The visualized portions of the heart are within normal limits. Normal liver. There are surgical clips in the gallbladder fossa consistent with a prior cholecystectomy. Normal spleen. Normal pancreas. Normal bilateral adrenal glands. Normal right kidney. Normal left kidney. No hydronephrosis. Postoperative changes of the stomach consistent with gastric bypass. No dilated loops of small intestine. There is no focal wall thickening. Normal colon. There is moderately abundant stool. There is non-visualization of the appendix. Normal abdominal aorta. Normal inferior vena cava. Normal retroperitoneum. Normal urinary bladder. There is absence of the uterus consistent with a prior hysterectomy. There is no free fluid in the abdomen or pelvis. Normal abdominal wall. Normal osseous structures. There is no mass or abnormal enhancement. IMPRESSION: No obstruction. No wall thickening of bowel loops. Postoperative changes of the stomach consistent with gastric bypass. Electronically Signed: Chapincito Kahn MD at 13:29 EST , Service support , cc: Alta Che BLACKTOP PAVER OPERATOR; Luis Alfredo Benton MD Dictated by: Chapincito Kahn MD on 11/11/17 1325 Technologist: Brenna VALLE(R)(MR) Transcribed by: Chapincito Kahn on 11/11/17 1329 Report Signed by: Chapincito Kahn MD on 11/11/17 1329 Normal [facility] MRI Pelvis w&w/o Contraston 11-09-2017 MRI Pelvis w&w/o Contrast [facility] Radiology Department Patient: GALINDO [address] : 1980 Sex: [place], [place] [address] Location: [address] [phone] Unit #: [id number] Ordering Phys: Luis Alfredo Benton MD Exam Date: 11/10/17 Exam: MRI MRI Pelvis w&w/o Contrast Result: ADDENDUM: ADDENDUM Oral contrast was utilized for this MR enterography exam. Electronically Signed: Chapincito Kahn MD at 14:09 EST , Service support , Addendum Dictated by: Chapincito Kahn MD on 11/14/17 at 1409 Transcribed by: Chapincito Kahn on 11/14/17 at 1409 Report Signed by: Chapincito Kahn MD on 11/14/17 1409 STUDY: MRI ABDOMEN AND PELVIS WITH CONTRAST REASON FOR EXAM: Female, 37 years old. Chronic diarrhea. Abdominal pain. Prior gastric bypass. TECHNIQUE: Standardized fat and water weighted pulse sequences were obtained in all 3 orthogonal planes post contrast administration. 20 ml of Magnevist contrast material was administered intravenously. COMPARISON: CT August 10, 2017. FINDINGS: The visualized lung bases are unremarkable. The visualized portions of the heart are within normal limits. Normal liver. There are surgical clips in the gallbladder fossa consistent with a prior cholecystectomy. Normal spleen. Normal pancreas. Normal bilateral adrenal glands. Normal right kidney. Normal left kidney. No hydronephrosis. Postoperative changes of the stomach consistent with gastric bypass. No dilated loops of small intestine. There is no focal wall thickening. Normal colon. There is moderately abundant stool. There is non-visualization of the appendix. Normal abdominal aorta. Normal inferior vena cava. Normal retroperitoneum. Normal urinary bladder. There is absence of the uterus consistent with a prior hysterectomy. There is no free fluid in the abdomen or pelvis. Normal abdominal wall. Normal osseous structures. There is no mass or abnormal enhancement. IMPRESSION: No obstruction. No wall thickening of bowel loops. Postoperative changes of the stomach consistent with gastric bypass. Electronically Signed: Chapincito Kahn MD at 13:29 EST , Service support , cc: Alta Che [facility]; Luis Alfredo Benton MD Dictated by: Chapincito Kahn MD on 11/11/17 1329 Technologist: Brenna VALLE(R)() Transcribed by: Chapincito Kahn on 11/11/17 1329 Report Signed by: Criss ALEJO,Chapincito Peñaloza on 11/11/17 1329 Normal [facility] Copperon 09-08-2017 Copper 1.41 mcg/mL Normal 0.75-1.45 [facility] Comment on above: Result Comment: ---- ADDITIONAL INFORMATION This test was developed and its performance characteristicsdetermined by [facility] in a manner consistent with CLIArequirements. This test has not been cleared or approved bythe U.S. Food and Drug Administration.Test Performed by:[facility] [place] [address] Performed By: #### L 911.25255 ####[address] [address] Misc Test to [facility] 09-08-20 Miscellaneous Test See Comments Normal [facility] Comment on above: Order Comment: Test Name SES SELENIUM Result Comment: Test Result Flag Unit RefValue --Selenium, S 110 ng/mL 70-150 ADDITIONAL INFORMATION This test was developed and its performance characteristicsdetermined by [facility] in a manner consistent with CLIArequirements. This test has not been cleared or approved bythe U.S. Food and Drug Administration.Test Performed by:[facility] [place] [address] Performed By: #### David 925.4195 ####[address] [address] [place] 09-08-2017 Zinc 0.77 mcg/mL Normal 0.66-1.10 [facility] Comment on above: Result Comment: ---- ADDITIONAL INFORMATION This test was developed and its performance characteristicsdetermined by [facility] in a manner consistent with CLIArequirements. This test has not been cleared or approved bythe U.S. Food and Drug Administration.Test Performed by:[facility] [place] [address] Performed By: #### L 400.0059, L400.0065, L400.0302, L400.0400, L400.2100, L400.5300, L404.9000 ####[facility] ([facility])[address], [place] [phone] Nivar, MD 25(OH) Vitamin D,Totalon 25(OH) Vitamin D,Total 50.67 ng/mL Normal 30.00-100.0 0 [facility] Comment on above: Order Comment: Is Sulaiman tient Fasting? Yes Result Comment: Opti mal values are established by the Clinical GuidelinesSubcommittee of the Endocrine Society Task Force. (Journalof Clinical Endocrinology & Metabolism,2011;96)Status Vitamin D Concentration Range------- Deficient <20Insufficient 20 - 30Sufficient 30 - 100 Performed By: #### L 400.0059, L400.0065, L400.0302, L400.0400, L400.2100, L400.5300, L404.9000 ####[facility] ([facility])[address] [place] [phone] Nivar, MD Calciumon 09-07-2017 Calcium mass conc 9.4 mg/dL Normal 8.8-10.5 [facility] Comment on above: Order Comment: Is Pa tient Fasting? Yes Performed By: #### L 400.0059, L400.0065, L400.0302, L400.0400, L400.2100, L400.5300, L404.9000 ####[facility] ([facility])[address] [place] [phone] Nivar, MD Hemoglobin & Hematocriton Hematocrit Auto Volume Fraction (Bld) 41.1 % Normal 35.0-44.0 [facility] Comment on above: Performed By: #### L 100.0074 ####[facility] ([facility])[address] [place] [phone] Nivar, MD Hemoglobin mass conc (Bld) 14.3 g/dL Normal 12.0-15.0 [facility] Comment on above: Performed By: #### L 100.0074 ####[facility] ([facility])[address] [place] [phone] Nivar, MD Hepatic Function Panel (Live r)on 09-07-2017 Albumin mass conc 4.5 g/dL Normal 3.5-5.0 [facility] Comment on above: Order Comment: Is Pa tient Fasting? Yes Performed By: #### L 400.0059, L400.0065, L400.0302, L400.0400, L400.2100, L400.5300, L404.9000 ####[facility] ([facility])[address], [place] [phone] Nivar, MD Alk Phos 65 IU/L Normal 39-118 [facility] Comment on above: Order Comment: Is Pa tient Fasting? Yes Performed By: #### L 400.0059, L400.0065, L400.0302, L400.0400, L400.2100, L400.5300, L404.9000 ####[facility] ([facility])[address], [place] [phone] Nivar, MD ALT/SGPT 19 IU/L Normal 10-40 [facility] Comment on above: Order Comment: Is Pa tient Fasting? Yes Performed By: #### L 400.0059, L400.0065, L400.0302, L400.0400, L400.2100, L400.5300, L404.9000 ####[facility] ([facility])[address], [place] [phone] Nivar, MD AST/SGOT 19 IU/L Normal 15-41 [facility] Comment on above: Order Comment: Is Pa tient Fasting? Yes Performed By: #### L 400.0059, L400.0065, L400.0302, L400.0400, L400.2100, L400.5300, L404.9000 ####[facility] ([facility])[address], [place] [phone] Nivar, MD Bili,Direct 0.1 mg/dL Normal 0.1-0.2 [facility] Comment on above: Order Comment: Is Pa tient Fasting? Yes Performed By: #### L 400.0059, L400.0065, L400.0302, L400.0400, L400.2100, L400.5300, L404.9000 ####[facility] ([facility])[address] Jasmina Espinosa.Nanc[place]LO[place], [place] [phone] Nivar, MD Bili,Total 0.7 mg/dL Normal 0.2-1.0 [facility] Comment on above: Order Comment: Is Pa tient Fasting? Yes Performed By: #### L 400.0059, L400.0065, L400.0302, L400.0400, L400.2100, L400.5300, L404.9000 ####Main Laboratory ([facility])[address], [place] [phone] Nivar, MD Protein mass conc 6.9 g/dL Normal 6.2-8.0 [facility] Comment on above: Order Comment: Is Pa tient Fasting? Yes Performed By: #### L 400.0059, L400.0065, L400.0302, L400.0400, L400.2100, L400.5300, L404.9000 ####Main Laboratory ([facility])[address], [place] [phone] Nivar, MD Iron, Serumon 09-07-2017 Iron, Serum 102 mcg/dL Normal 28-170 [facility] Comment on above: Order Comment: Is Pa tient Fasting? Yes Performed By: #### L 400.0059, L400.0065, L400.0302, L400.0400, L400.2100, L400.5300, L404.9000 ####Main Laboratory ([facility])[address], [place] [phone] Nivar, MD Lipid Panelon 09-07-2017 Cholesterol in HDL mass conc 61 mg/dL Normal [facility] Comment on above: Order Comment: Is Pa tient Fasting? Yes Result Comment: The National Cholesterol Education Program (NCEP) has setthe following guidelines (reference values) for cholesterol,HDL: Low: <40 mg/dL Normal: 40-60 mg/dL High: >60 mg/dL Performed By: #### L 400.0059, L400.0065, L400.0302, L400.0400, L400.2100, L400.5300, L404.9000 ####Main Laboratory ([facility])[address] [place] [place], [place] [phone] Nivar, MD Cholesterol in LDL mass conc 115 mg/dL High [facility] Comment on above: Order Comment: Is Pa tient Fasting? Yes Result Comment: The National Cholesterol Education Program (NCEP) has setthe following guidelines (reference values) for cholesterol,LDL: Desirable (optimal): <100 mg/dL Low Risk (near optimal): 100-129 mg/dL Borderline high: 130-159 mg/dL High: 160-189 mg/dL Very high: >=190 mg/dL Performed By: #### L 400.0059, L400.0065, L400.0302, L400.0400, L400.2100, L400.5300, L404.9000 ####Main Laboratory ([facility])[address] [place], [place] [phone] Nivar, MD Cholesterol in LDL/Cholesterol in HDL mass ratio 1.8 Normal <3.1 [facility] Comment on above: Order Comment: Is Pa tient Fasting? Yes Performed By: #### L 400.0059, L400.0065, L400.0302, L400.0400, L400.2100, L400.5300, L404.9000 ####Main Laboratory ([facility])[address] [place], [place] [phone] Nivar, MD Cholesterol in VLDL mass conc 12 mg/dL Normal <39 [facility] Comment on above: Order Comment: Is Pa tient Fasting? Yes Performed By: #### L 400.0059, L400.0065, L400.0302, L400.0400, L400.2100, L400.5300, L404.9000 ####Main Laboratory ([facility])[address], [place] [phone] Nivar, MD Cholesterol mass conc 166 mg/dL Normal <200 [facility] Comment on above: Order Comment: Is Pa tient Fasting? Yes Performed By: #### L 400.0059, L400.0065, L400.0302, L400.0400, L400.2100, L400.5300, L404.9000 ####Main Laboratory ([facility])[address], [place] [phone] Nivar, MD Cholesterol.total/C holesterol in HDL mass ratio 2.7 {ratio} Low 4.0-4.4 [facility] Comment on above: Order Comment: Is Pa tient Fasting? Yes Performed By: #### L 400.0059, L400.0065, L400.0302, L400.0400, L400.2100, L400.5300, L404.9000 ####Main Laboratory ([facility])[address], [place] [phone] Nivar, MD Triglyceride mass conc 60 mg/dL Normal <150 [facility] Comment on above: Order Comment: Is Pa tient Fasting? Yes Performed By: #### L 400.0059, L400.0065, L400.0302, L400.0400, L400.2100, L400.5300, L404.9000 ####Main Laboratory ([facility])[address] [phone] Nivar, MD Parathyroid Hormone,Intacton 09-07-2017 Parathyroid Hormone,Intact 43.1 U/mL Normal 12.0-88.0 [facility] Comment on above: Order Comment: Is Pa tient Fasting? Yes Performed By: #### L 400.0059, L400.0065, L400.0302, L400.0400, L400.2100, L400.5300, L404.9000 ####Main Laboratory ([facility])[address], [place] [phone] Nivar, MD Vitamin B12 and Folateon Cobalamin (Vitamin B12) mass conc pg/mL High 180-914 [facility] Comment on above: Order Comment: Is Pa tient Fasting? Yes Result Comment: B12 level of 145 - 180 is considered Indeterminate and levelof <145 is considered Deficient. Performed By: #### L 400.0059, L400.0065, L400.0302, L400.0400, L400.2100, L400.5300, L404.9000 ####Main Laboratory ([facility])[address], [place] [phone] Nivar, MD Folate (Folic Acid) > 23.4 Normal >5.9 [facility] Comment on above: Order Comment: Is Pa tient Fasting? Yes Performed By: #### L 400.0059, L400.0065, L400.0302, L400.0400, L400.2100, L400.5300, L404.9000 ####Main Laboratory ([facility])[address], [place] [phone] Nivar, MD Culture, urine Bacteria identified Cx Nom (U) Escherichia coli [facility] Work Phone: Vital Signs Date Time Vital Sign Value Performing Clinician Facility 05-09-2025 11:30-0400 Body mass index (BMI) [Ratio] 54.1 kg/m2 Dr. Armand Ma MD Work Phone: [facility] 05-09-2025 11:30-0400 Body weight 151.[address] Armand Ma MD Work Phone: [facility] 05-09-2025 11:30-0400 Diastolic blood pressure 77 mm[Hg] Dr. Armand Ma MD Work Phone: [facility] 05-09-2025 11:30-0400 Heart rate 81 /min Dr. Armand Ma MD Work Phone: [facility] 05-09-2025 11:30-0400 Respiratory rate 18 /min Dr. Armand Ma MD Work Phone: [facility] 05-09-2025 11:30-0400 SaO2% (BldA) [Mass fraction] 98 % Dr. Armand Ma MD Work Phone: [facility] 05-09-2025 11:30-0400 Systolic blood pressure 120 mm[Hg] Dr. Armand Ma MD Work Phone: [facility] 03-20-2025 10:16-0400 Body mass index (BMI) [Ratio] 56.62 kg/m2 [facility]str Work Phone: [facility] 03-20-2025 10:16-0400 Body temperature 97.7 [degF] Treatment [facility]str Work Phone: [facility] 03-20-2025 10:16-0400 Body weight 158.3 kg Treatment [facility]str Work Phone: [facility] 03-20-2025 10:16-0400 Diastolic blood pressure 63 mm[Hg] Treatment [facility]str Work Phone: [facility] 03-20-2025 10:16-0400 Heart rate 71 /min Treatment [facility]str Work Phone: [facility] 03-20-2025 10:16-0400 SaO2% (BldA) [Mass fraction] 97 % Treatment [facility]str Work Phone: [facility] 03-20-2025 10:16-0400 Systolic blood pressure 106 mm[Hg] Treatment [facility]str Work Phone: [facility] 02-19-2025 13:50-0400 Diastolic blood pressure 74 mm[Hg] Gary Barraza MD Work Phone: [facility] 02-19-2025 13:50-0400 Heart rate 55 /min Gary Barraza MD Work Phone: [facility] 02-19-2025 13:50-0400 Respiratory rate 16 /min Gary Barraza MD Work Phone: [facility] 02-19-2025 13:50-0400 SaO2% (BldA) [Mass fraction] 95 % Gary Barraza MD Work Phone: [facility] 02-19-2025 13:50-0400 Systolic blood pressure 105 mm[Hg] Gary Barraza MD Work Phone: [facility] 02-19-2025 12:36-0400 Body height 167.2 cm Gary Barraza MD Work Phone: [facility] 02-19-2025 12:36-0400 Body mass index (BMI) [Ratio] 56.13 kg/m2 Gary Barraza MD Work Phone: [facility] 02-19-2025 12:36-0400 Body temperature 96.8 [degF] Gary Barraza MD Work Phone: [facility] 02-19-2025 12:36-0400 Body weight 156.94 kg Gary Barraza MD Work Phone: [facility] 02-04-2025 13:18-0400 Body temperature 97.11 [degF] Treatment Wstr Work Phone: [facility] 02-04-2025 13:18-0400 Diastolic blood pressure 73 mm[Hg] Treatment [facility]str Work Phone: [facility] 02-04-2025 13:18-0400 Heart rate 75 /min Treatment [facility]str Work Phone: [facility] 02-04-2025 13:18-0400 SaO2% (BldA) [Mass fraction] 98 % Treatment [facility]str Work Phone: [facility] 02-04-2025 13:18-0400 Systolic blood pressure 122 mm[Hg] Treatment [facility]str Work Phone: [facility] 01-29-2025 09:31-0400 Body height 167.2 cm Julita Burgos APRN.CNS Work Phone: [facility] 01-29-2025 09:31-0400 Body mass index (BMI) [Ratio] 55.96 kg/m2 Julita Burgos [employer] ROOM OPERATOR Work Phone: [facility] 01-29-2025 09:31-0400 Body weight 156.45 kg Julita Burgos [employer] B[employer] MECH[employer]IC.DRY ROOM OPERATOR Work Phone: [facility] 01-29-2025 09:31-0400 Diastolic blood pressure 83 mm[Hg] Julita Burgos [employer] BRAKE MECHANIC.DRY ROOM OPERATOR Work Phone: [facility] 01-29-2025 09:31-0400 Heart rate 73 /min Julita Burgos [employer] BRAKE MECHANIC.DRY ROOM OPERATOR Work Phone: [facility] 01-29-2025 09:31-0400 Systolic blood pressure 135 mm[Hg] Julita Burgos [employer] BRAKE MECHANIC.DRY ROOM OPERATOR Work Phone: [facility] 12-20-2024 10:55-0400 Body temperature 96.8 [degF] Treatment [facility]str Work Phone: [facility] 12-20-2024 10:55-0400 Diastolic blood pressure 70 mm[Hg] Treatment Wstr Work Phone: [facility] 12-20-2024 10:55-0400 Heart rate 67 /min Treatment Wstr Work Phone: [facility] 12-20-2024 10:55-0400 Respiratory rate 18 /min Treatment Wstr Work Phone: [facility] 12-20-2024 10:55-0400 SaO2% (BldA) [Mass fraction] 97 % Treatment [facility]str Work Phone: [facility] 12-20-2024 10:55-0400 Systolic blood pressure 124 mm[Hg] Treatment [facility]str Work Phone: [facility] 11-28-2024 08:08-0500 Body height 167.6 cm Sincere Dickson MD Work Phone: [facility] 11-28-2024 08:08-0500 Body mass index (BMI) [Ratio] 55.76 kg/m2 Sincere Dickson MD Work Phone: [facility] 11-28-2024 08:08-0500 Body temperature 97.39 [degF] Sincere Dickson MD Work Phone: [facility] 11-28-2024 08:08-0500 Body weight 156.7 kg Sincere Dickson MD Work Phone: [facility] 11-28-2024 08:08-0500 Diastolic blood pressure 49 mm[Hg] Sincere Dickson MD Work Phone: [facility] 11-28-2024 08:08-0500 Heart rate 71 /min Sincere Dickson MD Work Phone: [facility] 11-28-2024 08:08-0500 Systolic blood pressure 117 mm[Hg] Sincere Dickson MD Work Phone: [facility] 11-15-2024 11:20-0500 Body mass index (BMI) [Ratio] 55.5 kg/m2 Dr. Armand Ma MD Work Phone: [facility] 11-15-2024 11:20-0500 Body weight 156.[address] Armand Ma MD Work Phone: [facility] 11-15-2024 11:20-0500 Diastolic blood pressure 72 mm[Hg] Dr. Armand Ma MD Work Phone: [facility] 11-15-2024 11:20-0500 Heart rate 78 /min Dr. Armand Ma MD Work Phone: [facility] 11-15-2024 11:20-0500 Respiratory rate 18 /min Dr. Armand Ma MD Work Phone: [facility] 11-15-2024 11:20-0500 SaO2% (BldA) [Mass fraction] 97 % Dr. Armand Ma MD Work Phone: [facility] 11-15-2024 11:20-0500 Systolic blood pressure 100 mm[Hg] Dr. Armand Ma MD Work Phone: [facility] 11-08-2024 08:40-0500 Body mass index (BMI) [Ratio] 55.04 kg/m2 Treatment [facility]str Work Phone: [facility] 11-08-2024 08:40-0500 Body temperature 97 [degF] Treatment [facility]str Work Phone: [facility] 11-08-2024 08:40-0500 Body weight 154.68 kg Treatment Wstr Work Phone: [facility] 11-08-2024 08:40-0500 Diastolic blood pressure 77 mm[Hg] Treatment Wstr Work Phone: [facility] 11-08-2024 08:40-0500 Heart rate 76 /min Treatment Wstr Work Phone: [facility] 11-08-2024 08:40-0500 Respiratory rate 18 /min Treatment Wstr Work Phone: [facility] 11-08-2024 08:40-0500 SaO2% (BldA) [Mass fraction] 97 % Treatment [facility]str Work Phone: [facility] 11-08-2024 08:40-0500 Systolic blood pressure 111 mm[Hg] Treatment Wstr Work Phone: [facility] 10-17-2024 09:27-0500 Body mass index (BMI) [Ratio] 56.9 kg/m2 Dr. Armand Ma MD Work Phone: [facility] 10-17-2024 09:27-0500 Body weight 160.[address] Armand Ma MD Work Phone: [facility] 10-17-2024 09:27-0500 Diastolic blood pressure 80 mm[Hg] Dr. Armand Ma MD Work Phone: [facility] 10-17-2024 09:27-0500 Systolic blood pressure 115 mm[Hg] Dr. Armand Ma MD Work Phone: [facility] 08-16-2024 08:24-0500 Body mass index (BMI) [Ratio] 55.83 kg/m2 Treatment [facility]str Work Phone: [facility] 08-16-2024 08:24-0500 Body temperature 98.01 [degF] Treatment Wstr Work Phone: [facility] 08-16-2024 08:24-0500 Body weight 156.9 kg Treatment Wstr Work Phone: [facility] 08-16-2024 08:24-0500 Diastolic blood pressure 82 mm[Hg] Treatment Wstr Work Phone: [facility] 08-16-2024 08:24-0500 Heart rate 78 /min Treatment Wstr Work Phone: [facility] 08-16-2024 08:24-0500 Respiratory rate 16 /min Treatment Wstr Work Phone: [facility] 08-16-2024 08:24-0500 SaO2% (BldA) [Mass fraction] 96 % Treatment [facility]str Work Phone: [facility] 08-16-2024 08:24-0500 Systolic blood pressure 141 mm[Hg] Treatment Wstr Work Phone: [facility] 07-05-2024 08:19-0400 Body temperature 97.9 [degF] Treatment Wstr Work Phone: [facility] 07-05-2024 08:19-0400 Diastolic blood pressure 76 mm[Hg] Treatment Wstr Work Phone: [facility] 07-05-2024 08:19-0400 Heart rate 76 /min Treatment Wstr Work Phone: [facility] 07-05-2024 08:19-0400 SaO2% (BldA) [Mass fraction] 97 % Treatment Wstr Work Phone: [facility] 07-05-2024 08:19-0400 Systolic blood pressure 120 mm[Hg] Treatment Wstr Work Phone: [facility] 05-16-2024 11:27-0400 Body temperature 97.11 [degF] Treatment Wstr Work Phone: [facility] 05-16-2024 11:27-0400 Diastolic blood pressure 81 mm[Hg] Treatment Wstr Work Phone: [facility] 05-16-2024 11:27-0400 Heart rate 81 /min Treatment Wstr Work Phone: [facility] 05-16-2024 11:27-0400 SaO2% (BldA) [Mass fraction] 94 % Treatment Wstr Work Phone: [facility] 05-16-2024 11:27-0400 Systolic blood pressure 122 mm[Hg] Treatment Wstr Work Phone: [facility] 04-04-2024 10:57-0400 Body mass index (BMI) [Ratio] 55.36 kg/m2 Treatment Wstr Work Phone: [facility] 04-04-2024 10:57-0400 Body temperature 97.81 [degF] Treatment Wstr Work Phone: [facility] 04-04-2024 10:57-0400 Body weight 155.58 kg Treatment Wstr Work Phone: [facility] 04-04-2024 10:57-0400 Diastolic blood pressure 83 mm[Hg] Treatment Wstr Work Phone: [facility] 04-04-2024 10:57-0400 Heart rate 83 /min Treatment Wstr Work Phone: [facility] 04-04-2024 10:57-0400 Respiratory rate 18 /min Treatment Wstr Work Phone: [facility] 04-04-2024 10:57-0400 Systolic blood pressure 130 mm[Hg] Treatment Wstr Work Phone: [facility] 02-23-2024 10:01-0400 Body mass index (BMI) [Ratio] 55.6 kg/m2 Treatment Wstr Work Phone: [facility] 02-23-2024 10:01-0400 Body temperature 97.3 [degF] Treatment Wstr Work Phone: [facility] 02-23-2024 10:01-0400 Body weight 156.26 kg Treatment Wstr Work Phone: [facility] 02-23-2024 10:01-0400 Diastolic blood pressure 72 mm[Hg] Treatment Wstr Work Phone: [facility] 02-23-2024 10:01-0400 Heart rate 87 /min Treatment Wstr Work Phone: [facility] 02-23-2024 10:01-0400 SaO2% (BldA) [Mass fraction] 96 % Treatment Wstr Work Phone: [facility] 02-23-2024 10:01-0400 Systolic blood pressure 110 mm[Hg] Treatment Wstr Work Phone: [facility] 01-04-2024 10:53-0400 Body temperature 97.11 [degF] Treatment Wstr Work Phone: [facility] 01-04-2024 10:53-0400 Diastolic blood pressure 76 mm[Hg] Treatment Wstr Work Phone: [facility] 01-04-2024 10:53-0400 Heart rate 87 /min Treatment Wstr Work Phone: [facility] 01-04-2024 10:53-0400 SaO2% (BldA) [Mass fraction] 99 % Treatment Wstr Work Phone: [facility] 01-04-2024 10:53-0400 Systolic blood pressure 154 mm[Hg] Treatment Wstr Work Phone: [facility] 11-16-2023 08:00-0500 Body temperature 97 [degF] Treatment Wstr Work Phone: [facility] 11-16-2023 08:00-0500 Diastolic blood pressure 67 mm[Hg] Treatment Wstr Work Phone: [facility] 11-16-2023 08:00-0500 Heart rate 78 /min Treatment Wstr Work Phone: [facility] 11-16-2023 08:00-0500 Systolic blood pressure 136 mm[Hg] Treatment Wstr Work Phone: [facility] 08-08-2023 08:34-0500 Body temperature 97.5 [degF] Treatment Wstr Work Phone: [facility] 08-08-2023 08:34-0500 Diastolic blood pressure 81 mm[Hg] Treatment Wstr Work Phone: [facility] 08-08-2023 08:34-0500 Heart rate 75 /min Treatment Wstr Work Phone: [facility] 08-08-2023 08:34-0500 Systolic blood pressure 123 mm[Hg] Treatment Wstr Work Phone: [facility] 05-18-2023 08:30-0400 Body temperature 96.69 [degF] Treatment Wstr Work Phone: [facility] 05-18-2023 08:30-0400 Diastolic blood pressure 71 mm[Hg] Treatment Wstr Work Phone: [facility] 05-18-2023 08:30-0400 Heart rate 76 /min Treatment Wstr Work Phone: [facility] 05-18-2023 08:30-0400 Systolic blood pressure 130 mm[Hg] Treatment Wstr Work Phone: [facility] 04-06-2023 11:02-0400 Body temperature 97.59 [degF] Treatment Wstr Work Phone: [facility] 04-06-2023 11:02-0400 Body weight 158.08 kg Treatment Wstr Work Phone: [facility] 04-06-2023 11:02-0400 Diastolic blood pressure 76 mm[Hg] Treatment Wstr Work Phone: [facility] 04-06-2023 11:02-0400 Heart rate 79 /min Treatment Wstr Work Phone: [facility] 04-06-2023 11:02-0400 SaO2% (BldA) [Mass fraction] 96 % Treatment Wstr Work Phone: [facility] 04-06-2023 11:02-0400 Systolic blood pressure 118 mm[Hg] Treatment Wstr Work Phone: [facility] 02-23-2023 09:41-0400 Body temperature 97.39 [degF] Treatment Wstr Work Phone: [facility] 02-23-2023 09:41-0400 Diastolic blood pressure 71 mm[Hg] Treatment Wstr Work Phone: [facility] 02-23-2023 09:41-0400 Heart rate 75 /min Treatment Wstr Work Phone: [facility] 02-23-2023 09:41-0400 Respiratory rate 18 /min Treatment Wstr Work Phone: [facility] 02-23-2023 09:41-0400 SaO2% (BldA) [Mass fraction] 98 % Treatment [facility]str Work Phone: [facility] 02-23-2023 09:41-0400 Systolic blood pressure 129 mm[Hg] Treatment Wstr Work Phone: [facility] 01-06-2023 07:59-0400 Body temperature 97.9 [degF] Treatment Wstr Work Phone: [facility] 01-06-2023 07:59-0400 Diastolic blood pressure 83 mm[Hg] Treatment Wstr Work Phone: [facility] 01-06-2023 07:59-0400 Heart rate 86 /min Treatment Wstr Work Phone: [facility] 01-06-2023 07:59-0400 Systolic blood pressure 109 mm[Hg] Treatment Wstr Work Phone: [facility] 12-23-2022 10:05-0400 Body temperature 97.39 [degF] Treatment Wstr Work Phone: [facility] 12-23-2022 10:05-0400 Diastolic blood pressure 85 mm[Hg] Treatment Wstr Work Phone: [facility] 12-23-2022 10:05-0400 Heart rate 72 /min Treatment Wstr Work Phone: [facility] 12-23-2022 10:05-0400 Systolic blood pressure 140 mm[Hg] Treatment Wstr Work Phone: [facility] 11-18-2022 14:09-0500 Body height 167.6 cm Logan Elmore MD Work Phone: [facility] 11-18-2022 14:09-0500 Body temperature 97 [degF] Logan Elmore MD Work Phone: [facility] 11-18-2022 14:09-0500 Body weight 156.67 kg Logan Elmore MD Work Phone: [facility] 11-18-2022 14:09-0500 Diastolic blood pressure 73 mm[Hg] Logan Elmore MD Work Phone: [facility] 11-18-2022 14:09-0500 Heart rate 68 /min Logan Elmore MD Work Phone: [facility] 11-18-2022 14:09-0500 SaO2% (BldA) [Mass fraction] 98 % Logan Elmore MD Work Phone: [facility] 11-18-2022 14:09-0500 Systolic blood pressure 124 mm[Hg] Logan Elmore MD Work Phone: [facility] 10-20-2022 08:28-0500 Body temperature 96.49 [degF] Sincere Dickson MD Work Phone: [facility] 10-20-2022 08:28-0500 Body weight 157.63 kg Sincere Dickson MD Work Phone: [facility] 10-20-2022 08:28-0500 Diastolic blood pressure 81 mm[Hg] Sincere Dickson MD Work Phone: [facility] 10-20-2022 08:28-0500 Heart rate 74 /min Sincere Dickson MD Work Phone: [facility] 10-20-2022 08:28-0500 Systolic blood pressure 137 mm[Hg] Sincere Dickson MD Work Phone: [facility] 09-09-2022 11:55-0500 Body height 167.[address] Armand Ma Work Phone: [facility] 09-09-2022 11:54-0500 Body mass index (BMI) [Ratio] 55.7 kg/m2 Dr. Armand Ma Work Phone: [facility] 09-09-2022 11:54-0500 Body weight 156.[address] Armand Ma Work Phone: [facility] 09-09-2022 11:54-0500 Diastolic blood pressure 85 mm[Hg] Dr. Armand Ma Work Phone: [facility] 09-09-2022 11:54-0500 Systolic blood pressure 170 mm[Hg] Dr. Armand Ma Work Phone: [facility] 06-28-2022 15:09-0400 Body height 167.64 cm [facility] Work Phone: 06-28-2022 15:09-0400 Body weight 157.03 kg [facility] Work Phone: 06-09-2022 21:58-0400 Diastolic blood pressure 88 mm[Hg] [facility] Work Phone: 06-09-2022 21:58-0400 Heart rate 81 /min [facility] Work Phone: 06-09-2022 21:58-0400 Respiratory rate 17 /min [facility] Work Phone: 06-09-2022 21:58-0400 SaO2% (BldA) [Mass fraction] 99 % [facility] Work Phone: 06-09-2022 21:58-0400 Systolic blood pressure 161 mm[Hg] [facility] Work Phone: 06-09-2022 18:17-0400 Body mass index (BMI) [Ratio] 56.5 kg/m2 [facility] Work Phone: 06-09-2022 18:17-0400 Body temperature 96.5 [degF] [facility] Work Phone: 06-09-2022 18:17-0400 Body weight 158.75 kg [facility] Work Phone: 05-25-2022 12:05-0400 Body weight 159.66 kg [facility] Work Phone: 05-18-2022 09:17-0400 Diastolic blood pressure 99 mm[Hg] Jone Fernandes MD Work Phone: [facility] 05-18-2022 09:17-0400 Heart rate 93 /min Jone Fernandes MD Work Phone: [facility] 05-18-2022 09:17-0400 Systolic blood pressure 158 mm[Hg] Jone Fernandes MD Work Phone: [facility] 05-18-2022 09:03-0400 Body height 167.6 cm Jone Fernandes MD Work Phone: [facility] 05-18-2022 09:03-0400 Body weight 159.85 kg Jone Fernandes MD Work Phone: [facility] 05-18-2022 09:03-0400 SaO2% (BldA) [Mass fraction] 99 % Jone Fernandes MD Work Phone: [facility] 02-22-2022 10:42-0400 Body height 167.[address] Armand Ma Work Phone: [facility] Work Phone: 02-22-2022 10:42-0400 Body mass index (BMI) [Ratio] 56.5 kg/m2 Dr. Armand Ma Work Phone: [facility] Work Phone: 02-22-2022 10:42-0400 Body temperature 96.6 [degF] Dr. Armand Ma Work Phone: [facility] Work Phone: 02-22-2022 10:42-0400 Body weight 158.[address] Armand Ma Work Phone: [facility] Work Phone: 02-22-2022 10:42-0400 Heart rate 95 /min Dr. Armand Ma Work Phone: [facility] Work Phone: 02-22-2022 10:42-0400 Respiratory rate 18 /min Dr. Armand Ma Work Phone: [facility] Work Phone: 02-22-2022 10:42-0400 SaO2% (BldA) [Mass fraction] 98 % Dr. Armand Ma Work Phone: [facility] Work Phone: 02-09-2022 13:02-0400 Body height 167.[address] Armand Ma Work Phone: [facility] Work Phone: 02-09-2022 13:02-0400 Body weight 154.[address] Armand Ma Work Phone: [facility] Work Phone: 02-09-2022 13:02-0400 Heart rate 102 /min Dr. Armand Ma Work Phone: [facility] Work Phone: 02-09-2022 13:02-0400 SaO2% (BldA) [Mass fraction] 97 % Dr. Armand Ma Work Phone: [facility] Work Phone: 01-04-2022 15:58-0400 Body height 167.6 cm Sincere Dickson MD Work Phone: [facility] 01-04-2022 15:58-0400 Body temperature 98.01 [degF] Sincere Dickson MD Work Phone: [facility] 01-04-2022 15:58-0400 Body weight 158.31 kg Sincere Dickson MD Work Phone: [facility] 01-04-2022 15:58-0400 Diastolic blood pressure 71 mm[Hg] Sincere Dickson MD Work Phone: [facility] 01-04-2022 15:58-0400 Heart rate 102 /min Sincere Dickson MD Work Phone: [facility] 01-04-2022 15:58-0400 Systolic blood pressure 157 mm[Hg] Sincere Dickson MD Work Phone: [facility] Encounters Encounter Date Encounter Type Care Provider Facility Start: 06-06-2025 ambulatory Armand Yeoman Facility:[facility] Start: 05-09-2025 End: 05-09-2025 [facility] Work Phone: Start: 05-09-2025 End: 05-09-[address] [facility] Start: 05-01-2025 End: 05-01-2025 ambulatory ARMAND MA Facility:[facility] Start: 04-25-2025 End: 04-25-2025 ambulatory ARMAND Jewell ACWORTH Facility:[facility] Start: 04-07-2025 End: 04-07-2025 ambulatory [facility] Start: 04-07-2025 End: 04-07-2025 Encounter for general adult medical examination without abnormal findings [facility] Start: 03-20-2025 End: 03-20-2025 ambulatory Treatment Rm 14 Jett [facility] Work Phone: Hematology/Oncology Comment on above: Seronegative rheumat oid arthritis (HCC) (Primary Dx) Start: 02-19-2025 ambulatory GARY BARRAZA Facility:[facility] Start: 02-19-2025 End: 02-19-2025 Subsequent hospital visit by physician Gary Barraza MD Work Phone: Gastroenterology Comment on above: Body mass index 50.0 -59.9, adult (HCC) [Z68.43] Start: 02-06-2025 End: 02-06-2025 Telephone encounter Sincere Dickson MD Work Phone: Rheumatology Comment on above: Received Outside Med ical Records Start: 02-05-2025 ambulatory GARY BARRAZA Facility:[facility] Start: 02-05-2025 End: 02-05-2025 Subsequent hospital visit by physician Gi/[facility] Comment on above: Body mass index 50.0 -59.9, adult (HCC) [Z68.43] Start: 02-04-2025 End: 02-04-2025 ambulatory Treatment Rm 14 Jett [facility] Work Phone: Hematology/Oncology Comment on above: Seronegative rheumat oid arthritis (HCC) (Primary Dx) Start: 02-04-2025 End: 02-04-[address] Armand Ma MD Work Phone: -Physical Therapy Work Phone: Start: 02-03-2025 End: 03-11-2025 Refill Jolene Brumfield LPN General Surgery Comment on above: Medication Problem Start: 01-29-2025 End: 01-29-2025 Patient encounter procedure Julita Burgos [employer]KE MECH[employer]IC.DRY ROOM OPERATOR Work Phone: General Surgery Comment on above: Gastric bypass statu s for obesity (Primary Dx); Vertigo; Class 3 obesity; History of ulcer disease Start: 01-29-2025 End: 01-29-2025 ambulatory JULITA BURGOS Facility:[facility] Start: 01-24-2025 End: 01-24-2025 Admission to same day surgery center Gary Barraza MD Work Phone: General Surgery Comment on above: Body mass index 50.0 -59.9, adult (HCC) (Primary Dx); Weight gain; Anastomotic ulcer S/P gastric bypass Start: 01-24-2025 End: 01-24-2025 Telemedicine consultation with patient Gary Barraza MD Work Phone: General Surgery Start: 01-24-2025 End: 01-24-2025 ambulatory GARY BARARZA Facility:[facility] Start: 01-20-2025 End: 01-20-2025 Telephone encounter Sarah Abreu MA General Surgery Comment on above: Benefit Check Start: 01-09-2025 End: 01-09-2025 Telephone encounter Destinee Vásquez MD Work Phone: Endocrinology & Metabolic [place] Comment on above: Insurance Authorizat ion (semaglutide, weight loss, (WEGOVY) 0.25 mg/0.5 mL pen injector) Start: 01-07-2025 End: 01-07-2025 Telephone encounter Destinee Vásquez MD Work Phone: [facility] Comment on above: Insurance Authorizat ion (semaglutide, weight loss, (WEGOVY) 0.25 mg/0.5 mL pen injector) Start: 12-30-2024 End: 12-30-2024 Admission to same day surgery center Destinee Vásquez MD Work Phone: [facility] Comment on above: Severe obesity (BMI >= 40) (HCC) (Primary Dx); Dietary counseling; Exercise counseling; History of bariatric surgery; Insulin resistance Start: 12-30-2024 End: 12-30-2024 ambulatory DESTINEE VÁSQUEZ Facility:[facility] Start: 12-30-2024 End: 12-30-2024 Telemedicine consultation with patient Destinee Vásquez MD Work Phone: [facility] Start: 12-20-2024 End: 12-20-2024 ambulatory Treatment Rm 16 Jett [facility] Work Phone: Hematology/Oncology Comment on above: Seronegative rheumat oid arthritis (HCC) (Primary Dx) Start: 12-19-[address] Armand Ma MD Work Phone: -Physical Therapy Work Phone: Start: 12-16-2024 Non-patient / Non-visit Dr. Romel ALEJO [facility] Start: 12-16-2024 End: 12-16-[address] Armand Ma MD Work Phone: [facility] Work Phone: Start: 12-16-2024 End: 12-16-[address] Mateo Hunter MD -Cardiovascular Services Work Phone: Start: 12-16-2024 End: 12-16-2024 ambulatory Mateo Hunter Facility:[facility] Start: 12-12-2024 End: 12-12-2024 Telephone encounter Sincere Dickson MD Work Phone: Rheumatology Comment on above: [facility] Start: 11-29-2024 End: 12-05-2024 Telephone encounter Sincere Dickson MD Work Phone: Rheumatology Comment on above: Orders Start: 11-29-2024 End: 11-29-2024 ambulatory PATRICIA RAFFAELE Facility:[facility] Start: 11-29-2024 End: 11-29-2024 Patient encounter procedure Patricia Butterfield RD Work Phone: Endocrinology Comment on above: Obesity, unspecified class, unspecified obesity type, unspecified whether serious comorbidity present (Primary Dx); BMI 50.0-59.9, adult (HCC) Start: 11-29-2024 End: 11-29-2024 Telemedicine consultation with patient Patricia Butterfield RD Work Phone: Endocrinology Start: 11-28-2024 End: 11-28-2024 Subsequent hospital visit by physician Nishi [facility] Work Phone: Radiology Comment on above: Chronic pain of both knees [M25.561, M25.562, G89.29] Start: 11-28-2024 End: 11-28-2024 ambulatory ARMAND Jewell ACWORTH Facility:[facility] Start: 11-28-2024 End: 11-28-2024 Patient encounter procedure Sincere Dickson MD Work Phone: Rheumatology Comment on above: Obesity, unspecified class, unspecified obesity type, unspecified whether serious comorbidity present (Primary Dx); Chronic pain of both knees; Seropositive rheumatoid arthritis (HCC); Syncope, unspecified syncope type; High risk medication use Start: 11-15-2024 End: 11-15-[address] Mateo Hunter MD -[facility] Work Phone: Start: 11-15-2024 End: 11-15-2024 ambulatory Armand Ma Facility:[facility] Start: 11-08-2024 End: 11-08-2024 ambulatory Treatment Rm 15 Jett [facility] Work Phone: Hematology/Oncology Comment on above: Seronegative rheumat oid arthritis (HCC) (Primary Dx) Start: 11-01-2024 End: 11-01-2024 ambulatory ARMAND MA Facility:[facility] Start: 11-01-2024 End: 11-01-2024 Patient encounter procedure Dalila VAZQUEZ -Outpatient Breast Imaging Work Phone: Start: 11-01-2024 End: 11-01-2024 ambulatory Armand Ma Facility:[facility] Start: 10-17-2024 End: 10-17-2024 ambulatory Armand Ma Facility:[facility] Start: 10-17-2024 End: 10-17-2024 Patient encounter procedure Dalila VAZQUEZ -[facility] Work Phone: Start: 10-17-2024 End: 10-17-2024 Patient encounter status Dalila VAZQUEZ [facility] Start: 09-30-2024 End: 09-30-[address] Armand Ma MD -Radiology, [place] Work Phone: Start: 09-30-2024 End: 09-30-2024 rafaela Ma Facility:[facility] Start: 09-27-2024 End: 09-27-2024 ambulatory ARMAND MA Facility:[facility] Start: 09-03-2024 End: 09-03-2024 ambulatory ARMAND MA Facility:[facility] Start: 08-16-2024 End: 08-16-2024 ambulatory ARMAND A ANIL Facility:[facility] Start: 08-16-2024 End: 08-16-2024 ambulatory Treatment Rm 15 Jett [facility] Work Phone: Hematology/Oncology Comment on above: Seronegative rheumat oid arthritis (HCC) (Primary Dx) Start: 08-16-2024 End: 08-16-2024 ambulatory Armand Ma Facility:[facility] Start: 08-14-2024 End: 08-14-2024 ambulatory ARMAND MA Facility:[facility] Start: 08-09-2024 End: 08-12-2024 Refill Sincere Dickson MD Work Phone: Rheumatology Comment on above: Refill Request Start: 07-05-2024 End: 07-05-2024 Refill Sincere Dickson MD Work Phone: Rheumatology Comment on above: Refill Request Start: 07-05-2024 End: 07-05-2024 ambulatory ARMAND MA Hematology/Oncology Comment on above: Seronegative rheumat oid arthritis (HCC) (Primary Dx) Start: 07-05-2024 End: 07-05-2024 Patient encounter procedure Treatment Rm 15 Jett [facility] Kaye Grouptr Work Phone: Hematology/Oncology Start: 07-04-2024 End: 07-05-2024 Refill Sincere Dickson MD Work Phone: Rheumatology Comment on above: Refill Request Start: 05-16-2024 End: 05-16-2024 ambulatory ARMAND MA Hematology/Oncology Comment on above: Seronegative rheumat oid arthritis (HCC) (Primary Dx) Start: 05-16-2024 End: 05-16-2024 Patient encounter procedure Treatment Rm 16 Jett [facility] Work Phone: Hematology/Oncology Start: 04-10-2024 Telephone encounter Sincere Dickson MD Work Phone: [facility] Comment on above: Insurance Authorizat ion (Prior Auth Delayed: Additional Info Needed) Start: 04-04-2024 End: 04-04-2024 ambulatory Treatment Rm 5 Jett [facility] Work Phone: Hematology/Oncology Comment on above: Seronegative rheumat oid arthritis (HCC) (Primary Dx) Start: 02-23-2024 End: 02-23-2024 ambulatory Treatment Rm 11 Jett [facility] Work Phone: Hematology/Oncology Comment on above: Seronegative rheumat oid arthritis (HCC) (Primary Dx) Start: 01-04-2024 End: 01-04-2024 ambulatory Treatment Rm 5 Jett [facility] Work Phone: Hematology/Oncology Comment on above: Seronegative rheumat oid arthritis (HCC) (Primary Dx) Start: 11-16-2023 End: 11-16-2023 ambulatory Treatment Rm 2 Jett [facility] Work Phone: Hematology/Oncology Comment on above: Seronegative rheumat oid arthritis (HCC) (Primary Dx) Start: 11-06-2023 Telephone encounter Erik christine DO Work Phone: Hematology/Oncology Start: 11-03-2023 End: 11-03-2023 ambulatory Sincere Dickson MD Work Phone: Rheumatology Comment on above: 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) (Primary Dx); High risk medication use Start: 11-03-2023 End: 11-03-2023 Telemedicine consultation with patient Sincere Dickson MD Work Phone: [facility] Start: 10-26-2023 Refill Sincere Dickson MD Work Phone: Rheumatology Comment on above: Refill Request Start: 10-04-2023 Telephone encounter Sincere Dickson MD Work Phone: [facility] Comment on above: Insurance Authorizat ion (Prior Auth Delayed: Additional Info Requested) Start: 09-21-2023 End: 09-21-2023 ambulatory [facility] Work Phone: Start: 09-21-2023 End: 09-21-2023 Patient encounter procedure [facility]-Outpatient Breast Imaging Work Phone: Start: 08-08-2023 End: 08-08-2023 ambulatory Treatment Rm 6 Jett [facility] Work Phone: Hematology/Oncology Comment on above: Seronegative rheumat oid arthritis (HCC) (Primary Dx) Start: 07-14-2023 Refill Sincere Dickson MD Work Phone: Rheumatology Comment on above: Refill Request Start: 05-18-2023 End: 05-18-2023 ambulatory Treatment Rm 4 Jett [facility] Work Phone: Hematology/Oncology Comment on above: Seronegative rheumat oid arthritis (HCC) (Primary Dx) Start: 04-06-2023 End: 04-06-2023 ambulatory Treatment Rm 5 Jett [facility] Kaye Grouptr Work Phone: Hematology/Oncology Comment on above: Seronegative rheumat oid arthritis (HCC) (Primary Dx) Start: 03-22-2023 Refill Sincere Dickson MD Work Phone: Rheumatology Comment on above: Refill Request Start: 02-23-2023 End: 02-23-2023 ambulatory Treatment Rm 11 Jett [facility] Work Phone: Hematology/Oncology Comment on above: Seronegative rheumat oid arthritis (HCC) (Primary Dx) Start: 01-16-2023 Telephone encounter Erik christine DO Work Phone: Hematology/Oncology Comment on above: Appointment Start: 01-06-2023 Telephone encounter Financial Navigator [facility] Work Phone: Financial Services Comment on above: Benefits Investigati on Patient Question; Or ders Start: 01-06-2023 End: 01-06-2023 ambulatory Treatment Rm 2 Jett [facility] Kaye Grouptr Work Phone: Hematology/Oncology Comment on above: Seronegative rheumat oid arthritis (HCC) (Primary Dx) Start: 12-23-2022 End: 12-23-2022 ambulatory Treatment Rm 2 Jett [facility] Kaye Grouptr Work Phone: Hematology/Oncology Comment on above: Seronegative rheumat oid arthritis (HCC) (Primary Dx) Start: 12-13-2022 End: 12-13-[address] Armand Ma Work Phone: [facility] Work Phone: Start: 12-13-2022 End: 12-13-[address] Armand Ma Work Phone: [facility]-Radiology, [place] Start: 12-13-[address] Armand Ma Work Phone: [facility]-Physical Therapy Start: 12-02-2022 ambulatory Sarah Solorzano RT(R) CT S can Comment on above: Radiology CT Question regarding C T ENTEROGRAPHY W IVCON Start: 12-02-2022 Patient encounter procedure Sarah Solorzano RT(R) [facility] Start: 12-02-2022 End: 12-02-2022 Subsequent hospital visit by physician Bonny Ledbetter Work Phone: CT Scan Comment on above: Abdominal pain, unsp ecified abdominal location [R10.9] Start: 11-22-2022 Refill Sincere Dickson MD Work Phone: Rheumatology Comment on above: Refill Request Start: 11-18-2022 End: 11-18-2022 Patient encounter procedure Logan Elmore MD Work Phone: Gastroenterology Comment on above: Abdominal pain, unsp ecified abdominal location (Primary Dx); Inflammatory bowel disease Start: 11-09-2022 [facility] Start: 11-09-2022 Patient encounter [facility] Comment on above: SPP Inflammatory Con ditions - Treatment Referral (Cimzia); Insurance Authorization (PA submission pending) Start: 11-04-2022 Orders Only Sincere Dickson MD Work Phone: Rheumatology Start: 10-20-2022 End: 10-20-2022 Patient encounter procedure Sincere Dickson MD Work Phone: Rheumatology Comment on above: 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) (Primary Dx); Inflammatory bowel disease; High risk medication use; Occasional tremors Start: 10-14-2022 End: 10-14-2022 ambulatory PROVIDER NOT IN SYSTEM [facility] Start: 09-20-2022 End: 09-20-[address] Armand Ma Work Phone: [facility] Work Phone: Comment on above: Refill Request Start: 09-20-2022 End: 09-20-[address] Armand Ma Work Phone: [facility]-Outpatient Breast Imaging Start: 09-09-2022 End: 09-09-[address] Armand Ma Work Phone: [facility] Start: 08-04-2022 Refill Sincere Dickson MD Work Phone: Rheumatology Comment on above: Refill Request Start: 07-28-2022 End: 07-28-2022 ambulatory Jone Fernandes MD Work Phone: Cardiology Comment on above: SOB (shortness of br eath) (Primary Dx); Seropositive rheumatoid arthritis of multiple sites (HCC) Start: 07-28-2022 End: 07-28-2022 Telemedicine consultation with patient Jone Fernandes MD Work Phone: [facility] Start: 07-24-2022 Refill Sincere Dickson MD Work Phone: Rheumatology Comment on above: Refill Request Start: 06-28-2022 End: 07-25-2022 ambulatory [facility] Work Phone: Start: 06-28-2022 End: 07-25-2022 Discharged Recurring [facility]-Nutritional Services Start: 06-22-2022 End: 06-22-2022 Patient encounter procedure [facility]-Laboratory, Specimen Start: 06-09-2022 End: 06-09-2022 Emergency department patient visit [facility]-Emergency Department Start: 05-25-2022 End: 05-25-2022 Discharged Recurring [facility]-Nutritional Services Start: 05-24-2022 Refill Sincere Dickson MD Work Phone: Rheumatology Comment on above: Refill Request Start: 05-18-2022 End: 05-18-2022 Patient encounter procedure Jone Fernandes MD Work Phone: Cardiology Comment on above: Diastolic dysfunctio n (Primary Dx); SOB (shortness of breath); Seropositive rheumatoid arthritis of multiple sites (HCC) Start: 04-13-2022 Refill Sincere Dickson MD Work Phone: Rheumatology Comment on above: Refill Request Start: 03-21-2022 ambulatory Sincere Dickson MD Work Phone: Rheumatology Comment on above: Orencia Denied. Start: 03-11-2022 Orders Only Jone peñaloza MD Work Phone: Cardiology Comment on above: Diastolic dysfunctio n (Primary Dx) Start: 03-07-2022 End: 03-07-[address] Armand Ma Work Phone: [facility]-Sleep Lab Start: 02-27-2022 Orders Only Sincere Dickson MD Work Phone: Rheumatology Comment on above: High risk medication use (Primary Dx) Start: 02-23-2022 Orders Only Sincere Dickson MD Work Phone: Rheumatology Comment on above: Diastolic dysfunctio n (Primary Dx) Start: 02-22-2022 End: 02-22-[address] Armand Ma Work Phone: [facility]-Pulmonary Medicine [facility] Start: 02-09-2022 Non-patient / Non-visit Dr. Max Ma Work Phone: [facility] Start: 02-09-2022 End: 02-09-[address] Armand Ma Work Phone: [facility]-Pulmonary Services/Neurology Start: 02-02-2022 Non-patient / Non-visit Dr. Max aM Work Phone: [facility] Start: 02-02-2022 End: 02-02-[address] Armand Ma Work Phone: [facility] Start: 01-31-2022 Refill Sincere Dickson MD Work Phone: Rheumatology Comment on above: Refill Request Start: 01-04-2022 End: 01-04-2022 Patient encounter procedure Sincere Dickson MD Work Phone: Rheumatology Comment on above: Shortness of breath (Primary Dx); Seropositive rheumatoid arthritis of multiple sites (HCC); High risk medication use; Occasional tremors Start: 11-26-2020 End: 11-26-2020 Subsequent hospital visit by physician Xr [facility] Tawana Work Phone: Radiology Comment on above: SOB (shortness of br eath) [R06.02] Start: 08-10-2018 End: 08-10-2018 Patient encounter procedure Alonzo Macarena Jess Facility:[facility] Start: 05-09-2018 Patient encounter Jaciel Pillai [facility]:[place] Start: 05-09-2018 End: 05-09-2018 Patient encounter Jaciel Pascual Work Phone: [facility] Start: 01-31-2018 End: 01-31-2018 Patient encounter procedure Tatakimberly Portillocarlito Facility:[facility] Start: 11-24-2017 End: 11-24-2017 Patient encounter procedure Davidelis Obregon Zaynab Facility:[facility] Start: 11-10-2017 End: 11-10-2017 Patient encounter procedure Luis Alfredo Benton Facility:[facility] Start: 09-07-2017 End: 09-07-2017 Patient encounter procedure Bipin Ruano Facility:[facility] Procedures Date Procedure Procedure Detail Performing Clinician Start: 02-19-2025 Esophagogastroduodenoscopy transoral diagnostic Gary Barraza MD Work Phone: Start: 02-05-2025 XR UPPER GI SINGLE CONTRAST Gary Barraza MD Work Phone: Start: 11-15-2024 Evaluation of diagnostic study results Dr. Armand Ma MD Work Phone: Start: 11-01-[address] Armand Ma MD Work Phone: Start: 09-30-2024 X-ray of foot, three or more views Dr. Lou Ma MD Work Phone: Start: 09-21-2023 Screening mammography Start: 12-13-2022 Plain chest X-ray Dr. Armand Ma Work Phone: Start: 12-02-2022 Ct abdomen & pelvis w/contrast material Logan Elmore MD Work Phone: Start: 09-20-[address] Armand Ma Work Phone: Start: 06-09-2022 Plain chest X-ray Start: 02-02-2022 CT of chest without contrast Dr. Armand Rasheed ith Work Phone: Start: 01-03-2022 Adult depression screening assessment Sincere Dickson MD Work Phone: Start: 11-26-2020 Radiologic exam chest 2 views Sincere Dickson MD Work Phone: Bacteria identified in Urine by Culture Urine culture Plan of Treatment Date Care Activity Detail Author Start: 11-28-2025 End: 11-28-2025 Patient encounter procedure 11/28/2025 11:00 AM EST Office Visit Rheumatology [address] [id number] Sincere Dickson MD [address] [place], [place] [id number] RA F/U Rheumatology Comment on above: RA F/U Start: 06-12-2025 End: 06-12-2025 Infusion Center 06/12/2025 10:00 AM EDT Infusion Center Hematology/Oncology [address] [place] [address] last order Hematology/Oncology Comment on above: last order Start: 05-26-2025 Influenza vaccination Influenza Vaccine (Season Ended) [facility] Start: 05-01-2025 End: 05-01-2025 Infusion Center 05/01/2025 11:00 AM EDT Infusion Center Hematology/Oncology [address] [place] [address] 2nd (per orders need 39 days between treatments) Hematology/Oncology Comment on above: 2nd (per orders need 39 days between viky atments) Start: 03-20-2025 End: 03-20-2025 Infusion Center 03/20/2025 10:00 AM EDT Infusion Center Hematology/Oncology [address] [place] [address] 2nd (per orders need 39 days between treatments) Hematology/Oncology Comment on above: 2nd (per orders need 39 days between viky atments) Start: 03-14-2025 End: 03-14-2025 ambulatory Hematology/Oncology Comment on above: 2nd 2nd (ok per orders, 39 day between) Start: 02-19-2025 End: 02-19-2025 Patient encounter procedure 02/19/2025 1:00 PM EDT Appointment Gastroenterology [address] [place] [address] Gary Barraza MD [address] [place] [address] Body mass index 50.0-59.9, adult (HCC) [Z68.43]; Weight gain [R63.5] Gastroenterology Comment on above: Body mass index 50.0-59.9, adult (HCC) [ Z68.43]; Weight gain [R63.5] Start: 02-05-2025 End: 02-05-2025 Patient encounter procedure 02/05/2025 8:00 AM EDT Appointment [facility] [address] [place] [address] Body mass index 50.0-59.9, adult (HCC) [Z68.43] [facility] Comment on above: Body mass index 50.0-59.9, adult (HCC) [ Z68.43] Start: 02-04-2025 End: 02-04-2025 ambulatory 02/04/2025 1:30 PM EDT Infusion Center Hematology/Oncology [address] [place] [address] pt requested date Hematology/Oncology Comment on above: pt requested date Start: 02-03-2025 End: 02-03-2025 ambulatory Hematology/Oncology Comment on above: pt requested date Start: 01-31-2025 End: 01-31-2025 ambulatory 01/31/2025 11:00 AM EDT Infusion Center Hematology/Oncology [address] [place] [address] 2nd Hematology/Oncology Comment on above: 2nd Start: 01-29-2025 End: 04-30-2025 Alpha tocopherol [Mass/volume] in Serum or Plasma VITAMIN E/TOCOPHEROL Lab Routine Gastric bypass status for obesity Vertigo Expected: 01/29/2025, Expires: 04/30/2025 [facility] Comment on above: Expected: 01/29/2025, Expires: Start: 01-29-2025 End: 04-30-2025 Cobalamin (Vitamin B12) [Mass/volume] in Serum or Plasma VITAMIN B12 Lab Routine Gastric bypass status for obesity Vertigo Expected: 01/29/2025, Expires: 04/30/2025 [facility] Comment on above: Expected: 01/29/2025, Expires: Start: 01-29-2025 End: 04-30-2025 COPPER BLOOD COPPER BLOOD Lab Routine Gastric bypass status for obesity Vertigo Expected: 01/29/2025, Expires: 04/30/2025 [facility] Comment on above: Expected: 01/29/2025, Expires: Start: 01-29-2025 End: 04-30-2025 Ferritin [Mass/volume] in Serum or Plasma FERRITIN Lab Routine Gastric bypass status for obesity Vertigo Expected: 01/29/2025, Expires: 04/30/2025 [facility] Work Phone: Comment on above: Expected: 01/29/2025, Expires: Start: 01-29-2025 End: 04-30-2025 Hemoglobin A1c in Blood HEMOGLOBIN A1C Lab Routine Gastric bypass status for obesity Expected: 01/29/2025, Expires: 04/30/2025 [facility] Comment on above: Expected: 01/29/2025, Expires: Start: 01-29-2025 End: 04-30-2025 Magnesium [Mass/volume] in Serum or Plasma MAGNESIUM Lab Routine Gastric bypass status for obesity Vertigo Expected: 01/29/2025, Expires: 04/30/2025 [facility] Comment on above: Expected: 01/29/2025, Expires: Start: 01-29-2025 End: 04-30-2025 Retinol [Mass/volume] in Serum or Plasma VITAMIN A/RETINOL Lab Routine Gastric bypass status for obesity Vertigo Expected: 01/29/2025, Expires: 04/30/2025 [facility] Comment on above: Expected: 01/29/2025, Expires: Start: 01-29-2025 End: 04-30-2025 VITAMIN B1 (THIAMINE), WHOLE BLOOD VITAMIN B1 (THIAMINE), WHOLE BLOOD Lab Routine Gastric bypass status for obesity Vertigo Expected: 01/29/2025, Expires: 04/30/2025 [facility] Comment on above: Expected: 01/29/2025, Expires: Start: 01-29-2025 End: 04-30-2025 VITAMIN K VITAMIN K Lab Routine Gastric bypass status for obesity Vertigo Expected: 01/29/2025, Expires: 04/30/2025 [facility] Comment on above: Expected: 01/29/2025, Expires: Start: 01-29-2025 End: 04-30-2025 Zinc [Mass/volume] in Serum or Plasma ZINC BLD Lab Routine Gastric bypass status for obesity Vertigo Expected: 01/29/2025, Expires: 04/30/2025 [facility] Comment on above: Expected: 01/29/2025, Expires: Start: 01-29-2025 End: 01-29-2025 Patient encounter procedure 01/29/2025 9:30 AM EDT Office Visit General Surgery [address] [place] [id number] Julita Burgos, [employer].[facility] [address] [place] [address] Purple/s/p gastric bypass 2012, IFG, HTN, TED, SVT, RA, FM/Weight Gain General Surgery Comment on above: Purple/s/p gastric bypass 2012, IFG, HTN , TED, SVT, RA, FM/Weight Gain Start: 01-24-2025 End: 01-24-2025 Admission to same day surgery center 01/24/2025 9:50 AM EDT [facility] General Surgery [address] [place] [address] Gary Barraza MD [address] [place] [address] Purple/s/p gastric bypass 2012, IFG, HTN, TED, SVT, RA, FM/Weight Gain General Surgery Comment on above: Purple/s/p gastric bypass 2012, IFG, HTN , TED, SVT, RA, FM/Weight Gain Start: 12-30-2024 End: 12-30-2024 ambulatory 12/30/2024 1:30 PM EDT [facility] [address] [place] [address] Destinee Vásquez [place] [address] [place] [address] Weight Management [facility] Comment on above: Weight Management Start: 12-20-2024 End: 12-20-2024 ambulatory 12/20/2024 11:00 AM EDT Infusion Center Hematology/Oncology [address] [place], [place] [address] 2nd Hematology/Oncology Comment on above: 2nd Start: 11-29-2024 End: 11-29-2024 Patient encounter procedure 11/29/2024 9:00 AM EST [facility] Endocrinology [address] [place] [address] [place] [address] [place] [address] Weight loss Endocrinology Comment on above: Weight loss Start: 11-28-2024 End: 11-28-2024 Patient encounter procedure 11/28/2024 8:00 AM EST Office Visit Rheumatology [address] [address] Sincere Dickson MD [address] [place] [address] RA F/U Rheumatology Comment on above: RA F/U Start: 11-08-2024 End: 11-08-2024 ambulatory 11/08/2024 8:30 AM EST Infusion Center Hematology/Oncology [address] [place], [place] [address] 2nd Hematology/Oncology Comment on above: 2nd Start: 09-27-2024 End: 09-27-2024 ambulatory Hematology/Oncology Comment on above: 2nd Start: 08-16-2024 End: 08-16-2024 ambulatory Hematology/Oncology Comment on above: 2nd Start: 08-15-2024 End: 08-15-2024 ambulatory Tawana Gentile [facility] Start: 07-05-2024 End: 07-05-2024 ambulatory 07/05/2024 8:30 AM EDT Visit (SP) Office Hematology/Oncology [address] [place] [address] 2nd Hematology/Oncology Comment on above: 2nd Start: 05-26-2024 Covid-19 Vaccine () Covid-19 Vaccine () [facility] Start: 05-26-2024 Influenza vaccination [facility] Start: 05-16-2024 End: 05-16-2024 Infusion Center Hematology/Oncology Comment on above: Q6WK MICHELLE/SINCERE DICKSON ORDERING/AUTH E XP ?* Start: 04-04-2024 End: 04-04-2024 Infusion Center 04/04/2024 11:00 AM EDT Infusion Center Hematology/Oncology [address] [place] [address] Q6WK REMSAM/SINCERE DICKSON ORDERING/AUTH EXP 05/04/24* Hematology/Oncology Comment on above: Q6WK REMSAMEERADE/SINCERE DICKSON ORDERING/AUTH E XP 05/04/24* Start: 09-25-2023 Behavioral Health Screening Behavioral Health Screening [facility] Start: 09-25-2023 Depression Assessment Depression Assessment [facility] Start: 05-26-2023 Covid-19 Vaccine () Covid-19 Vaccine () [facility] Start: 05-26-2023 Influenza vaccination [facility] Start: 01-03-2023 Adult depression screening assessment DEPRESSION SCREENING [facility] Start: 09-25-2022 DEPRESSION ASSESSMENT DEPRESSION ASSESSMENT [facility] Start: 09-02-2022 COVID-19 VACCINE (5 - Pfizer risk series) COVID-19 VACCINE (5 - Pfizer risk series) [facility] Start: 05-26-2022 Influenza vaccination INFLUENZA (#1) [facility] Start: 02-27-2022 End: 04-29-2022 BLOOD TB SCREEN BLOOD TB SCREEN Lab Routine High risk medication use Expected: 02/27/2022, Expires: 04/29/2022 [facility] Work Phone: Comment on above: Expected: 02/27/2022, Expires: Start: 12-27-2021 COVID-19 VACCINE (4 - Booster for Pfizer series) COVID-19 VACCINE (4 - Booster for Pfizer series) [facility] Start: 12-21-2021 COVID-19 VACCINE (4 - Booster for Pfizer series) COVID-19 VACCINE (4 - Booster for Pfizer series) [facility] Start: 09-25-2021 DEPRESSION ASSESSMENT DEPRESSION ASSESSMENT [facility] Start: 2021 Mammography [facility] Start: 2021 Screening for malignant neoplasm of breast Mammogram Screening [facility] Start: 2011 HPV TESTING HPV TESTING [facility] Start: 2011 Screening for malignant neoplasm of cervix HPV Testing [facility] Start: 11-09-2010 PAP TESTING PAP TESTING [facility] Start: 11-09-2010 Screening for malignant neoplasm of cervix Pap Testing [facility] Start: 11-09-2006 Screening for malignant neoplasm of cervix Cervical Cancer Screening [facility] Start: 01-12-2000 Hepatitis B Vaccine (1 of 3 - 19+ 3-dose series) Hepatitis B Vaccine (1 of 3 - 19+ 3-dose series) [facility] Start: 01-12-2000 Pneumococcal vaccination Pneumococcal Vaccine (1 of 2 - PCV) [facility] Start: 01-12-2000 SHINGRIX VACCINE (1 of 2) SHINGRIX VACCINE (1 of 2) [facility] Start: 01-12-2000 Urine microalbumin profile [facility] Start: 1999 Anxiety Screening Anxiety Screening [facility] Start: 1999 Depression Screening Depression Screening [facility] Start: 1999 HIV SCREENING HIV SCREENING [facility] Start: 1999 HIV screening HIV Screening [facility] Start: 1987 PNEUMOCOCCAL (1 - PCV) PNEUMOCOCCAL (1 - PCV) [facility] Start: 1987 [facility] Start: [facility] HEPATITIS B (1 of 3 - 3-dose series) HEPATITIS B (1 of 3 - 3-dose series) [facility] Start: 1981 Hepatitis B Vaccine (1 of 3 - 3-dose series) Hepatitis B Vaccine (1 of 3 - 3-dose series) [facility] Ambulatory bp mntr w /sw 24 hr+ rec scan delaney i&r AMBULATORY BP MONITORING Cardiology Routine SOB (shortness of breath) Diastolic dysfunction Ordered: 05/18/2022 [facility] Work Phone: Comment on above: Ordered: 05/18/2022 End: 12-18-2023 Ct abdomen & pelvis w/contrast material CT ENTEROGRAPHY W IVCON Radiology Routine Abdominal pain, unspecified abdominal location 1 Occurrences starting 11/18/2022 until 12/18/2023 [facility] Work Phone: Comment on above: 1 Occurrences starting 11/18/2022 until 12/18/2023 End: 03-11-2023 ECG COMPLETE ECG COMPLETE ECG Routine Diastolic dysfunction 1 Occurrences starting 03/11/2022 until 03/11/2023 [facility] Work Phone: Comment on above: 1 Occurrences starting 03/11/2022 until 03/11/2023 End: 01-04-2023 Echocardiography ECHO Cardiology Routine Shortness of breath 1 Occurrences starting 01/04/2022 until 01/04/2023 [facility] Work Phone: Comment on above: 1 Occurrences starting 01/04/2022 until 01/04/2023 End: 01-24-2026 EGD DIAGNOSTIC EGD DIAGNOSTIC Endoscopy Routine Body mass index 50.0-59.9, adult (HCC) Weight gain 1 Occurrences starting 01/24/2025 until 01/24/2026 [facility] Comment on above: 1 Occurrences starting 01/24/2025 until 01/24/2026 Inhalation challenge test report Document --W methacholine inhaled [facility] Work Phone: Patient Education ED Hypertensio n New Begin Treatment [facility] Work Phone: Patient referral [facility] Work Phone: End: 02-23-2026 RF Gastrointestinal tract upper Views W barium contrast PO XR UPPER GI SINGLE CONTRAST Radiology Routine Body mass index 50.0-59.9, adult (HCC) Weight gain Anastomotic ulcer S/P gastric bypass 1 Occurrences starting 01/24/2025 until 02/23/2026 [facility] Work Phone: Comment on above: 1 Occurrences starting 01/24/2025 until 02/23/2026 End: 12-28-2025 XR Knee - bilateral 4 Views XR KNEE GENERAL 4V AP BOTH/PA BOTH/LAT/MERC BILATERAL Radiology Routine Chronic pain of both knees 1 Occurrences starting 11/28/2024 until 12/28/2025 [facility] Work Phone: Comment on above: 1 Occurrences starting 11/28/2024 until 12/28/2025 XR Knee - bilateral 4 Views XR KNEE GENERAL 4V AP BOTH/PA BOTH/LAT/MERC BILATERAL Radiology Routine Chronic pain of both knees 11/28/2024 11:51 AM EST [facility] Immunizations Immunization Date Immunization Notes Care Provider [facility] 07-08-2022 influenza, seasonal, injectable Sincere Dickson MD Work Phone: [facility] 07-08-2022 influenza virus vacc ine, unspecified formulation Sincere Dickson MD Work Phone: [facility] 06-24-2021 influenza virus vacc ine, unspecified formulation Sincere Dickson MD Work Phone: [facility] 06-24-2020 influenza virus vacc ine, unspecified formulation Sincere Dickson MD Work Phone: [facility] 07-26-2018 Influenza, injectabl e, [place] Canine Kidney, preservative free, quadrivalent Sincere Dickson MD Work Phone: [facility] 08-07-2009 novel Influenza-H1N1 -09, live virus for nasal administration Sincere Dickson MD Work Phone: [facility] Payers Date Payer Category Payer Self-pay 2018 Private Health Insurance MMO SU[employer] PPO [id number] 2018 Unknown MMO MMO [employer] PLUS [id number] 2018-Present [phone] [address] [place] [address] PPO [id number] 2018 Unknown [id number] 2018 Unknown [id number] 2017 Unknown [id number] Unknown [id number] Unknown [id number] [id number]. 139 Unknown [id number] [id number]. 139 Unknown [id number] [id number]. 139 Unknown [id number] [id number]. 139 Unknown [id number] 2.16.840.1.753272.3.579.2. 139 Unknown [id number] [id number]. 462 Unknown [id number] 2.16.840.1.401305.3.579.2. 462 Unknown [id number] [id number]. 462 Unknown [id number] [id number]. 462 Unknown [id number] [id number]. 462 Unknown [id number] 2.16.840.1.901271.3.579.2. 462 Unknown [id number] [id number]. 462 Unknown [id number] [id number]. 462 Unknown [id number] [id number]. 462 Unknown [id number]. 462 Social History Date Type Detail Facility [facility] Sex Assigned At Not on file [facility] Start: 05-18-2022 End: 10-17-2024 Tobacco smoking status NHIS Never smoked tobacco [facility] Start: 01-04-2022 End: 02-19-2025 Alcohol intake Current drinker of alcohol (finding) [facility] Start: 1980 Sex Assigned At Female [facility] Start: 10-27-2020 End: 05-18-2022 Exposure to SARS-CoV-2 (event) Not sure [facility] Start: 09-02-2021 End: 09-09-2022 Tobacco smoking status SDIS Unknown if ever smoked [facility] Start: 01-18-2020 None [facility] Start: 01-18-2020 With Family [facility] Start: 03-30-2020 Non-smoker [facility] Start: 04-10-2019 End: 05-18-2022 Tobacco use and exposure Smokeless tobacco non-user [facility] Start: 11-18-2022 End: 02-23-2023 History of Social function [facility] Start: 11-18-2022 End: 02-23-2023 Tobacco use panel [facility] Adult Depression Screening Assessment 1 [facility] Start: 09-26-2020 Gender identity Identifies as female gender (finding) [facility] Start: 09-26-2020 Sexual orientation Heterosexual (finding) [facility] Start: 12-21-2024 Sex Female (finding) [facility] Medical Equipment Procedure Code Equipment Code Equipment Original Text Equipment Identifier Dates Arthroscopy, knee, with ACL reconstruction using allograft or autograft FIBERSTICK,#2 FDA Start: 04-06-2020 Arthroscopy, knee, with ACL reconstruction using allograft or autograft GRAFTBOLT,8MM FDA Start: 04-06-2020 Arthroscopy, knee, with ACL reconstruction using allograft or autograft POSTERIOR TIBIALIS TENDON FDA Start: 04-06-2020 Arthroscopy, knee, with ACL reconstruction using allograft or autograft TENDON, POST TIB NON IRRADIATE FDA Start: 04-06-2020 Arthroscopy, knee, with ACL reconstruction using allograft or autograft TIGHTROPE,ACL FDA Start: 04-06-2020 Arthroscopy, knee, with ACL reconstruction using allograft or autograft FIBERSTICK,#2 FDA Start: 04-06-2020 Arthroscopy, knee, with ACL reconstruction using allograft or autograft GRAFTBOLT,8MM FDA Start: 04-06-2020 Arthroscopy, knee, with ACL reconstruction using allograft or autograft POSTERIOR TIBIALIS TENDON FDA Start: 04-06-2020 Arthroscopy, knee, with ACL reconstruction using allograft or autograft TENDON, POST TIB NON IRRADIATE FDA Start: 04-06-2020 Arthroscopy, knee, with ACL reconstruction using allograft or autograft TIGHTROPE,ACL FDA Start: 04-06-2020 Arthroscopy, knee, with ACL reconstruction using allograft or autograft FIBERSTICK,#2 FDA Start: 04-06-2020 Arthroscopy, knee, with ACL reconstruction using allograft or autograft GRAFTBOLT,8MM FDA Start: 04-06-2020 Arthroscopy, knee, with ACL reconstruction using allograft or autograft POSTERIOR TIBIALIS TENDON FDA Start: 04-06-2020 Arthroscopy, knee, with ACL reconstruction using allograft or autograft TENDON, POST TIB NON IRRADIATE FDA Start: 04-06-2020 Arthroscopy, knee, with ACL reconstruction using allograft or autograft TIGHTROPE,ACL FDA Start: 04-06-2020 Arthroscopy, knee, with ACL reconstruction using allograft or autograft FIBERSTICK,#2 FDA Start: 04-06-2020 Arthroscopy, knee, with ACL reconstruction using allograft or autograft GRAFTBOLT,8MM FDA Start: 04-06-2020 Arthroscopy, knee, with ACL reconstruction using allograft or autograft POSTERIOR TIBIALIS TENDON FDA Start: 04-06-2020 Arthroscopy, knee, with ACL reconstruction using allograft or autograft TENDON, POST TIB NON IRRADIATE FDA Start: 04-06-2020 Arthroscopy, knee, with ACL reconstruction using allograft or autograft TIGHTROPE,ACL FDA Start: 04-06-2020 Arthroscopy, knee, with ACL reconstruction using allograft or autograft FIBERSTICK,#2 FDA Start: 04-06-2020 Arthroscopy, knee, with ACL reconstruction using allograft or autograft GRAFTBOLT,8MM FDA Start: 04-06-2020 Arthroscopy, knee, with ACL reconstruction using allograft or autograft POSTERIOR TIBIALIS TENDON FDA Start: 04-06-2020 Arthroscopy, knee, with ACL reconstruction using allograft or autograft TENDON, POST TIB NON IRRADIATE FDA Start: 04-06-2020 Arthroscopy, knee, with ACL reconstruction using allograft or autograft TIGHTROPE,ACL FDA Start: 04-06-2020 Arthroscopy, knee, with ACL reconstruction using allograft or autograft FIBERSTICK,#2 FDA Start: 04-06-2020 Arthroscopy, knee, with ACL reconstruction using allograft or autograft GRAFTBOLT,8MM FDA Start: 04-06-2020 Arthroscopy, knee, with ACL reconstruction using allograft or autograft POSTERIOR TIBIALIS TENDON FDA Start: 04-06-2020 Arthroscopy, knee, with ACL reconstruction using allograft or autograft TENDON, POST TIB NON IRRADIATE FDA Start: 04-06-2020 Arthroscopy, knee, with ACL reconstruction using allograft or autograft TIGHTROPE,ACL FDA Start: 04-06-2020 Arthroscopy, knee, with ACL reconstruction using allograft or autograft FIBERSTICK,#2 FDA Start: 04-06-2020 Arthroscopy, knee, with ACL reconstruction using allograft or autograft GRAFTBOLT,8MM FDA Start: 04-06-2020 Arthroscopy, knee, with ACL reconstruction using allograft or autograft POSTERIOR TIBIALIS TENDON FDA Start: 04-06-2020 Arthroscopy, knee, with ACL reconstruction using allograft or autograft TENDON, POST TIB NON IRRADIATE FDA Start: 04-06-2020 Arthroscopy, knee, with ACL reconstruction using allograft or autograft TIGHTROPE,ACL FDA Start: 04-06-2020 Arthroscopy, knee, with ACL reconstruction using allograft or autograft FIBERSTICK,#2 FDA Start: 04-06-2020 Arthroscopy, knee, with ACL reconstruction using allograft or autograft GRAFTBOLT,8MM FDA Start: 04-06-2020 Arthroscopy, knee, with ACL reconstruction using allograft or autograft POSTERIOR TIBIALIS TENDON FDA Start: 04-06-2020 Arthroscopy, knee, with ACL reconstruction using allograft or autograft TENDON, POST TIB NON IRRADIATE FDA Start: 04-06-2020 Arthroscopy, knee, with ACL reconstruction using allograft or autograft TIGHTROPE,ACL FDA Start: 04-06-2020 Arthroscopy, knee, with ACL reconstruction using allograft or autograft FIBERSTICK,#2 FDA Start: 04-06-2020 Arthroscopy, knee, with ACL reconstruction using allograft or autograft GRAFTBOLT,8MM FDA Start: 04-06-2020 Arthroscopy, knee, with ACL reconstruction using allograft or autograft POSTERIOR TIBIALIS TENDON FDA Start: 04-06-2020 Arthroscopy, knee, with ACL reconstruction using allograft or autograft TENDON, POST TIB NON IRRADIATE FDA Start: 04-06-2020 Arthroscopy, knee, with ACL reconstruction using allograft or autograft TIGHTROPE,ACL FDA Start: 04-06-2020 Mental Status Date Assessment Result Facility 06-09-2022 Cognitive function Level Of Cons ciousness Awake;Alert;Appropriate;Follow s Commands [facility] Work Phone: Clinical Notes 11-26-2020 to 02-19-2025 Cj Cagle RN - 02/19/2025 1:25 PM Cj Upton RN - 02/19/2025 1:25 PM Zee Vasquez RN - 02/19/2025 12:37 PM Zee Vasquez RN - 02/19/2025 12:37 PM EDT Note Date & Type Note Facility 02-19-2025 Nurse Note AMBULATORY PATIENT EDUCATION NOTE TOPIC: GI PROCEDURES: Esophagogastroduodenoscopy(EGD) with or without biopies based on clinical findings, removal of polyps or lesions READINESS TO LEARN INSTRUCTION PROVIDED TO: Patient, readness to learn accessed prior to procedure and Patient and family member COGNITIVE ABILITY: Alert and oriented PTED MOTIVATION TO LEARN: Interested FAMILY SUPPORT: High - Very involved in pt care IPATIENT LEARNS BEST BY: Individual Instruction Written Instruction - Hand-outs Verbal Instruction FACTORS AFFECTING LEARNING: None PHYSICAL LIMITATIONS AFFECTING LEARNING: None LEARNING RESPONSE METHOD OF INSTRUCTION: Individual instruction PATIENT / FAMILY RESPONSE: Verbalizes understanding of: WORSENING CONDITION-Signs and symptoms of a worsening condition that warrant a call to the physician FOLLOW-UP PLAN: Patient instructed to call with any further issues Recommend - Recommend continued instruction and follow up as directed Contact information given. SUPPLEMENTAL MATERIAL: Procedure Discharge Instructions REFERRAL (RECOMMENDATION): None [facility] 02-19-2025 Nurse Note AMBULATORY PATIENT EDUCATION NOTE TOPIC: GI PROCEDURES: Esophagogastroduodenoscopy(EGD) with or without biopies based on clinical findings, removal of polyps or lesions READINESS TO LEARN INSTRUCTION PROVIDED TO: Patient, readness to learn accessed prior to procedure and Patient and family member COGNITIVE ABILITY: Alert and oriented PTED MOTIVATION TO LEARN: Interested FAMILY SUPPORT: High - Very involved in pt care IPATIENT LEARNS BEST BY: Individual Instruction Written Instruction - Hand-outs Verbal Instruction FACTORS AFFECTING LEARNING: None PHYSICAL LIMITATIONS AFFECTING LEARNING: None LEARNING RESPONSE METHOD OF INSTRUCTION: Individual instruction PATIENT / FAMILY RESPONSE: Verbalizes understanding of: WORSENING CONDITION-Signs and symptoms of a worsening condition that warrant a call to the physician FOLLOW-UP PLAN: Patient instructed to call with any further issues Recommend - Recommend continued instruction and follow up as directed Contact information given. SUPPLEMENTAL MATERIAL: Procedure Discharge Instructions REFERRAL (RECOMMENDATION): None PRE OP LEARNING ASSESSMENT PROCEDURE/SURGERY: GI PROCEDURES: EGD READINESS TO LEARN COGNITIVE ABILITY: Alert and oriented MOTIVATION TO LEARN: Interested FAMILY SUPPORT: Unable to assess - Family not present PATIENT LEARNS BEST BY: Individual Instruction FACTORS AFFECTING LEARNING: None PHYSICAL LIMITATIONS AFFECTING LEARNING: None Electronically Signed By: Zee Harvey RN In Department: GASTROENTEROLOGY documented in this encounter [facility] 02-19-2025 Nurse Note PRE OP LEARNING ASSESSMENT PROCEDURE/SURGERY: GI PROCEDURES: EGD READINESS TO LEARN COGNITIVE ABILITY: Alert and oriented MOTIVATION TO LEARN: Interested FAMILY SUPPORT: Unable to assess - Family not present PATIENT LEARNS BEST BY: Individual Instruction FACTORS AFFECTING LEARNING: None PHYSICAL LIMITATIONS AFFECTING LEARNING: None Electronically Signed By: Zee Harvey RN In Department: GASTROENTEROLOGY [facility] 02-06-2025 Telephone encounter Note Received discharge summary - rehabilitation services 02/04/25 from [facility] Scan on 02/05/2025 1:21 PM by ProviderBryan PA-C: Consultation - PT/OT/Speech [facility] 02-06-2025 Miscellaneous Notes Received discharge summary - rehabilitation services 02/04/25 from [facility] Scan on 02/05/2025 1:21 PM by ProviderBryan PA-C: Consultation - PT/OT/Speech documented in this encounter [facility] 02-05-2025 History of Presen t illness Narrative Radiology Service Progress Note PATIENT NAME: Galindo Ho DATE OF SERVICE: February 05, 2025 TIME: 7:55 AM PATIENT IDENTITY VERIFICATION COMPLETED USING TWO (2) IDENTIFIERS: Name and Date of confirmed by patient verbally. FALL SCREENING: Has the patient had 2 falls in the last year or 1 fall with injury or currently using an Ambulatory Assistive Device (Walker, Cane, Wheelchair, Crutches, etc.)? No PATIENT GENDER DATA: Assigned female at . status: : No status: NO. PATIENT RELEVANT IMPLANT DATA REVIEWED: Not Applicable PATIENT PRESENTS WITH AN IMPLANTABLE OR ATTACHED CLIENT ANALYST: No RADIOLOGY DEPARTMENT: General X-ray: Exam(s) Completed: GI/ Procedure(s): Upper GI with barium contrast PERIPHERAL IV DATA: Not applicable SIGNED BY: RT Joanne(Jh) February 05, 2025 7:55 AM documented in this encounter [facility] 02-05-2025 Note HNO ID: [id number] Author: JONG MORRIS RT(R) Service: Radiology Author Type: Technologist Type: Progress Notes Filed: 02/05/2025 07:55 Note Text: Radiology Service Progress Note PATIENT NAME: Galindo Ho DATE OF SERVICE: February 05, 2025 TIME: 7:55 AM PATIENT IDENTITY VERIFICATION COMPLETED USING TWO (2) IDENTIFIERS: Name and Date of confirmed by patient verbally. FALL SCREENING: Has the patient had 2 falls in the last year or 1 fall with injury or currently using an Ambulatory Assistive Device (Walker, Cane, Wheelchair, Crutches, etc.)? No PATIENT GENDER DATA: Assigned female at . status: : No status: NO. PATIENT RELEVANT IMPLANT DATA REVIEWED: Not Applicable PATIENT PRESENTS WITH AN IMPLANTABLE OR ATTACHED CLIENT ANALYST: No RADIOLOGY DEPARTMENT: General X-ray: Exam(s) Completed: GI/ Procedure(s): Upper GI with barium contrast PERIPHERAL IV DATA: Not applicable SIGNED BY: AGUEDA Rubio) February 05, 2025 7:55 AM [facility] 02-04-2025 Discharge summary Note Date/Time February 04, 2025 7:00p m [facility] Physical Therapy [facility] [address] [place] [address] [address] [place] [address] / REHABILITATION SERVICES DISCHARGE SUMMARY MR#: [id number] Acct: [id number] Name: GALINDO HO Rep #: [id number] : 1980 45 From: Ofelia Valentine Referring Dr.: OUT OF TOWN DOCTOR Status: REG RCR Insurance: [facility] SELF PAY INSURANCE Discharge Summary D/C summary: It has been my pleasure to treat GALINDO HO referred by SINCERE DICKSON, with the diagnosis of Knee OA for a total of 16 visit(s). Discharge Date: 02/04/25 Please see the following information for a summary of their discharge status. Subjective Subjective: Pt has no knee pain today. She had last pain Monday being cramped in the car. She is doin HEP on land and her parents have an inground pool and will do that when the weather is warmer. Pain B knee pain: Pain Intensity (Out of 10): 4 R hip: Pain Intensity (Out of 10): 3 B ankles: Pain Intensity (Out of 10): 4 Overall jt pn: Pain Intensity (Out of 10): 4 BACK: Pain Intensity (Out of 10): 3 R heel: Pain Intensity (Out of 10): 5 Overall Improvement % Improvement: 80 Objective Objective/Function: LE MMT: R hip flex 14.8 and L 12.3 R knee ext 30.5 and L 36 R knee flex 21.7 and L 21.7 Hip ABD B 4+/5 and hip add 4+/5 Stairs: up and down recip with no hand rail going up (slight discomfort at the top step) and light touch on the rail descending the step. Goals Goal 1:: I HEP Goal Progress: Goal Met Goal 2:: Increase LE strength (at the time of the eval: LE MMT: R hip flex 12.3 and L 11.3 R knee ext 25.1 and L 25.6 R knee flex 16.7 and L 16.7 Hip ABD B 4/5 and hip add 4/5). Goal Progress: Goal Met Goal 3:: Pt to report 50% less B knee pain with walking Goal Progress: Goal Met Goal 4:: Be able to go up and down the steps recip with 1 hand rail with 50% less pain Goal Progress: Goal Met Plan Plan: DC PT to HEP D/C Information Discharge Comments: DC PT to HEP d/c sentence: If there are questions or concerns regarding this patient's physical therapy, please feel free to call me at [phone]. Thank you for the referral of thispatient. Sincerely, Ofelia Pennington, MPT Balance/Gait/Functional tests Balance/Special Test Scores Lower Extremity Functional Score: 56 Improvement % Improvement: 80 <Electronically signed by Ofelia Pennington MPT> 02/04/25 0936 CC: SINCERE DICKSON; Dr. Armand Ma MD ~ Signed [facility] Work Phone: [phone]) 174-918505-13-2025 Discharge summary [facility] [facility] [place] [address] / REHABILITATION SERVICES DISCHARGE SUMMARY MR#: [id number] Acct: [id number] Name: GALINDO HO Rep #: [id number] : 1980 45 From: Ofelia Pennington MP T Referring Dr.: OUT OF TOWN DOCTOR Status: REG RCR Insurance: [facility] SELF PAY INSURANCE Discharge Summary D/C summary: It has been my pleasure to treat GALINDO HO referred by SINCERE DICKSON, with the diagnosis of Knee OA for a total of 16 visit(s). Discharge Date: 02/04/25 Please see the following information for a summary of their discharge status. Subjective Subjective: Pt has no knee pain today. She had last pain Monday being cramped in the car. She is doin HEP on land and her parents have an inground pool and will do that when the weather is warmer. Pain B knee pain: Pain Intensity (Out of 10): 4 R hip: Pain Intensity (Out of 10): 3 B ankles: Pain Intensity (Out of 10): 4 Overall jt pn: Pain Intensity (Out of 10): 4 BACK: Pain Intensity (Out of 10): 3 R heel: Pain Intensity (Out of 10): 5 Overall Improvement % Improvement: 80 Objective Objective/Function: LE MMT: R hip flex 14.8 and L 12.3 R knee ext 30.5 and L 36 R knee flex 21.7 and L 21.7 Hip ABD B 4+/5 and hip add 4+/5 Stairs: up and down recip with no hand rail going up (slight discomfort at the top step) and light touch on the rail descending the step. Goals Goal 1:: I HEP Goal Progress: Goal Met Goal 2:: Increase LE strength (at the time of the eval: LE MMT: R hip flex 12.3 and L 11.3 R knee ext 25.1 and L 25.6 R knee flex 16.7 and L 16.7 Hip ABD B 4/5 and hip add 4/5). Goal Progress: Goal Met Goal 3:: Pt to report 50% less B knee pain with walking Goal Progress: Goal Met Goal 4:: Be able to go up and down the steps recip with 1 hand rail with 50% less pain Goal Progress: Goal Met Plan Plan: DC PT to HEP D/C Information Discharge Comments: DC PT to HEP d/c sentence: If there are questions or concerns regarding this patient's physical therapy, please feel free to call me at [phone]. Thank you for the referral of thispatient. Sincerely, Ofelia Pennington, MPT Balance/Gait/Functional tests Balance/Special Test Scores Lower Extremity Functional Score: 56 Improvement % Improvement: 80 02/04/25 0936 CC: SINCERE DICKSON; Dr. Armand Ma MD ~ Signed [facility]05-12-2025 Telephone encounter Note* Telephone Encounter - Jolene Brumfield LPN - 02/03/2025 11:28 AM EDT [facility]ist [facility] called stating that Zepbound 2.5 mg and 5 mg need to be separate prescriptions. ED 01/29/25. [facility]05-12-2025 Miscellaneous Notes* Telephone Encounter - Jolene Brumfield LPN - 02/03/2025 11:28 AM EDT [facility] pharmacist at [facility] called stating that Zepbound 2.5 mg and 5 mg need to be separate prescriptions. [facility] 01/29/25. [facility] Instructions* Patient Instructions* Julita Burgos, KATHERINE.DRY ROOM OPERATOR - 01/29/2025 9:48 AM EDT Nutrition Diagnosis: Overweight/obesity, related to, decreased energy needs, as evidenced by BMI above normative standard for age and gender. Nutrition Intervention: Modify type and amount of food consumed for meals and snacks: [email or web address]/-/scassets/files/org/[email or web address]/guides/bmiguideboo [email or web address]-[email or web address]?la=en Read Nutrition Guidelines section before next visit. 1. Do not skip meals. 2. Use protein shake 1x per day to replace any skipped meals or for breakfast 3. Use the Healthy Plate Method of portion control for lunch and dinner 4 oz lean meat (fish, chicken, pork tenderloin, turkey, seafood, eggs/cheese 1/2 plate non starchy vegetables (salad, greens, cabbage, spinach, brussels sprouts, broccoli, carrots, celery, peppers, green beans, cauliflower) 1 cup starch/starchy vegetables (corn, peas, christine beans, winter squash, sweet potato, rice, pasta, potato) 4. Begin physical activity with a goal of 150 min of aerobic exercise per week. Include 2-3 days ofstrength exercises 2-3 times/week. 5. Drink 64 ounces per day water. Fluids should follow these guidelines: No carbonation, no caffeine, no calories, no alcohol. Goal weight pre-op is 308 lbs. Protein goal is 84 to 105 gm Nutrition Monitoring & Evaluation: 1-2# weight loss per week SNACK LIST Starch + Protein (6-14g protein each) 3 whole grain crackers and 1 oz light spreadable cheese 3 whole wheat crackers and 1TBS natural smooth peanut butter 1 small tortilla, 3 TBS part skim mozzarella cheese and cup salsa light toasted Jamaican muffin with plain tomato sauce and 1 oz part skim mozzarella cheese light toasted Jamaican muffin with 1 oz of tuna fish and 1 oz low fat cheese 1 small tortilla, 1 slice of turkey, 1 ounce low fat cheese, toasted Vegetables + Protein (6-14g protein each) Sliced, peeled cucumbers and tomatoes with 1-2 oz part skim mozzarella Mushrooms marinated in balsamic vinegar with 1-2 oz part skim buffalo mozzarella 1 small tomato with 2 oz of tuna fish or low fat cottage cheese Carrots with 1 oz light cream cheese Fruits + Protein (4-7 g protein each) 2 light canned peach halves and 4 oz low fat cottage cheese Sliced peeled apple and 1 TBS smooth peanut butter cup berries with 4 oz light yogurt or low fat cottage cheese 1/2c cantaloupe cubes wrapped in lean deli ham banana and 1 TBS smooth peanut butter Dairy (4-8 g protein each) 6-8 oz Light yogurt smoothie Light yogurt and half banana Light yogurt and c low fat granola Light plain yogurt mixed with 1-2 TBS sugar free pudding powder cup Fat free/sugar free vanilla pudding and sliced banana 1 cup 1% or skim milk Protein (4-8 g protein each) 1 Part skim mozzarella cheese stick rolled in 1 slice of deli meat cup Ricotta cheese, vanilla extract, 1 packet of Splenda, 2TBS Cool Whip Free 4 oz low fat cottage cheese 1-2 oz Rolled deli meats 1 Hard boiled egg or deviled egg 1 oz tuna fish mixed with light mayonnaise and 3 whole wheat crackers 1oz chopped chicken with light mayonnaise on one slice of whole wheat toast cup black beans and 1 oz low fat cheese Protein Bars Aim for 150 calories per portion with 5-10 grams of protein Nutrition Goals: Work on the following goals for the first month of your medically supervised weight loss program: 1) Eliminate all beverages with calories including soda and juice. 2) Drink 6-8 glasses (64 ounces) of zero calorie non-carbonated beverages. Try artificially sweetened flavor drops like Dansani, [place], Fit and Active or Crystal light. Try Vitamin Water Zero G2 , Powerade Zero, unsweetened iced tea or water 3) Practice drinking the majority of fluids between meals 30 minutes before or 30 minutes after the meal 4) Exercise at least three times per week 20-30 minutes per session- pick something convenient and enjoyable. 5) Take a multi vitamin daily 6) Try a protein shake and piece of fruit in place of one meal daily- See nutrition section of Guidebook 7) Download phone jace GaBoom to track calories and protein. Log food eaten at least 2 days aweek. Try some of the bariatric friendly recipes. 8) Eat foods high in protein 60-90 grams of Protein Daily 9) Try to keep calories 5849-2375 daily, do not go below 1000 calories per day. 10) Eat slowly and chew food well - 20-30 minutes for small meal. Cut smaller pieces of food and set fork down between bites. Bariatric Vitamin List Bariatric Fusion: 4 Complete Multivitamin chewables per day OR 1 Multivitamin capsule and 1200-1500mg calcium citrate per day OR 2 Multivitamin soft chews per day + 3 calcium citrate soft chews + 1 iron soft chew per day www.bariatricfusion.com - Bariatric Choice: 4 All-in-One Bariatric Multivitamin chewables per day OR 1 Once Daily BariatricMultivitamin capsule and 3074-9844 mg calcium citrate per day www.bariatricchoice.[employer] - Bariatric Pal: 4 All-in-One Multivitamin chewables per day OR 1 Multivitamin One (chewable or capsule) and 8637-5958 mg calcium citrate per day www.RichRelevance.bariatricpal.[employer]/collections/bariatric-vitamins - Bariatric Advantage: 1 Ultra Solo multivitamin w/ iron (chewable or capsule) OR 2 chewable Advanced Multi EA w/ iron and 3488-6517 mg calcium citrate per day OR 2 Multi Chewy Bites and 8252-8446 mgcalcium citrate and 45-60 mg iron per day www.bariatricadvantage.[employer] - Procare Health: 1 Bariatric Multivitamin w/ iron (capsule or chewable) and 9140-4988 mg calcium citrate per day www.Microventures.[employer] - Celebrate: 2 Multi-Complete (chewable or capsule) OR 1 CelebrateOne Multivitamin capsule and 4844-0465 mg calcium citrate per day OR 2 Multivitamin soft chews + 3 calcium citrate soft chews + 1 iron soft chew per day https://SynchronyebrateT[employer] Media - Barilife: 1 Just One Bariatric Multivitamin w/ iron (chewable or capsule) and 5278-1889 mg calcium citrate per day www.barilife.[employer] - Barimelts: 2 Multivitamin w/ iron tablets and 0237-0618 mg calcium citrate per day www.barimelts.[employer] Media We discussed your bariatric surgery follow-up and weight management: - You will need to schedule two tests: an upper GI series and an endoscopy. - The upper GI series can be scheduled at a [facility] location near you that has an X-ray department. Please call to schedule this test. - The endoscopy will be performed by Dr. Shah. Please contact her office to schedule this procedure. It is recommended to complete the upper GI series first so the results are available for review during the endoscopy. - Once both tests are completed, follow up with Dr. Shah via KidzVuzt to discuss the results and next steps. - Start taking a bariatric-specific multivitamin daily. I recommend BariatricPal multivitamins, which can be purchased online. These contain the appropriate levels of nutrients needed after bariatricsurgery. - Additionally, take calcium citrate daily with meals, as it is better absorbed after gastric bypass surgery. - Consider incorporating a protein shake to replace one meal per day. Look for low-sugar, high-protein options. This can help boost your protein intake and support weight management. - Begin eating three smaller meals per day (breakfast, lunch, and dinner) to help regulate your metabolism. Avoid eating after dinner. - Download the GaBoom jace to help track your meals and ensure you are meeting your nutritionalgoals. Aim for 1,400-1,600 calories per day, with a focus on high-protein foods. We discussed weight loss medications: - I will work on obtaining prior authorization for Zepbound (a weekly injectable medication for weight loss). If approved, you will start at 2.5 mg once weekly for one month, then gradually increase the dose as tolerated. - To minimize nausea, avoid high-fat and high-fiber foods around the time of injection. - If Zepbound is not covered, we will explore other options, including Wegovy, Trulicity, or oral medications like topiramate. We discussed your history of ulcers and potential fistula: - Start taking Prilosec (omeprazole) 20 mg daily to help prevent ulcers and manage any potential fistula-related issues. This has been sent to your pharmacy. Continue this until your endoscopy is completed, and we can reassess after the results. We discussed your inflammatory bowel disease and diarrhea: - You may try Imodium (loperamide) as needed to manage diarrhea, especially during travel. Start with one dose and monitor its effects. We discussed your physical activity: - Continue with aqua therapy, as it is beneficial for your joint pain and mobility. - Aim for 150 minutes of intentional physical activity per week, if possible. Even short 10-minute sessions (exercise snacking) can be helpful. We discussed your blood work and labs: - I will order blood work to check your vitamin levels, including water-soluble vitamins, copper, and magnesium, as these can be low after bariatric surgery. Please complete these labs at your convenience. We discussed your sleep and overall health: - Your sleep study from 2020 showed no evidence of sleep apnea, which is reassuring. Continue aiming for 6-8 hours of sleep per night. Next steps: - Schedule the upper GI series and endoscopy as discussed. - Begin taking the bariatric multivitamin, calcium citrate, and Prilosec as outlined. - Await updates on prior authorization for Zepbound. I will notify you once we have more information. - Follow the dietary and activity recommendations provided to support your weight management goals. Please reach out via KidzVuzt if you have any questions or need further assistance. documented in this encounter[facility] NoteHNO ID: [id number] Author: JULITA BURGOS APRN.CNS Service: ? Author Type: Nurse Specialist Type: Progress Notes Filed: 01/29/2025 16:35 Note Text: IMPRESSION: BMI Obesity Medicine Initial Bariatric Surgery Consult January 29, 2025 BMI Surgical Pathway Visit type: Obesity Medicine Visit Consultation requested by Dr. Barraza for an opinion regarding potential fistula repair and medical weight loss. My final recommendations will be communicated back to the requesting physician by way of shared Medical record or letter to requesting physician via US mail. Patient Summary:: Galindo is a 45-year-old female, with a history of bariatric surgery, presenting for a follow-up and weight management. Galindo underwent gastric bypass surgery in [address] Ruano in [place]. She initially did well for the first year but began to regain weight around month 11 or 12, gaining back 10-15% of what she had lost. She was told this was normal and remained stable for about 2-3 years. In 2013, she was hospitalized for a liver injury and an anastomotic ulcer in the jejunum, which took a long time to heal. 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 She has had COVID-19 three times, with the last episode resulting in long COVID and elevated rheumatoid markers. She was referred to rheumatology and was diagnosed with rheumatoid arthritis (RA), which she believes was triggered by COVID-19. She was started on prednisone, which she took daily for over a year or two, but it did not help with weight loss. She reports that she does not get hungry and is not able to eat a lot, but she has still gained weight despite taking all her vitamins. Over the last 6 years, she has followed an anti-inflammatory diet, avoiding gluten, dairy, and refined sugar, but this did not help with weight loss. Two years ago, she tried intermittent fasting for 18 months, eating only during a 6-hour period and drinking water or black coffee the rest of the time, but this also did not result in weight loss. For the last 8 months, she has been eating whatever her family eats. In 2018, she had uncontrolled periods and underwent a hysterectomy. She developed foot drop after the surgery and was diagnosed with fibromyalgia in 2019. She has been on Remicade infusions for her RA and has been experiencing atrial tachycardia and dizziness 10 days before her infusions are due. She has been tracking this since April and finds it predictable. She has had a 14-day cardiac event monitor, which showed atrial tachycardia, and an echocardiogram, which was normal. She has been diagnosed with inflammatory bowel disease and experiences diarrhea 6-8 times a day. She has been taking fiber to manage this. She denies any issues with urination, stress incontinence, or kidney stones. She has never had a blood clot. She has osteoarthritis in her knees and ankles, which she attributes to her weight. She has tried metformin in the past but did not tolerate it well. She denies a history of seizures or migraines. She sleeps 6-8 hours a night and feels rested the next day. She had a sleep study in 2020 or 2021, which was normal. She can walk about 0.9 miles a couple of times a week but experiences joint pain. She has been doing aqua therapy for 12 weeks, which she finds helpful for her joint pain and mobility. 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 She is with three children, aged 18, 15, and 13. Galindo Ho is a 45 year old female who presents on January 29, 2025 for medical assessment of obesity. The patient is interested in non-surgical weight management Weight History: She reports a strong family history of obesity and early onset weight gain. She states her weight gain is related to the following factors, including reduced physical activity and consumption of unhealthy foods. Exercise: Regular exercise: Yes Barriers to regular exercise? Joint pain due to RA Stress test: no Functional Status: Walk a block or two on level ground (2.75 METs) Climb a flight of stairs or walk up a hill (5.50 METs) ?Sleep: TED NO ; CPAP NO Duration: greater than 6 hours No TED ??Past Medical History PAST MEDICAL HISTORY Diagnosis Date Atrial tachycardia (HCC) Essential hypertension Fibromyalgia Gastric fistula Generalized anxiety disorder Hypertension Inflammatory bowel disease Irritable bowel syndrome Pneumonia due to adenovirus 07/26/2001 Rheumatoid arthritis (HCC) Treatment at [facility] No history of [place], COPD, asthma, peptic ulcer disease, dyslipidemia, hypothyroidism, HTN, cancer, DVT, PE, CVA, T2DM, gout, kidney stones, CKD, and smoking history. Current Outpatient Medications on File Prior to Visit Medication Sig semaglutide, weight loss, (WEGOVY) 0.25 mg/0.5 mL pen injector Inject 0.25 mg subc (more content not included)...[facility]05-07-2025 History of Present illness Narrative* Julita Burgos, AIR BRAKE MECHANIC.DRY ROOM OPERATOR - 01/29/2025 9:27 AM EDT IMPRESSION: BMI Obesity Medicine Initial Bariatric Surgery Consult January 29, 2025 BMI Surgical Pathway Visit type: Obesity Medicine Visit Consultation requested by Dr. Barraza for an opinion regarding potential fistula repair and medical weight loss. My final recommendations will be communicated back to the requesting physician by way of shared Medical record or letter to requesting physician via US mail. Patient Summary:: Galindo is a 45-year-old female, with a history of bariatric surgery, presenting for a follow-up andweight management. Galindo underwent gastric bypass surgery in [address] Ruano in [place]. She initially did well for the first year but began to regain weight around month 11 or 12, gaining back 10-15% of what she had lost. She was told this was normal and remained stable for about 2-3 years. In 2013, she was hospitalized for a liver injury and an anastomotic ulcer in the jejunum, which took a long time to heal.After this, her weight was stable for about 2-3 years, but she then started developing fistulas andhas steadily gained weight since. She has had COVID-19 three times, with the last episode resulting in long COVID and elevated rheumatoid markers. She was referred to rheumatology and was diagnosed with rheumatoid arthritis (RA), which she believes was triggered by COVID-19. She was started on prednisone, which she took daily for over a year or two, but it did not help with weight loss. She reports that she does not get hungry and is not able to eat a lot, but she has still gained weight despite taking all her vitamins. Over the last 6 years, she has followed an anti-inflammatory diet, avoiding gluten, dairy, and refined sugar, but this did not help with weight loss. Two years ago, she tried intermittent fasting for18 months, eating only during a 6- hour period and drinking water or black coffee the rest of the time, but this also did not result in weight loss. For the last 8 months, she has been eating whateverher family eats. In 2018, she had uncontrolled periods and underwent a hysterectomy. She developed foot drop after the surgery and was diagnosed with fibromyalgia in 2019. She has been on Remicade infusions for her RA and has been experiencing atrial tachycardia and dizziness 10 days before her infusions are due. She has been tracking this since April and finds it predictable. She has had a 14-day cardiac event monitor, which showed atrial tachycardia, and an echocardiogram, which was normal. She has been diagnosed with inflammatory bowel disease and experiences diarrhea 6-8 times a day. She has been taking fiber to manage this. She denies any issues with urination, stress incontinence, or kidney stones. She has never had a blood clot. She has osteoarthritis in her knees and ankles, which she attributes to her weight. She has tried metformin in the past but did not tolerate it well. She denies a history of seizures or migraines. She sleeps 6-8 hours a night and feels rested the next day. She had a sleep study in 2020 or 2021, which was normal. She can walk about 0.9 miles a couple of times a week but experiences joint pain. She has been doing aqua therapy for 12 weeks, which she finds helpful for her joint pain and mobility. 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 She is with three children, aged 18, 15, and 13. Galindo Ho is a 45 year old female who presents on January 29, 2025 for medical assessment of obesity. The patient is interested in non-surgical weight management Weight History: She reports a strong family history of obesity and early onset weight gain. She states her weight gain is related to the following factors, including reduced physical activity and consumption of unhealthy foods. Exercise: Regular exercise: Yes Barriers to regular exercise? Joint pain due to RA Stress test: no Functional Status: Walk a block or two on level ground (2.75 METs) Climb a flight of stairs or walk up a hill (5.50 METs) ?Sleep: TED NO ; CPAP NO Duration: greater than 6 hours No TED ??Past Medical History PAST MEDICAL HISTORY Diagnosis Date Atrial tachycardia (HCC) Essential hypertension Fibromyalgia Gastric fistula Generalized anxiety disorder Hypertension Inflammatory bowel disease Irritable bowel syndrome Pneumonia due to adenovirus 07/26/2001 Rheumatoid arthritis (HCC) Treatment at [facility] No history of WI, COPD, asthma, peptic ulcer disease, dyslipidemia, hypothyroidism, HTN, cancer, DVT, PE, CVA, T2DM, gout, kidney stones, CKD, and smoking history. Current Outpatient Medications on File Prior to Visit Medication Sig semaglutide, weight loss, (WEGOVY) 0.25 mg/0.5 mL pen injector Inject 0.25 mg subcutaneously one time a week. (Patient not taking: Reported on 01/29/2025) nebivolol (BYSTOLIC) 10 mg tablet Take 10 mg by mouth once daily. ramipril (ALTACE) 5 mg capsule Take 5 mg by mouth once daily. busPIRone (BUSPAR) 5 mg tablet Take 5 mg by mouth two times a day. riboflavin, vitamin B2, 400 mg tab Take 1 tablet by mouth daily at bedtime. infliximab (REMICADE INTRAVENOUS) Inject intravenously. methotrexate 2.5 mg tablet Take 6 tablets by mouth one time a week. predniSONE (DELTASONE) 5 mg tablet Take 1 tablet by mouth every afternoon. folic acid 1 mg tablet Take one pill each day of the week EXCEPT the day you take methotrexate doxycycline hyclate 150 mg Delayed Release Tablet Take 150 mg by mouth once daily. (Patient not taking: Reported on 01/29/2025) indapamide (LOZOL) 1.25 mg tablet 1.25 mg once daily. MULTIVITAMIN ORAL Take by mouth once daily. DULoxetine (CYMBALTA) 60 mg capsule Take 2 capsules by mouth once daily. pregabalin (LYRICA) 100 mg capsule levocetirizine 5 mg tablet Take 5 mg by mouth once daily. fluticasone (FLONASE) 50 mcg/actuation nasal spray Use 2 Sprays in each nostril once daily. promethazine (PHENERGAN) 12.5 mg tablet 1/2 TO 1 TABLET EVERY 8 HOURS FOR NAUSEA, HEADACHE, OR COUGH ondansetron (ZOFRAN) 4 mg tablet 1 (ONE) TABLET EVERY 8 HOURS FOR NAUSEA OR MOTION SICKNESS Bifidobacterium infantis 1.5 billion cell cap Bifidobacterium Infantis Bifidobacterium Infantis (Digestive Probiotic) 1.5 billion cell capsule Active 1500 MMU CELLS PO DAILY July 05, 2018 [id number] [facility] ([id number]) hydrOXYzine HCl (ATARAX) 25 mg tablet Take 25 mg by mouth daily at bedtime. docosahexaenoic acid/epa (FISH OIL ORAL) Take by mouth. baclofen (LIORESAL) 10 mg tablet TAKE 1 TABLET BY MOUTH 3 TIMES A DAY NEEDED FOR SPASMS cholecalciferol (VITAMIN D3) 5,000 unit tab Take 5,000 Units by mouth. Cyanocobalamin 1,000 mcg subl Dissolve 1,000 mcg under the tongue. Vitamin b12 magnesium oxide (MAG-OX) 400 mg (241.3 mg magnesium) tablet Take 1 tablet by mouth twice daily. calcium citrate/vitamin D3 (CALCIUM CITRATE + D ORAL) Take by mouth. vit/iron fum/folic ac ( 1 PLUS 1 ORAL) Take by mouth. (Patient not taking: Reported on 01/29/2025) No current facility-administered medications on file prior to visit. ALLERGIES Allergen Reactions Banana Shortness of Breath Penicillin G Rash [place] Other: See Comments, Hives Sulfa (Sulfonamide * Hives Watermelon Diarrhea Latex Rash PAST SURGICAL HISTORY Procedure Laterality Date COLONOSCOPY FLX DX W/COLLJ SPEC WHEN PFRMD Colonoscopy REMOVAL GALLBLADDER 2009 SKIN BX, 1 LESION On neck and Right shoulder blade, benign TONSILLECTOMY PRIMARY/SECONDARY AGE 13/> TOTAL ABDOM HYSTERECTOMY 2017 Any problems with anesthesia with the above surgeries: Yes FAMILY HISTORY Problem Relation Age of Onset Cancer Maternal Aunt skin cancer other (CVA [Other]) Paternal Grandfather other (HTN [Other]) Paternal Grandfather other (HTN [Other]) Father other (HTN [Other]) Paternal Grandmother Breast Cancer Paternal Aunt Colon Cancer Paternal Aunt BRCA + Breast Cancer Maternal Grandmother BRCA + Social History Tobacco Use Smoking status: Never Smokeless tobacco: Never Substance Use Topics Alcohol use: Yes Comment: Occasionally Drug use: No Review Of Systems Respiratory: No history of cough, hemoptysis, asthma, recent chest infection, wheezing Cardiovascular: No history of chest pain,palpitation,orthopnea,cynosis,pedel edema Gastrointestinal: No blood in stool, pain with BM, tarry stool, persistent diarrhea or constipation, diarrhea Genitourinary: No burning with urination, blood in urine or incontinence. Hematology/Lymphology: negative for cancer; dvt;vte; hypercoagulable disorder (Factor V Leiden); iron deficiency; sickle cell anemia; lymphedema; lipedema. Musculoskeletal: back pain and joint pain LLE Endocrine: No history of thyroid disorder,diabetes,cold intolerance,heat,intolerance,polydypsia Neuro: No history of headaches, syncope, paralysis, seizures or tremors Physical Exam BP 135/83 Pulse 73 Ht 167.2 cm (5' 5.83) Wt (!) 156.4 kg (344 lb 14.6 oz) LMP 10/18/2005 BMI 55.96 kg/m HEENT:: tongue moist, no acanthosis nigricans Lungs: Lungs clear to auscultation. No wheezing, rhonchi, rales. Heart: RRR without murmur, gallop, or rubs. No ectopy Abdomen: Abdomen soft, non-tender. Bowel sounds normal. No masses or organomegaly Extremities: Extremities normal. No deformities, edema, or skin discoloration. Good capillary refill. Impression Galindo Ho is a 45 year old female with Class III obesity She has the following metabolic complications of obesity dyslipidemia and hypertension and other medical conditions as below. We reviewed principles of energy metabolism, caloric intake and expenditure, and rationale for treatment program. We discussed the importance of healthy lifestyle modification. : N/A Patient Active Problem List Seronegative rheumatoid arthritis (HCC) Resolved Hospital Problems No resolved problems to display. Plan Reviewed BMI Nutritional Tips for Bariatric Surgery pamphlet We discussed your bariatric surgery follow-up and weight management: - You will need to schedule two tests: an upper GI series and an endoscopy. - The upper GI series can be scheduled at a [facility] location near you that has an X-ray department. Please call to schedule this test. - The endoscopy will be performed by Dr. Shah. Please contact her office to schedule this procedure. It is recommended to complete the upper GI series first so the results are available for review during the endoscopy. - Once both tests are completed, follow up with Dr. Shah via [employer] to discuss the results and next steps. - Start taking a bariatric-specific multivitamin daily. I recommend BariatricPal multivitamins, which can be purchased online. These contain the appropriate levels of nutrients needed after bariatricsurgery. - Additionally, take calcium citrate daily with meals, as it is better absorbed after gastric bypass surgery. - Consider incorporating a protein shake to replace one meal per day. Look for low-sugar, high-protein options. This can help boost your protein intake and support weight management. - Begin eating three smaller meals per day (breakfast, lunch, and dinner) to help regulate your metabolism. Avoid eating after dinner. - Download the [employer] jace to help track your meals and ensure you are meeting your nutritionalgoals. Aim for 1,400-1,600 calories per day, with a focus on high-protein foods. We discussed weight loss medications: - I will work on obtaining prior authorization for Zepbound (a weekly injectable medication for weight loss). If approved, you will start at 2.5 mg once weekly for one month, then gradually increase the dose as tolerated. - To minimize nausea, avoid high-fat and high-fiber foods around the time of injection. - If Zepbound is not covered, we will explore other options, including Wegovy, Trulicity, or oral medications like topiramate. Encouraged the patient to improve physical activity. We discussed the benefits of both cardiovascular and strength exercises. Discussed the importance of taking post-operative vitamins and reviewed vitamin levels ordered today. Patient understands that any variations of B vitamins or Vitamin D will be corrected pre-operatively. BMI Obesity Med Patient Tasks if surgery recommended Preop Workup Chest x-ray: Needed EKG:Needed US:N/A Labs:Needed Sleep study: N/A Cardiology:N/A Pulmonary:N/A Vascular:N/A I spent a total of 70 minutes on the date of the service which included preparing to see the patient, [id number] patient care, completing clinical documentation, obtaining and/or reviewing separately obtained history, performing a medically appropriate examination, counseling and educating the pat ient/family/caregiver, ordering medications, tests, or procedures, and communicating with other HCPs (not separately reported). Julita Burgos APRN.DRY ROOM OPERATOR documented in this [facility] NoteHNO ID: [id number] Author: GARY BARRAZA MD Service: ? Author Type: Physician Type: Progress Notes Filed: 02/04/2025 13:51 Note Text: BARIATRIC HANDP/PRE-OPERATIVE CONSULT SERVICE DATE: 01/24/2025 SERVICE TIME: 10:14 AM I have communicated my name and active licensure. The patient's identity and physical location were verified at the time of this visit. Either the patient or their legal traffic workforce representative has been informed of the risks and benefits of -- and alternatives to -- treatment through a remote evaluation and consents to proceed with the evaluation remotely. BMI Surgical Pathway Visit type: Bariatric Surgeon Visit PRIMARY CARE PHYSICIAN: Armand Ma MD Subjective Consultation requested by Dr. Vásquez for an opinion regarding preoperative evaluation for upcoming surgery. My final recommendations will be communicated back to the requesting physician by way of the shared medical record. CHIEF COMPLAINT: Discussion of surgical weight loss, morbid obesity HPI: Galindo Ho is a 45 year old female who presents on January 24, 2025 for surgical evaluation and treatment of obesity. The patient is interested in laparoscopic revision and has decided to have the procedure with Gary Barraza MD. Pre-surgical weight: 288lbs Lap RYGB in [place] Dr. Almanzar Post-surgical weight: 180lbs at one year post surgery She maintained 190-200lbs In 2013, she suffered acute liver injury for which she was hospitalized for 4 days. She underwent an endoscopy during that hospitalization which demonstrated a marginal ulcer. Took 6-8 months to heal. She was planned to undergo GJ revision but she was ble to ultimately heal the ulcer and didn't require surgery. In 2016, she got sick and gained a lot of weight. 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 Underwent fistulotomy with seton placement. Was intubated 3 times for management of this, one episode patient states she had a traumatic intubation. She also underwent a hysterectomy for ?menorrhagia. 230lbs at this time. From there, her weight has steadily crept back up. 2019: ~260lbs 2020: diagnosed with RA, was on and off of prednisone; was on it daily for 1.5 years Also gained weight through COVID Previous treatments include self-directed dieting and prescription appetite suppressants. Was prescribed Wegovy but not been approved yet. PMH: IFG, HTN (since being on steroids for RA - on 2 medications for this with a diuretic), ?SVT (had been having syncopal episodes over the past several months - getting worked up by a intermediate manager), RA (methotrexate, not currently on a prednisone taper but takes it about once a year, +remicade infusions), fibromylagia (cymbalta, lyrica), buspar Unclear if she has Crohn's - underwent CTE and this was negative. Was seen by Dr. Elmore in 2022. Last EGD 2013 Last colonoscopy 2018 PSH: lap RYGB, hysterectomy, perianal fistula procedures, cholecystectomy Patient does say that in 2013, she underwent a CT scan which demosntrated contrast in the remnant stomach. Images done at [place], not available for review today. Denies heartburn/reflux. 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 Heartburn/reflux: none NSAID use: none Smoking: none EtOH: none FUNCTIONAL STATUS: Climb a flight of stairs or walk up a hill (5.50 METs) Significant Anesthesia Considerations: None PAST MEDICAL HISTORY Diagnosis Date Irritable bowel syndrome Pneumonia due to adenovirus 07/26 PAST SURGICAL HISTORY Procedure Laterality Date COLONOSCOPY FLX DX W/COLLJ SPEC WHEN PFRMD Colonoscopy SKIN BX, 1 LESION On neck and Right shoulder blade, benign TONSILLECTOMY PRIMARY/SECONDARY AGE 13/> FAMILY HISTORY Problem Relation Age of Onset Cancer Maternal Aunt skin cancer other (CVA [Other]) Paternal Grandfather other (HTN [Other]) Paternal Grandfather other (HTN [Other]) Father other (HTN [Other]) Paternal Grandmother Breast Cancer Paternal Aunt Colon Cancer Paternal Aunt BRCA + Breast Cancer Maternal Grandmother BRCA + Social History Tobacco Use Smoking status: Never Smokeless tobacco: Never Substance Use Topics Alcohol use: Yes Comment: Occasionally Drug use: No Current Outpatient Medications Medication Sig semaglutide, weight loss, (WEGOVY) 0.25 mg/0.5 mL pen injector Inject 0.25 mg subcutaneously one time a week. nebivolol (BYSTOLIC) 10 mg tablet Take 10 mg by mouth once daily. ramipril (ALTACE) 5 mg capsule Take 5 mg by mouth once daily. busPIRone (BUSPAR) 5 mg tablet Take 5 mg by mouth two times a day. riboflavin, vitamin B2, 400 mg tab Take 1 tablet by mouth daily at bedtime. infliximab (REMICADE INTRAVENOUS) Inject intravenously. methotrexate 2.5 mg tablet Take 6 tablets by mouth one time a week. predniSONE (DELTASONE) 5 mg tablet Take 1 tablet by mouth every afternoon. folic acid 1 mg tablet Take one pill each day of the week EXCEPT the day you take methotrexate doxycycline hyclate (more content not included)...[facility] 01-24-2025 History of Present illness Narrative* Gary Barraza MD - 01/24/2025 10:14 AM EDT BARIATRIC H&P/PRE-OPERATIVE CONSULT SERVICE DATE: 01/24/2025 SERVICE TIME: 10:14 AM I have communicated my name and active licensure. The patient's identity and physical location wereverified at the time of this visit. Either the patient or their legal traffic workforce representative has been informed of the risks and benefits of -- and alternatives to -- treatment through a remote evaluation andconsents to proceed with the evaluation remotely. BMI Surgical Pathway Visit type: Bariatric Surgeon Visit PRIMARY CARE PHYSICIAN: Armand Ma MD Subjective Consultation requested by Dr. Vásquez for an opinion regarding preoperative evaluation for upcoming surgery. My final recommendations will be communicated back to the requesting physician by way of theshared medical record. CHIEF COMPLAINT: Discussion of surgical weight loss, morbid obesity HPI: Galindo Ho is a 45 year old female who presents on January 24, 2025 for surgical evaluation and treatment of obesity. The patient is interested in laparoscopic revision and has decided to have the procedure with Gary Barraza MD. Pre-surgical weight: 288lbs Lap RYGB in [place] Dr. Almanzar Post-surgical weight: 180lbs at one year post surgery She maintained 190-200lbs In 2013, she suffered acute liver injury for which she was hospitalized for 4 days. She underwent an endoscopy during that hospitalization which demonstrated a marginal ulcer. Took 6-8 months to heal. She was planned to undergo GJ revision but she was ble to ultimately heal the ulcer and didn't require surgery. In 2017, she got sick and gained a lot of weight. 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 Underwent fistulotomy with seton placement. Was intubated 3 times for management of this, one episode patient states she had a traumatic intubation. She also underwent a hysterectomy for ?menorrhagia. 230lbs at this time. From there, her weight has steadily crept back up. 2019: ~260lbs 2020: diagnosed with RA, was on and off of prednisone; was on it daily for 1.5 years Also gained weight through COVID Previous treatments include self-directed dieting and prescription appetite suppressants. Was prescribed Wegovy but not been approved yet. PMH: IFG, HTN (since being on steroids for RA - on 2 medications for this with a diuretic), ?SVT (had been having syncopal episodes over the past several months - getting worked up by a intermediate manager), RA (methotrexate, not currently on a prednisone taper but takes it about once a year, +remicade infusions), fibromylagia (cymbalta, lyrica), buspar Unclear if she has Crohn's - underwent CTE and this was negative. Was seen by Dr. Elmore in 2022. Last EGD 2013 Last colonoscopy 2018 PSH: lap RYGB, hysterectomy, perianal fistula procedures, cholecystectomy Patient does say that in 2013, she underwent a CT scan which demosntrated contrast in the remnant stomach. Images done at [place], not available for review today. Denies heartburn/reflux. 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 Heartburn/reflux: none NSAID use: none Smoking: none EtOH: none FUNCTIONAL STATUS: Climb a flight of stairs or walk up a hill (5.50 METs) Significant Anesthesia Considerations: None PAST MEDICAL HISTORY Diagnosis Date Irritable bowel syndrome Pneumonia due to adenovirus 07/26 PAST SURGICAL HISTORY Procedure Laterality Date COLONOSCOPY FLX DX W/COLLJ SPEC WHEN PFRMD Colonoscopy SKIN BX, 1 LESION On neck and Right shoulder blade, benign TONSILLECTOMY PRIMARY/SECONDARY AGE 13/> FAMILY HISTORY Problem Relation Age of Onset Cancer Maternal Aunt skin cancer other (CVA [Other]) Paternal Grandfather other (HTN [Other]) Paternal Grandfather other (HTN [Other]) Father other (HTN [Other]) Paternal Grandmother Breast Cancer Paternal Aunt Colon Cancer Paternal Aunt BRCA + Breast Cancer Maternal Grandmother BRCA + Social History Tobacco Use Smoking status: Never Smokeless tobacco: Never Substance Use Topics Alcohol use: Yes Comment: Occasionally Drug use: No Current Outpatient Medications Medication Sig semaglutide, weight loss, (WEGOVY) 0.25 mg/0.5 mL pen injector Inject 0.25 mg subcutaneously one time a week. nebivolol (BYSTOLIC) 10 mg tablet Take 10 mg by mouth once daily. ramipril (ALTACE) 5 mg capsule Take 5 mg by mouth once daily. busPIRone (BUSPAR) 5 mg tablet Take 5 mg by mouth two times a day. riboflavin, vitamin B2, 400 mg tab Take 1 tablet by mouth daily at bedtime. infliximab (REMICADE INTRAVENOUS) Inject intravenously. methotrexate 2.5 mg tablet Take 6 tablets by mouth one time a week. predniSONE (DELTASONE) 5 mg tablet Take 1 tablet by mouth every afternoon. folic acid 1 mg tablet Take one pill each day of the week EXCEPT the day you take methotrexate doxycycline hyclate 150 mg Delayed Release Tablet Take 150 mg by mouth once daily. (Patient not taking: Reported on 11/28/2024) indapamide (LOZOL) 1.25 mg tablet 1.25 mg once daily. MULTIVITAMIN ORAL Take by mouth once daily. DULoxetine (CYMBALTA) 60 mg capsule Take 2 capsules by mouth once daily. pregabalin (LYRICA) 100 mg capsule levocetirizine 5 mg tablet Take 5 mg by mouth once daily. fluticasone (FLONASE) 50 mcg/actuation nasal spray Use 2 Sprays in each nostril once daily. promethazine (PHENERGAN) 12.5 mg tablet 1/2 TO 1 TABLET EVERY 8 HOURS FOR NAUSEA, HEADACHE, OR COUGH ondansetron (ZOFRAN) 4 mg tablet 1 (ONE) TABLET EVERY 8 HOURS FOR NAUSEA OR MOTION SICKNESS Bifidobacterium infantis 1.5 billion cell cap Bifidobacterium Infantis Bifidobacterium Infantis (Digestive Probiotic) 1.5 billion cell capsule Active 1500 MMU CELLS PO DAILY July 05, 2018 [id number] [facility] ([id number]) hydrOXYzine HCl (ATARAX) 25 mg tablet Take 25 mg by mouth daily at bedtime. docosahexaenoic acid/epa (FISH OIL ORAL) Take by mouth. baclofen (LIORESAL) 10 mg tablet TAKE 1 TABLET BY MOUTH 3 TIMES A DAY NEEDED FOR SPASMS cholecalciferol (VITAMIN D3) 5,000 unit tab Take 5,000 Units by mouth. Cyanocobalamin 1,000 mcg subl Dissolve 1,000 mcg under the tongue. Vitamin b12 magnesium oxide (MAG-OX) 400 mg (241.3 mg magnesium) tablet Take 1 tablet by mouth twice daily. calcium citrate/vitamin D3 (CALCIUM CITRATE + D ORAL) Take by mouth. vit/iron fum/folic ac ( 1 PLUS 1 ORAL) Take by mouth. (Patient not taking: Reported on 10/20/2022) No current facility-administered medications for this visit. ALLERGIES Allergen Reactions Banana Shortness of Breath Penicillin G Rash [place] Other: See Comments, Hives Sulfa (Sulfonamide * Hives Watermelon Diarrhea Latex Rash REVIEW OF SYSTEMS: General: no fevers or chills Neuro: No history of stroke or neurological problems. Respiratory: No SOB or cough. No asthma. Denies TED Cardiovascular: +HTN, no CHF or WI. GI: No abdominal pain. No reflux or heartburn. : No dysuria or hematuria. No kidney stones. Endocrine: Has not taken steroids within the past 30 days. +IFG Hematology: No history of bleeding disorder. No h/o DVT or PE Oncology: No personal history of cancer. Psych: No anxiety or depression requiring medications Skin: No ecchymoses Objective PHYSICAL EXAM: Patient reported LMP 10/18/2005 General - Normal, healthy, cooperative, in no acute distress, obese Able to interact verbally by video conference Psych - ORIENTATION: normal to time place, person and situation Mood/Affect: AFFECT AND MOOD: Normal Head/Neuro - Normal size and shape Facial appearance normal Pulmonary - respiratory effort normal Cardiovascular - patient describes extremities normal, warm, no cyanosis,no clubbing, and no edema deferred DATA: Diagnostic tests reviewed for today's visit: Labs reviewed: cbc, bmp, lfts, hga1c Imaging reviewed: CTE reviewed: e/o RYGB: GJ and JJ noted Provider notes reviewed: Anil Vásquez Brown The following labs were reviewed: WBC (k/uL) Date Value 11/01/2024 5.73 RBC (m/uL) Date Value 11/01/2024 4.20 Hemoglobin (g/dL) Date Value 11/01/2024 13.9 Hematocrit (%) Date Value 11/01/2024 39.6 MCV (fL) Date Value 11/01/2024 94.3 MCH (pg) Date Value 11/01/2024 33.1 MCHC (g/dL) Date Value 11/01/2024 35.1 RDW-CV (%) Date Value 11/01/2024 13.2 Platelet Count (k/uL) Date Value 11/01/2024 328 MPV (fL) Date Value 11/01/2024 9.7 Glucose (mg/dL) Date Value 11/01/2024 87 BUN (mg/dL) Date Value 11/01/2024 11 Creatinine (mg/dL) Date Value 11/01/2024 0.73 Sodium (mmol/L) Date Value 11/01/2024 141 Potassium (mmol/L) Date Value 11/01/2024 4.0 Chloride (mmol/L) Date Value 11/01/2024 101 CO2 (mmol/L) Date Value 11/01/2024 29 Protein, Total (g/dL) Date Value 11/01/2024 6.8 Albumin (g/dL) Date Value 11/01/2024 4.0 Calcium, Total (mg/dL) Date Value 11/01/2024 9.4 Alkaline Phosphatase (U/L) Date Value 11/01/2024 65 Bilirubin, Total (mg/dL) Date Value 11/01/2024 0.5 AST (U/L) Date Value 11/01/2024 22 ALT (U/L) Date Value 11/01/2024 17 Glucose (mg/dL) Date Value 11/01/2024 87 10/01/2021 86 Creatinine (mg/dL) Date Value 11/01/2024 0.73 10/01/2021 0.80 Potassium (mmol/L) Date Value 11/01/2024 4.0 10/01/2021 3.7 AST (U/L) Date Value 11/01/2024 22 10/01/2021 23 ALT (U/L) Date Value 11/01/2024 17 10/01/2021 35 Hemoglobin A1C (%) Date Value 02/17/2023 5.0 Cholesterol, Total (mg/dL) Date Value 02/17/2023 189 HDL Cholesterol (mg/dL) Date Value 02/17/2023 54 ] LDL Cholesterol, Calculated (mg/dL) Date Value 02/17/2023 109 Triglyceride (mg/dL) Date Value 02/17/2023 130 Albumin/Creat Ratio (mg/g) Date Value 02/17/2023 7 ] Hemoglobin A1C (%) Date Value 02/17/2023 5.0 Albumin (g/dL) Date Value 11/01/2024 4.0 10/01/2021 4.3 Cholesterol, Total (mg/dL) Date Value 02/17/2023 189 HDL Cholesterol (mg/dL) Date Value 02/17/2023 54 LDL Cholesterol, Calculated (mg/dL) Date Value 02/17/2023 109 Triglyceride (mg/dL) Date Value 02/17/2023 130 ] Glucose (mg/dL) Date Value 11/01/2024 87 BUN (mg/dL) Date Value 11/01/2024 11 Creatinine (mg/dL) Date Value 11/01/2024 0.73 Sodium (mmol/L) Date Value 11/01/2024 141 Potassium (mmol/L) Date Value 11/01/2024 4.0 Chloride (mmol/L) Date Value 11/01/2024 101 CO2 (mmol/L) Date Value 11/01/2024 29 Protein, Total (g/dL) Date Value 11/01/2024 6.8 Albumin (g/dL) Date Value 11/01/2024 4.0 Calcium, Total (mg/dL) Date Value 11/01/2024 9.4 Alkaline Phosphatase (U/L) Date Value 11/01/2024 65 Bilirubin, Total (mg/dL) Date Value 11/01/2024 0.5 AST (U/L) Date Value 11/01/2024 22 ALT (U/L) Date Value 11/01/2024 17 WBC (k/uL) Date Value 11/01/2024 5.73 RBC (m/uL) Date Value 11/01/2024 4.20 Hemoglobin (g/dL) Date Value 11/01/2024 13.9 Hematocrit (%) Date Value 11/01/2024 39.6 MCV (fL) Date Value 11/01/2024 94.3 MCH (pg) Date Value 11/01/2024 33.1 MCHC (g/dL) Date Value 11/01/2024 35.1 RDW-CV (%) Date Value 11/01/2024 13.2 Platelet Count (k/uL) Date Value 11/01/2024 328 MPV (fL) Date Value 11/01/2024 9.7 PROBLEM LIST: Patient Active Problem List Seronegative rheumatoid arthritis (HCC) Resolved Hospital Problems No resolved problems to display. Assessment/Plan Ms. Ho is a 45 year old female referred to me for preoperative evaluation. IMPRESSION: Morbid obesity, BMI 55.76: Patient has undergone a lap RYGB in 2013 and has experienced weight regain since then. Has been diagnosed RA and has been on and off of prednisone. Also suffered from a perianal fistula which prompted a workup for Crohn's. Workup has thus far been unable to confirm this diagnosis. Patient reports that she had a marginal ulcer which healed, and also underwent a CT scan in the past which demonstrated contrast in the remnant stomach. She will need workup including UGI and EGD to rule out GG fistula. [place] this, her options for revision of her RYGB for weight loss may not be ideal. Surgical revision of her pouch may be possible but will probably not result in clinically impactful weight loss, and distalization may be less than ideal given the suspicion for Crohn's. Will proceed with delineation of her anatomy first before further recommendations. SIGNATURE: Gary Barraza MD PATIENT NAME: Galindo Ho DATE: January 24, 2025 TIME: 10:14 AM Medical Decision Making: Problems: Moderate: 1+ chronic illnesses with change Data: Unique source(s) for external note(s) reviewed: 3+ Unique test result(s) reviewed: 3+ Independent interpretation of test from other physician/QHCP Risk: High: Decision on elective major surgery w/ risk factors Medical Decision Making Level: 5 - High [facility] Telephone encounter Note * Telephone Encounter - Sarah Abreu MA - 01/20/2025 2:40 PM EDT Insurance Verified : MMO Coverage: yes CPT Codes: 16719, 21624, 19067, 66915 and 50794 Nutrition Requirements: # 0 Special requirements: pulm/cards In Net % 80 Deductible 750 OOP Max $7000 Copay IOQ/CHARLEE/BDC Rep Name: geetha Ref # [id number] [facility]04-28-2025 Miscellaneous Notes* Telephone Encounter - Sarah Abreu MA - 01/20/2025 2:40 PM EDT Insurance Verified : MMO Coverage: yes CPT Codes: 62819, 81592, 26519, 26434 and 34797 Nutrition Requirements: # 0 Special requirements: pulm/cards In Net % 80 Deductible 750 OOP Max $7000 Copay IOQ/CHARLEE/BDC Rep Name: geetha Ref # [id number] documented in this encounterPrem[facility] Telephone encounter Note * Telephone Encounter - Mahnaz Vance - 01/09/2025 12:44 PM EDT Images from the original note were not included. Initiated PA for semaglutide, weight loss, (WEGOVY) 0.25 mg/0.5 mL pen injector through [facility] Chart notes attached Questions Completed Waiting for determination Mahnaz Prior Sales Department Clerk Endocrinology and Metabolism [place] [facility]04-17-2025 Miscellaneous Notes* Telephone Encounter - Mahnaz Vance - 01/09/2025 12:44 PM EDT Images from the original note were not included. Initiated PA for semaglutide, weight loss, (WEGOVY) 0.25 mg/0.5 mL pen injector through [facility] Chart notes attached Questions Completed Waiting for determination Mahnaz Prior Sales Department Clerk Endocrinology and Metabolism [place] documented in [facility] encounterPrem[facility] Telephone encounter Note * Telephone Encounter - Nelly Brumfield - 01/07/2025 3:19 PM EDT Images from the original note were not included. Received a prior authorization request from Noelle via [facility] for patient's prescription: semaglutide, weight loss, (WEGOVY) 0.25 mg/0.5 mL pen injector REFERENCE SHIN: Submitted request via fax to Endocrine Prior Authorizations. Transmitted successfully. Nelly Brumfield Patient Support Tech Medical Specialty [place] [facility] X[address] [facility]04-15-2025 Miscellaneous Notes* Telephone Encounter - Nelly Brumfield - 01/07/2025 3:19 PM EDT Images from the original note were not included. Received a prior authorization request from Noelle via [employer] for patient's prescription: semaglutide, weight loss, (WEGOVY) 0.25 mg/0.5 mL pen injector REFERENCE SHIN: Submitted request via fax to Endocrine Prior Authorizations. Transmitted successfully. Nelly Brumfield Patient Support Tech [facility] [place] [facility] X20 documented in this encounterPrem[facility]04-07-[facility] Instructions* Patient Instructions* Destinee Vásquez MD - 12/30/2024 1:57 PM EDT Start Wegovy. Starting dose is 0.25 mg injected once weekly. After 4 weeks, if you are tolerating the medication, you can increase to the 0.5 mg dose. We should follow-up within 4-8 weeks after increasing the dose. Possible side effects of this class of medications: Nausea, reflux, constipation, redness/irritation at the injection site. If you experience nausea or reflux, eating smaller meals can be helpful. Acute pancreatitis is a rare side effect, presents with severe abdominal pain, nausea/vomiting--go to ER if you experience these side effects For more information on the medication, including instructions on how to administer the medication,visit Monitor My Meds There may be special savings available for Wegovy depending on your insurance. To learn more, visit: [email or web address] To make your follow-up appointment: You can call the appointment Center: [phone] to make your follow-up appointments with myself or the nurse practitioners I work with in [place], Lupe Walter APRN.CNP or Jasmyn Laughlin APRN.CNP. To schedule with Bariatric Surgery: [phone] General recommendations: - Healthy diet, routine exercise, good sleep hygiene and stress management are all important for weight loss, in addition to any medications that may be prescribed. - Recommend a daily probiotic (such as PB8, Culturelle, Align, or similar) for healthy gut biome - Weigh yourself at least once per week to keep track of progress - Adequate, good quality sleep is an important part of weight management. Even individuals who function well on little sleep should still aim for 7-9 hours of sleep nightly and routine sleep schedules whenever possible. - For females of child-bearing age: it is not recommended to become while taking medications for weight loss. Please contact our office if you become . More specific tips: - Use a diet tracker like [employer]Pal on your phone to get an idea of how many calories, protein, carbohydrates, etc. you are getting in your diet - Aim for 150 grams of healthy protein every day (this includes foods like chicken, turkey, fish, nicaraguan yogurt, cottage cheese, and plant based protein like nuts/seeds/legumes/tofu; try to limit beefand pork even if they are lean cuts of meat) - Aim for no more than 45 grams of carbohydrate per meal and limit to 150-200 grams of carbohydrateper day. Try to make carbohydrate sources healthier by limiting white breads, white pasta/rice, processed foods, snack foods and sweets; instead choose more fruits, veggies, whole grains, beans, and dairy products like nicaraguan yogurt or cottage cheese. - Aim for at least 20-30 grams of fiber every day from fruits, veggies, beans, nuts, and whole grains. Higher fiber diets can help you feel good longer and improve your health in other ways. - Don't skip meals--recommend eating 4-6 times per day. Having a routine eating schedule helps to re-normalize appetite signals and prevents you from getting too hungry (which can then lead to overeating or choosing higher calorie foods). - If you don't have access or don't like going to a gym, try an at-home workout. There are a lot ofoptions available for free on [employer] or try a free jace such as [employer]. documented in this encounterPrem[facility]04-07-[facility] History of Present illness Narrative* Destinee Vásquez MD - 12/30/2024 1:30 PM EDT Images from the original note were not included. [facility] VIRTUAL VISIT--INITIAL VISIT This is a virtual visit using MyChart Zoom Video Visit. It required patient- provider interaction for the medical decision making as documented below. I have communicated my name and active licensure. The patient's identity and physical location wereverified at the time of this visit. Either the patient or their legal traffic workforce representative has been informed of the risks and benefits of -- and alternatives to -- treatment through a remote evaluation andconsents to proceed with the evaluation remotely. HISTORY OF PRESENT ILLNESS CC: Patient presents for evaluation of obesity/weight management. Referred by: Armand Ma MD Consultation requested for an opinion regarding weight management and my final recommendations willbe communicated back to the requesting physician by way of shared medical record or letter via US mail. Patient is a 44 year old female with obesity. Relevant PMH: s/p gastric bypass 2013, IFG, HTN, TED, SVT, RA, FM Current medications promoting weight loss: none Current obesogenic medications: cymbalta, hydroxyzine, beta lev Patient goals/motivation for weight loss: improve health Weight history and trajectory: Struggled with weight most of life Had bariatric surgery, gastric bypass early 30s Weight prior to surgery 304 lbs Weight kim 184 lbs Started regaining weight 10 months following surgery--gained about 15-20% back and stayed for a fewyears, but then moved away, got diagnosed with RA, put on multiple medications including steroids and started gaining weight even more Couple years ago was maximum weight around 362 lbs Current weight: 344 lbs Previous attempt for weight loss: Self-directed diet and exercise programs, bariatric surgery, commercial programs Diet and appetite: 24 hour recall From druze: pulled pork, nieves soup, strawberry salad, mac and cheese, corn bread, fruit Later: 1 piece pizza Often only eats 1 meal per day, sometimes will snack on trail mix or get snickers bar from vending machine States her meals are often simple and processed Sugar-containing beverages: no EtOH: none Eating out/take out: pizza on Monday nights, 1 time per week otherwise Appetite level: low appetite during day, elevated in evening Eating from stress, boredom, habit, etc: mindless eating in evening Frequently feeling uncomfortable from eating too much: yes sometimes will get hiccups Large portions: sometimes Late night eating: yes, snacking Already saw RD 11/29/24 Exercise Doing PT for knees and hips Stretches every morning for RA Trying to walk once per week, up to a mile now Access to exercise equipment: yes Physical limitations: knee and hip pain Sleep Tries to get 7 hours of sleep but difficult time falling, can stay asleep ok TED: tested negative for TED 2021, snores when on her back 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 weight watchers, Noom, medically supervised programs, etc.)? no History of bariatric surgery or interest in bariatric surgery: s/p RYGB 2012 Medical history pertaining to anti-obesity medications: History of pancreatitis or gallstones: s/p sada History of kidney stones: no History of seizures: no Current opiate use: no History of glaucoma: no History of stroke, heart-related issues or uncontrolled HTN: seen by cardiology 11/15/24 at OSH for abnormal event monitor showing atrial tachycardia; has been having syncopal episodes; EKG 11/15/24 showing incomplete RBBB Personal/family history of MEN2, MTC: no History of diabetic retinopathy: no Method of contraception if woman of child bearing age: s/p hysterectomy Review Of Systems Per HPI MEDICAL, FAMILY, and SOCIAL HISTORY (reviewed and updated in chart) ACTIVE PROBLEM LIST Seronegative Rheumatoid Arthritis (Hcc) Current Outpatient Medications on File Prior to Visit Medication Sig nebivolol (BYSTOLIC) 10 mg tablet Take 10 mg by mouth once daily. ramipril (ALTACE) 5 mg capsule Take 5 mg by mouth once daily. busPIRone (BUSPAR) 5 mg tablet Take 5 mg by mouth two times a day. riboflavin, vitamin B2, 400 mg tab Take 1 tablet by mouth daily at bedtime. infliximab (REMICADE INTRAVENOUS) Inject intravenously. methotrexate 2.5 mg tablet Take 6 tablets by mouth one time a week. predniSONE (DELTASONE) 5 mg tablet Take 1 tablet by mouth every afternoon. folic acid 1 mg tablet Take one pill each day of the week EXCEPT the day you take methotrexate doxycycline hyclate 150 mg Delayed Release Tablet Take 150 mg by mouth once daily. (Patient not taking: Reported on 11/28/2024) indapamide (LOZOL) 1.25 mg tablet 1.25 mg once daily. MULTIVITAMIN ORAL Take by mouth once daily. DULoxetine (CYMBALTA) 60 mg capsule Take 2 capsules by mouth once daily. pregabalin (LYRICA) 100 mg capsule levocetirizine 5 mg tablet Take 5 mg by mouth once daily. fluticasone (FLONASE) 50 mcg/actuation nasal spray Use 2 Sprays in each nostril once daily. promethazine (PHENERGAN) 12.5 mg tablet 1/2 TO 1 TABLET EVERY 8 HOURS FOR NAUSEA, HEADACHE, OR COUGH ondansetron (ZOFRAN) 4 mg tablet 1 (ONE) TABLET EVERY 8 HOURS FOR NAUSEA OR MOTION SICKNESS Bifidobacterium infantis 1.5 billion cell cap Bifidobacterium Infantis Bifidobacterium Infantis (Digestive Probiotic) 1.5 billion cell capsule Active 1500 MMU CELLS PO DAILY July 05, 2018 [id number] [facility] ([id number]) hydrOXYzine HCl (ATARAX) 25 mg tablet Take 25 mg by mouth daily at bedtime. docosahexaenoic acid/epa (FISH OIL ORAL) Take by mouth. baclofen (LIORESAL) 10 mg tablet TAKE 1 TABLET BY MOUTH 3 TIMES A DAY NEEDED FOR SPASMS cholecalciferol (VITAMIN D3) 5,000 unit tab Take 5,000 Units by mouth. Cyanocobalamin 1,000 mcg subl Dissolve 1,000 mcg under the tongue. Vitamin b12 magnesium oxide (MAG-OX) 400 mg (241.3 mg magnesium) tablet Take 1 tablet by mouth twice daily. calcium citrate/vitamin D3 (CALCIUM CITRATE + D ORAL) Take by mouth. vit/iron fum/folic ac ( 1 PLUS 1 ORAL) Take by mouth. (Patient not taking: Reported on 10/20/2022) No current facility-administered medications on file prior to visit. VIDEO EXAM: (if completed, performed via video enabled technology) GENERAL: alert and appropriate, in no distress, well-hydrated, well nourished, and happy, smiling, interactive PERTINENT LABORATORY AND IMAGING: All pertinent laboratory / test results were reviewed. Latest Ref Rng 02/17/2023 10/27/2023 02/09/2024 05/03/2024 08/14/2024 11/01/2024 Protein, Total 6.3 - 8.0 g/dL 6.7 6.9 7.5 6.9 7.0 6.8 Albumin 3.9 - 4.9 g/dL 4.0 4.2 4.4 4.3 4.2 4.0 Calcium 8.5 - 10.2 mg/dL 9.8 9.5 10.0 9.5 9.9 9.4 Bilirubin, Total 0.2 - 1.3 mg/dL 0.5 0.4 0.6 0.6 0.4 0.5 Alkaline Phosphatase 34 - 123 U/L 74 68 78 71 72 65 AST 13 - 35 U/L 17 19 19 16 19 22 ALT 7 - 38 U/L 16 22 16 15 19 17 Glucose 74 - 99 mg/dL 106 (H) fasting 119 (H) 110 (H) 99 105 (H) 87 BUN 7 - 21 mg/dL 11 14 10 12 11 11 Creatinine 0.58 - 0.96 mg/dL 0.85 0.79 0.75 0.73 0.69 0.73 Sodium 136 - 144 mmol/L 137 136 135 (L) 136 136 141 Potassium 3.7 - 5.1 mmol/L 3.9 3.8 3.5 (L) 3.7 3.7 4.0 Chloride 98 - 107 mmol/L 100 100 98 97 (L) 98 101 CO2 22 - 30 mmol/L 30 25 29 26 25 29 Anion Gap 8 - 15 mmol/L 7 (L) 11 8 (L) 13 13 11 eGFR >=60 mL/min/1.73m 88 96 101 105 111 105 Cholesterol, Total <200 mg/dL 189 Triglyceride <150 mg/dL 130 HDL Cholesterol >39 mg/dL 54 Non HDL Cholesterol <130 mg/dL 135 (H) Fasting Time hrs 14 VLDL Cholesterol <30 mg/dL 26 TC:HDL Ratio <5.10 3.50 LDL Cholesterol <100 mg/dL 109 (H) LDL:HDL Ratio <2.54 2.02 Hemoglobin A1C 4.3 - 5.6 % 5.0 Estimated Average Glucose mg/dL 97 TSH 0.270 - 4.200 mIU/L 1.700 1.930 Legend: (H) High (L) Low ASSESSMENT: (E66.01) Severe obesity (BMI >= 40) (HCC) (primary encounter diagnosis) (Z71.3) Dietary counseling (Z71.82) Exercise counseling (Z98.84) History of bariatric surgery (E88.819) Insulin resistance Patient comes today for evaluation of obesity and its comorbidities. Diagnosis: OBESITY CLASS 3 with a BMI of 55.7. Patient tried different weight loss modalities in the past including Self- directed diet and exercise programs, bariatric surgery, commercial programs. Pertinent comorbidities include: IFG, HTN, SVT, RA FM. Our goal is to treat obesity to decrease long-term medical complications, comorbidities and improvelifestyle. Today discussion included obesity set point, metabolic adaptation, weight plateau, lifestyle intervention and the possibility of pharmacotherapy. PLAN: -- Goal: -- Engage in sustainable lifestyle changes -- Weight loss of 5-10% in the next 6 months -- Continue lifestyle intervention/weight loss program involving dietary changes, personalized exercise program and consideration of anti-obesity medications -- Appetite control/diet: -- Appetite: not controlled, variable -- Dietitian consult: No--already saw -- Diet: Low carb and Mediterranean -- Portion control -- Increase healthy protein and fiber in diet -- Recommend trying a tracking jace such as Wix or similar -- Discussed appetite signal dysregulation and emphasized importance of a structured eating pattern--recommended 4-6 meals/snacks per day, emphasized importance of including a healthy source of protein with all meals. -- Exercise -- Discussed basic exercise recommendations (aerobic/resistance training), the role of exercise on weight loss, maintenance, and muscle mass preservation -- product engineering manager consult: No -- Recommend gradual increase in exercise. Goal is 150+ minutes moderate- intensity exercise per week + strength training/resistance exercise 2 days per week; also discussed that shorter durations of exercise at higher intensity can still be effective and may help with time management. -- Sleep: -- Recommend 7-9 hours sleep per night -- Discussed the importance of sleep hygiene -- Sleep apnea orders placed: no, last sleep study 2021 reportedly negative for TED, may consider repeating in future -- Stress: -- Discussed the effect of stress and its relationship with weight gain -- Weight Loss Medication/Anti-Obesity Medication: -- I have reviewed with the patient the possibility of using weight loss- promoting medications and the various options available. -- Pt thinks Wegovy may be covered by insurance. Will begin Wegovy 0.25 mg sc once weekly. Increaseto 0.5 mg dose after 4 weeks if tolerating. Patient aware that prior authorization may be required.Reviewed r/b/a of medication and risks of possibility of weight regain should medication be stopped. There is no personal or family history of MTC, MEN2. No personal history of pancreatitis or activegallbladder disease. -- Limited other options for AOMs--would avoid phentermine given recent cardiac issues, did not tolerate bupropion or metformin past -- Bariatric consideration: -- BMI referral: Yes--refer to BMI for possible revision Orders placed: Orders Placed This Encounter [facility] Standing Status: Future Expiration Date: 12/30/2025 Scheduling Instructions: The first step for considering bariatric (weight loss) surgery at [facility] is to watch the online seminar on the following website. Registration to the weight loss program will also be done online. [email or web address] Alternatively, to schedule appointment, please call Does consulting provider have [email or web address] access?: Yes Have you discussed weight management with your patient?: Yes Are you requesting assessment for possible Bariatric Surgery for your patient?: Yes semaglutide, weight loss, (WEGOVY) 0.25 mg/0.5 mL pen injector Sig: Inject 0.25 mg subcutaneously one time a week. Dispense: 2 mL Refill: 2 I have reviewed the ROS/Questionnaire with patient and recommend the following: Pt will follow-up with PCP for chronic health issues and preventive health screenings. All questions answered today. Follow-up in 4 months as needed Signed: Destinee Vásquez MD, RD [facility] documented in this encounterPrem[facility]04-[facility]-2025 NoteHNO ID: [id number] Author: DESTINEE VÁSQUEZ MD Service: ? Author Type: Physician Type: Progress Notes Filed: 12/30/2024 14:07 Note Text: [facility] VIRTUAL VISIT--INITIAL VISIT This is a virtual visit using [employer] Zoom Video Visit. It required patient-provider interaction for the medical decision making as documented below. I have communicated my name and active licensure. The patient's identity and physical location were verified at the time of this visit. Either the patient or their legal traffic workforce representative has been informed of the risks and benefits of -- and alternatives to -- treatment through a remote evaluation and consents to proceed with the evaluation remotely. HISTORY OF PRESENT ILLNESS CC: Patient presents for evaluation of obesity/weight management. Referred by: Armand Ma MD Consultation requested for an opinion regarding weight management and my final recommendations will be communicated back to the requesting physician by way of shared medical record or letter via US mail. Patient is a 44 year old female with obesity. Relevant PMH: s/p gastric bypass 2012, IFG, HTN, TED, SVT, RA, FM Current medications promoting weight loss: none Current obesogenic medications: cymbalta, hydroxyzine, beta lev Patient goals/motivation for weight loss: improve health Weight history and trajectory: Struggled with weight most of life Had bariatric surgery, gastric bypass early 30s Weight prior to surgery 304 lbs Weight kim 184 lbs Started regaining weight 10 months following surgery--gained about 15-20% back and stayed for a few years, but then moved away, got diagnosed with RA, put on multiple medications including steroids and started gaining weight even more Couple years ago was maximum weight around 362 lbs Current weight: 344 lbs Previous attempt for weight loss: Self-directed diet and exercise programs, bariatric surgery, commercial programs Diet and appetite: 24 hour recall From druze: pulled pork, nieves soup, strawberry salad, mac and cheese, corn bread, fruit Later: 1 piece pizza Often only eats 1 meal per day, sometimes will snack on trail mix or get snickers bar from vending machine States her meals are often simple and processed Sugar-containing beverages: no EtOH: none Eating out/take out: pizza on Monday nights, 1 time per week otherwise Appetite level: low appetite during day, elevated in evening Eating from stress, boredom, habit, etc: mindless eating in evening Frequently feeling uncomfortable from eating too much: yes sometimes will get hiccups Large portions: sometimes Late night eating: yes, snacking Already saw RD 11/29/24 Exercise Doing PT for knees and hips Stretches every morning for RA Trying to walk once per week, up to a mile now Access to exercise equipment: yes Physical limitations: knee and hip pain Sleep Tries to get 7 hours of sleep but difficult time falling, can stay asleep ok TED: tested negative for TED 2021, snores when on her back 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 weight watchers, Noom, medically supervised programs, etc.)? no History of bariatric surgery or interest in bariatric surgery: s/p RYGB 2012 Medical history pertaining to anti-obesity medications: History of pancreatitis or gallstones: s/p sada History of kidney stones: no History of seizures: no Current opiate use: no History of glaucoma: no History of stroke, heart-related issues or uncontrolled HTN: seen by cardiology 11/15/24 at O[facility] for abnormal event monitor showing atrial tachycardia; has been having syncopal episodes; EKG 11/15/24 showing incomplete RBBB Personal/family history of MEN2, MTC: no History of diabetic retinopathy: no Method of contraception if woman of child bearing age: s/p hysterectomy Review Of Systems Per HPI MEDICAL, FAMILY, and SOCIAL HISTORY (reviewed and updated in chart) ACTIVE PROBLEM LIST Seronegative Rheumatoid Arthritis (Hcc) Current Outpatient Medications on File Prior to Visit Medication Sig nebivolol (BYSTOLIC) 10 mg tablet Take 10 mg by mouth once daily. ramipril (ALTACE) 5 mg capsule Take 5 mg by mouth once daily. busPIRone (BUSPAR) 5 mg tablet Take 5 mg by mouth two times a day. riboflavin, vitamin B2, 400 mg tab Take 1 tablet by mouth daily at bedtime. inflixi (more content not included)...[facility]03-20-2025 Telephone encounter Note* Telephone Encounter - Sharri Solorio Ma - 12/12/2024 4:19 PM EDT Faxed plan of care to [facility] 12/04/24 [facility]03-20-2025 Miscellaneous Notes* Telephone Encounter - Sharri Solorio Ma - 12/12/2024 4:19 PM EDT Faxed plan of care to [facility] 12/04/24 documented in this encounterPrem[facility]03-[facility]-2025 Telephone encounter Note * Telephone Encounter - Leena Franco - 11/29/2024 3:33 PM EST Per patient phone call, faxed 11/28/24 letter ordering physical/water therapy to [facility] at fax . Received confirmation [facility]03-07-2025 Miscellaneous Notes* Telephone Encounter - Leena Franco - 11/29/2024 3:33 PM EST Per patient phone call, faxed 11/28/24 letter ordering physical/water therapy to [facility] at fax . Received confirmation documented in this encounterPrem[facility]03-07-2025 History of Present illness Narrative* Patricia Butterfield RD - 11/29/2024 9:00 AM EST [facility] Medical Nutrition Therapy Visit Type: Virtual: I have discussed the nature of this visit with the patient which will occur via [facility] (Phone, Virtual Visit) and she agrees to proceed with this interaction. I have communicated my name and active licensure. The patient's identity and physical location wereverified at the time of this visit. Either the patient or their legal traffic workforce representative has been informed of the risks and benefits of -- and alternatives to -- treatment through a remote evaluation andconsents to proceed with the evaluation remotely. Patient states reason for visit: Weight Management Initial virtual visit DEMOGRAPHICS: Co-Morbidities: PAST MEDICAL HISTORY Diagnosis Date Irritable bowel syndrome Pneumonia due to adenovirus 07/26 Activity: Do you do a regular exercise? No Symptoms: Patient's symptoms are as follows: Weight Concerns: failure to lose weight How many hours of sleep on average? 4-6 - Pt reports she has a smart watch to monitor her sleep. Ptreports she often wakes up d/t pain. Diet History: Pt reports intermittent fasting for the past 2 years (6 hour eating window). Breakfast: coffee; twice per month breakfast - 2 eggs + sausage + 2 pieces bread Dinner: chicken breast + tater tots (one-to-one portion) Snack: popcorn Fluids: water ETOH: none Dining/eating out? 0-1 times per week Allergies: No banana No strawberries No watermelon Patient / Provider Comments: This visit was conducted as a virtual visit. Pt reports met with core carrier and reports recent increase in joint pain and discomfort with RA. Pt reports desire for weight loss to help pain. Pt reports I can't move at all. I have no tolerance. Pt reports she has tried to increase exercise (like wall pilates, walking, etc.), but pt reports she has passed out three times over the past 6 months. Pt reports long hx of larger body size. Pt reports gastric bypass in 2012 - pt reports she lost 108lbs in the first year. Pt reports she started regaining weight (10% each year) the following year. Pt reports she was tracking intake and was still gaining weight. Pt reports, once dx with RA, she was treated with steroids and gained 80 lbs. Pt was also dx with long COVID in 2020 and has been on and off steroids ever since. Pt reports she believes she started menopause three years ago d/t medications. Pt reports started developing more illness issues in 2017 - IBD, RA, etc. Pt reports she followed an anti-inflammatory diet for 6 years - no grains, no dairy, no refined sugars. Pt reports she also tried to incorporate low FODMAP. Pt has been practicing IF for past 2 years. Medications: Current Outpatient Medications Medication Sig nebivolol (BYSTOLIC) 10 mg tablet Take 10 mg by mouth once daily. ramipril (ALTACE) 5 mg capsule Take 5 mg by mouth once daily. busPIRone (BUSPAR) 5 mg tablet Take 5 mg by mouth two times a day. riboflavin, vitamin B2, 400 mg tab Take 1 tablet by mouth daily at bedtime. infliximab (REMICADE INTRAVENOUS) Inject intravenously. methotrexate 2.5 mg tablet Take 6 tablets by mouth one time a week. predniSONE (DELTASONE) 5 mg tablet Take 1 tablet by mouth every afternoon. folic acid 1 mg tablet Take one pill each day of the week EXCEPT the day you take methotrexate doxycycline hyclate 150 mg Delayed Release Tablet Take 150 mg by mouth once daily. (Patient not taking: Reported on 11/28/2024) indapamide (LOZOL) 1.25 mg tablet 1.25 mg once daily. MULTIVITAMIN ORAL Take by mouth once daily. DULoxetine (CYMBALTA) 60 mg capsule Take 2 capsules by mouth once daily. pregabalin (LYRICA) 100 mg capsule levocetirizine 5 mg tablet Take 5 mg by mouth once daily. fluticasone (FLONASE) 50 mcg/actuation nasal spray Use 2 Sprays in each nostril once daily. promethazine (PHENERGAN) 12.5 mg tablet 1/2 TO 1 TABLET EVERY 8 HOURS FOR NAUSEA, HEADACHE, OR COUGH ondansetron (ZOFRAN) 4 mg tablet 1 (ONE) TABLET EVERY 8 HOURS FOR NAUSEA OR MOTION SICKNESS Bifidobacterium infantis 1.5 billion cell cap Bifidobacterium Infantis Bifidobacterium Infantis (Digestive Probiotic) 1.5 billion cell capsule Active 1500 MMU CELLS PO DAILY July 05, 2018 [id number] [facility] ([id number]) hydrOXYzine HCl (ATARAX) 25 mg tablet Take 25 mg by mouth daily at bedtime. docosahexaenoic acid/epa (FISH OIL ORAL) Take by mouth. baclofen (LIORESAL) 10 mg tablet TAKE 1 TABLET BY MOUTH 3 TIMES A DAY NEEDED FOR SPASMS cholecalciferol (VITAMIN D3) 5,000 unit tab Take 5,000 Units by mouth. Cyanocobalamin 1,000 mcg subl Dissolve 1,000 mcg under the tongue. Vitamin b12 magnesium oxide (MAG-OX) 400 mg (241.3 mg magnesium) tablet Take 1 tablet by mouth twice daily. calcium citrate/vitamin D3 (CALCIUM CITRATE + D ORAL) Take by mouth. vit/iron fum/folic ac ( 1 PLUS 1 ORAL) Take by mouth. (Patient not taking: Reported on 10/20/2022) No current facility-administered medications for this visit. Labs: Glucose (mg/dL) Date Value 11/01/2024 87 10/01/2021 86 Potassium (mmol/L) Date Value 11/01/2024 4.0 10/01/2021 3.7 Sodium (mmol/L) Date Value 11/01/2024 141 10/01/2021 140 Chloride (mmol/L) Date Value 11/01/2024 101 10/01/2021 100 CO2 (mmol/L) Date Value 11/01/2024 29 10/01/2021 27 Creatinine (mg/dL) Date Value 11/01/2024 0.73 10/01/2021 0.80 BUN (mg/dL) Date Value 11/01/2024 11 10/01/2021 12 Anion Gap (mmol/L) Date Value 11/01/2024 11 10/01/2021 13 Calcium (mg/dL) Date Value 10/01/2021 9.8 Calcium, Total (mg/dL) Date Value 11/01/2024 9.4 Lab Results Component Value Date HBA1C 5.0 02/17/2023 Cholesterol, Total Date Value Ref Range Status 02/17/2023 189 <200 mg/dL Final Comment: <200 mg/dL, Desirable 200-239 mg/dL, Borderline high >239 mg/dL, High HDL Cholesterol Date Value Ref Range Status 02/17/2023 54 >39 mg/dL Final Comment: 40-59 mg/dL, Acceptable >59 mg/dL, High: Negative risk factor for coronary heart disease <40 mg/dL, Low: Positive risk factor for coronary heart disease LDL Cholesterol Date Value Ref Range Status 02/17/2023 109 (H) <100 mg/dL Final Comment: <100 mg/dL, Optimal 100-129 mg/dL, Near optimal/above optimal 130-159 mg/dL, Borderline high 160-189 mg/dL, High >189 mg/dL, Very high Secondary prevention optimal LDL Cholesterol levels are recommended to be < 70 mg/dL Triglyceride Date Value Ref Range Status 02/17/2023 130 <150 mg/dL Final Comment: <150 mg/dL, Normal 150-199 mg/dL, Borderline high 200-499 mg/dL, High >499 mg/dL, Very high Glucose (mg/dL) Date Value 11/01/2024 87 10/01/2021 86 Potassium (mmol/L) Date Value 11/01/2024 4.0 10/01/2021 3.7 Sodium (mmol/L) Date Value 11/01/2024 141 10/01/2021 140 Chloride (mmol/L) Date Value 11/01/2024 101 10/01/2021 100 CO2 (mmol/L) Date Value 11/01/2024 29 10/01/2021 27 Creatinine (mg/dL) Date Value 11/01/2024 0.73 10/01/2021 0.80 BUN (mg/dL) Date Value 11/01/2024 11 10/01/2021 12 Anion Gap (mmol/L) Date Value 11/01/2024 11 10/01/2021 13 Calcium (mg/dL) Date Value 10/01/2021 9.8 Calcium, Total (mg/dL) Date Value 11/01/2024 9.4 Protein, Total (g/dL) Date Value 11/01/2024 6.8 10/01/2021 7.1 Albumin (g/dL) Date Value 11/01/2024 4.0 10/01/2021 4.3 Bilirubin, Total (mg/dL) Date Value 11/01/2024 0.5 10/01/2021 0.4 Alkaline Phosphatase (U/L) Date Value 11/01/2024 65 10/01/2021 84 AST (U/L) Date Value 11/01/2024 22 10/01/2021 23 ALT (U/L) Date Value 11/01/2024 17 10/01/2021 35 ANTHROPOMETRICS Height: Last 1 Encounter Ht Readings: Date: Ht: 11/28/2024 167.6 cm (5' 6) Current weight: Last 3 Encounter Wt Readings: Date: Wt: 11/28/2024 156.7 kg (345 lb 7.4 oz) 11/08/2024 154.7 kg (341 lb) 08/16/2024 156.9 kg (345 lb 14.4 oz) BMI: 55.76 kg/(m^2) 5% -10% Weight loss: Last Wt 11/28/24 : (!) 156.7 kg (345 lb 7.4 oz) 5% weight loss = 17 lbs, 10% weight loss = 35 lbs READINESS TO LEARN Cognitive ability: Alert and oriented Motivation to learn: Eager Interested Family support: Unable to assess - Family not present Instruction provided to: Patient Patient learns best by: Multiple Methods Factors affecting learning: None Physical limitations affecting learning: Pain and Limited Mobility Stage of Change: Preparation Nutrition Diagnosis: Physical Inactivity, related to; injury or lifestyle change that reduces physical activity or activities of daily living, as evidenced by pt reported lack of structured exercise. Calories Needed for Current Weight: Resting Metabolic Rate: 2240 Nutrition Intervention: -Meal Plan Topics -Balanced eating/Plate method and -Lean Proteins -Exercise Topics -Exercise Guidelines/Exercise Benefits/Exercise prescription and -Barriers to exercise -Lifestyle Behaviors -Diet Profiles (large portions, emotional eating, peer/social eating, lack of readiness for rn long term care lifestyle changes, convenient eating/time management, etc.) , -Emotional eating/Mindful Eating, - Sleep and Weight, -Stress Management, and -Behavior change/goal setting Nutrition Monitoring & Evaluation: Dietitian Goals: Weight Reduction of 5-10% within 6 months Criteria: Weight Patient Stated Goals at today's visit: Explore Pilates (on the reformer) and water exercise in area Call insurance to ask about GLP1 coverage Keep food record/ photo dairy and send to RD Adherence Potential to Goals: Good Need for Follow up: Contact info provided and RD will remain available Referred by: Sincere Dickson MD Emma Rueth, RD Consult Billing Type/Increments: Initial Assessment/15 minutes, 3 increment(s), 45 minutes Start time: 9:00AM End time: 9:45AM My final report will be communicated back to the requesting physician by way of shared medical record. Signed by: Patricia Butterfield RD documented in this encounterPrem[facility]03-[facility]-2025 NoteHNO ID: [id number] Author: PATRICIA BUTTERFIELD RD Service: ? Author Type: Registered Dietitian Type: Progress Notes Filed: 11/29/2024 09:53 Note Text: [facility] Medical Nutrition Therapy Visit Type: Virtual: I have discussed the nature of this visit with the patient which will occur via [facility] (Phone, Virtual Visit) and she agrees to proceed with this interaction. I have communicated my name and active licensure. The patient's identity and physical location were verified at the time of this visit. Either the patient or their legal traffic workforce representative has been informed of the risks and benefits of -- and alternatives to -- treatment through a remote evaluation and consents to proceed with the evaluation remotely. Patient states reason for visit: Weight Management Initial virtual visit DEMOGRAPHICS: Co-Morbidities: PAST MEDICAL HISTORY Diagnosis Date Irritable bowel syndrome Pneumonia due to adenovirus 07/26 Activity: Do you do a regular exercise? No Symptoms: Patient's symptoms are as follows: Weight Concerns: failure to lose weight How many hours of sleep on average? 4-6 - Pt reports she has a smart watch to monitor her sleep. Pt reports she often wakes up d/t pain. Diet History: Pt reports intermittent fasting for the past 2 years (6 hour eating window). Breakfast: coffee; twice per month breakfast - 2 eggs + sausage + 2 pieces bread Dinner: chicken breast + tater tots (one-to-one portion) Snack: popcorn Fluids: water ETOH: none Dining/eating out? 0-1 times per week Allergies: No banana No strawberries No watermelon Patient / Provider Comments: This visit was conducted as a virtual visit. Pt reports met with core carrier and reports recent increase in joint pain and discomfort with RA. Pt reports desire for weight loss to help pain. Pt reports I can't move at all. I have no tolerance. Pt reports she has tried to increase exercise (like wall pilates, walking, etc.), but pt reports she has passed out three times over the past 6 months. Pt reports long hx of larger body size. Pt reports gastric bypass in 2012 - pt reports she lost 108 lbs in the first year. Pt reports she started regaining weight (10% each year) the following year. Pt reports she was tracking intake and was still gaining weight. Pt reports, once dx with RA, she was treated with steroids and gained 80 lbs. Pt was also dx with long COVID in 2020 and has been on and off steroids ever since. Pt reports she believes she started menopause three years ago d/t medications. Pt reports started developing more illness issues in 2017 - IBD, RA, etc. Pt reports she followed an anti-inflammatory diet for 6 years - no grains, no dairy, no refined sugars. Pt reports she also tried to incorporate low FODMAP. Pt has been practicing IF for past 2 years. Medications: Current Outpatient Medications Medication Sig nebivolol (BYSTOLIC) 10 mg tablet Take 10 mg by mouth once daily. ramipril (ALTACE) 5 mg capsule Take 5 mg by mouth once daily. busPIRone (BUSPAR) 5 mg tablet Take 5 mg by mouth two times a day. riboflavin, vitamin B2, 400 mg tab Take 1 tablet by mouth daily at bedtime. infliximab (REMICADE INTRAVENOUS) Inject intravenously. methotrexate 2.5 mg tablet Take 6 tablets by mouth one time a week. predniSONE (DELTASONE) 5 mg tablet Take 1 tablet by mouth every afternoon. folic acid 1 mg tablet Take one pill each day of the week EXCEPT the day you take methotrexate doxycycline hyclate 150 mg Delayed Release Tablet Take 150 mg by mouth once daily. (Patient not taking: Reported on 11/28/2024) indapamide (LOZOL) 1.25 mg tablet 1.25 mg once daily. MULTIVITAMIN ORAL Take by mouth once daily. DULoxetine (CYMBALTA) 60 mg capsule Take 2 capsules by mouth once daily. pregabalin (LYRICA) 100 mg capsule levocetirizine 5 mg tablet Take 5 mg by mouth once daily. fluticasone (FLONASE) 50 mcg/actuation nasal spray Use 2 Sprays in each nostril once daily. promethazine (PHENERGAN) 12.5 mg tablet 1/2 TO 1 TABLET EVERY 8 HOURS FOR NAUSEA, HEADACHE, OR COUGH ondansetron (ZOFRAN) 4 mg tablet 1 (ONE) TABLET EVERY 8 HOURS FOR NAUSEA OR MOTION SICKNESS Bifidobacterium infantis 1.5 billion cell cap Bifidobacterium Infantis Bifidobacterium Infantis (Digestive Probiotic) 1.5 billion cell capsule Active 1500 MMU CELLS PO DAILY July 05, 2018 8:40am 07-05-2018 [facility] ([id number]) hydrOXYzine HCl (ATARAX) 25 mg tablet Take 25 mg by mouth daily at bedtime. docosahexaenoic acid/epa (FISH OIL ORAL) Take by mouth. baclofen (LIORESAL) 10 mg tablet TAKE 1 TABLET BY MOUTH 3 TIMES A DAY NEEDED FOR SPASMS cholecalciferol (VITAMIN D3) 5,000 unit tab Take 5,000 Units by mouth. Cyanocobalamin 1,000 mcg subl Dissolve 1,000 mcg under the tongue. Vitamin b12 magnesium oxide (MAG-OX) 400 mg (241.3 mg magnesium) tablet Take 1 tablet by mouth twice daily. calcium citr (more content not included)...[facility]03-06-2025 History of Present illness Narrative* Elena Pederson Tech - 11/28/2024 11:30 AM EST Radiology Service Progress Note PATIENT NAME: Galindo Ho DATE OF SERVICE: November 28, 2024 TIME: 11:28 AM PATIENT IDENTITY VERIFICATION COMPLETED USING TWO (2) IDENTIFIERS: Name and Date of confirmedby patient verbally. FALL SCREENING: Has the patient had 2 falls in the last year or 1 fall with injury or currently using an Ambulatory Assistive Device (Walker, Cane, Wheelchair, Crutches, etc.)? No PATIENT GENDER DATA: Assigned female at . status: : No status:NO. PATIENT RELEVANT IMPLANT DATA REVIEWED: Not Applicable PATIENT PRESENTS WITH AN IMPLANTABLE OR ATTACHED CLIENT ANALYST: No RADIOLOGY DEPARTMENT: General X-ray: Exam(s) Completed: Lower Extremity X- Ray(s): Knee, AP / Lat / Tunne / Merchant Bilateral PERIPHERAL IV DATA: Not applicable SIGNED BY: Edith Bernabe November 28, 2024 11:28 AM documented in this encounterPremier Health [facility]03-06-2025 NoteHNO ID: [id number] Author: ELENA PEDERSON Tech Service: ? Author Type: Technologist Type: Progress Notes Filed: 11/28/2024 11:52 Note Text: Radiology Service Progress Note PATIENT NAME: Galindo Ho DATE OF SERVICE: November 28, 2024 TIME: 11:28 AM PATIENT IDENTITY VERIFICATION COMPLETED USING TWO (2) IDENTIFIERS: Name and Date of confirmed by patient verbally. FALL SCREENING: Has the patient had 2 falls in the last year or 1 fall with injury or currently using an Ambulatory Assistive Device (Walker, Cane, Wheelchair, Crutches, etc.)? No PATIENT GENDER DATA: Assigned female at . status: : No status: NO. PATIENT RELEVANT IMPLANT DATA REVIEWED: Not Applicable PATIENT PRESENTS WITH AN IMPLANTABLE OR ATTACHED CLIENT ANALYST: No RADIOLOGY DEPARTMENT: General X-ray: Exam(s) Completed: Lower Extremity X-Ray(s): Knee, AP / Lat / Tunne / Merchant Bilateral PERIPHERAL IV DATA: Not applicable SIGNED BY: Edith Bernabe November 28, 2024 11:28 [facility]03-06-2025 NoteHNO ID: [id number] Author: SINCERE DICKSON MD Service: ? Author Type: Physician Type: Progress Notes Filed: 11/28/2024 08:54 Note Text: [facility] Orthopaedic AND Rheumatologic [place] Department of Rheumatic and Immunologic Diseases SUBJECTIVE: . Brief History of Present Illness: 44 year old female is evaluated in the Rheumatology Clinic for +RF elevated CRP and bilateral wrist pain Hx of questionable inflammatory bowel syndrome (multiple biopsies, one showing suspicion for IBD) Fibromyalgia/post traumatic syndrome + rapid response to glucocorticoids 09/2020 started methotrexate 04/2021 started humira, worked very well, but concerned about twitching so stopped 05/16 started orencia but not having twitches Feels it doesn't work as well the 01/15 cimzia denied, went to remicade TODAY April passed out Was wondering if it could be associated with her remicade infusions? It occurs a few weeks after the infusion Saw cards, thinks she's having episodes of tachycardia Feels her RA is doing well No significant stiffness in the mornings Feels her knees are bothering her more though Hard moving deep pain No infections on the remicade PMHx: PAST MEDICAL HISTORY Diagnosis Date Irritable bowel syndrome Pneumonia due to adenovirus 07/26 PSHx: PAST SURGICAL HISTORY Procedure Laterality Date COLONOSCOPY FLX DX W/COLLJ SPEC WHEN PFRMD Colonoscopy SKIN BX, 1 LESION On neck and Right shoulder blade, benign TONSILLECTOMY PRIMARY/SECONDARY AGE 13/> MEDICATIONS: methotrexate 2.5 mg tablet Take 6 tablets by mouth one time a week. predniSONE (DELTASONE) 5 mg tablet Take 1 tablet by mouth every afternoon. folic acid 1 mg tablet Take one pill each day of the week EXCEPT the day you take methotrexate doxycycline hyclate 150 mg Delayed Release Tablet Take 150 mg by mouth once daily. indapamide (LOZOL) 1.25 mg tablet 1.25 mg once daily. MULTIVITAMIN ORAL Take by mouth once daily. DULoxetine (CYMBALTA) 60 mg capsule Take 2 capsules by mouth once daily. pregabalin (LYRICA) 100 mg capsule levocetirizine 5 mg tablet Take 5 mg by mouth once daily. fluticasone (FLONASE) 50 mcg/actuation nasal spray Use 2 Sprays in each nostril once daily. promethazine (PHENERGAN) 12.5 mg tablet 1/2 TO 1 TABLET EVERY 8 HOURS FOR NAUSEA, HEADACHE, OR COUGH ondansetron (ZOFRAN) 4 mg tablet 1 (ONE) TABLET EVERY 8 HOURS FOR NAUSEA OR MOTION SICKNESS Bifidobacterium infantis 1.5 billion cell cap Bifidobacterium Infantis Bifidobacterium Infantis (Digestive Probiotic) 1.5 billion cell capsule Active 1500 MMU CELLS PO DAILY July 05, 2018 8:40am 07-05-2018 [facility] ([id number]) hydrOXYzine HCl (ATARAX) 25 mg tablet Take 25 mg by mouth daily at bedtime. docosahexaenoic acid/epa (FISH OIL ORAL) Take by mouth. baclofen (LIORESAL) 10 mg tablet TAKE 1 TABLET BY MOUTH 3 TIMES A DAY NEEDED FOR SPASMS (Patient not taking: No sig reported) cholecalciferol (VITAMIN D3) 5,000 unit tab Take 5,000 Units by mouth. Cyanocobalamin 1,000 mcg subl Dissolve 1,000 mcg under the tongue. Vitamin b12 magnesium oxide (MAG-OX) 400 mg (241.3 mg magnesium) tablet Take 1 tablet by mouth twice daily. calcium citrate/vitamin D3 (CALCIUM CITRATE + D ORAL) Take by mouth. vit/iron fum/folic ac ( 1 PLUS 1 ORAL) Take by mouth. (Patient not taking: Reported on 10/20/2022) ALLERGIES: ALLERGIES Allergen Reactions Bananas [Other] Shortness of Breath Penicillin G Rash Seasonal [Other] [place] Other: See Comments, Hives Sulfa (Sulfonamide * Hives Watermelon Diarrhea Latex Rash OBJECTIVE: Physical Examination: Vitals: BP (!) 117/49 Pulse 71 Temp 36.3 ?C (97.4 ?F) (Temporal) Ht 167.6 cm (5' 6) Wt (!) 156.7 kg (345 lb 7.4 oz) LMP 10/18/2005 BMI 55.76 kg/m? General: Looks well, NAD, A AND Ox3. HEENT: PERRLA AND EOMs intact. Throat clear without exudates. Neck: No LAD. No bruits. CVS: RRR, nl S1/S2, no R/M/G, Resp: CTAB. No rales or wheezing. Abdo: NL BS present, soft AND non-tender, Ext: No edema. Neuro: Gait Normal. Skin: No rash. No ulcers. Musculoskeletal: Shoulders: No swelling, no tenderness, good ROM Elbows: No swelling, no tenderness, no flexion contractures, no nodules, good ROM Wrists: No swelling, no tenderness, no limitation in flexion and extension Hands: No evidence of synovitis. Able to make full fist bilaterally Knees: No effusion, no tenderness, good ROM Ankles: No swelling, no tenderness, good ROM Feet/Toes/ MTP: No evidence of synovitis ASSESSMENT/PLAN: 44 year old female with + RF and inflammatory arthritis Currently on infliximab-doing well from an RA standpoint. No hand/wrist pain/stiffness. Will continue infliximbab Syncope-does not seem like it's related to infliximab infusions. Following cardiology. High risk meds-continue monitoring labs Knee pain-likely OA related. Worsening with obesity. K (more content not included)...[facility]03-06-2025 History of Present illness Narrative* Sincere Dickson MD - 11/28/2024 8:04 AM EST [facility] Orthopaedic & Rheumatologic [place] Department of Rheumatic and Immunologic Diseases SUBJECTIVE: . Brief History of Present Illness: 44 year old female is evaluated in the Rheumatology Clinic for +RF elevated CRP and bilateral wristpain Hx of questionable inflammatory bowel syndrome (multiple biopsies, one showing suspicion for IBD) Fibromyalgia/post traumatic syndrome + rapid response to glucocorticoids 09/2020 started methotrexate 04/2021 started humira, worked very well, but concerned about twitching so stopped 05/16 started orencia but not having twitches Feels it doesn't work as well the 01/15 cimzia denied, went to remicade TODAY [place] passed out Was wondering if it could be associated with her remicade infusions? It occurs a few weeks after the infusion Saw cards, thinks she's having episodes of tachycardia Feels her RA is doing well No significant stiffness in the mornings Feels her knees are bothering her more though Hard moving deep pain No infections on the remicade PMHx: PAST MEDICAL HISTORY Diagnosis Date Irritable bowel syndrome Pneumonia due to adenovirus 07/26 PSHx: PAST SURGICAL HISTORY Procedure Laterality Date COLONOSCOPY FLX DX W/COLLJ SPEC WHEN PFRMD Colonoscopy SKIN BX, 1 LESION On neck and Right shoulder blade, benign TONSILLECTOMY PRIMARY/SECONDARY AGE 13/> MEDICATIONS: methotrexate 2.5 mg tablet Take 6 tablets by mouth one time a week. predniSONE (DELTASONE) 5 mg tablet Take 1 tablet by mouth every afternoon. folic acid 1 mg tablet Take one pill each day of the week EXCEPT the day you take methotrexate doxycycline hyclate 150 mg Delayed Release Tablet Take 150 mg by mouth once daily. indapamide (LOZOL) 1.25 mg tablet 1.25 mg once daily. MULTIVITAMIN ORAL Take by mouth once daily. DULoxetine (CYMBALTA) 60 mg capsule Take 2 capsules by mouth once daily. pregabalin (LYRICA) 100 mg capsule levocetirizine 5 mg tablet Take 5 mg by mouth once daily. fluticasone (FLONASE) 50 mcg/actuation nasal spray Use 2 Sprays in each nostril once daily. promethazine (PHENERGAN) 12.5 mg tablet 1/2 TO 1 TABLET EVERY 8 HOURS FOR NAUSEA, HEADACHE, OR COUGH ondansetron (ZOFRAN) 4 mg tablet 1 (ONE) TABLET EVERY 8 HOURS FOR NAUSEA OR MOTION SICKNESS Bifidobacterium infantis 1.5 billion cell cap Bifidobacterium Infantis Bifidobacterium Infantis (Digestive Probiotic) 1.5 billion cell capsule Active 1500 MMU CELLS PO DAILY July 05, 2018 [id number] [facility] ([id number]) hydrOXYzine HCl (ATARAX) 25 mg tablet Take 25 mg by mouth daily at bedtime. docosahexaenoic acid/epa (FISH OIL ORAL) Take by mouth. baclofen (LIORESAL) 10 mg tablet TAKE 1 TABLET BY MOUTH 3 TIMES A DAY NEEDED FOR SPASMS (Patientnot taking: No sig reported) cholecalciferol (VITAMIN D3) 5,000 unit tab Take 5,000 Units by mouth. Cyanocobalamin 1,000 mcg subl Dissolve 1,000 mcg under the tongue. Vitamin b12 magnesium oxide (MAG-OX) 400 mg (241.3 mg magnesium) tablet Take 1 tablet by mouth twice daily. calcium citrate/vitamin D3 (CALCIUM CITRATE + D ORAL) Take by mouth. vit/iron fum/folic ac ( 1 PLUS 1 ORAL) Take by mouth. (Patient not taking: Reported on 10/20/2022) ALLERGIES: ALLERGIES Allergen Reactions Bananas [Other] Shortness of Breath Penicillin G Rash Seasonal [Other] [place] Other: See Comments, Hives Sulfa (Sulfonamide * Hives Watermelon Diarrhea Latex Rash OBJECTIVE: Physical Examination: Vitals: BP (!) 117/49 Pulse 71 Temp 36.3 C (97.4 F) (Temporal) Ht 167.6 cm (5' 6) Wt (!) 156.7 kg (345 lb 7.4 oz) LMP 10/18/2005 BMI 55.76 kg/m General: Looks well, NAD, A & Ox3. HEENT: PERRLA & EOMs intact. Throat clear without exudates. Neck: No LAD. No bruits. CVS: RRR, nl S1/S2, no R/M/G, Resp: CTAB. No rales or wheezing. Abdo: NL BS present, soft & non-tender, Ext: No edema. Neuro: Gait Normal. Skin: No rash. No ulcers. Musculoskeletal: Shoulders: No swelling, no tenderness, good ROM Elbows: No swelling, no tenderness, no flexion contractures, no nodules, good ROM Wrists: No swelling, no tenderness, no limitation in flexion and extension Hands: No evidence of synovitis. Able to make full fist bilaterally Knees: No effusion, no tenderness, good ROM Ankles: No swelling, no tenderness, good ROM Feet/Toes/ MTP: No evidence of synovitis ASSESSMENT/PLAN: 44 year old female with + RF and inflammatory arthritis Currently on infliximab-doing well from an RA standpoint. No hand/wrist pain/stiffness. Will continue infliximbab Syncope-does not seem like it's related to infliximab infusions. Following cardiology. High risk meds-continue monitoring labs Knee pain-likely OA related. Worsening with obesity. Knees are also very hypermobile. We discussed this, focusing on PT. Discussed weight loss strategies. -Will call pt with results Sincere Dickson MD Rheumatology Staff [id number] Answers submitted by the patient for this visit: Review of Systems Rheumatology (Submitted on 11/21/2024) Fever : No Recent unintentional weight change: No Eye pain: No Eye redness: No Vision Disturbance: Yes Eye Dryness: No Nosebleeds: No Sores in your mouth: Yes Trouble Swallowing: Yes Dry Mouth: Yes Chest pain: Yes Leg Swelling: No A cough: No Shortness of breath: Yes Pain with breathing: No Heartburn: No Abdominal pain: No Diarrhea: Yes Black tarry stools: No Blood in urine: No Pain or burning with urination: No Joint pain or stiffness: Yes Muscle weakness: Yes Muscle aches: Yes Joint swelling: Yes Morning Stiffness in Joints: No A rash: No Skin Color Changes: No Hair Loss: No Nail Changes: No Headaches: Yes Numbness: No Memory Loss: No Swollen Glands: No documented in [facility]* Diagnosis Onset Date Resolution Status Admit Date Anxiety acute October 17, 2024 9:22am Class 3 obesity acute September 262024 9:22am Family history of breast cancer acute October 17 9:22am Morbid obesity acute October 172024 9:22am Hypertension chronic September 9:22am Encounter for routine gynecological examination noneactive y 2024 9:22am Morbid obesity acute October 272024 11:10am Shortness of breath acute 2024 11:10am Tachycardia acute October 11:10am Hypertension chronic October 11:10am [facility] Work Phone: 1(350) 941-303111-18-2024 Telephone encounter Note* Telephone Encounter - Juli Ferris RN - 08/12/2024 6:32 AM EST Images from the original note were not included. Most recent Rheumatology visit: 11/03/2023 (with Sincere Dickson) Last Bone Density on file: None on file Rheumatology Care Team: None on file Recent Office Visits - This Specialty 11/03/2023 Seropositive rheumatoid arthritis of multiple sites (HCC) Rheumatology Sincere Dickson MD 10/20/2022 Seropositive rheumatoid arthritis of multiple sites (HCC) Rheumatology Sincere Dickson MD 01/04/2022 Shortness of breath Rheumatology Sincere Dickson MD Upcoming Rheumatology Appointments - Next 365 Days No appointments to display CBC: Latest Ref Rng & Units 02/09/2024 05/03/2024 CBC WBC 3.70 - 11.00 k/uL 7.42 7.61 Hemoglobin 11.5 - 15.5 g/dL 14.6 14.5 Hematocrit 36.0 - 46.0 % 41.3 41.1 Platelet Count 150 - 400 k/uL 392 336 Abs Neut (ANC) 1.45 - 7.50 k/uL 4.02 4.32 Abs Lymph 1.00 - 4.00 k/uL 2.49 2.42 Vitamin D: None on file in the last 6 months LFT: Latest Ref Rng & Units 02/09/2024 05/03/2024 CMP Sodium 136 - 144 mmol/L 135 136 Potassium 3.7 - 5.1 mmol/L 3.5 3.7 Chloride 98 - 107 mmol/L 98 97 CO2 22 - 30 mmol/L 29 26 Glucose 74 - 99 mg/dL 110 99 BUN 7 - 21 mg/dL 10 12 Creatinine 0.58 - 0.96 mg/dL 0.75 0.73 Calcium 8.5 - 10.2 mg/dL 10.0 9.5 AST 13 - 35 U/L 19 16 ALT 7 - 38 U/L 16 15 Alkaline Phosphatase 34 - 123 U/L 78 71 Hepatic Function: Creatinine: Latest Ref Rng & Units 02/09/2024 05/03/2024 Creatinine Creatinine 0.58 - 0.96 mg/dL 0.75 0.73 ESR/CRP: None on file in the last 6 months Uric Acid: None on file in the last 6 months Open Standing (Multiple Instance) Lab Orders Remain Interval Expires Ordered Last Rel. COMPLETE BLOOD COUNT AND DIFFERENTIAL [SQCBCDIF] Once per month 05/03/25 05/03/24 05/03/24 Auth. provider: Sincere Dickson MD Assoc. diagnoses: High risk medication use COMPREHENSIVE METABOLIC PANEL [SQCMP] Once per month 05/03/25 05/03/24 05/03/24 Auth. provider: Sincere Dickson MD Assoc. diagnoses: High risk medication use Open Future (Single Instance) Lab Orders None [facility]11-18-2024 Miscellaneous Notes* Telephone Encounter - Juli Ferris RN - 08/12/2024 6:32 AM EST Images from the original note were not included. Most recent Rheumatology visit: 11/03/2023 (with Sincere Dickson) Last Bone Density on file: None on file Rheumatology Care Team: None on file Recent Office Visits - This Specialty 11/03/2023 Seropositive rheumatoid arthritis of multiple sites (HCC) Rheumatology Sincere Dickson MD 10/20/2022 Seropositive rheumatoid arthritis of multiple sites (HCC) Rheumatology Sincere Dickson MD 01/04/2022 Shortness of breath Rheumatology Sincere Dickson MD Upcoming Rheumatology Appointments - Next 365 Days No appointments to display CBC: Latest Ref Rng & Units 02/09/2024 05/03/2024 CBC WBC 3.70 - 11.00 k/uL 7.42 7.61 Hemoglobin 11.5 - 15.5 g/dL 14.6 14.5 Hematocrit 36.0 - 46.0 % 41.3 41.1 Platelet Count 150 - 400 k/uL 392 336 Abs Neut (ANC) 1.45 - 7.50 k/uL 4.02 4.32 Abs Lymph 1.00 - 4.00 k/uL 2.49 2.42 Vitamin D: None on file in the last 6 months LFT: Latest Ref Rng & Units 02/09/2024 05/03/2024 CMP Sodium 136 - 144 mmol/L 135 136 Potassium 3.7 - 5.1 mmol/L 3.5 3.7 Chloride 98 - 107 mmol/L 98 97 CO2 22 - 30 mmol/L 29 26 Glucose 74 - 99 mg/dL 110 99 BUN 7 - 21 mg/dL 10 12 Creatinine 0.58 - 0.96 mg/dL 0.75 0.73 Calcium 8.5 - 10.2 mg/dL 10.0 9.5 AST 13 - 35 U/L 19 16 ALT 7 - 38 U/L 16 15 Alkaline Phosphatase 34 - 123 U/L 78 71 Hepatic Function: Creatinine: Latest Ref Rng & Units 02/09/2024 05/03/2024 Creatinine Creatinine 0.58 - 0.96 mg/dL 0.75 0.73 ESR/CRP: None on file in the last 6 months Uric Acid: None on file in the last 6 months Open Standing (Multiple Instance) Lab Orders Remain Interval Expires Ordered Last Rel. COMPLETE BLOOD COUNT AND DIFFERENTIAL [SQCBCDIF] Once per month 05/03/25 05/03/24 05/03/24 Auth. provider: Sincere Dickson MD Assoc. diagnoses: High risk medication use COMPREHENSIVE METABOLIC PANEL [SQCMP] Once per month 05/03/25 05/03/24 05/03/24 Auth. provider: Sincere Dickson MD Assoc. diagnoses: High risk medication use Open Future (Single Instance) Lab Orders None documented in [facility] encounter[facility] Telephone encounter Note * Telephone Encounter - Juli Ferris RN - 07/05/2024 12:52 PM EDT Images from the original note were not included. Most recent Rheumatology visit: 11/03/2023 (with Sincere Dickson) Last Bone Density on file: None on file Rheumatology Care Team: None on file Recent Office Visits - This Specialty 11/03/2023 Seropositive rheumatoid arthritis of multiple sites (HCC) Rheumatology Sincere Dickson MD 10/20/2022 Seropositive rheumatoid arthritis of multiple sites (HCC) Rheumatology Sincere Dickson MD 01/04/2022 Shortness of breath Rheumatology Sincere Dickson MD Upcoming Rheumatology Appointments - Next 365 Days No appointments to display CBC: Latest Ref Rng & Units 02/09/2024 05/03/2024 CBC WBC 3.70 - 11.00 k/uL 7.42 7.61 Hemoglobin 11.5 - 15.5 g/dL 14.6 14.5 Hematocrit 36.0 - 46.0 % 41.3 41.1 Platelet Count 150 - 400 k/uL 392 336 Abs Neut (ANC) 1.45 - 7.50 k/uL 4.02 4.32 Abs Lymph 1.00 - 4.00 k/uL 2.49 2.42 Vitamin D: None on file in the last 6 months LFT: Latest Ref Rng & Units 02/09/2024 05/03/2024 CMP Sodium 136 - 144 mmol/L 135 136 Potassium 3.7 - 5.1 mmol/L 3.5 3.7 Chloride 98 - 107 mmol/L 98 97 CO2 22 - 30 mmol/L 29 26 Glucose 74 - 99 mg/dL 110 99 BUN 7 - 21 mg/dL 10 12 Creatinine 0.58 - 0.96 mg/dL 0.75 0.73 Calcium 8.5 - 10.2 mg/dL 10.0 9.5 AST 13 - 35 U/L 19 16 ALT 7 - 38 U/L 16 15 Alkaline Phosphatase 34 - 123 U/L 78 71 Hepatic Function: Creatinine: Latest Ref Rng & Units 02/09/2024 05/03/2024 Creatinine Creatinine 0.58 - 0.96 mg/dL 0.75 0.73 ESR/CRP: None on file in the last 6 months Uric Acid: None on file in the last 6 months Open Standing (Multiple Instance) Lab Orders Remain Interval Expires Ordered Last Rel. COMPLETE BLOOD COUNT AND DIFFERENTIAL [SQCBCDIF] Once per month 05/03/25 05/03/24 05/03/24 Auth. provider: Sincere Dickson MD Assoc. diagnoses: High risk medication use COMPREHENSIVE METABOLIC PANEL [SQCMP] Once per month 05/03/25 05/03/24 05/03/24 Auth. provider: Sincere Dickson MD Assoc. diagnoses: High risk medication use Open Future (Single Instance) Lab Orders None [facility]10-[facility] Miscellaneous Notes* Telephone Encounter - Juli Ferris RN - 07/05/2024 12:52 PM EDT Images from the original note were not included. Most recent Rheumatology visit: 11/03/2023 (with Sincere Dickson) Last Bone Density on file: None on file Rheumatology Care Team: None on file Recent Office Visits - This Specialty 11/03/2023 Seropositive rheumatoid arthritis of multiple sites (HCC) Rheumatology Sincere Dickson MD 10/20/2022 Seropositive rheumatoid arthritis of multiple sites (HCC) Rheumatology Sincere Dickson MD 01/04/2022 Shortness of breath Rheumatology Sincere Dickson MD Upcoming Rheumatology Appointments - Next 365 Days No appointments to display CBC: Latest Ref Rng & Units 02/09/2024 05/03/2024 CBC WBC 3.70 - 11.00 k/uL 7.42 7.61 Hemoglobin 11.5 - 15.5 g/dL 14.6 14.5 Hematocrit 36.0 - 46.0 % 41.3 41.1 Platelet Count 150 - 400 k/uL 392 336 Abs Neut (ANC) 1.45 - 7.50 k/uL 4.02 4.32 Abs Lymph 1.00 - 4.00 k/uL 2.49 2.42 Vitamin D: None on file in the last 6 months LFT: Latest Ref Rng & Units 02/09/2024 05/03/2024 CMP Sodium 136 - 144 mmol/L 135 136 Potassium 3.7 - 5.1 mmol/L 3.5 3.7 Chloride 98 - 107 mmol/L 98 97 CO2 22 - 30 mmol/L 29 26 Glucose 74 - 99 mg/dL 110 99 BUN 7 - 21 mg/dL 10 12 Creatinine 0.58 - 0.96 mg/dL 0.75 0.73 Calcium 8.5 - 10.2 mg/dL 10.0 9.5 AST 13 - 35 U/L 19 16 ALT 7 - 38 U/L 16 15 Alkaline Phosphatase 34 - 123 U/L 78 71 Hepatic Function: Creatinine: Latest Ref Rng & Units 02/09/2024 05/03/2024 Creatinine Creatinine 0.58 - 0.96 mg/dL 0.75 0.73 ESR/CRP: None on file in the last 6 months Uric Acid: None on file in the last 6 months Open Standing (Multiple Instance) Lab Orders Remain Interval Expires Ordered Last Rel. COMPLETE BLOOD COUNT AND DIFFERENTIAL [SQCBCDIF] Once per month 05/03/25 05/03/24 05/03/24 Auth. provider: Sincere Dickson MD Assoc. diagnoses: High risk medication use COMPREHENSIVE METABOLIC PANEL [SQCMP] Once per month 05/03/25 05/03/24 05/03/24 Auth. provider: Sincere Dickson MD Assoc. diagnoses: High risk medication use Open Future (Single Instance) Lab Orders None documented in [facility] encounter[facility]10-[facility] Telephone encounter Note * Telephone Encounter - Juli Ferris RN - 07/04/2024 9:24 AM EDT Images from the original note were not included. Most recent Rheumatology visit: 11/03/2023 (with Sincere Dickson) Last Bone Density on file: None on file Rheumatology Care Team: None on file Recent Office Visits - This Specialty 11/03/2023 Seropositive rheumatoid arthritis of multiple sites (HCC) Rheumatology Sincere Dickson MD 10/20/2022 Seropositive rheumatoid arthritis of multiple sites (HCC) Rheumatology Sincere Dickson MD 01/04/2022 Shortness of breath Rheumatology Sincere Dickson MD Upcoming Rheumatology Appointments - Next 365 Days No appointments to display CBC: Latest Ref Rng & Units 02/09/2024 05/03/2024 CBC WBC 3.70 - 11.00 k/uL 7.42 7.61 Hemoglobin 11.5 - 15.5 g/dL 14.6 14.5 Hematocrit 36.0 - 46.0 % 41.3 41.1 Platelet Count 150 - 400 k/uL 392 336 Abs Neut (ANC) 1.45 - 7.50 k/uL 4.02 4.32 Abs Lymph 1.00 - 4.00 k/uL 2.49 2.42 Vitamin D: None on file in the last 6 months LFT: Latest Ref Rng & Units 02/09/2024 05/03/2024 CMP Sodium 136 - 144 mmol/L 135 136 Potassium 3.7 - 5.1 mmol/L 3.5 3.7 Chloride 98 - 107 mmol/L 98 97 CO2 22 - 30 mmol/L 29 26 Glucose 74 - 99 mg/dL 110 99 BUN 7 - 21 mg/dL 10 12 Creatinine 0.58 - 0.96 mg/dL 0.75 0.73 Calcium 8.5 - 10.2 mg/dL 10.0 9.5 AST 13 - 35 U/L 19 16 ALT 7 - 38 U/L 16 15 Alkaline Phosphatase 34 - 123 U/L 78 71 Hepatic Function: Creatinine: Latest Ref Rng & Units 02/09/2024 05/03/2024 Creatinine Creatinine 0.58 - 0.96 mg/dL 0.75 0.73 ESR/CRP: None on file in the last 6 months Uric Acid: None on file in the last 6 months Open Standing (Multiple Instance) Lab Orders Remain Interval Expires Ordered Last Rel. COMPLETE BLOOD COUNT AND DIFFERENTIAL [SQCBCDIF] Once per month 05/03/25 05/03/24 05/03/24 Auth. provider: Sincere Dickson MD Assoc. diagnoses: High risk medication use COMPREHENSIVE METABOLIC PANEL [SQCMP] Once per month 05/03/25 05/03/24 05/03/24 Auth. provider: Sincere Dickson MD Assoc. diagnoses: High risk medication use Open Future (Single Instance) Lab Orders None [facility]10-10-2024 Miscellaneous Notes* Telephone Encounter - Juli Ferris RN - 07/04/2024 9:24 AM EDT Images from the original note were not included. Most recent Rheumatology visit: 11/03/2023 (with Sincere Dickson) Last Bone Density on file: None on file Rheumatology Care Team: None on file Recent Office Visits - This Specialty 11/03/2023 Seropositive rheumatoid arthritis of multiple sites (HCC) Rheumatology Sincere Dickson MD 10/20/2022 Seropositive rheumatoid arthritis of multiple sites (HCC) Rheumatology Sincere Dickson MD 01/04/2022 Shortness of breath Rheumatology Sincere Dickson MD Upcoming Rheumatology Appointments - Next 365 Days No appointments to display CBC: Latest Ref Rng & Units 02/09/2024 05/03/2024 CBC WBC 3.70 - 11.00 k/uL 7.42 7.61 Hemoglobin 11.5 - 15.5 g/dL 14.6 14.5 Hematocrit 36.0 - 46.0 % 41.3 41.1 Platelet Count 150 - 400 k/uL 392 336 Abs Neut (ANC) 1.45 - 7.50 k/uL 4.02 4.32 Abs Lymph 1.00 - 4.00 k/uL 2.49 2.42 Vitamin D: None on file in the last 6 months LFT: Latest Ref Rng & Units 02/09/2024 05/03/2024 CMP Sodium 136 - 144 mmol/L 135 136 Potassium 3.7 - 5.1 mmol/L 3.5 3.7 Chloride 98 - 107 mmol/L 98 97 CO2 22 - 30 mmol/L 29 26 Glucose 74 - 99 mg/dL 110 99 BUN 7 - 21 mg/dL 10 12 Creatinine 0.58 - 0.96 mg/dL 0.75 0.73 Calcium 8.5 - 10.2 mg/dL 10.0 9.5 AST 13 - 35 U/L 19 16 ALT 7 - 38 U/L 16 15 Alkaline Phosphatase 34 - 123 U/L 78 71 Hepatic Function: Creatinine: Latest Ref Rng & Units 02/09/2024 05/03/2024 Creatinine Creatinine 0.58 - 0.96 mg/dL 0.75 0.73 ESR/CRP: None on file in the last 6 months Uric Acid: None on file in the last 6 months Open Standing (Multiple Instance) Lab Orders Remain Interval Expires Ordered Last Rel. COMPLETE BLOOD COUNT AND DIFFERENTIAL [SQCBCDIF] Once per month 05/03/25 05/03/24 05/03/24 Auth. provider: Sincere Dickson MD Assoc. diagnoses: High risk medication use COMPREHENSIVE METABOLIC PANEL [SQCMP] Once per month 05/03/25 05/03/24 05/03/24 Auth. provider: Sincere Dickson MD Assoc. diagnoses: High risk medication use Open Future (Single Instance) Lab Orders None documented in this encounterPrem[facility]07-17-[facility]24 Telephone encounter Note * Telephone Encounter - Arian Lacey - 04/10/2024 1:39 PM EDT === PHARMACY TEAM ==== ADDITIONAL INFORMATION NEEDED/REQUESTED Date of Service: 05/16/2024 Additional Information Needed: per payer policy, patient's should receive ongoing TB testing while on infliximab therapy - last done 02/2022- how would you like to proceed? Arian [facility]07-17-2024 Miscellaneous Notes* Telephone Encounter - Arian Lacey - 04/10/2024 1:39 PM EDT === PHARMACY TEAM ==== ADDITIONAL INFORMATION NEEDED/REQUESTED Date of Service: 05/16/2024 Additional Information Needed: per payer policy, patient's should receive ongoing TB testing while on infliximab therapy - last done 02/2022- how would you like to proceed? Arian documented in this encounterPremier Health [facility]02-13-2024 Miscellaneous Notes* Telephone Encounter - Gladys Mcdowell MA - 11/07/2023 2:38 PM EST Zoraida from [facility] called wanted to verify the dose of inflectra. Informed her it was 7 mg/kg/dose, frequency was Q6W. She stated she was going to review with the pharmacist and they should have a decision within a fewdays * Telephone Encounter - Elena Kahn LPN - 11/06/2023 11:03 AM EST Referral is waiting on response from insurance company. Elena Kahn LPN * Telephone Encounter - Erlinda Brito - 11/06/2023 9:35 AM EST Patient asking if referral/order ready for scheduling treatment. Patient states she had appt with Dr. Sincere Dickson and he was to enter. Please review and advise. documented in this encounterPremier Health [facility]02-09-2024 History of Present illness Narrative* Sincere Dickson MD - 11/03/2023 11:33 AM EST VIRTUAL VISIT PROGRESS NOTE This is a virtual visit using [employer] Zoom Video Visit. It required patient- provider interaction for the medical decision making as documented below. I have communicated my name and active licensure. The patient's identity and physical location wereverified at the time of this visit. Either the patient or their legal traffic workforce representative has been informed of the risks and benefits of -- and alternatives to -- treatment through a remote evaluation andconsents to proceed with the evaluation remotely. Galindo Ho is a 43 year old female seen for +RF elevated CRP and bilateral wrist pain Hx of questionable inflammatory bowel syndrome (multiple biopsies, one showing suspicion for IBD) Fibromyalgia/post traumatic syndrome + rapid response to glucocorticoids 09/2020 started methotrexate 04/2021 started humira, worked very well, but concerned about twitching so stopped 05/16 started orencia but not having twitches Feels it doesn't work as well the 01/15 cimzia denied, went to remicade TODAY Feels better on the remicade Feels it helps her energy significantly No longer having joint pain/stiffness in elbows/wrists Thinks hips and knees are painful Thinks it maybe from weight HISTORY REVIEWED (electronic chart updated): PAST MEDICAL HISTORY Diagnosis Date Irritable bowel syndrome Pneumonia due to adenovirus 07/26 PAST SURGICAL HISTORY Procedure Laterality Date COLONOSCOPY FLX DX W/COLLJ SPEC WHEN PFRMD Colonoscopy SKIN BX, 1 LESION On neck and Right shoulder blade, benign TONSILLECTOMY PRIMARY/SECONDARY AGE 13/> FAMILY HISTORY Problem Relation Age of Onset Cancer Maternal Aunt skin cancer other (CVA [Other]) Paternal Grandfather other (HTN [Other]) Paternal Grandfather other (HTN [Other]) Father other (HTN [Other]) Paternal Grandmother Breast Cancer Paternal Aunt Colon Cancer Paternal Aunt BRCA + Breast Cancer Maternal Grandmother BRCA + Social History Tobacco Use Smoking status: Never Smokeless tobacco: Never Substance Use Topics Alcohol use: Yes Comment: Occasionally Drug use: No Current Outpatient Medications Medication Sig methotrexate 2.5 mg tablet TAKE 6 TABLETS BY MOUTH ONCE WEEKLY predniSONE (DELTASONE) 5 mg tablet take 1 tablet by mouth every day doxycycline hyclate 150 mg Delayed Release Tablet Take 150 mg by mouth once daily. folic acid 1 mg tablet TAKE ONE PILL EACH DAY OF THE WEEK EXCEPT THE DAY YOU TAKE METHOTREXATE certolizumab pegol (CIMZIA STARTER KIT) 400 mg/2 mL (200 mg/mL x 2) sub-q syringe kit Inject 400 mg(2 syringes) subcutaneously on weeks 0, 2, and 4 (Patient not taking: Reported on 11/18/2022) certolizumab pegol (CIMZIA) 400 mg/2 mL (200 mg/mL x 2) sub-q syringe kit Inject 400mg (2 syringes)subcutaneously every 4 weeks. indapamide (LOZOL) 1.25 mg tablet 1.25 mg once daily. MULTIVITAMIN ORAL Take by mouth once daily. DULoxetine (CYMBALTA) 60 mg capsule Take 2 capsules by mouth once daily. famotidine (PEPCID) 20 mg tablet Take 20 mg by mouth twice daily. loratadine (CLARITIN) 10 mg tablet Take 10 mg by mouth as needed. DULERA 200-5 mcg/actuation inhaler Inhale 2 Puffs as instructed twice daily. pregabalin (LYRICA) 100 mg capsule levocetirizine 5 mg tablet Take 5 mg by mouth once daily. fluticasone (FLONASE) 50 mcg/actuation nasal spray Use 2 Sprays in each nostril once daily. promethazine (PHENERGAN) 12.5 mg tablet 1/2 TO 1 TABLET EVERY 8 HOURS FOR NAUSEA, HEADACHE, OR COUGH ondansetron (ZOFRAN) 4 mg tablet 1 (ONE) TABLET EVERY 8 HOURS FOR NAUSEA OR MOTION SICKNESS Bifidobacterium infantis 1.5 billion cell cap Bifidobacterium Infantis Bifidobacterium Infantis (Digestive Probiotic) 1.5 billion cell capsule Active 1500 MMU CELLS PO DAILY July 05, 2018 [id number] [facility] ([id number]) hydrOXYzine HCl (ATARAX) 25 mg tablet Take 25 mg by mouth daily at bedtime. docosahexaenoic acid/epa (FISH OIL ORAL) Take by mouth. baclofen (LIORESAL) 10 mg tablet TAKE 1 TABLET BY MOUTH 3 TIMES A DAY NEEDED FOR SPASMS (Patientnot taking: No sig reported) cholecalciferol (VITAMIN D3) 5,000 unit tab Take 5,000 Units by mouth. Cyanocobalamin 1,000 mcg subl Dissolve 1,000 mcg under the tongue. Vitamin b12 LINZESS 72 mcg capsule Take 72 mcg by mouth once daily. (Patient not taking: Reported on 05/18/2023) magnesium oxide (MAG-OX) 400 mg (241.3 mg magnesium) tablet Take 1 tablet by mouth twice daily. omeprazole (PRILOSEC) 20 mg capsule TAKE ONE CAPSULE BY MOUTH EVERY DAY (Patient not taking: Reported on 05/18/2023) calcium citrate/vitamin D3 (CALCIUM CITRATE + D ORAL) Take by mouth. vit/iron fum/folic ac ( 1 PLUS 1 ORAL) Take by mouth. (Patient not taking: No sig reported) No current facility-administered medications for this visit. ALLERGIES Allergen Reactions Bananas [Other] Shortness of Breath Penicillin G Rash Seasonal [Other] [place] Other: See Comments, Hives Sulfa (Sulfonamide * Hives Watermelon Diarrhea Latex Rash REVIEW OF SYSTEMS: As above PHYSICAL EXAMINATION: VIDEO EXAM: (if completed, performed via video enabled technology) Gen: alert and oriented Skin: no rash on face Neuro: answering questions appropriately Pulm: speaking in full sentences Joints: ROM of shoulders, elbows, wrists normal Hands: no visible swelling ASSESSMENT: 43 yo female with hx of + RF and inflammatory arthritis Currently on infliximab. Doing fairly well, although feels the medication is wearing off 1 week before next visit. Discussed going up on the dose to 7mg/kg and she is agreeable High risk medications-continue monitoring labs I spent 15 minutes with the patient virtually face to face discussing history and counseling There are no Patient Instructions on file for this visit. Sincere Dickson MD Answers submitted by the patient for this visit: Review of Systems Rheumatology (Submitted on 11/01/2023) Fever : No Recent unintentional weight change: No Eye pain: Yes Eye redness: No Vision Disturbance: No Eye Dryness: Yes Nosebleeds: No Sores in your mouth: No Trouble Swallowing: No Dry Mouth: Yes Chest pain: No Leg Swelling: Yes A cough: No Shortness of breath: Yes Pain with breathing: No Heartburn: No Abdominal pain: Yes Diarrhea: Yes Black tarry stools: No Blood in urine: No Pain or burning with urination: No Joint pain or stiffness: Yes Muscle weakness: Yes Muscle aches: Yes Joint swelling: No Morning Stiffness in Joints: Yes A rash: Yes Do you have sun sensitive rashes?: No Skin Color Changes: Yes Hair Loss: No Nail Changes: No Headaches: Yes Numbness: No Memory Loss: No Swollen Glands: No documented in this encounterPrem[facility]02-05-2024 Miscellaneous Notes* Telephone Encounter - Choco ([facility] [place])Savanah - 10/30/2023 11:29 AM EST Any updates on the patient scheduling office visit? Please advise The Pharmacy Team Thank you * Telephone Encounter - Gladys Mcdowell Ma - 10/20/2023 12:16 PM EST Patient has not been seen in a year. She will need to be seen before the insurance company approvesher remicade infusions * Telephone Encounter - Calixto (Pharmacy Flight Deck Officer)Charlette - 10/04/2023 6:31 PM EST == PHARMACY TEAM ==== ADDITIONAL INFORMATION NEEDED/REQUESTED Case Submitted: No Request Type: Provider Date of Service: 11/02/2023 Additional Information Needed: Need updated chart notes documenting patient response to remicade treatment Request from Payor by: N/A Please advise documented in this encounterPremier Health [facility]02-02-2024 Miscellaneous Notes* Telephone Encounter - Vicky Swain RN - 10/27/2023 12:01 PM EST Most recent Rheumatology visit: 10/20/2022 (with Sicnere Dickson) Rheumatology Care Team: None on file Recent Office Visits - This Specialty 10/20/2022 Seropositive rheumatoid arthritis of multiple sites (HCC) Rheumatology Sincere Dickson MD 01/04/2022 Shortness of breath Rheumatology Sincere Dickson MD 04/23/2021 Seropositive rheumatoid arthritis (HCC) Rheumatology Sincere Dickson MD Upcoming Rheumatology Appointments - Next 365 Days No appointments to display CBC: CBC Latest Ref Rng & Units 09/15/2023 10/27/2023 WBC 3.70 - 11.00 k/uL 8.13 7.35 HEMOGLOBIN 11.5 - 15.5 g/dL 14.0 14.3 HEMATOCRIT 36.0 - 46.0 % 40.0 40.8 PLATELETS 150 - 400 k/uL 336 342 ABS NEUT (ANC) 1.45 - 7.50 k/uL 4.40 3.80 ABS LYMPH 1.00 - 4.00 k/uL 2.68 2.59 Vitamin D: None on file in the last 6 months LFT: CMP Latest Ref Rng & Units 08/03/2023 09/15/2023 SODIUM 136 - 144 mmol/L 138 136 POTASSIUM 3.7 - 5.1 mmol/L 3.9 3.6(L) CHLORIDE 97 - 105 mmol/L 101 100 CO2 22 - 30 mmol/L 25 29 GLUCOSE 74 - 99 mg/dL 101(H) 112(H) BUN 7 - 21 mg/dL 9 11 CREATININE 0.58 - 0.96 mg/dL 0.81 0.81 CALCIUM, TOTAL 8.5 - 10.2 mg/dL 9.0 9.6 AST 13 - 35 U/L 16 15 ALT 7 - 38 U/L 14 16 ALKALINE PHOSPHATASE 34 - 123 U/L 71 70 Hepatic Function: Creatinine: Creatinine Latest Ref Rng & Units 08/03/2023 09/15/2023 CREAT 0.58 - 0.96 mg/dL 0.81 0.81 ESR/CRP: None on file in the last 6 months Uric Acid: None on file in the last 6 months Open Standing (Multiple Instance) Lab Orders Remain Interval Expires Ordered Last Rel. CBC + DIFF [SQCBCDIF] 08/14 Once per month 02/18/24 02/17/23 10/27/23 Auth. provider: Sincere Dickson MD Assoc. diagnoses: High risk medication use COMP METABOLIC PANEL [SQCMP] 08/14 Once per month 02/18/24 02/17/23 10/27/23 Auth. provider: Sincere Dickson MD Assoc. diagnoses: High risk medication use Open Future (Single Instance) Lab Orders None documented in this encounterPremier [facility]10-20-2023 Miscellaneous Notes* Telephone Encounter - Carlo Fernandez RN - 07/14/2023 2:00 PM EDT Most recent Rheumatology visit: 10/20/2022 (with Sincere Dickson) Recent Office Visits - This Specialty 10/20/2022 Seropositive rheumatoid arthritis of multiple sites (HCC) Rheumatology Sincere Dickson MD 01/04/2022 Shortness of breath Rheumatology Sincere Dickson MD 04/23/2021 Seropositive rheumatoid arthritis (HCC) Rheumatology Sincere Dickson MD Upcoming Rheumatology Appointments - Next 365 Days No appointments to display CBC: CBC Latest Ref Rng & Units 05/12/2023 06/16/2023 WBC 3.70 - 11.00 k/uL 9.23 8.91 HEMOGLOBIN 11.5 - 15.5 g/dL 14.5 13.5 HEMATOCRIT 36.0 - 46.0 % 41.8 38.8 PLATELETS 150 - 400 k/uL 345 320 ABS NEUT (ANC) 1.45 - 7.50 k/uL 5.10 4.30 ABS LYMPH 1.00 - 4.00 k/uL 2.87 2.88 Vitamin D: None on file in the last 6 months LFT: CMP Latest Ref Rng & Units 05/12/2023 06/16/2023 SODIUM 136 - 144 mmol/L 137 137 POTASSIUM 3.7 - 5.1 mmol/L 3.7 3.5(L) CHLORIDE 97 - 105 mmol/L 99 101 CO2 22 - 30 mmol/L 27 28 GLUCOSE 74 - 99 mg/dL 120(H) 76 BUN 7 - 21 mg/dL 9 13 CREATININE 0.58 - 0.96 mg/dL 0.81 0.83 CALCIUM, TOTAL 8.5 - 10.2 mg/dL 9.9 9.3 AST 13 - 35 U/L 18 18 ALT 7 - 38 U/L 20 18 ALKALINE PHOSPHATASE 34 - 123 U/L 78 68 Hepatic Function: Creatinine: Creatinine Latest Ref Rng & Units 05/12/2023 06/16/2023 CREAT 0.58 - 0.96 mg/dL 0.81 0.83 ESR/CRP: ESR, WSR Latest Ref Rng & Units 10/20/2022 WSR 0 - 20 mm/hr 22(H) CRP Latest Ref Rng & Units 10/20/2022 02/17/2023 CRP <0.9 mg/dL 1.8(H) 0.9(H) Uric Acid: None on file in the last 6 months Open Standing (Multiple Instance) Lab Orders Remain Interval Expires Ordered Last Rel. CBC + DIFF [SQCBCDIF] Once per month 02/18/24 02/17/23 06/16/23 Auth. provider: Sincere Dickson MD Assoc. diagnoses: High risk medication use COMP METABOLIC PANEL [SQCMP] Once per month 02/18/24 02/17/23 06/16/23 Auth. provider: Sincere Dickson MD Assoc. diagnoses: High risk medication use Open Future (Single Instance) Lab Orders None Requested Prescriptions Pending Prescriptions Disp Refills folic acid 1 mg tablet [Pharmacy Med Name: FOLIC ACID 1 MG TABLET] 90 tablet 3 Sig: TAKE ONE PILL EACH DAY OF THE WEEK EXCEPT THE DAY YOU TAKE METHOTREXATE documented in this encounterPremier Health [facility] Center06-29-2023 Miscellaneous Notes* Telephone Encounter - Shanna Silverio RN - 03/23/2023 10:02 AM EDT Most recent Rheumatology visit: 10/20/2022 (with Sincere Dickson) Recent Office Visits - This Specialty 10/20/2022 Seropositive rheumatoid arthritis of multiple sites (HCC) Rheumatology Sincere Dickson MD 01/04/2022 Shortness of breath Rheumatology Sincere Dickson MD 04/23/2021 Seropositive rheumatoid arthritis (HCC) Rheumatology Sincere Dickson MD Upcoming Rheumatology Appointments - Next 365 Days No appointments to display CBC: CBC Latest Ref Rng & Units 02/17/2023 03/17/2023 WBC 3.70 - 11.00 k/uL 6.63 7.44 HEMOGLOBIN 11.5 - 15.5 g/dL 14.3 14.0 HEMATOCRIT 36.0 - 46.0 % 40.9 40.2 PLATELETS 150 - 400 k/uL 332 335 ABS NEUT (ANC) 1.45 - 7.50 k/uL 3.43 3.35 ABS LYMPH 1.00 - 4.00 k/uL 2.32 2.91 Vitamin D: None on file in the last 6 months LFT: CMP Latest Ref Rng & Units 02/17/2023 03/17/2023 SODIUM 136 - 144 mmol/L 137 137 POTASSIUM 3.7 - 5.1 mmol/L 3.9 4.1 CHLORIDE 97 - 105 mmol/L 100 102 CO2 22 - 30 mmol/L 30 28 GLUCOSE 74 - 99 mg/dL 106(H) 104(H) BUN 7 - 21 mg/dL 11 10 CREATININE 0.58 - 0.96 mg/dL 0.85 0.79 CALCIUM, TOTAL 8.5 - 10.2 mg/dL 9.8 9.1 AST 13 - 35 U/L 17 18 ALT 7 - 38 U/L 16 19 ALKALINE PHOSPHATASE 34 - 123 U/L 74 65 Hepatic Function: Creatinine: Creatinine Latest Ref Rng & Units 02/17/2023 03/17/2023 CREAT 0.58 - 0.96 mg/dL 0.85 0.79 ESR/CRP: ESR, WSR Latest Ref Rng & Units 10/20/2022 WSR 0 - 20 mm/hr 22(H) CRP Latest Ref Rng & Units 10/20/2022 02/17/2023 CRP <0.9 mg/dL 1.8(H) 0.9(H) Uric Acid: None on file in the last 6 months Open Standing (Multiple Instance) Lab Orders Remain Interval Expires Ordered Last Rel. CBC + DIFF [SQCBCDIF] Once per month 02/18/24 02/17/23 03/17/23 Auth. provider: Sincere Dickson MD Assoc. diagnoses: High risk medication use COMP METABOLIC PANEL [SQCMP] Once per month 02/18/24 02/17/23 03/17/23 Auth. provider: Sincere Dickson MD Assoc. diagnoses: High risk medication use Open Future (Single Instance) Lab Orders None documented in this encounterPremier Health [facility]04-28-2023 Miscellaneous Notes* Telephone Encounter - Madalyn Stevens - 01/20/2023 4:59 PM EDT Patient returned call and scheduled for 02/23/23. Dr. Dickson - please file any necessary/preferred lab work for patient to complete prior to infusion.Thank you. Madalyn Stevens * Telephone Encounter - Erlinda Narvaez - 01/20/2023 2:52 PM EDT 1st attempt. Message left for patient to schedule Remicade. Ordered by Dr. Dickson. * Telephone Encounter - Allison Kaufman LPN - 01/20/2023 2:25 PM EDT Orders have been placed. PSS please reach out to pt. To schedule Remicade. Should be after 02/03. Allison Kaufman LPN * Telephone Encounter - Allison Kaufman LPN - 01/18/2023 3:34 PM EDT Spoke with pt. She will reach out to Dr. Dickson. Orders are timed out. Allison Kaufman LPN * Telephone Encounter - Elena Kahn LPN - 01/16/2023 12:[address] orders[address] Elena Kahn LPN * Telephone Encounter - Erlinda Narvaez - 01/16/2023 12:30 PM EDT Patient called to confirm if remicade orders had been entered by Dr. Dickson. Please advise for scheduling. documented in this encounterPremier Health [facility] Center04-14-2023 Miscellaneous Notes* Telephone Encounter - Sharri Solorio Ma - 01/06/2023 9:06 AM EDT Patient is receiving her second dose of remicade today. Please add additional days for her treatment plan. Please let the patient know when she should come for her next dose? The order only states day 1 andday 15. Patient can be reached at [phone] (cell) documented in this encounterPremier Health [facility] Center04-14-2023 Miscellaneous Notes* Telephone Encounter - Anton Santacruz - 01/06/2023 7:30 AM EDT This is a 1st-time treatment report for this patient. The patient is active with MMO / [employer] and has a $ 750.00 deductible, with an Ode-Mk-Zuuypp of $ 8150.00 OOP and has $ 6568.00 remaining. An estimate shows that the patient's financial responsibility is $ 1357.00 for each treatment [id number] until the Aqw-Zr-Ntevrr max is reached. The reference number for this estimate is [id number]. This patient is receiving treatment for a Non-Chemo treatment. I will look for assistance for Remicade from [employer] Patient [employer] Program. The patient currently has a self-pay balance of $ 0.00. EC [employer] letter sent no. documented in this encounterPremier Health [facility] Center03-10-2023 Procedure note* RT Neetu(R) - 12/02/2022 2:30 PM EST Radiology Service Progress Note PATIENT NAME: Galindo Ho DATE OF SERVICE: December 02, 2022 TIME: 2:30 PM PATIENT IDENTITY VERIFICATION COMPLETED USING TWO (2) IDENTIFIERS: Name and Date of confirmedby patient verbally. FALL SCREENING: Has the patient had 2 falls in the last year or 1 fall with injury or currently using an Ambulatory Assistive Device (Walker, Cane, Wheelchair, Crutches, etc.)? No PATIENT GENDER DATA: Female. status: : No status: NO. PATIENT RELEVANT IMPLANT DATA REVIEWED: Yes RADIOLOGY DEPARTMENT: CT; Exam(s) Completed: ENTEROGRAPHY PERIPHERAL IV DATA: Site assessment: Clean,Dry and Intact, Site disposition Discontinued SIGNED BY: RT Neetu(R) December 02, 2022 2:30 PM documented in this encounterPremier Health Upper Valley [facility] Center03-10-2023 History of Present illness Narrative* July Guillaume RN - 12/02/2022 2:20 PM EST Radiology Service Progress Note DATE OF SERVICE: December 02, 2022 TIME: 1:09 PM PATIENT WEIGHT: 345LBS PATIENT IDENTITY VERIFICATION COMPLETED USING TWO (2) STANDARD IDENTIFIERS: Name and Date of confirmed by patient verbally. FALL SCREENING: Has the patient had 2 falls in the last year or 1 fall with injury or currently using an Ambulatory Assistive Device (Walker, Cane, Wheelchair, Crutches, etc.)? No PATIENT GENDER DATA: Female. status: : No status: NO. ALLERGIES: Reviewed and unchanged CONTRAST ALLERGY: No EXAM: CT -CONTRAST INDUCED NEPHROPATHY RISK FACTORS: Not applicable CREATININE: Creatinine Date Value Ref Range Status 10/20/2022 0.78 0.58 - 0.96 mg/dL Final 05/18/2022 0.80 0.58 - 0.96 mg/dL Final 02/03/2022 0.83 0.58 - 0.96 mg/dL Final Estimated Glomerular Filtration Rate Date Value Ref Range Status 10/20/2022 98 >=60 mL/min/1.73m Final Comment: Estimated Glomerular Filtration Rate (eGFR) is calculated using the 2020 CKD-EPI creatinine equation. This equation utilizes serum creatinine, sex, and age as parameters. The creatinine assay has traceable calibration to isotope dilution- mass spectrometry. Refer to KDIGO guidelines for clinical interpretation. In patients with unstable renal function, e.g. those with acute kidney injury, the eGFRmay not accurately reflect actual GFR. eGFR- Date Value Ref Range Status 10/01/2021 >60 Final P.O.C.T. RESULTS: N/A December 02, 2022 TREATMENT: No Hydration needed. IV SITE: Ambulatory: A peripheral IV was started in the Right antecubital site with a Angio cath: 22 gauge. 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) Rheumatology Sincere Dickson MD 01/04/2022 Shortness of breath Rheumatology Sincere Dickson MD 04/23/2021 Seropositive rheumatoid arthritis (HCC) Rheumatology Sincere Dickson MD Upcoming Rheumatology Appointments - Next 365 Days No appointments to display CBC: CBC Latest Ref Rng & Units 05/18/2022 10/20/2022 WBC 3.70 - 11.00 k/uL 9.32 10.01 HEMOGLOBIN 11.5 - 15.5 g/dL 14.6 14.1 HEMATOCRIT 36.0 - 46.0 % 43.2 41.7 PLATELETS 150 - 400 k/uL 354 367 ABS NEUT (ANC) 1.45 - 7.50 k/uL 6.60 6.13 ABS LYMPH 1.00 - 4.00 k/uL 1.98 2.59 Vitamin D: None on file in the last 6 months LFT: CMP Latest Ref Rng & Units 05/18/2022 10/20/2022 SODIUM 136 - 144 mmol/L 138 138 POTASSIUM 3.7 - 5.1 mmol/L 4.2 4.0 CHLORIDE 97 - 105 mmol/L 103 100 CO2 22 - 30 mmol/L 26 27 GLUCOSE 74 - 99 mg/dL 96 89 BUN 7 - 21 mg/dL 11 11 CREATININE 0.58 - 0.96 mg/dL 0.80 0.78 CALCIUM, TOTAL 8.5 - 10.2 mg/dL 9.6 9.6 AST 13 - 35 U/L 19 20 ALT 7 - 38 U/L 21 12 ALKALINE PHOSPHATASE 34 - 123 U/L 80 82 Creatinine: Creatinine Latest Ref Rng & Units 05/18/2022 10/20/2022 CREAT 0.58 - 0.96 mg/dL 0.80 0.78 ESR/CRP: ESR, WSR Latest Ref Rng & Units 10/20/2022 WSR 0 - 20 mm/hr 22(H) CRP Latest Ref Rng & Units 10/02/2020 10/20/2022 CRP <0.9 mg/dL 1.1(H) 1.8(H) Uric Acid: None on file in the last 6 months Open Standing (Multiple Instance) Lab Orders Remain Interval Expires Ordered Last Rel. CBC + DIFF [SQCBCDIF] 05/06 Every 3 months 12/31/22 12/31/21 10/20/22 Auth. provider: Sincere Dickson MD Assoc. 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 provider: Sincere Dickson MD Assoc. 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) Open Future (Single Instance) Lab Orders None Makeda Minor RN documented in this encounterPremier Health [facility] Center02-24-2023 History of Present illness Narrative* Logna Elmore MD - 11/18/2022 2:30 PM EST NAME: Galindo Ho [facility] NO: [id number] PHONE: [phone] (home) REFERRING PHYSICIAN: No referring provider PHYSICIAN ADDRESS: Sincere Dickson [id number] [facility] [id number] Dickson for an opinion regarding Crohn's disease. My final recommendations will be communicated back to the requesting physician by way of shared Medical record or letter to requesting physician via US mail. PRESENTING COMPLAINT This 42 year old female patient with morbid obesity s/p Xochilt-en-Y gastric bypass 04/2013, RF, fibromyalgia, anxiety, who is here for evaluation of IBD. 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 Ever since, her stools have varied between constipation and diarrhea. She was prescribed linzess and was taking it, but has stopped it a couple months ago since her stools became very frequent and liquid. She usually has 3-4 daily BMs. Out of those, has 1-2 liquid stools. The others are formed. None have blood. She also has cramping abdominal pain. For her RA, she was on adalimumab for some months ago, and her abdominal pain and bowels were much better. She also has frequent mouth ulcers and a pruritic macular rash in her torso. Since 2017, she has gained over 100 lbs. All her female relatives have diarrhea but none with a diagnosis of IBD Sister with autoimmune hepatitis. 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 LMP 10/18/2005 Current Medications: Current Outpatient Medications Medication Sig certolizumab pegol (CIMZIA STARTER KIT) 400 mg/2 mL (200 mg/mL x 2) sub-q syringe kit Inject 400 mg(2 syringes) subcutaneously on weeks 0, 2, and 4 certolizumab pegol (CIMZIA) 400 mg/2 mL (200 mg/mL x 2) sub-q syringe kit Inject 400mg (2 syringes)subcutaneously every 4 weeks. indapamide (LOZOL) 1.25 mg tablet 1.25 mg once daily. MULTIVITAMIN ORAL Take by mouth once daily. methotrexate 2.5 mg tablet TAKE 6 TABLETS BY MOUTH ONE TIME A WEEK. folic acid 1 mg tablet TAKE ONE PILL EACH DAY OF THE WEEK EXCEPT THE DAY YOU TAKE METHOTREXATE predniSONE (DELTASONE) 5 mg tablet TAKE 1 TABLET BY MOUTH EVERY DAY DULoxetine (CYMBALTA) 60 mg capsule Take 2 capsules by mouth once daily. famotidine (PEPCID) 20 mg tablet Take 20 mg by mouth twice daily. loratadine (CLARITIN) 10 mg tablet Take 10 mg by mouth as needed. DULERA 200-5 mcg/actuation inhaler Inhale 2 Puffs as instructed twice daily. pregabalin (LYRICA) 100 mg capsule levocetirizine 5 mg tablet Take 5 mg by mouth once daily. fluticasone (FLONASE) 50 mcg/actuation nasal spray Use 2 Sprays in each nostril once daily. promethazine (PHENERGAN) 12.5 mg tablet 1/2 TO 1 TABLET EVERY 8 HOURS FOR NAUSEA, HEADACHE, OR COUGH ondansetron (ZOFRAN) 4 mg tablet 1 (ONE) TABLET EVERY 8 HOURS FOR NAUSEA OR MOTION SICKNESS Bifidobacterium infantis 1.5 billion cell cap Bifidobacterium Infantis Bifidobacterium Infantis (Digestive Probiotic) 1.5 billion cell capsule Active 1500 MMU CELLS PO DAILY July 05, 2018 [id number] [facility] ([id number]) hydrOXYzine HCl (ATARAX) 25 mg tablet Take 25 mg by mouth daily at bedtime. docosahexaenoic acid/epa (FISH OIL ORAL) Take by mouth. baclofen (LIORESAL) 10 mg tablet TAKE 1 TABLET BY MOUTH 3 TIMES A DAY NEEDED FOR SPASMS (Patientnot taking: Reported on 10/20/2022) cholecalciferol (VITAMIN D3) 5,000 unit tab Take 5,000 Units by mouth. Cyanocobalamin 1,000 mcg subl Dissolve 1,000 mcg under the tongue. Vitamin b12 LINZESS 72 mcg capsule Take 72 mcg by mouth once daily. magnesium oxide (MAG-OX) 400 mg (241.3 mg magnesium) tablet Take 1 tablet by mouth twice daily. omeprazole (PRILOSEC) 20 mg capsule TAKE ONE CAPSULE BY MOUTH EVERY DAY calcium citrate/vitamin D3 (CALCIUM CITRATE + D ORAL) Take by mouth. vit/iron fum/folic ac ( 1 PLUS 1 ORAL) Take by mouth. (Patient not taking: Reported on 10/20/2022) Current Facility-Administered Medications Medication Dose Route Frequency perflutren lipid microspheres 1.3 mL in NaCl (PF) 0.9% 10 mL injection (DEFINITY) INTRAVENOUS DIRECTED PRN sodium chloride 0.9 % (flush) 10 mL (BD POSIFLUSH) 10 mL INTRAVENOUS DIRECTED PRN Allergies: Bananas [Other], Penicillin G, Seasonal [Other], [place], Sulfa (Sulfonamide Antibiotics), Watermelon, and Latex PAST MEDICAL HISTORY: Past surgeries: PAST SURGICAL HISTORY Procedure Laterality Date COLONOSCOPY FLX DX W/COLLJ SPEC WHEN PFRMD Colonoscopy SKIN BX, 1 LESION On neck and Right shoulder blade, benign TONSILLECTOMY PRIMARY/SECONDARY AGE 13/> Tobacco: No Alcohol: No Social and Personal History: Social History Tobacco Use Smoking status: Never Smokeless tobacco: Never Substance Use Topics Alcohol use: Yes Comment: Occasionally Drug use: No Family Medical History: FAMILY HISTORY Problem Relation Age of Onset Cancer Maternal Aunt skin cancer other (CVA [Other]) Paternal Grandfather other (HTN [Other]) Paternal Grandfather other (HTN [Other]) Father other (HTN [Other]) Paternal Grandmother Breast Cancer Paternal Aunt Colon Cancer Paternal Aunt BRCA + Breast Cancer Maternal Grandmother BRCA + ROS EyesPositive for dry eyes. Ears, Mouth, nose, throat:cold sores Cardiovascular: No Problems Respiratory: Negative for cough, wheezing and shortness of breath Gastrointestinal : See HPI Genitourinary: Negative Musuloskeletal: joint pain Integumentary: Pruritic rash on her torso Neurological: No History of Neurological Problems Endocrine: Negative for cold or heat intolerance, polyuria, polydipsia and goiter. Psychiatric: Cooperative and Agreeable Allergic/ Immunologic: Negative All others negative PHYSICAL EXAM General appearance: Well appearing, alert, in no acute distress, well-hydrated, well nourished. Skin: Skin color, texture, turgor normal, no suspicious rashes or lesions Head: Normocephalic, no masses, lesions, tenderness or abnormalities Eyes: Anicteric sclera. Extraocular movements are intact. Ears: External ears normal Oropharynx: Lips, mucosa, and tongue normal, teeth and gums normal, oropharynx normal Neck: Supple, no adenopathy; thyroid symmetric, normal size, no bruits Back: Normal exam Lungs: Lungs clear to auscultation. No wheezing, rhonchi, rales. Heart: RRR without murmur, gallop, or rubs. No ectopy Abdomen: Normal abdominal exam, Abdomen soft, non-tender. Bowel sounds normal. No masses, organomegaly Extremities: No deformities, edema, skin discoloration, clubbing or cyanosis. Good capillary refill. Colonoscopy 10/13/17 Findings: The perianal and digital rectal examinations were normal. The terminal ileum appeared normal. Multiple random biopsies were obtained with cold forceps for histology and evaluation of inflammatory bowel disease. A 4 mm polyp was found in the cecum. The polyp was sessile. The polyp was removed with a cold snare. Resection and retrieval were complete. Retroflexion was performed in the cecum; the ascending colon was examined in retroflexed view to the hepatic flexure; a second look was taken in forward view. The mucosa vascular pattern at 15 cm proximal to the anus was diffusely decreased. Several random biopsies were obtained with cold forceps for histology and evaluation of inflammatory bowel disease in the rectum. Remainder of colonic mucosa otherwise unremarkable. Multiple random biopsies were obtained with cold forceps for histology, evaluation of inflammatory bowel disease and evaluation of microscopic colitis from the R and L colon. Anal papilla(e) were hypertrophied. Impression: - The examined portion of the ileum was normal. - One 4 mm polyp in the cecum, removed with a cold snare. Resected and retrieved. - Decreased mucosa vascular pattern at 15 cm proximal to the anus. - Anal papilla(e) were hypertrophied. - Multiple random biopsies were obtained. - Several random biopsies were obtained in the rectum. - Multiple random biopsies were obtained from the R and L colon. CT abdomen 06/11/2015 PROTOCOL: A contrast CT of the abdomen was performed using the standard protocol. This type of examis done with IV contrast. . Standard reconstructions in coronal and sagittal planes. .no gi contrast given. Pelvic CT included COMPARISON: April 01 FINDINGS:Images through the lung bases show no basilar consolidation or significant effusion. . Bone window reconstructions show no compression deformity. . UPPER ABDOMENSpleen upper normal in sizeThere is no perisplenic fluid seenThere are surgical changes in keeping with a gastric bypass bariatric procedure. The distal stomach and duodenum look relatively decompressed. No suspicious fluid collection is seen in that regionNo peripancreatic fluid collections. There are several tiny hypodense areas in the liver near the dome and a dominant small low-density lesion in the left hepatic lobe. These are similar to before. These are statistically likely small cyst although difficult to accurately characterized on this exam. Liver is somewhat heterogeneous without discrete mass or perihepatic fluid or biliary dilatation otherwise seenGallbladder removed.Mild mesenteric adenopathy. PELVISNo hydronephrosis or perinephric fluid collection seen.Bladder is not impressiveMinor heterogeneity of the uterine fundus. Large amount stool in the colonNo sign of a bowel obstruction or suspicious fluid collection. Bowel wall thickening along the ascending colonNo sign of an abdominal aortic aneurysm. Compared to the previous exam there is mild distortion of the left midabdominal mesenteric structures with a slight anterior/inferior position of the vessels and small lymph nodes. A discrete twisted segment is not clearly seen at this point.There is only minor distention of small bowel in the left midabdomen near some anastomosis suturesNo retroperitoneal bleed or bulky adenopathy is seen. No sign to suggest acute appendicitis. IMPRESSION:Fairly severe thickening of the ascending colon wall suggesting some type of focal colitis. Other more aggressive process seems less likely in a patient of this age.Close clinical followupis suggested and a followup colon screening study is recommended after the acute presentation and cleansing bowel prep to rule out underlying colon pathologyMinor distortion of the left mid abdominal mesenteric structures with was thought to be physiologic distention of the left mid abdominal small bowel favored over internal hernia or small bowel obstructionThere is mild mesenteric adenopathy which may be reactive.A followup scan would be reasonable to show clearing or stability within 6 months. Impression & Plan: This 42 year old female patient with morbid obesity s/p Xochilt-en-Y gastric bypass 04/2013, RF, fibromyalgia, anxiety, who is here for evaluation of IBD. She has abdominal pain, and liquid stools that alternate with constipation, which can be seen in IBD. Her history of a perianal fistula, and now mouth sores and rash in her torso could point towards Crohn's disease. Warrants evaluation with CTe CRP and ERS are slightly elevated. She has absolute eosinophilia. Need to evaluate for ova and parasites in stool. She did have a colonoscopy in 2018 which showed one polyp and loss of vascular pattern. Random biopsies were not available for review. Plan: - - CT enterography Pt can proceed with Cimzia when approved. Signature: Date: November 18, 2022 Lady Elena Pulido MD GI and hepatology PGY6 I was present during this clinic visit and developed the treatment plan. Logan Elmore MD documented in this encounterPrem[facility] History of Present illness Narrative* Shanna Guerrero (Condenser Tube Tender) - 11/09/2022 9:10 AM EST [facility] received prescription(s) for Cimzia from Dr. Dickson's office. Benefits investigation was conducted, indicating that a prior authorization is required by patient's insurance plan with [employer]. Encounter will be updated once prior authorization has been submitted by [facility]. Shanna Guerrero CPhT, Perinatal Social Worker, Inflammatory/Allergy [facility] P: [phone] F: [phone] documented in this encounterPremier Health [facility]02-10-2023 History of Present illness Narrative* Sincere Dickson MD - 11/04/2022 4:15 PM EST Stopping abatacept. Still infalmmed Switching to another TNF inhibitor. documented in this encounterPremier Health [facility]01-26-2023 History of Present illness Narrative* Sincere Dickson MD - 10/20/2022 8:33 AM EST [facility] [place] Department of Rheumatic and Immunologic Diseases SUBJECTIVE: . Brief History of Present Illness: 42 year old female is evaluated in the Rheumatology Clinic for +RF elevated CRP and bilateral wristpain Hx of questionable inflammatory bowel syndrome (multiple biopsies, one showing suspicion for IBD) Fibromyalgia/post traumatic syndrome + rapid response to glucocorticoids 09/2020 started methotrexate 04/2021 started humira, worked very well, but concerned about twitching so stopped 05/16 started orencia but not having twitches Feels it doesn't work as well the TODAY Morning stiffness about 30 minutes No swelling of the joints Feels joints are much worse in the changing weather Added lyrica for fibromyalgia Having difficulty with blood pressure control Started buspar for anxiety Diarrhea worse again, but also fluctuates with constipation Noted improvement in diarrhea when on the humira PMHx: PAST MEDICAL HISTORY Diagnosis Date Irritable bowel syndrome Pneumonia due to adenovirus 07/26 PSHx: PAST SURGICAL HISTORY Procedure Laterality Date COLONOSCOPY FLX DX W/COLLJ SPEC WHEN PFRMD Colonoscopy SKIN BX, 1 LESION On neck and Right shoulder blade, benign TONSILLECTOMY PRIMARY/SECONDARY AGE 13/> MEDICATIONS: MULTIVITAMIN ORAL^Take by mouth once daily.^Disp: ^Rfl: abatacept (ORENCIA CLICKJECT) 125 mg/mL^Inject 1 mL subcutaneously one time a week.^Disp: 4 mL^Rfl:3 methotrexate 2.5 mg tablet^TAKE 6 TABLETS BY MOUTH ONE TIME A WEEK.^Disp: 72 tablet^Rfl: 3 folic acid 1 mg tablet^TAKE ONE PILL EACH DAY OF THE WEEK EXCEPT THE DAY YOU TAKE METHOTREXATE^Disp: 90 tablet^Rfl: 3 DULoxetine (CYMBALTA) 60 mg capsule^Take 2 capsules by mouth once daily.^Disp: ^Rfl: famotidine (PEPCID) 20 mg tablet^Take 20 mg by mouth twice daily.^Disp: ^Rfl: loratadine (CLARITIN) 10 mg tablet^Take 10 mg by mouth as needed.^Disp: ^Rfl: pregabalin (LYRICA) 100 mg capsule^^Disp: ^Rfl: levocetirizine 5 mg tablet^Take 5 mg by mouth once daily.^Disp: ^Rfl: fluticasone (FLONASE) 50 mcg/actuation nasal spray^Use 2 Sprays in each nostril once daily.^Disp: ^Rfl: promethazine (PHENERGAN) 12.5 mg tablet^1/2 TO 1 TABLET EVERY 8 HOURS FOR NAUSEA, HEADACHE, OR COUGH^Disp: ^Rfl: ondansetron (ZOFRAN) 4 mg tablet^1 (ONE) TABLET EVERY 8 HOURS FOR NAUSEA OR MOTION SICKNESS^Disp: ^Rfl: Bifidobacterium infantis 1.5 billion cell cap^Bifidobacterium Infantis Bifidobacterium Infantis (Digestive Probiotic) 1.5 billion cell capsule Active 1500 MMU CELLS PO DAILY July 05, 2018 [id number] [facility] ([id number])^Disp: ^Rfl: hydrOXYzine HCl (ATARAX) 25 mg tablet^Take 25 mg by mouth daily at bedtime.^Disp: ^Rfl: docosahexaenoic acid/epa (FISH OIL ORAL)^Take by mouth.^Disp: ^Rfl: cholecalciferol (VITAMIN D3) 5,000 unit tab^Take 5,000 Units by mouth.^Disp: ^Rfl: Cyanocobalamin 1,000 mcg subl^Dissolve 1,000 mcg under the tongue. Vitamin b12^Disp: ^Rfl: LINZESS 72 mcg capsule^Take 72 mcg by mouth once daily.^Disp: ^Rfl: 1 magnesium oxide (MAG-OX) 400 mg (241.3 mg magnesium) tablet^Take 1 tablet by mouth twice daily.^Disp: ^Rfl: 3 omeprazole (PRILOSEC) 20 mg capsule^TAKE ONE CAPSULE BY MOUTH EVERY DAY^Disp: ^Rfl: calcium citrate/vitamin D3 (CALCIUM CITRATE + D ORAL)^Take by mouth.^Disp: ^Rfl: indapamide (LOZOL) 1.25 mg tablet^1.25 mg once daily.^Disp: ^Rfl: predniSONE (DELTASONE) 5 mg tablet^TAKE 1 TABLET BY MOUTH EVERY DAY^Disp: 90 tablet^Rfl: 2 DULERA 200-5 mcg/actuation inhaler^Inhale 2 Puffs as instructed twice daily.^Disp: ^Rfl: baclofen (LIORESAL) 10 mg tablet^TAKE 1 TABLET BY MOUTH 3 TIMES A DAY NEEDED FOR SPASMS^Disp: ^Rfl: 0 (Patient not taking: Reported on 10/20/2022) vit/iron fum/folic ac ( 1 PLUS 1 ORAL)^Take by mouth.^Disp: ^Rfl: (Patient not taking: Reported on 10/20/2022) ALLERGIES: ALLERGIES Allergen Reactions Bananas [Other] Shortness of Breath Penicillin G Rash Seasonal [Other] [place] Other: See Comments, Hives Sulfa (Sulfonamide * Hives Watermelon Diarrhea Latex Rash OBJECTIVE: Physical Examination: Vitals: BP 137/81 Pulse 74 Temp (!) 35.8 C (96.5 F) (Temporal) Wt (!) 157.6 kg (347 lb 8 oz) LMP 10/18/2005 BMI 56.09 kg/m General: Looks well, NAD, A & Ox3. obese HEENT: PERRLA & EOMs intact. Throat clear without exudates. Ext: No edema. Neuro: Gait Normal. Skin: No rash. No ulcers. Musculoskeletal: Shoulders: No swelling, no tenderness, good ROM Elbows: No swelling, no tenderness, no flexion contractures, no nodules, good ROM Wrists: No swelling, no tenderness, no limitation in flexion and extension Hands: No evidence of synovitis. Able to make full fist bilaterally Knees: No effusion, no tenderness, good ROM Ankles: No swelling, no tenderness, good ROM Feet/Toes/ MTP: No evidence of synovitis ASSESSMENT/PLAN: 42 year old female with RA on abatacept Did better from a joint perspective and possibly a GI perspective on adalimumab but had twitches and stopped the med Now on abatacept, unclear how much worse she's doing or if her joint pain is related to weather fluctuations. We will check inflammatory markers, if elevated, favor another TNF like certilizumab which might also target potential IBD. Was told she had IBD vs IBS in the past. Seemed to have responded to adalimumab but had to stop theadalimumab, will ask GI here to evaluate her High risk medications-continue monitoring labs -Will call pt with results Sincere Dickson MD Rheumatology Staff [id number] Answers submitted by the patient for this visit: Review of Systems Rheumatology (Submitted on 10/16/2022) Fever : No Recent Unintentional Weight Change: No Eye Pain: Yes Eye Redness: No Vision Disturbance: No Eye Dryness: Yes Nose Bleeds: No Sores in your Mouth: Yes Trouble Swallowing: Yes Dry Mouth: Yes Chest Pain: No Leg Swelling: Yes A Cough: No Shortness of Breath: Yes Pain with Breathing: No Heartburn: Yes Abdominal Pain: No Diarrhea: Yes [place] Stools: No Blood in Urine: No Pain or Burning with Urination: No Joint Pain or Stiffness: Yes Muscle Weakness: Yes Muscle Aches: Yes Joint Swelling: Yes Morning Stiffness in Joints: Yes A Rash: No Skin Color Changes: No Hair Loss: No Nail Changes: No Headaches: Yes Numbness: No Memory Loss: No Swollen Glands: No documented in this encounterPremier [facility]12-27-2022 Miscellaneous Notes* Telephone Encounter - Shanna Silverio RN - 09/20/2022 1:59 PM EST Most recent Rheumatology visit: 01/04/2022 (with Sincere Dickson) Recent Office Visits - This Specialty 01/04/2022 Shortness of breath Rheumatology Sincere Dickson MD 04/23/2021 Seropositive rheumatoid arthritis (HCC) Rheumatology Sincere Dickson MD 10/02/2020 Rheumatoid arthritis involving multiple sites with positive rheumatoid factor (HCC) Rheumatology Sincere iDckson MD Upcoming Rheumatology Appointments - Next 365 Days Visit Type Date Time Department GABE EST [facility] MEDICAL EXT 10/20/2022 8:30 AM [facility]IN A50 CBC: CBC Latest Ref Rng & Units 02/03/2022 05/18/2022 WBC 3.70 - 11.00 k/uL 9.25 9.32 HEMOGLOBIN 11.5 - 15.5 g/dL 14.4 14.6 HEMATOCRIT 36.0 - 46.0 % 41.1 43.2 PLATELETS 150 - 400 k/uL 345 354 ABS NEUT (ANC) 1.45 - 7.50 k/uL 4.73 6.60 ABS LYMPH 1.00 - 4.00 k/uL 3.26 1.98 Vitamin D: None on file in the last 6 months LFT: CMP Latest Ref Rng & Units 02/03/2022 05/18/2022 SODIUM 136 - 144 mmol/L 139 138 POTASSIUM 3.7 - 5.1 mmol/L 4.1 4.2 CHLORIDE 97 - 105 mmol/L 102 103 CO2 22 - 30 mmol/L 29 26 GLUCOSE 74 - 99 mg/dL 57(L) 96 BUN 7 - 21 mg/dL 7 11 CREATININE 0.58 - 0.96 mg/dL 0.83 0.80 CALCIUM, TOTAL 8.5 - 10.2 mg/dL 9.3 9.6 AST 13 - 35 U/L 20 19 ALT 7 - 38 U/L 20 21 ALKALINE PHOSPHATASE 34 - 123 U/L 84 80 Creatinine: Creatinine Latest Ref Rng & Units 02/03/2022 05/18/2022 CREAT 0.58 - 0.96 mg/dL 0.83 0.80 ESR/CRP: None on file in the last 6 months Uric Acid: None on file in the last 6 months Open Standing (Multiple Instance) Lab Orders Remain Interval Expires Ordered Last Rel. CBC + DIFF [SQCBCDIF] 06/06 Every 3 months 12/31/22 12/31/21 05/18/22 Auth. provider: Sincere Dickson MD Assoc. 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 provider: Sincere Dickson MD Assoc. 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) Open Future (Single Instance) Lab Orders None documented in this encounterPrem[facility]11-10-2022 Miscellaneous Notes* Telephone Encounter - Shanna Silverio RN - 08/04/2022 9:00 AM EST Most recent Rheumatology visit: 01/04/2022 (with Sincere Dickson) Recent Office Visits - This Specialty 01/04/2022 Shortness of breath Rheumatology Sincere Dickson MD 04/23/2021 Seropositive rheumatoid arthritis (HCC) Rheumatology Sincere Dickson MD 10/02/2020 Rheumatoid arthritis involving multiple sites with positive rheumatoid factor (HCC) Rheumatology Sincere Dickson MD Upcoming Rheumatology Appointments - Next 365 Days Visit Type Date Time [facility]10[facility]23 11:00 AM [facility] A50 CBC: CBC Latest Ref Rng & Units 02/03/2022 05/18/2022 WBC 3.70 - 11.00 k/uL 9.25 9.32 HEMOGLOBIN 11.5 - 15.5 g/dL 14.4 14.6 HEMATOCRIT 36.0 - 46.0 % 41.1 43.2 PLATELETS 150 - 400 k/uL 345 354 ABS NEUT (ANC) 1.45 - 7.50 k/uL 4.73 6.60 ABS LYMPH 1.00 - 4.00 k/uL 3.26 1.98 Vitamin D: None on file in the last 6 months LFT: CMP Latest Ref Rng & Units 02/03/2022 05/18/2022 SODIUM 136 - 144 mmol/L 139 138 POTASSIUM 3.7 - 5.1 mmol/L 4.1 4.2 CHLORIDE 97 - 105 mmol/L 102 103 CO2 22 - 30 mmol/L 29 26 GLUCOSE 74 - 99 mg/dL 57(L) 96 BUN 7 - 21 mg/dL 7 11 CREATININE 0.58 - 0.96 mg/dL 0.83 0.80 CALCIUM, TOTAL 8.5 - 10.2 mg/dL 9.3 9.6 AST 13 - 35 U/L 20 19 ALT 7 - 38 U/L 20 21 ALKALINE PHOSPHATASE 34 - 123 U/L 84 80 Creatinine: Creatinine Latest Ref Rng & Units 02/03/2022 05/18/2022 CREAT 0.58 - 0.96 mg/dL 0.83 0.80 ESR/CRP: None on file in the last 6 months Uric Acid: None on file in the last 6 months Open Standing (Multiple Instance) Lab Orders Remain Interval Expires Ordered Last Rel. CBC + DIFF [SQCBCDIF] 06/06 Every 3 months 12/31/22 12/31/21 05/18/22 Auth. provider: Sincere Dickson MD Assoc. 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 provider: Sincere Dickson MD Assoc. 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 It required patient-provider interaction for the medical decision making as documented below. Galindo Ho has consented to this video encounter. CHIEF COMPLAINT Scheduled follow up HISTORY OF PRESENT ILLNESS Galindo Ho is a 42 year old female who I originally saw in clinic to address a history of HTN. To paraphrase our initial encounter, the offered history was as follows: Ms. Ho is a 42 year old female with PMH of seropositive RA who presents today for cardiac evaluation for shortness of breath. Patient states that she has a history of COVID x3. First April 2020, October 2020 and last April 2021 (is vaccinated). States that since last has had increased SOB, intermittent, worse with exertion. Able to lie flat without worsening symptoms. Has also noticed bilateral leg swelling around the same time. Of note she has noticed weight gain as well which she attributes to prednisone use. Patient also states that earlier this week she began experiencing left sided chest pain, intermittent rated 4/10. Thinks it is MSK. No symptoms currently. D oes get palpitations at times as well as dizziness and lightheadedness. No prior history of htn although hypertensive today. Prior history of 4 pregnancies, 3 children. Had issues with hypertension with first and third . Seen by pulmonology recently- recommended weight loss, had extensive pulm workup which was negative. 6 minute walk test- 97 oxygen at baseline, dropped to 91% with walking. US dopplers- negative for DVT Negative methacholine challenge Sleep study- normal, not currently on CPAP Medication regiment for RA: 09/2020 started methotrexate 04/2021 started humira, stopped 03/2022 started orencia 2020- prednisone currently on 5mg ECHO 01/2022: Small left ventricle, EF 68, grade I left ventricular diastolic dysfunction, no valvular abnormalities CXR 11/2020: no acute abnormalities CT Chest 01/2022- normal PFTs completed which showed diffusion capacity of carbon monoxide was decreased by 60%. Hx of gastric bypass 2012. No family hx of coronary disease. She denies abdominal distention, orthopnea, cough, lightheadedness or syncope And at the conclusion of her visit, we had the following impressions and set of recommendations: IMPRESSION: Ms. Ho is a 42 year old female with past medical history of seropositive RA who presents todayfor cardiac evaluation of SOB. Has been following closely with Dr. Dickson, rheumatology. Had an ECHOcompleted 01/2022 which showed no evidence of regional wall motion abnormalities, EF 68, grade I left ventricular diastolic dysfunction, no valvular abnormalities. Given patient had an extensive pulmonary workup prior to visit, low suspicion for COPD or asthma as cause of presentation. Also unlikelyCHF, ACS or valvular dysfunction given ECHO findings although can not be entirely ruled out at thistime. Will consider stress test in future but not indicated at this time. Unlikely PE given CT chest negative and US dopplers also negative for DVT. High suspicion that patients symptoms due to weight gain as well as HTN. Especially considering patient has been on steroids for RA. PLAN AND RECOMMENDATIONS: Ambulatory blood pressure monitoring 24 hours Obtain NT pro BNP Virtual visit with Dr. Fernandes in 1 month Fariba Ward MD Internal Medicine Resident, PGY-[facility] NOTE OF PERSONAL INVOLVEMENT IN CARE IMPRESSION: Patient is a 42 year old female who is seen for further evaluation of a history of progressive shortness of breath that has occurred tio passu with ongoing Rx for RA, inclusive of oral steroids which have resulted in considerable weight gain in the past year. She has had a thorough pulmonary work up as we are to understand with her local insurance sales specialist who has concluded more than likely her shortness of breath is consequent to weight gain. I think that is correct but that shewas found to have grade I diastolic dysfunction on this past January's echo has led her core carrier to refer her here for better clarification. As I stated to Ms. Ho and her , the latter is a non specific finding and in review of her echo I see no evidence otherwise for structural or functional heart disease outside of her systemic pressure. I again think both observations are likely resultant from her weight gain but to be fair we would recommend a more careful assessment of her systemic pressures before suggesting delving into Rx. In the meantime, it is clearly important that sheaddress her weight - which we discussed at length inclusive of - dietary changes such as reduction in carbohydrates and portion control if at all possible - and with the believe Dr. Dickson will be able to wean her from steroids onto a rheumatologic regimen that successfully manages her symptoms thatright now are not associated with joint remodeling, etc this early in her course. One final point here is that RA patients are at risk for CAD but again her course is early, she has no other risk factors aside from her age (no family history of premature CAD, premenopausal, not as yet diabetic nor evidence of significant hyperlipidemia whether familial or not). Thus I have chosen not to consider her symptoms as an anginal equivalent but believe there is certain merit in addressing her systemic pressures if we in fact find evidence that this is persistent rather than situational today (ie. notwhite coat hypertension). See plan outlined by Dr. Ward above. Jone Fernandes MD [facility] She did not complete the ambulatory monitor but has been addressing her pressures outside of the office venue and have been better. She actually weaned herself off of prednisone over a month's time and has no exacerbating symptoms so far. Seen in her home setting, she appeared very comfortable and otherwise without new symptoms stating her pressures are much better now. PAST MEDICAL HISTORY Diagnosis Date Irritable bowel syndrome Pneumonia due to adenovirus 07/26 PAST SURGICAL HISTORY Procedure Laterality Date COLONOSCOPY FLX DX W/COLLJ SPEC WHEN PFRMD Colonoscopy SKIN BX, 1 LESION On neck and Right shoulder blade, benign TONSILLECTOMY PRIMARY/SECONDARY AGE 13/> FAMILY HISTORY Problem Relation Age of Onset Cancer Maternal Aunt skin cancer other (CVA [Other]) Paternal Grandfather other (HTN [Other]) Paternal Grandfather other (HTN [Other]) Father other (HTN [Other]) Paternal Grandmother Breast Cancer Paternal Aunt Colon Cancer Paternal Aunt BRCA + Breast Cancer Maternal Grandmother BRCA + Social History Tobacco Use Smoking status: Never Smokeless tobacco: Never Substance Use Topics Alcohol use: Yes Comment: Occasionally Drug use: No ALLERGIES Allergen Reactions Bananas [Other] Shortness of Breath Penicillin G Rash Seasonal [Other] [place] Other: See Comments, Hives Sulfa (Sulfonamide * Hives Watermelon Diarrhea Latex Rash CURRENT MEDICATIONS predniSONE (DELTASONE) 5 mg tablet^TAKE 1 TABLET BY MOUTH EVERY DAY^Disp: 90 tablet^Rfl: 2 DULoxetine (CYMBALTA) 60 mg capsule^Take 2 capsules by mouth once daily.^Disp: ^Rfl: famotidine (PEPCID) 20 mg tablet^Take 20 mg by mouth twice daily.^Disp: ^Rfl: loratadine (CLARITIN) 10 mg tablet^Take 10 mg by mouth as needed.^Disp: ^Rfl: DULERA 200-5 mcg/actuation inhaler^Inhale 2 Puffs as instructed twice daily.^Disp: ^Rfl: abatacept (ORENCIA CLICKJECT) 125 mg/mL^Inject 1 mL subcutaneously one time a week.^Disp: 4 mL^Rfl:3 pregabalin (LYRICA) 100 mg capsule^^Disp: ^Rfl: methotrexate 2.5 mg tablet^TAKE 6 TABLETS BY MOUTH ONE TIME A WEEK.^Disp: 72 tablet^Rfl: 3 folic acid 1 mg tablet^TAKE ONE PILL EACH DAY OF THE WEEK EXCEPT THE DAY YOU TAKE METHOTREXATE^Disp: 90 tablet^Rfl: 3 levocetirizine 5 mg tablet^Take 5 mg by mouth once daily.^Disp: ^Rfl: fluticasone (FLONASE) 50 mcg/actuation nasal spray^Use 2 Sprays in each nostril once daily.^Disp: ^Rfl: promethazine (PHENERGAN) 12.5 mg tablet^1/2 TO 1 TABLET EVERY 8 HOURS FOR NAUSEA, HEADACHE, OR COUGH^Disp: ^Rfl: ondansetron (ZOFRAN) 4 mg tablet^1 (ONE) TABLET EVERY 8 HOURS FOR NAUSEA OR MOTION SICKNESS^Disp: ^Rfl: Bifidobacterium infantis 1.5 billion cell cap^Bifidobacterium Infantis Bifidobacterium Infantis (Digestive Probiotic) 1.5 billion cell capsule Active 1500 MMU CELLS PO DAILY July 05, 2018 [id number] [facility] ([id number])^Disp: ^Rfl: hydrOXYzine HCl (ATARAX) 25 mg tablet^Take 25 mg by mouth daily at bedtime.^Disp: ^Rfl: docosahexaenoic acid/epa (FISH OIL ORAL)^Take by mouth.^Disp: ^Rfl: baclofen (LIORESAL) 10 mg tablet^TAKE 1 TABLET BY MOUTH 3 TIMES A DAY NEEDED FOR SPASMS^Disp: ^Rfl: 0 cholecalciferol (VITAMIN D3) 5,000 unit tab^Take 5,000 Units by mouth.^Disp: ^Rfl: Cyanocobalamin 1,000 mcg subl^Dissolve 1,000 mcg under the tongue. Vitamin b12^Disp: ^Rfl: LINZESS 72 mcg capsule^Take 72 mcg by mouth once daily.^Disp: ^Rfl: 1 magnesium oxide (MAG-OX) 400 mg (241.3 mg magnesium) tablet^Take 1 tablet by mouth twice daily.^Disp: ^Rfl: 3 omeprazole (PRILOSEC) 20 mg capsule^TAKE ONE CAPSULE BY MOUTH EVERY DAY^Disp: ^Rfl: calcium citrate/vitamin D3 (CALCIUM CITRATE + D ORAL)^Take by mouth.^Disp: ^Rfl: vit/iron fum/folic ac ( 1 PLUS 1 ORAL)^Take by mouth.^Disp: ^Rfl: REVIEW OF SYSTEMS: See HPI, no interval changes to initial assessment in April PHYSICAL EXAMINATION: VIDEO EXAM: (if completed, performed via video enabled technology) No exam performed PATIENT ENTERED QUESTIONNAIRE SCORES PHQ-9 01/03/2022 04/18/2021 09/29/2020 Score 11 22 19 PROMIS Global Health - (T-Scores - the mean of general population = 50. Five points is a clinicallymeaningful difference.) 01/03/2022 04/18/2021 09/29/2020 Physical T-Score 37.4 32.4 32.4 Mental T-Score 38.8 33.8 38.8 ASSESSMENT: Galindo Ho is a 42 year old female with the chief complaint of SOB which we feel parallels a significant weight gain in the past year. Making strides to lose weight now that she is off of steroids. At this point, while noting she had not followed through with our original suggestions, I nonetheless did not suggest any changes and encouraged her to maintain present efforts, RTC as needed. Jone Fernandes MD [facility] July 28, 2022 4:12 PM documented in this encounterPremier Health [facility]10-31-2022 Miscellaneous Notes* Telephone Encounter - Makeda Minor - 07/25/2022 12:31 PM EDT Most recent Rheumatology visit: 01/04/2022 (with Sincere Dickson) Recent Office Visits - This Specialty 01/04/2022 Shortness of breath Rheumatology Sincere Dickson MD 04/23/2021 Seropositive rheumatoid arthritis (HCC) Rheumatology Sincere Dickson MD 10/02/2020 Rheumatoid arthritis involving multiple sites with positive rheumatoid factor (HCC) Rheumatology Sincere Dickson MD Upcoming Rheumatology Appointments - Next 365 Days Visit Type Date Time Department GABE EST [facility] MEDICAL EXT 02/10/2023 11:00 AM RHEU MAIN A50 CBC: CBC Latest Ref Rng & Units 02/03/2022 05/18/2022 WBC 3.70 - 11.00 k/uL 9.25 9.32 HEMOGLOBIN 11.5 - 15.5 g/dL 14.4 14.6 HEMATOCRIT 36.0 - 46.0 % 41.1 43.2 PLATELETS 150 - 400 k/uL 345 354 ABS NEUT (ANC) 1.45 - 7.50 k/uL 4.73 6.60 ABS LYMPH 1.00 - 4.00 k/uL 3.26 1.98 Vitamin D: None on file in the last 6 months LFT: CMP Latest Ref Rng & Units 02/03/2022 05/18/2022 SODIUM 136 - 144 mmol/L 139 138 POTASSIUM 3.7 - 5.1 mmol/L 4.1 4.2 CHLORIDE 97 - 105 mmol/L 102 103 CO2 22 - 30 mmol/L 29 26 GLUCOSE 74 - 99 mg/dL 57(L) 96 BUN 7 - 21 mg/dL 7 11 CREATININE 0.58 - 0.96 mg/dL 0.83 0.80 CALCIUM, TOTAL 8.5 - 10.2 mg/dL 9.3 9.6 AST 13 - 35 U/L 20 19 ALT 7 - 38 U/L 20 21 ALKALINE PHOSPHATASE 34 - 123 U/L 84 80 Creatinine: Creatinine Latest Ref Rng & Units 02/03/2022 05/18/2022 CREAT 0.58 - 0.96 mg/dL 0.83 0.80 ESR/CRP: None on file in the last 6 months Uric Acid: None on file in the last 6 months Open Standing (Multiple Instance) Lab Orders Remain Interval Expires Ordered Last Rel. CBC + DIFF [SQCBCDIF] 06/06 Every 3 months 12/31/22 12/31/21 05/18/22 Auth. provider: Sincere Dickson MD Assoc. 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 provider: Sincere Dickson MD Assoc. 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) Open Future (Single Instance) Lab Orders None Makeda Minor RN documented in this encounterPremier Health [facility]08-30-2022 Miscellaneous Notes* Telephone Encounter - Shanna Silverio RN - 05/24/2022 10:20 AM EDT Most recent Rheumatology visit: 01/04/2022 (with Sincere Dickson) Recent Office Visits - This Specialty 01/04/2022 Shortness of breath Rheumatology Sincere Dickson MD 04/23/2021 Seropositive rheumatoid arthritis (HCC) Rheumatology Sincere Dickson MD 10/02/2020 Rheumatoid arthritis involving multiple sites with positive rheumatoid factor (HCC) Rheumatology Sincere Dickson MD Upcoming Rheumatology Appointments - Next 365 Days Visit Type Date Time Department GABE [facility] MEDICAL EXT 02/10/2023 11:00 AM RHEU MAIN A50 CBC: CBC Latest Ref Rng & Units 02/03/2022 05/18/2022 WBC 3.70 - 11.00 k/uL 9.25 9.32 HEMOGLOBIN 11.5 - 15.5 g/dL 14.4 14.6 HEMATOCRIT 36.0 - 46.0 % 41.1 43.2 PLATELETS 150 - 400 k/uL 345 354 ABS NEUT (ANC) 1.45 - 7.50 k/uL 4.73 6.60 ABS LYMPH 1.00 - 4.00 k/uL 3.26 1.98 Vitamin D: None on file in the last 6 months LFT: CMP Latest Ref Rng & Units 02/03/2022 05/18/2022 SODIUM 136 - 144 mmol/L 139 138 POTASSIUM 3.7 - 5.1 mmol/L 4.1 4.2 CHLORIDE 97 - 105 mmol/L 102 103 CO2 22 - 30 mmol/L 29 26 GLUCOSE 74 - 99 mg/dL 57(L) 96 BUN 7 - 21 mg/dL 7 11 CREATININE 0.58 - 0.96 mg/dL 0.83 0.80 CALCIUM, TOTAL 8.5 - 10.2 mg/dL 9.3 9.6 AST 13 - 35 U/L 20 19 ALT 7 - 38 U/L 20 21 ALKALINE PHOSPHATASE 34 - 123 U/L 84 80 Creatinine: Creatinine Latest Ref Rng & Units 02/03/2022 05/18/2022 CREAT 0.58 - 0.96 mg/dL 0.83 0.80 ESR/CRP: None on file in the last 6 months Uric Acid: None on file in the last 6 months Open Standing (Multiple Instance) Lab Orders Remain Interval Expires Ordered Last Rel. CBC + DIFF [SQCBCDIF] 06/06 Every 3 months 12/31/22 12/31/21 05/18/22 Auth. provider: Sincere Dickson MD Assoc. 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 provider: Sincere Dickson MD Assoc. 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 Fernandes in 1 month documented in this encounterPremier Health [facility]08-24-2022 History of Present illness Narrative* Fariba Ward MD - 05/18/2022 8:30 AM EDT Images from the original note were not included. [facility] [place] [facility] Department of Cardiovascular Medicine SECTION OF CLINICAL CARDIOLOGY OUTPATIENT VISIT DATE May 18, 2022 OUTPATIENT VISIT TYPE NEW PRIMARY CARE PHYSICIAN : Armand Ma MD ([facility]) [address] [place] [address] REFERRING PHYSICIAN: Sincere Dickson [address] [facility] [id number] CHIEF COMPLAINT: Shortness of breath HISTORY OF PRESENT ILLNESS: Ms. Ho is a 42 year old female with PMH of seropositive RA who presents today for cardiac evaluation for shortness of breath. Patient states that she has a history of COVID x3. First April 2020, October 2020 and last April 2021 (is vaccinated). States that since last June/er has had increased SOB, intermittent, worse with exertion. Able to lie flat without worsening symptoms. Has also noticed bilateral leg swelling around the same time. Of note she has noticed weight gain as well which she attributes to prednisone use. Patient also states that earlier this week she began experiencing left sided chest pain, intermittent rated 4/10. Thinks it is MSK. No symptoms currently. Do es get palpitations at times as well as dizziness and lightheadedness. No prior history of htn although hypertensive today. Prior history of 4 pregnancies, 3 children. Had issues with hypertension with first and third . Seen by pulmonology recently- recommended weight loss, had extensive pulm workup which was negative. 6 minute walk test- 97 oxygen at baseline, dropped to 91% with walking. US dopplers- negative for DVT Negative methacholine challenge Sleep study- normal, not currently on CPAP Medication regiment for RA: 09/2020 started methotrexate 04/2021 started humira, stopped 03/2022 started orencia 2020- prednisone currently on 5mg ECHO 01/2022: Small left ventricle, EF 68, grade I left ventricular diastolic dysfunction, no valvular abnormalities CXR 11/2020: no acute abnormalities CT Chest 01/2022- normal PFTs completed which showed diffusion capacity of carbon monoxide was decreased by 60%. Hx of gastric bypass 2012. No family hx of coronary disease. She denies abdominal distention, orthopnea, cough, lightheadedness or syncope. PAST CARDIAC HISTORY: None PAST MEDICAL HISTORY Diagnosis Date Irritable bowel syndrome Pneumonia due to adenovirus 07/26 PAST SURGICAL HISTORY Procedure Laterality Date COLONOSCOPY FLX DX W/COLLJ SPEC WHEN PFRMD Colonoscopy SKIN BX, 1 LESION On neck and Right shoulder blade, benign TONSILLECTOMY PRIMARY/SECONDARY AGE 13/> SOCIAL HISTORY Social History Tobacco Use Smoking status: Never Smokeless tobacco: Never Substance Use Topics Alcohol use: Yes Comment: Occasionally Drug use: No FAMILY HISTORY Problem Relation Age of Onset Cancer Maternal Aunt skin cancer other (CVA [Other]) Paternal Grandfather other (HTN [Other]) Paternal Grandfather other (HTN [Other]) Father other (HTN [Other]) Paternal Grandmother Breast Cancer Paternal Aunt Colon Cancer Paternal Aunt BRCA + Breast Cancer Maternal Grandmother BRCA + ALLERGIES: ALLERGIES Allergen Reactions Bananas [Other] Shortness of Breath Penicillin G Rash Seasonal [Other] [place] Other: See Comments, Hives Sulfa (Sulfonamide * Hives Watermelon Diarrhea Latex Rash MEDICATIONS: DULoxetine (CYMBALTA) 60 mg capsule^Take 2 capsules by mouth once daily.^Disp: ^Rfl: famotidine (PEPCID) 20 mg tablet^Take 20 mg by mouth twice daily.^Disp: ^Rfl: loratadine (CLARITIN) 10 mg tablet^Take 10 mg by mouth as needed.^Disp: ^Rfl: mecobalamin, vitamin B12, 1,000 mcg chew^Take 1 tablet by mouth once daily.^Disp: ^Rfl: Omeprazole Magnesium 20 mg tablet^Take 20 mg by mouth once daily.^Disp: ^Rfl: albuterol HFA (PROVENTIL HFA, VENTOLIN HFA) 90 mcg/actuation inhaler^Inhale 1 Puff as instructed asneeded. FOR SOB^Disp: ^Rfl: DULERA 200-5 mcg/actuation inhaler^Inhale 2 Puffs as instructed twice daily.^Disp: ^Rfl: abatacept (ORENCIA CLICKJECT) 125 mg/mL^Inject 1 mL subcutaneously one time a week.^Disp: 4 mL^Rfl:3 pregabalin (LYRICA) 100 mg capsule^^Disp: ^Rfl: methotrexate 2.5 mg tablet^TAKE 6 TABLETS BY MOUTH ONE TIME A WEEK.^Disp: 72 tablet^Rfl: 3 predniSONE (DELTASONE) 5 mg tablet^TAKE 1 TABLET BY MOUTH ONCE DAILY^Disp: 90 tablet^Rfl: 2 folic acid 1 mg tablet^TAKE ONE PILL EACH DAY OF THE WEEK EXCEPT THE DAY YOU TAKE METHOTREXATE^Disp: 90 tablet^Rfl: 3 adalimumab (HUMIRA,CF, PEN) 40 mg/0.4 mL pen kit^Inject 40 mg (1 pen) subcutaneously every 2 weeks.^Disp: 6 Pen^Rfl: 2 TRULANCE 3 mg tablet^Take 3 mg by mouth once daily.^Disp: ^Rfl: levocetirizine 5 mg tablet^Take 5 mg by mouth once daily.^Disp: ^Rfl: modafinil (PROVIGIL) 200 mg tablet^TAKE 1 TABLET BY MOUTH EVERY DAY IN THE MORNING^Disp: ^Rfl: fluticasone (FLONASE) 50 mcg/actuation nasal spray^Use 2 Sprays in each nostril once daily.^Disp: ^Rfl: promethazine (PHENERGAN) 12.5 mg tablet^1/2 TO 1 TABLET EVERY 8 HOURS FOR NAUSEA, HEADACHE, OR COUGH^Disp: ^Rfl: ondansetron (ZOFRAN) 4 mg tablet^1 (ONE) TABLET EVERY 8 HOURS FOR NAUSEA OR MOTION SICKNESS^Disp: ^Rfl: Bifidobacterium infantis 1.5 billion cell cap^Bifidobacterium Infantis Bifidobacterium Infantis (Digestive Probiotic) 1.5 billion cell capsule Active 1500 MMU CELLS PO DAILY July 05, 2018 [id number] [facility] ([id number])^Disp: ^Rfl: hydrOXYzine HCl (ATARAX) 25 mg tablet^Take 25 mg by mouth daily at bedtime.^Disp: ^Rfl: docosahexaenoic acid/epa (FISH OIL ORAL)^Take by mouth.^Disp: ^Rfl: MULTIVITAMIN ORAL^Take by mouth.^Disp: ^Rfl: baclofen (LIORESAL) 10 mg tablet^TAKE 1 TABLET BY MOUTH 3 TIMES A DAY NEEDED FOR SPASMS^Disp: ^Rfl: 0 cholecalciferol (VITAMIN D3) 5,000 unit tab^Take 5,000 Units by mouth.^Disp: ^Rfl: Cyanocobalamin 1,000 mcg subl^Dissolve 1,000 mcg under the tongue.^Disp: ^Rfl: LINZESS 72 mcg capsule^Take 72 mcg by mouth once daily.^Disp: ^Rfl: 1 (Patient not taking: Reportedon 04/23/2021 ) magnesium oxide (MAG-OX) 400 mg (241.3 mg magnesium) tablet^Take 1 tablet by mouth twice daily.^Disp: ^Rfl: 3 omeprazole (PRILOSEC) 20 mg capsule^TAKE ONE CAPSULE BY MOUTH EVERY DAY^Disp: ^Rfl: riboflavin, vitamin B2, 400 mg tab^Take 1 tablet by mouth daily at bedtime.^Disp: ^Rfl: 3 calcium citrate/vitamin D3 (CALCIUM CITRATE + D ORAL)^Take by mouth.^Disp: ^Rfl: vit/iron fum/folic ac ( 1 PLUS 1 ORAL)^Take by mouth.^Disp: ^Rfl: REVIEW OF SYSTEMS: GENERAL: Positive for weight gain. Negative for: Weight loss, Fever or Chills, Weakness and Sleep difficulties. HEENT: Negative for: Headache, Impaired Vision, Glasses, Hearing Impairment, Ringing in Ears, Nosebleeds, Poor Dental Care, Bleeding Gums and Dentures. RESPIRATORY: Positive for shortness of breath. Negative for: Cough, Blood in Sputum, Wheezing, Apnea GASTROINTESTINAL: Negative for: Trouble swallowing, Heartburn, Change in bowel habits, Blood in stool, Dark black stools MUSCULOSKELETAL: Negtive for: Muscle or joint pain, stiffness, Joint swelling NEUROLOGIC/PSYCHIATRIC: Negative for: Weakness, Paralysis, Numbness, Tingling, Tremor, Nervousness or anxiety, Depressed mood, Memory loss SKIN: Negative for: Rash, Itching PHYSICAL EXAMINATION: [facility] 10/18/2005 General: Well appearing, in no acute distress, speaking in complete sentences. Lungs: Clear to auscultation bilaterally, no wheezing or rhonchi. Heart: Regular rhythm, PMI not displaced, S1, S2 normal, no S3, no S4, no heaves, no rub and no murmur. Abdomen: Soft, nontender, bowel sounds normal, no palpable organomegaly, no bruits. Extremities: No peripheral edema . Grade 2/4 distal pulses bilaterally. Neuro: Oriented to person, place and time, alert, cooperative, gait coordinated. CARDIOVASCULAR MEDICINE TESTING: No Cardiovascular testing perfomed today. Last ECHO Result Conclusion ECHO Collected: 02/03/2022 11:24 AM (Final result) Impression: CONCLUSIONS: - Technically difficult exam due to body habitus. - Exam indication: Shortness of Breath - The left ventricle is small. Left ventricular systolic function is normal. EF = 68 5% (2D 4-ch.) Grade I left ventricular diastolic dysfunction. - The right ventricle is normal in size. Right ventricular systolic function is normal. - There are no significant valvular abnormalities. - Definity unavailable. - The patient has not had a prior CC echocardiographic exam for comparison. * * * Final * * * There were no tests performed for review. IMPRESSION: Ms. Ho is a 42 year old female with past medical history of seropositive RA who presents todayfor cardiac evaluation of SOB. Has been following closely with Dr. Dickson, rheumatology. Had an ECHOcompleted 01/2022 which showed no evidence of regional wall motion abnormalities, EF 68, grade I left ventricular diastolic dysfunction, no valvular abnormalities. Given patient had an extensive pulmonary workup prior to visit, low suspicion for COPD or asthma as cause of presentation. Also unlikelyCHF, ACS or valvular dysfunction given ECHO findings although can not be entirely ruled out at thistime. Will consider stress test in future but not indicated at this time. Unlikely PE given CT chest negative and US dopplers also negative for DVT. High suspicion that patients symptoms due to weight gain as well as HTN. Especially considering patient has been on steroids for RA. PLAN AND RECOMMENDATIONS: Ambulatory blood pressure monitoring 24 hours Obtain NT pro BNP Virtual visit with Dr. Fernandes in 1 month Fariba Ward MD Internal Medicine Resident, PGY-1 [facility] NOTE OF PERSONAL INVOLVEMENT IN CARE IMPRESSION: Patient is a 42 year old female who is seen for further evaluation of a history of progressive shortness of breath that has occurred tio passu with ongoing Rx for RA, inclusive of oral steroids which have resulted in considerable weight gain in the past year. She has had a thorough pulmonary work up as we are to understand with her local insurance sales specialist who has concluded more than likely her shortness of breath is consequent to weight gain. I think that is correct but that shewas found to have grade I diastolic dysfunction on this past January's echo has led her core carrier to refer her here for better clarification. As I stated to Ms. Ho and her , the latter is a non specific finding and in review of her echo I see no evidence otherwise for structural or functional heart disease outside of her systemic pressure. I again think both observations are likely resultant from her weight gain but to be fair we would recommend a more careful assessment of her systemic pressures before suggesting delving into Rx. In the meantime, it is clearly important that sheaddress her weight - which we discussed at length inclusive of - dietary changes such as reduction in carbohydrates and portion control if at all possible - and with the believe Dr. Dickson will be able to wean her from steroids onto a rheumatologic regimen that successfully manages her symptoms thatright now are not associated with joint remodeling, etc this early in her course. One final point here is that RA patients are at risk for CAD but again her course is early, she has no other risk factors aside from her age (no family history of premature CAD, premenopausal, not as yet diabetic nor evidence of significant hyperlipidemia whether familial or not). Thus I have chosen not to consider her symptoms as an anginal equivalent but believe there is certain merit in addressing her systemic pressures if we in fact find evidence that this is persistent rather than situational today (ie. notwhite coat hypertension). See plan outlined by Dr. Ward above. I have reviewed the documentation obtained and documented by the Resident. I have personally performed a face to face assessment of the patient and have personally participated on the shin components of the history, exam and medical decision making. I have discussed the case and management of the patient's care. (Outpatient): I personally spent 35 total minutes total time involved in the management and care ofthis patient. STAFF PHYSICIAN: Jone Fernandes MD [facility] DATE OF SERVICE: May 18, 2022 documented in this encounterPrem[facility] Miscellaneous Notes* Telephone Encounter - Makeda Minor - 04/13/2022 10:51 AM EDT Most recent Rheumatology visit: 01/04/2022 (with Sincere Dickson) Recent Office Visits - This Specialty 01/04/2022 Shortness of breath Rheumatology Sincere Dickson MD 04/23/2021 Seropositive rheumatoid arthritis (HCC) Rheumatology Sincere Dickson MD 10/02/2020 Rheumatoid arthritis involving multiple sites with positive rheumatoid factor (HCC) Rheumatology Sincere Dickson MD Upcoming Rheumatology Appointments - Next 365 Days No appointments to display CBC: CBC Latest Ref Rng & Units 01/03/2022 02/03/2022 WBC 3.70 - 11.00 k/uL 11.04(H) 9.25 HEMOGLOBIN 11.5 - 15.5 g/dL 15.2 14.4 HEMATOCRIT 36.0 - 46.0 % 45.2 41.1 PLATELETS 150 - 400 k/uL 376 345 ABS NEUT (ANC) 1.45 - 7.50 k/uL 6.22 4.73 ABS LYMPH 1.00 - 4.00 k/uL 3.72 3.26 Vitamin D: None on file in the last 6 months LFT: CMP Latest Ref Rng & Units 01/03/2022 02/03/2022 SODIUM 136 - 144 mmol/L 140 139 POTASSIUM 3.7 - 5.1 mmol/L 3.9 4.1 CHLORIDE 97 - 105 mmol/L 102 102 CO2 22 - 30 mmol/L 25 29 GLUCOSE 74 - 99 mg/dL 110(H) 57(L) BUN 7 - 21 mg/dL 8 7 CREATININE 0.58 - 0.96 mg/dL 0.80 0.83 CALCIUM, TOTAL 8.5 - 10.2 mg/dL 9.6 9.3 AST 13 - 35 U/L 28 20 ALT 7 - 38 U/L 24 20 ALKALINE PHOSPHATASE 34 - 123 U/L 79 84 Creatinine: Creatinine Latest Ref Rng & Units 01/03/2022 02/03/2022 CREAT 0.58 - 0.96 mg/dL 0.80 0.83 ESR/CRP: None on file in the last 6 months Uric Acid: None on file in the last 6 months Open Standing (Multiple Instance) Lab Orders Remain Interval Expires Ordered Last Rel. CBC + DIFF [SQCBCDIF] 07/06 Every 3 months 12/31/22 12/31/21 02/03/22 Auth. provider: Sincere Dickson MD Assoc. 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) COMP METABOLIC PANEL [SQCMP] 07/06 Every 3 months 12/31/22 12/31/21 02/03/22 Auth. provider: Sincere Dickson MD Assoc. 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) Open Future (Single Instance) Lab Orders None Makeda Minor RN * Telephone Encounter - Sharri Solorio Ma - 04/13/2022 10:50 AM EDT Please approve prescription and any additional refills and e-script to designated pharmacy. Thank you, Sharri Solorio Ma documented in this encounterPrem[facility]07-07-[facility]22 Miscellaneous Notes* Telephone Encounter - Sharri Solorio Ma - 03/31/2022 2:50 PM EDT Faxed [employer] appeal form Patient switching from Humira and Methotrexate to Orencia * Telephone Encounter - Sharri Solorio Ma - 03/31/2022 10:53 AM EDT I sent in the PA for Orencia. They keep sending a new PA for Humira. Is patient switching to Humira? documented in this encounterPrem[facility]05-10-2022 Miscellaneous Notes* Telephone Encounter - Makeda Minor - 02/01/2022 7:21 AM EDT Most recent Rheumatology visit: 01/04/2022 (with Sincere Dickson) Upcoming Rheumatology Appointments - Next 365 Days No appointments to display CBC: CBC Latest Ref Rng & Units 10/01/2021 01/03/2022 WBC 3.70 - 11.00 k/uL 9.98 11.04(H) HEMOGLOBIN 11.5 - 15.5 g/dL 14.8 15.2 HEMATOCRIT 36.0 - 46.0 % 45.2 45.2 PLATELETS 150 - 400 k/uL 397 376 ABS NEUT (ANC) 1.45 - 7.50 k/uL 4.30 6.22 ABS LYMPH 1.00 - 4.00 k/uL 4.36(H) 3.72 Vitamin D: None on file in the last 6 months LFT: CMP Latest Ref Rng & Units 10/01/2021 01/03/2022 SODIUM 136 - 144 mmol/L 140 140 POTASSIUM 3.7 - 5.1 mmol/L 3.7 3.9 CHLORIDE 97 - 105 mmol/L 100 102 CO2 22 - 30 mmol/L 27 25 GLUCOSE 74 - 99 mg/dL 86 110(H) BUN 7 - 21 mg/dL 12 8 CREATININE 0.58 - 0.96 mg/dL 0.80 0.80 CALCIUM, TOTAL 8.5 - 10.2 mg/dL 9.8 9.6 AST 13 - 35 U/L 23 28 ALT 7 - 38 U/L 35 24 ALKALINE PHOSPHATASE 34 - 123 U/L 84 79 Creatinine: Creatinine Latest Ref Rng & Units 10/01/2021 01/03/2022 CREAT 0.58 - 0.96 mg/dL 0.80 0.80 ESR/CRP: None on file in the last 6 months Uric Acid: None on file in the last 6 months Open Standing (Multiple Instance) Lab Orders Remain Interval Expires Ordered Last Rel. CBC + DIFF [SQCBCDIF] 08/06 Every 3 months 12/31/22 12/31/21 01/03/22 Auth. provider: Sincere Dickson MD Assoc. 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) COMP METABOLIC PANEL [SQCMP] 08/06 Every 3 months 12/31/22 12/31/21 01/03/22 Auth. provider: Sincere Dickson MD Assoc. 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) Open Future (Single Instance) Lab Orders None Makeda Minor RN documented in this encounterPrem[facility]04-12-[facility]22 History of Present illness Narrative* Sincere Dickson MD - 01/04/2022 3:56 PM EDT [facility] [place] Department of Rheumatic and Immunologic Diseases SUBJECTIVE: . Brief History of Present Illness: 41 year old female is evaluated in the Rheumatology Clinic for +RF elevated CRP and bilateral wristpain Fibromyalgia/post traumatic syndrome + rapid response to glucocorticoids 09/2020 started methotrexate 04/2021 started humira TODAY Much improvement of the hand pain and stiffness Since starting humira No stiffness But on prednisone 7.5 mg a day still Overall feels like she's tolerating the humira well Only issue is tremors in hands 3 days before humira is due Then she takes the humria and she's fine for a week and a half No return of pain or stifness in this time Has noticed some increased SOB with exertion and since suffering from COVID late last year Has some trouble lying on her side Gained an additional 25 lbs PMHx: PAST MEDICAL HISTORY Diagnosis Date Irritable bowel syndrome Pneumonia due to adenovirus 07/26 PSHx: PAST SURGICAL HISTORY Procedure Laterality Date COLONOSCOP W/ OR W/O [facility] SPEC Colonoscopy REMOVAL OF TONSILS,12+ Y/O SKIN BX, 1 LESION On neck and Right shoulder blade, benign MEDICATIONS: methotrexate 2.5 mg tablet TAKE 6 TABLETS BY MOUTH ONE TIME A WEEK. predniSONE (DELTASONE) 5 mg tablet TAKE 1 TABLET BY MOUTH ONCE DAILY folic acid 1 mg tablet TAKE ONE PILL EACH DAY OF THE WEEK EXCEPT THE DAY YOU TAKE METHOTREXATE adalimumab (HUMIRA,CF, PEN) 40 mg/0.4 mL pen kit Inject 40 mg (1 pen) subcutaneously every 2 weeks. TRULANCE 3 mg tablet Take 3 mg by mouth once daily. levocetirizine 5 mg tablet Take 5 mg by mouth once daily. modafinil (PROVIGIL) 200 mg tablet TAKE 1 TABLET BY MOUTH EVERY DAY IN THE MORNING fluticasone (FLONASE) 50 mcg/actuation nasal spray Use 2 Sprays in each nostril once daily. promethazine (PHENERGAN) 12.5 mg tablet 1/2 TO 1 TABLET EVERY 8 HOURS FOR NAUSEA, HEADACHE, OR COUGH ondansetron (ZOFRAN) 4 mg tablet 1 (ONE) TABLET EVERY 8 HOURS FOR NAUSEA OR MOTION SICKNESS Bifidobacterium infantis 1.5 billion cell cap Bifidobacterium Infantis Bifidobacterium Infantis (Digestive Probiotic) 1.5 billion cell capsule Active 1500 MMU CELLS PO DAILY July 05, 2018 [id number] [facility] ([id number]) hydrOXYzine HCl (ATARAX) 25 mg tablet Take 25 mg by mouth daily at bedtime. docosahexaenoic acid/epa (FISH OIL ORAL) Take by mouth. MULTIVITAMIN ORAL Take by mouth. baclofen (LIORESAL) 10 mg tablet TAKE 1 TABLET BY MOUTH 3 TIMES A DAY NEEDED FOR SPASMS cholecalciferol (VITAMIN D3) 5,000 unit tab Take 5,000 Units by mouth. Cyanocobalamin 1,000 mcg subl Dissolve 1,000 mcg under the tongue. LINZESS 72 mcg capsule Take 72 mcg by mouth once daily. magnesium oxide (MAG-OX) 400 mg (241.3 mg magnesium) tablet Take 1 tablet by mouth twice daily. omeprazole (PRILOSEC) 20 mg capsule TAKE ONE CAPSULE BY MOUTH EVERY DAY riboflavin, vitamin B2, 400 mg tab Take 1 tablet by mouth daily at bedtime. calcium citrate/vitamin D3 (CALCIUM CITRATE + D ORAL) Take by mouth. vit/iron fum/folic ac ( 1 PLUS 1 ORAL) Take by mouth. ALLERGIES: ALLERGIES Allergen Reactions Bananas [Other] Shortness of Breath Penicillin G Rash Seasonal [Other] Sulfa (Sulfonamide * Hives Watermelon Diarrhea OBJECTIVE: Physical Examination: Vitals: BP 157/71 Pulse 102 Temp 36.7 C (98 F) (Temporal) Ht 167.6 cm (5' 6) Wt (!) 158.3 kg (349 lb) LMP 10/18/2005 BMI 56.33 kg/m General: Looks well, NAD, A & Ox3. Obese Ext: No edema. Pulm: CTAB CV: RRR, no murmurs, gallops or rubs Neuro: Gait Normal. Skin: No rash. No ulcers. Musculoskeletal: Shoulders: No swelling, no tenderness, good ROM Elbows: No swelling, no tenderness, no flexion contractures, no nodules, good ROM Wrists: No swelling, no tenderness, no limitation in flexion and extension Hands: No evidence of synovitis. Able to make full fist bilaterally-+ pain in CMC Knees: No effusion, no tenderness, good ROM Ankles: No swelling, no tenderness, good ROM Feet/Toes/ MTP: No evidence of synovitis WBC (k/uL) Date Value 01/03/2022 11.04 (H) RBC (m/uL) Date Value 01/03/2022 4.61 Hemoglobin (g/dL) Date Value 01/03/2022 15.2 Hematocrit (%) Date Value 01/03/2022 45.2 MCV (fL) Date Value 01/03/2022 98.0 MCH (pg) Date Value 01/03/2022 33.0 MCHC (g/dL) Date Value 01/03/2022 33.6 RDW-CV (%) Date Value 01/03/2022 13.8 Platelet Count (k/uL) Date Value 01/03/2022 376 MPV (fL) Date Value 01/03/2022 10.1 Glucose (mg/dL) Date Value 01/03/2022 110 (H) BUN (mg/dL) Date Value 01/03/2022 8 Creatinine (mg/dL) Date Value 01/03/2022 0.80 Sodium (mmol/L) Date Value 01/03/2022 140 Potassium (mmol/L) Date Value 01/03/2022 3.9 Chloride (mmol/L) Date Value 01/03/2022 102 CO2 (mmol/L) Date Value 01/03/2022 25 Protein, Total (g/dL) Date Value 01/03/2022 6.9 Albumin (g/dL) Date Value 01/03/2022 4.2 Calcium, Total (mg/dL) Date Value 01/03/2022 9.6 Alkaline Phosphatase (U/L) Date Value 01/03/2022 79 Bilirubin, Total (mg/dL) Date Value 01/03/2022 0.3 AST (U/L) Date Value 01/03/2022 28 ALT (U/L) Date Value 01/03/2022 24 Hep C Antibody IA (no units) Date Value 10/02/2020 Negative ASSESSMENT/PLAN: 41 year old female with RF+ RA Overall doing well on the adalimumab but she's on prednisone 7.5 mg a day. Need to taper this down to see if she's truly responding to biologic or not. If pain/stifness resumes with lowering prednisone, we discussed risk/benefits of abatacept therapy. She expressed understanding. Unclear if tremor is secondary to adalimumab. No numbness, no weakness associated Has OA of hands. Discussed difference between OA and RA Shortness of breath. Has some SOB with lying down. Obese. Will get echocardiogram. Likely needs to be evaluated for TED. If testing is normal, consider PFts. High risk medication use-continue monitoring labs -Will call pt with results Sincere Dickson MD Rheumatology Staff [id number] Answers for HPI/ROS submitted by the patient on 01/03/2022 Fever : No Recent Unintentional Weight Change: Yes Eye Pain: No Eye Redness: No Vision Disturbance: No Eye Dryness: No Nose Bleeds: No Sores in your Mouth: No Trouble Swallowing: No Dry Mouth: Yes Chest Pain: No Leg Swelling: No A Cough: No Shortness of Breath: Yes Pain with Breathing: No Heartburn: No Abdominal Pain: No Diarrhea: No Black Tarry Stools: No Blood in Urine: No Pain or Burning with Urination: No Joint Pain or Stiffness: Yes Muscle Weakness: Yes Muscle Aches: Yes Joint Swelling: Yes Morning Stiffness in Joints: Yes A Rash: Yes Do you have sun sensitive rashes?: No Skin Color Changes: No Hair Loss: No Nail Changes: No Headaches: No Numbness: No Memory Loss: No Swollen Glands: No documented in this encounterPrem[facility]03-04-2021 History of Present illness Narrative* Shivani Alonzo), Edith - 11/26/2020 11:00 AM EST Radiology Service Progress Note PATIENT NAME: Galindo Ho DATE OF SERVICE: November 26, 2020 TIME: 11:00 AM PATIENT IDENTITY VERIFICATION COMPLETED USING TWO (2) IDENTIFIERS: Name and Date of confirmedby patient verbally. FALL SCREENING: Has the patient had 2 falls in the last year or 1 fall with injury or currently using an Ambulatory Assistive Device (Walker, Cane, Wheelchair, Crutches, etc.)? No PATIENT GENDER DATA: Female. status: : No status: NO. PATIENT RELEVANT IMPLANT DATA REVIEWED: Yes RADIOLOGY DEPARTMENT: General X-ray: Exam(s) Completed: Chest X-Ray PERIPHERAL IV DATA: Not applicable SIGNED BY: RT Sailaja November 26, 2020 11:00 AM documented in this encounterPremier Health note* Diagnosis Shortness of breath- Primary Seropositive rheumatoid arthritis of multiple sites (HCC) High risk medication use Encounter for long-term (current) use of other medications Occasional tremors Abnormal involuntary movements documented in this encounter [facility]* Diagnosis Seropositive rheumatoid arthritis of multiple sites (HCC) documented in this encounter [facility] noteNo assessment information availableWTogus [facility] Work Phone: evaluation note* Diagnosis Diastolic dysfunction- Primary Heart disease, unspecified [facility] High risk medication use- Primary Encounter for long-term (current) use of other medications [facility] Diagnosis Onset Date Resolution Status Morbid obesity acute TED (obstructive sleep apnea) acute Shortness of breath acute [facility] Work Phone: evaluation note* Diagnosis Diastolic dysfunction- Primary Heart disease, unspecified [facility] Diagnosis Seropositive rheumatoid arthritis of multiple sites (HCC) [facility] Diagnosis Diastolic dysfunction- Primary Heart disease, unspecified SOB (shortness of breath) Shortness of breath Seropositive rheumatoid arthritis of multiple sites (HCC) [facility]* Diagnosis SOB (shortness of breath)- Primary Shortness of breath Seropositive rheumatoid arthritis of multiple sites (HCC) [facility]* Diagnosis Seropositive rheumatoid arthritis of multiple sites (HCC) [facility]* Diagnosis Onset Date Resolution Status Anxiety acute Encounter for routine gynecological examination noneactive [facility] Work Phone: evaluation note* Diagnosis Seropositive rheumatoid arthritis of multiple sites (HCC)- Primary Inflammatory bowel disease Other and unspecified noninfectious gastroenteritis and colitis High risk medication use Encounter for long-term (current) use of other medications Occasional tremors Abnormal involuntary movements [facility] Diagnosis Seropositive rheumatoid arthritis of multiple sites (HCC)- Primary [facility]* Diagnosis Abdominal pain, unspecified abdominal location- Primary Inflammatory bowel disease Other and unspecified noninfectious gastroenteritis and colitis [facility]* Diagnosis Cough, unspecified type- Primary [facility]* Diagnosis Seronegative rheumatoid arthritis (HCC)- Primary Rheumatoid arthritis [facility]* Diagnosis Seronegative rheumatoid arthritis (HCC)- Primary Rheumatoid arthritis [facility]* Diagnosis Seronegative rheumatoid arthritis (HCC)- Primary Rheumatoid arthritis [facility]* Diagnosis Seronegative rheumatoid arthritis (HCC)- Primary Rheumatoid arthritis [facility] Diagnosis Seronegative rheumatoid arthritis (HCC)- Primary Rheumatoid arthritis documented [facility]* Diagnosis Abdominal pain, unspecified abdominal location documented in this encounter [facility]* Diagnosis Seronegative rheumatoid arthritis (HCC)- Primary Rheumatoid arthritis documented in this encounter [facility] note* Diagnosis Seropositive rheumatoid arthritis of multiple sites (HCC)- Primary High risk medication use Encounter for long-term (current) use of other medications documented in this encounter [facility]* Diagnosis Seronegative rheumatoid arthritis (HCC)- Primary Rheumatoid arthritis documented in this encounter [facility]* Diagnosis SOB (shortness of breath) Shortness of breath documented in this encounter [facility]* Diagnosis Seronegative rheumatoid arthritis (HCC)- Primary Rheumatoid arthritis documented in this encounter [facility]* Diagnosis Seronegative rheumatoid arthritis (HCC)- Primary Rheumatoid arthritis documented in this encounter [facility]* Diagnosis Obesity, unspecified class, unspecified obesity type, unspecified whether serious comorbidity present- Primary Chronic pain of both knees Seropositive rheumatoid arthritis (HCC) Rheumatoid arthritis Syncope, unspecified syncope type High risk medication use Encounter for long-term (current) use of other medications documented in this encounter [facility]* Diagnosis Chronic pain of both knees documented in this encounter [facility]* Diagnosis Obesity, unspecified class, unspecified obesity type, unspecified whether serious comorbidity present- Primary BMI 50.0-59.9, adult ([facility]) Body Mass Index 50.0-59.9, adult documented in this encounter [facility]* Diagnosis Severe obesity (BMI >= 40) ([facility])- Primary Morbid obesity Dietary counseling Dietary surveillance and counseling Exercise counseling History of bariatric surgery Bariatric surgery status Insulin resistance Dysmetabolic Syndrome X documented in this encounter [facility] note* Diagnosis Gastric bypass status for obesity- Primary Bariatric surgery status Vertigo Dizziness and giddiness Class 3 obesity History of ulcer disease Personal history of other specified diseases documented in this encounter [facility]* Diagnosis Body mass index 50.0-59.9, adult ([facility])- Primary Body Mass Index 50.0-59.9, adult Weight gain Abnormal weight gain Anastomotic ulcer S/P gastric bypass documented in this encounter [facility] note* Diagnosis Seronegative rheumatoid arthritis (HCC)- Primary Rheumatoid arthritis documented in this encounter [facility] note* Diagnosis Body mass index 50.0-59.9, adult (HCC) Body Mass Index 50.0-59.9, adult Weight gain Abnormal weight gain Anastomotic ulcer S/P gastric bypass documented in this encounter [facility] note* Diagnosis Body mass index 50.0-59.9, adult (HCC) Body Mass Index 50.0-59.9, adult Weight gain Abnormal weight gain documented in this encounter [facility] note* Diagnosis Class 3 obesity (HCC)- Primary Gastric bypass status for obesity Bariatric surgery status Vertigo Dizziness and giddiness Body mass index 50.0-59.9, adult (HCC) Body Mass Index 50.0-59.9, adult documented in this encounter [facility] note* Diagnosis Seronegative rheumatoid arthritis (HCC)- Primary Rheumatoid arthritis documented in this encounter [facility] note* Diagnosis Onset Date Resolution Status Admit Date Morbid obesity acute April 11:35am Tachycardia acute May 09, 2025 11:35am Hypertension chronic May 09, 2025 11:35am [facility] Work Phone: [employer] for referral (narrative)* Outpatient Procedure (Routine) - Pending Review Specialty Diagnoses / Procedures Referred By Contac t Referred To Contact [facility] Diagnoses Shortness of breath Procedures ECHO ECHO TTHRC R-T 2D W/WOM-MODE COMPL SPEC&COLR D Sincere Dickson MD [address] [place] [address] [place] [id number] Referral ID Status Reason Start Date Expiration Date Visits Requested Visits Authorized [id number] Pending Review Auto-Generat ed Referral 01/04/2022 01/04/2023 1 1 [facility] for referral (narrative)* Outpatient Procedure (Routine) - Authorized Specialty Diagnoses / Procedures Referred By Contac t Referred To Contact [facility] Diagnoses Diastolic dysfunction Procedures ECG COMPLETE ECG ROUTINE ECG W/LEAST 12 LDS W/I&R Jone Fernandes MD [address] [place] [id number] [facility] [place] [address] [place] [address] Referral ID Status Reason Start Date Expiration Date Visits Requested Visits Authorized [id number] Authorized Auto-Generat ed Referral 03/11/2022 03/11/2023 1 1 [facility] for referral (narrative)No reason for referral information availableWTogus VA Medical Center Work Phone: Reason for visit Narrative* Diagnostic Procedure Only (Routine) - Closed Specialty Diagnoses / Procedures Referred By Contac t Referred To Contact [facility] Diagnoses Chronic pain of both knees Procedures XR KNEE GENERAL 4V AP BOTH/PA BOTH/LAT/MERC BILATERAL RADIOLOGIC EXAM KNEE COMPLETE 4/MORE VIEWS Sincere Dickson MD [address] [place] [address] Phone: tel: fax: [facility] [place] [phone] Referral ID Status Reason Start Date Expiration Date V isits Requested Visits Authorized [id number] Closed Auto-Generate d Referral 11/28/2024 12/28/2025 1 1 [facility] for visit Narrative* Diagnostic Procedure Only (Routine) - Closed Specialty Diagnoses / Procedures Referred By Contac t Referred To Contact XR IMAGING Diagnoses Body mass index 50.0-59.9, adult (HCC) Weight gain Anastomotic ulcer S/P gastric bypass Procedures XR UPPER GI SINGLE CONTRAST RADIOLOGIC EXAM [facility] GI TRC [place] [address] [place], [place] [id number] Phone: tel: fax: [facility] [place] [phone] Referral ID Status Reason Start Date Expiration Date V isits Requested Visits Authorized [id number] Closed Auto-Generate d Referral 09/25/2024 09/24/2025 1 1 [facility] for visit Narrative* Outpatient Procedure (Routine) - Closed Specialty Diagnoses / Procedures Referred By Contac t Referred To Contact [facility] Diagnoses Body mass index 50.0-59.9, adult (HCC) Weight gain Procedures EGD DIAGNOSTIC EGD DIAGNOSTIC ESOPHAGOGASTRODUODENOSC OPY TRANSORAL DIAGNOSTIC Gary Barraza MD [address] [place] [address] Phone: tel: fax: [facility] [address] [place] [address] Referral ID Status Reason Start Date Expiration Date V isits Requested Visits Authorized [id number] Closed Auto-Generate d Referral OON/Self Pay Override 01/24/2025 01/24/2026 1 1 [facility] Summary Purpose Family History No Family History Records Found Relationship Condition Age at Onset Recorded Date/T ric father Hypertension Unknown Gout Unknown mother Hypotension Unknown grandmother Malignant neoplasm of breast Unknown aunt Malignant neoplasm of breast Unknown Relationship Condition Age at Onset Recorded Date/T ric father Hypertension Unknown Gout Unknown mother Hypotension Unknown grandmother Malignant neoplasm of breast Unknown aunt Malignant neoplasm of breast Unknown grandfather Kidney disorder Unknown Advance Directives No Advanced Directives Records Found Advance Directive Response Recorded Date/ Time Living Will Yes March 30, 2020 1 0:28am Power of Emission Technician Yes March 30, 2020 10:28am Advance Directive Response Recorded Date/ Time Name of Medical Power of Emission Technician ANGI HO- June 09, 2022 7:40pm Living Will Yes June 09, 2022 7:40pm Power of Emission Technician Yes May 7:40pm Advance Directive Response Recorded Date/ Time Name of Medical Power of Emission Technician ANGI HO- June 09, 2022 6:40pm Living Will Yes June 09, 2022 6:40pm Power of Emission Technician Yes May 6:40pm Advance Directive Response Recorded Date/ Time Living Will Yes June 09, 2022 7:40pm Power of Emission Technician Yes May 7:40pm Advance Directive Response Recorded Date/ Time Living Will Yes June 09, 2022 6:40pm Power of Emission Technician Yes May 6:40pm Advance Directive Response Recorded Date/ Time Living Will Yes June 09, 2022 7:40pm Do you have a Healthcare Power of Emission Technician? 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 Reason for Visit Anxiety Encounter for routine gynecological examination Chief Complaint Annual (INSTALL[employer] MECHANICAL) SCREENING PLANTAR FASCITIS RHEUMATOID ARTHRITIS / PT HAS RX bacterial pneumonia Reason for Visit Anxiety Encounter for routine gynecological examination Chief Complaint SCREENING Chief Complaint Admit Date two weeks, mid foot, L pain September 30, 2024 12:38pm 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, 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 9 :22am SCREENING November 01, 2024 8 :50am Paroxysmal Atrial Fibrillation (Anil) F ebruary 2024 11:10am SOB, DYSPNEA December 16, 2024 12: 58pm OA KNEE/RX HERE December 19, 2024 9:3 0am Reason for Visit Admit Date Anxiety October 17, 2024 9 :22am Class 3 obesity October 17, 2024 9 :22am Family history of breast cancer October 17, 2024 9:22am Morbid obesity October 17, 2024 9 :22am Hypertension October 17, 2024 9 :22am Encounter for routine gynecological exam ination October 17, 2024 9:22am Morbid obesity November 15, 2024 11:10am Shortness of breath November 15, 2024 11:10am Tachycardia November 15, 2024 11:10am Hypertension November 15, 2024 11:10am Chief Complaint Admit Date 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, 2024 9 :22am SCREENING November 01, 2024 8 :50am Paroxysmal Atrial Fibrillation (Anil) F ebruary 2024 11:10am SOB, DYSPNEA December 16, 2024 12: 58pm OA KNEE/RX HERE February 04, 2025 9:00a m Chief Complaint Admit Date OA KNEE/RX HERE February 04, 2025 9:00a m 6 M FU May 09, 2025 11 :35am Reason for Visit Admit Date Morbid obesity May 09, 2025 11 :35am Tachycardia May 09, 2025 11 :35am Hypertension May 09, 2025 11 :35am Reason for Referral Specialty Diagnoses / Procedures Referred By Contac t Referred To Contact Cardiology Diagnoses Diastolic dysfunction Procedures CONSULT TO CARDIOLOGY OFFICE/[facility]IENT [facility] 60-74 MINUTES Sincere Dickson MD [address] [place] [address] Referral ID Status Reason Start Date Expiration Date Visits Requested Visits Authorized [id number] Authorized PCP Requested Referral 02/23/2022 02/23/2023 1 1 Specialty Diagnoses / Procedures Referred By Contac t Referred To Contact Gastroenterology Diagnoses Inflammatory bowel disease Procedures CONSULT TO GASTROENTEROLOGY OFFICE/[facility] 60-74 MINUTES Sincere Dickson MD [address] [place] [address] Referral ID Status Reason Start Date Expiration Date Visits Requested Visits Authorized [id number] Authorized PCP Requested Referral 10/20/2022 10/20/2023 1 1 Specialty Diagnoses / Procedures Referred By Contac t Referred To Contact CT IMAGING Diagnoses Abdominal pain, unspecified abdominal location Procedures CT ENTEROGRAPHY W IVCON CT ABD & PELVIS W/CONTRAST Logan Elmore MD [address] [place] [address] Ct Imaging Referral ID Status Reason Start Date Expiration Date Visits Requested Visits Authorized [id number] Authorized Auto-Generat ed Referral 11/18/2022 01/02/2023 1 1 Specialty Diagnoses / Procedures Referred By Contac t Referred To Contact CT IMAGING Diagnoses Abdominal pain, unspecified abdominal location Procedures CT ENTEROGRAPHY W IVCON CT ABD & PELVIS W/CONTRAST Logan Elmore MD [address] [place] [address] Ct Imaging [facility] Referral ID Status Reason Start Date Expiration Date V isits Requested Visits Authorized [id number] Closed Auto-Generate d Referral 11/18/2022 01/02/2023 1 1 Medications Administered Section Inactive Administered Medications - up to 3 most recent administrations Medication Order MAR Action Action Date Dose Rate Site acetaminophen 1,000 mg tab(s) (TYLENOL) 1,000 mg, ORAL, ONCE, 1 dose, On Mon12/23/22 at 1000, No more than 4000 mg of acetaminophen should be given per day (FROM ALL SOURCES), If ordered PRN for pain, patient/guardian may elect to receive this medication for higher pain levels INSTEAD of the opioid, if preferred: N/A Given 12/23/2022 10:17 AM EDT 1,000 mg diphenhydrAMINE 25 mg (BENADRYL) 25 mg, ORAL, ONCE, 1 dose, On Mon12/23/22 at 1000 Given 12/23/2022 10:16 AM EDT 25 mg inFLIXimab 800 mg in NaCl 0.9% 250 mL (REMICADE) 800 mg, INTRAVENOUS, at 83.33-250 mL/hr, Administer over 1-3 Hours, ONCE, 1 dose, On Mon12/23/22 at 1000, Infuse via 0.22 micron filter. Total volume = 250ml. EXP: Administer with 0.2 micron filter., Medication Substitution: [facility] preferred product has been replaced with the insurance mandated product New Bag/Syringe/Bottle 12/23/2022 10:47 AM EDT 800 mg 83 mL/hr Inactive Administered Medications - up to 3 most recent administrations Medication Order MAR Action Action Date Dose Rate Site acetaminophen 1,000 mg tab(s) (TYLENOL) 1,000 mg, ORAL, ONCE, 1 dose, On Mon01/06/23 at 0800, No more than 4000 mg of acetaminophen should be given per day (FROM ALL SOURCES), If ordered PRN for pain, patient/guardian may elect to receive this medication for higher pain levels INSTEAD of the opioid, if preferred: N/A Given 01/06/2023 8:17 AM EDT 1,000 mg diphenhydrAMINE 25 mg (BENADRYL) 25 mg, ORAL, ONCE, 1 dose, On Mon01/06/23 at 0800 Given 01/06/2023 8:17 AM EDT 25 mg inFLIXimab 800 mg in NaCl 0.9% 250 mL (REMICADE) 800 mg, INTRAVENOUS, at 83.33-250 mL/hr, Administer over 1-3 Hours, ONCE, 1 dose, On Mon01/06/23 at 0800, Infuse via 0.22 micron filter. Total volume = 250ml. EXP: Administer with 0.2 micron filter., Medication Substitution: [facility] preferred product has been replaced with the insurance mandated product New Bag/Syringe/Bottle 01/06/2023 8:42 AM EDT 800 mg 125 mL/hr Inactive Administered Medications - up to 3 most recent administrations Medication Order MAR Action Action Date Dose Rate Site acetaminophen 650 mg tab(s) (TYLENOL) 650 mg, ORAL, ONCE, 1 dose, On Silvia 02/23/23 at 1000, No more than 4000 mg of acetaminophen should be given per day (FROM ALL SOURCES), If ordered PRN for pain, patient/guardian may elect to receive this medication for higher pain levels INSTEAD of the opioid, if preferred: N/A Given 02/23/2023 9:53 AM EDT 650 mg diphenhydrAMINE 25 mg (BENADRYL) 25 mg, ORAL, ONCE, 1 dose, On Silvia 02/23/23 at 1000 Given 02/23/2023 9:53 AM EDT 25 mg inFLIXimab 800 mg in NaCl 0.9% 250 mL (REMICADE) 800 mg, INTRAVENOUS, at 83.33-250 mL/hr, Administer over 1-3 Hours, ONCE, 1 dose, On Silvia 02/23/23 at 1000, Infuse via 0.22 micron filter. Total volume = 250ml. exp 1000 02/24/23 (room temp) Administer with 0.2 micron filter., Medication Substitution: [facility] preferred product has been replaced with the insurance mandated product New Bag/Syringe/Bottle 02/23/2023 10:13 AM EDT 800 mg 125 mL/hr Inactive Administered Medications - up to 3 most recent administrations Medication Order MAR Action Action Date Dose Rate Site acetaminophen 650 mg tab(s) (TYLENOL) 650 mg, ORAL, ONCE, 1 dose, On Silvia 04/06/23 at 1130, No more than 4000 mg of acetaminophen should be given per day (FROM ALL SOURCES), If ordered PRN for pain, patient/guardian may elect to receive this medication for higher pain levels INSTEAD of the opioid, if preferred: N/A Given 04/06/2023 11:20 AM EDT 650 mg diphenhydrAMINE 25 mg (BENADRYL) 25 mg, ORAL, ONCE, 1 dose, On Silvia 04/06/23 at 1130 Given 04/06/2023 11:20 AM EDT 25 mg inFLIXimab 800 mg in NaCl 0.9% 250 mL (REMICADE) 800 mg, INTRAVENOUS, at 83.33-250 mL/hr, Administer over 1-3 Hours, ONCE, 1 dose, On Silvia 04/06/23 at 1130, Infuse via 0.22 micron filter. Total volume = 250ml. exp 1130 04/07/23 (room temp) Administer with 0.2 micron filter., Medication Substitution: [facility] preferred product has been replaced with the insurance mandated product New Bag/Syringe/Bottle 04/06/2023 11:39 AM EDT 800 mg 125 mL/hr Inactive Administered Medications - up to 3 most recent administrations Medication Order MAR Action Action Date Dose Rate Site acetaminophen 650 mg tab(s) (TYLENOL) 650 mg, ORAL, ONCE, 1 dose, On Silvia 05/18/23 at 0830, No more than 4000 mg of acetaminophen should be given per day (FROM ALL SOURCES), If ordered PRN for pain, patient/guardian may elect to receive this medication for higher pain levels INSTEAD of the opioid, if preferred: N/A Given 05/18/2023 8:41 AM EDT 650 mg diphenhydrAMINE 25 mg (BENADRYL) 25 mg, ORAL, ONCE, 1 dose, On Silvia 05/18/23 at 0830 Given 05/18/2023 8:41 AM EDT 25 mg inFLIXimab 800 mg in NaCl 0.9% 250 mL (REMICADE) 800 mg, INTRAVENOUS, at 83.33-250 mL/hr, Administer over 1-3 Hours, ONCE, 1 dose, On Silvia 05/18/23 at 0830, Infuse via 0.22 micron filter. Total volume = 250ml. Administer with 0.2 micron filter., Medication Substitution: [facility] preferred product has been replaced with the insurance mandated product New Bag/Syringe/Bottle 05/18/2023 8:51 AM EDT 800 mg 125 mL/hr Inactive Administered Medications - up to 3 most recent administrations Medication Order MAR Action Action Date Dose Rate Site acetaminophen 650 mg tab(s) (TYLENOL) 650 mg, ORAL, ONCE, 1 dose, On Mon08/08/23 at 0830, No more than 4000 mg of acetaminophen should be given per day (FROM ALL SOURCES), If ordered PRN for pain, patient/guardian may elect to receive this medication for higher pain levels INSTEAD of the opioid, if preferred: N/A Given 08/08/2023 8:43 AM EST 650 mg diphenhydrAMINE 25 mg (BENADRYL) 25 mg, ORAL, ONCE, 1 dose, On Mon08/08/23 at 0830 Given 08/08/2023 8:43 AM EST 25 mg inFLIXimab 800 mg in NaCl 0.9% 250 mL (REMICADE) 800 mg, INTRAVENOUS, at 83.33-250 mL/hr, Administer over 1-3 Hours, ONCE, 1 dose, On Mon08/08/23 at 0830, TOTAL VOLUME - Expires: 08/09/23 @ 0835 Administer with 0.2 micron filter., Medication Substitution: [facility] preferred product has been replaced with the insurance mandated product New Bag/Syringe/Bottle 08/08/2023 8:59 AM EST 800 mg 250 mL/hr Additional Source Comments INFORMATION SOURCE (unrecogn ized section and content) DATE CREATED AUTHOR 05/11/2018 [facility] DATE CREATED AUTHOR AUTHOR'S ORGANIZ ATION 09/03/2018 [facility] DATE CREATED AUTHOR AUTHOR'S ORGANIZ ATION 10/19/2022 [facility] DATE CREATED AUTHOR AUTHOR'S ORGANIZ ATION 02/06/2025 [facility] DATE CREATED AUTHOR AUTHOR'S ORGANIZ ATION 04/11/2025 [facility] DATE CREATED AUTHOR AUTHOR'S ORGANIZ ATION 05/11/2025 [facility] DATE CREATED AUTHOR AUTHOR'S ORGANIZ ATION 06/05/2025 [facility] Source Comments (unrecognize d section and content) In the event this informatio n is protected by the Federal Confidentiality of Alcohol and Drug Abuse Patient Records regulations: The Federal rules restrict any use of the information to criminally investigate or prosecute any alcohol or drug abuse patient.[facility] the event this information is protected by the Federal Confidentiality of Alcohol and Drug Abuse Patient Records regulations: The Federal rules restrict any use of the information to criminally investigate or prosecute any alcohol or drug abuse patient.[facility] the event this information is protected by the Federal Confidentiality of Alcohol and Drug Abuse Patient Records regulations: The Federal rules restrict any use of the information to criminally investigate or prosecute any alcohol or drug abuse patient.[facility] the event this information is protected by the Federal Confidentiality of Alcohol and Drug Abuse Patient Records regulations: The Federal rules restrict any use of the information to criminally investigate or prosecute any alcohol or drug abuse patient.[facility] the event this information is protected by the Federal Confidentiality of Alcohol and Drug Abuse Patient Records regulations: The Federal rules restrict any use of the information to criminally investigate or prosecute any alcohol or drug abuse patient.[facility]In the event this information is protected by the Federal Confidentiality of Alcohol and Drug Abuse Patient Records regulations: The Federal rules restrict any use of the information to criminally investigate or prosecute any alcohol or drug abuse patient.[facility] the event this information is protected by the Federal Confidentiality of Alcohol and Drug Abuse Patient Records regulations: The Federal rules restrict any use of the information to criminally investigate or prosecute any alcohol or drug abuse patient.[facility] the event this information is protected by the Federal Confidentiality of Alcohol and Drug Abuse Patient Records regulations: The Federal rules restrict any use of the information to criminally investigate or prosecute any alcohol or drug abuse patient.[facility] the event this information is protected by the Federal Confidentiality of Alcohol and Drug Abuse Patient Records regulations: The Federal rules restrict any use of the information to criminally investigate or prosecute any alcohol or drug abuse patient.[facility] CenterIn the event this information is protected by the Federal Confidentiality of Alcohol and Drug Abuse Patient Records regulations: The Federal rules restrict any use of the information to criminally investigate or prosecute any alcohol or drug abuse patient.[facility] CenterIn the event this information is protected by the Federal Confidentiality of Alcohol and Drug Abuse Patient Records regulations: The Federal rules restrict any use of the information to criminally investigate or prosecute any alcohol or drug abuse patient.[facility] CenterIn the event this information is protected by the Federal Confidentiality of Alcohol and Drug Abuse Patient Records regulations: The Federal rules restrict any use of the information to criminally investigate or prosecute any alcohol or drug abuse patient.[facility] CenterIn the event this information is protected by the Federal Confidentiality of Alcohol and Drug Abuse Patient Records regulations: The Federal rules restrict any use of the information to criminally investigate or prosecute any alcohol or drug abuse patient.[facility] CenterIn the event this information is protected by the Federal Confidentiality of Alcohol and Drug Abuse Patient Records regulations: The Federal rules restrict any use of the information to criminally investigate or prosecute any alcohol or drug abuse patient.[facility] CenterIn the event this information is protected by the Federal Confidentiality of Alcohol and Drug Abuse Patient Records regulations: The Federal rules restrict any use of the information to criminally investigate or prosecute any alcohol or drug abuse patient.[facility] CenterIn the event this information is protected by the Federal Confidentiality of Alcohol and Drug Abuse Patient Records regulations: The Federal rules restrict any use of the information to criminally investigate or prosecute any alcohol or drug abuse patient.[facility] CenterIn the event this information is protected by the Federal Confidentiality of Alcohol and Drug Abuse Patient Records regulations: The Federal rules restrict any use of the information to criminally investigate or prosecute any alcohol or drug abuse patient.[facility] CenterIn the event this information is protected by the Federal Confidentiality of Alcohol and Drug Abuse Patient Records regulations: The Federal rules restrict any use of the information to criminally investigate or prosecute any alcohol or drug abuse patient.[facility] CenterIn the event this information is protected by the Federal Confidentiality of Alcohol and Drug Abuse Patient Records regulations: The Federal rules restrict any use of the information to criminally investigate or prosecute any alcohol or drug abuse patient.[facility] CenterIn the event this information is protected by the Federal Confidentiality of Alcohol and Drug Abuse Patient Records regulations: The Federal rules restrict any use of the information to criminally investigate or prosecute any alcohol or drug abuse patient.[facility] CenterIn the event this information is protected by the Federal Confidentiality of Alcohol and Drug Abuse Patient Records regulations: The Federal rules restrict any use of the information to criminally investigate or prosecute any alcohol or drug abuse patient.[facility] CenterIn the event this information is protected by the Federal Confidentiality of Alcohol and Drug Abuse Patient Records regulations: The Federal rules restrict any use of the information to criminally investigate or prosecute any alcohol or drug abuse patient.[facility] CenterIn the event this information is protected by the Federal Confidentiality of Alcohol and Drug Abuse Patient Records regulations: The Federal rules restrict any use of the information to criminally investigate or prosecute any alcohol or drug abuse patient.[facility] CenterIn the event this information is protected by the Federal Confidentiality of Alcohol and Drug Abuse Patient Records regulations: The Federal rules restrict any use of the information to criminally investigate or prosecute any alcohol or drug abuse patient.[facility] CenterIn the event this information is protected by the Federal Confidentiality of Alcohol and Drug Abuse Patient Records regulations: The Federal rules restrict any use of the information to criminally investigate or prosecute any alcohol or drug abuse patient.[facility] CenterIn the event this information is protected by the Federal Confidentiality of Alcohol and Drug Abuse Patient Records regulations: The Federal rules restrict any use of the information to criminally investigate or prosecute any alcohol or drug abuse patient.[facility] CenterIn the event this information is protected by the Federal Confidentiality of Alcohol and Drug Abuse Patient Records regulations: The Federal rules restrict any use of the information to criminally investigate or prosecute any alcohol or drug abuse patient.[facility] CenterIn the event this information is protected by the Federal Confidentiality of Alcohol and Drug Abuse Patient Records regulations: The Federal rules restrict any use of the information to criminally investigate or prosecute any alcohol or drug abuse patient.[facility] CenterIn the event this information is protected by the Federal Confidentiality of Alcohol and Drug Abuse Patient Records regulations: The Federal rules restrict any use of the information to criminally investigate or prosecute any alcohol or drug abuse patient.[facility] CenterIn the event this information is protected by the Federal Confidentiality of Alcohol and Drug Abuse Patient Records regulations: The Federal rules restrict any use of the information to criminally investigate or prosecute any alcohol or drug abuse patient.[facility] CenterIn the event this information is protected by the Federal Confidentiality of Alcohol and Drug Abuse Patient Records regulations: The Federal rules restrict any use of the information to criminally investigate or prosecute any alcohol or drug abuse patient.[facility] CenterIn the event this information is protected by the Federal Confidentiality of Alcohol and Drug Abuse Patient Records regulations: The Federal rules restrict any use of the information to criminally investigate or prosecute any alcohol or drug abuse patient.[facility] CenterIn the event this information is protected by the Federal Confidentiality of Alcohol and Drug Abuse Patient Records regulations: The Federal rules restrict any use of the information to criminally investigate or prosecute any alcohol or drug abuse patient.[facility] CenterIn the event this information is protected by the Federal Confidentiality of Alcohol and Drug Abuse Patient Records regulations: The Federal rules restrict any use of the information to criminally investigate or prosecute any alcohol or drug abuse patient.[facility] CenterIn the event this information is protected by the Federal Confidentiality of Alcohol and Drug Abuse Patient Records regulations: The Federal rules restrict any use of the information to criminally investigate or prosecute any alcohol or drug abuse patient.[facility] CenterIn the event this information is protected by the Federal Confidentiality of Alcohol and Drug Abuse Patient Records regulations: The Federal rules restrict any use of the information to criminally investigate or prosecute any alcohol or drug abuse patient.[facility] CenterIn the event this information is protected by the Federal Confidentiality of Alcohol and Drug Abuse Patient Records regulations: The Federal rules restrict any use of the information to criminally investigate or prosecute any alcohol or drug abuse patient.[facility] CenterIn the event this information is protected by the Federal Confidentiality of Alcohol and Drug Abuse Patient Records regulations: The Federal rules restrict any use of the information to criminally investigate or prosecute any alcohol or drug abuse patient.[facility] CenterIn the event this information is protected by the Federal Confidentiality of Alcohol and Drug Abuse Patient Records regulations: The Federal rules restrict any use of the information to criminally investigate or prosecute any alcohol or drug abuse patient.[facility] CenterIn the event this information is protected by the Federal Confidentiality of Alcohol and Drug Abuse Patient Records regulations: The Federal rules restrict any use of the information to criminally investigate or prosecute any alcohol or drug abuse patient.[facility] CenterIn the event this information is protected by the Federal Confidentiality of Alcohol and Drug Abuse Patient Records regulations: The Federal rules restrict any use of the information to criminally investigate or prosecute any alcohol or drug abuse patient.[facility] CenterIn the event this information is protected by the Federal Confidentiality of Alcohol and Drug Abuse Patient Records regulations: The Federal rules restrict any use of the information to criminally investigate or prosecute any alcohol or drug abuse patient.[facility] CenterIn the event this information is protected by the Federal Confidentiality of Alcohol and Drug Abuse Patient Records regulations: The Federal rules restrict any use of the information to criminally investigate or prosecute any alcohol or drug abuse patient.[facility] CenterIn the event this information is protected by the Federal Confidentiality of Alcohol and Drug Abuse Patient Records regulations: The Federal rules restrict any use of the information to criminally investigate or prosecute any alcohol or drug abuse patient.[facility] CenterIn the event this information is protected by the Federal Confidentiality of Alcohol and Drug Abuse Patient Records regulations: The Federal rules restrict any use of the information to criminally investigate or prosecute any alcohol or drug abuse patient.[facility] CenterIn the event this information is protected by the Federal Confidentiality of Alcohol and Drug Abuse Patient Records regulations: The Federal rules restrict any use of the information to criminally investigate or prosecute any alcohol or drug abuse patient.[facility] CenterIn the event this information is protected by the Federal Confidentiality of Alcohol and Drug Abuse Patient Records regulations: The Federal rules restrict any use of the information to criminally investigate or prosecute any alcohol or drug abuse patient.[facility] CenterIn the event this information is protected by the Federal Confidentiality of Alcohol and Drug Abuse Patient Records regulations: The Federal rules restrict any use of the information to criminally investigate or prosecute any alcohol or drug abuse patient.[facility] CenterIn the event this information is protected by the Federal Confidentiality of Alcohol and Drug Abuse Patient Records regulations: The Federal rules restrict any use of the information to criminally investigate or prosecute any alcohol or drug abuse patient.[facility] CenterIn the event this information is protected by the Federal Confidentiality of Alcohol and Drug Abuse Patient Records regulations: The Federal rules restrict any use of the information to criminally investigate or prosecute any alcohol or drug abuse patient.[facility] CenterIn the event this information is protected by the Federal Confidentiality of Alcohol and Drug Abuse Patient Records regulations: The Federal rules restrict any use of the information to criminally investigate or prosecute any alcohol or drug abuse patient.[facility] CenterIn the event this information is protected by the Federal Confidentiality of Alcohol and Drug Abuse Patient Records regulations: The Federal rules restrict any use of the information to criminally investigate or prosecute any alcohol or drug abuse patient.[facility] CenterIn the event this information is protected by the Federal Confidentiality of Alcohol and Drug Abuse Patient Records regulations: The Federal rules restrict any use of the information to criminally investigate or prosecute any alcohol or drug abuse patient.[facility] CenterIn the event this information is protected by the Federal Confidentiality of Alcohol and Drug Abuse Patient Records regulations: The Federal rules restrict any use of the information to criminally investigate or prosecute any alcohol or drug abuse patient.[facility] CenterIn the event this information is protected by the Federal Confidentiality of Alcohol and Drug Abuse Patient Records regulations: The Federal rules restrict any use of the information to criminally investigate or prosecute any alcohol or drug abuse patient.[facility] CenterIn the event this information is protected by the Federal Confidentiality of Alcohol and Drug Abuse Patient Records regulations: The Federal rules restrict any use of the information to criminally investigate or prosecute any alcohol or drug abuse patient.[facility] CenterIn the event this information is protected by the Federal Confidentiality of Alcohol and Drug Abuse Patient Records regulations: The Federal rules restrict any use of the information to criminally investigate or prosecute any alcohol or drug abuse patient.[facility] CenterIn the event this information is protected by the Federal Confidentiality of Alcohol and Drug Abuse Patient Records regulations: The Federal rules restrict any use of the information to criminally investigate or prosecute any alcohol or drug abuse patient.[facility] CenterIn the event this information is protected by the Federal Confidentiality of Alcohol and Drug Abuse Patient Records regulations: The Federal rules restrict any use of the information to criminally investigate or prosecute any alcohol or drug abuse patient.[facility] CenterIn the event this information is protected by the Federal Confidentiality of Alcohol and Drug Abuse Patient Records regulations: The Federal rules restrict any use of the information to criminally investigate or prosecute any alcohol or drug abuse patient.[facility] CenterIn the event this information is protected by the Federal Confidentiality of Alcohol and Drug Abuse Patient Records regulations: The Federal rules restrict any use of the information to criminally investigate or prosecute any alcohol or drug abuse patient.[facility] CenterIn the event this information is protected by the Federal Confidentiality of Alcohol and Drug Abuse Patient Records regulations: The Federal rules restrict any use of the information to criminally investigate or prosecute any alcohol or drug abuse patient.[facility] CenterIn the event this information is protected by the Federal Confidentiality of Alcohol and Drug Abuse Patient Records regulations: The Federal rules restrict any use of the information to criminally investigate or prosecute any alcohol or drug abuse patient.[facility] CenterIn the event this information is protected by the Federal Confidentiality of Alcohol and Drug Abuse Patient Records regulations: The Federal rules restrict any use of the information to criminally investigate or prosecute any alcohol or drug abuse patient.[facility] CenterIn the event this information is protected by the Federal Confidentiality of Alcohol and Drug Abuse Patient Records regulations: The Federal rules restrict any use of the information to criminally investigate or prosecute any alcohol or drug abuse patient.[facility] CenterIn the event this information is protected by the Federal Confidentiality of Alcohol and Drug Abuse Patient Records regulations: The Federal rules restrict any use of the information to criminally investigate or prosecute any alcohol or drug abuse patient.[facility] CenterIn the event this information is protected by the Federal Confidentiality of Alcohol and Drug Abuse Patient Records regulations: The Federal rules restrict any use of the information to criminally investigate or prosecute any alcohol or drug abuse patient.[facility] CenterIn the event this information is protected by the Federal Confidentiality of Alcohol and Drug Abuse Patient Records regulations: The Federal rules restrict any use of the information to criminally investigate or prosecute any alcohol or drug abuse patient.[facility] CenterIn the event this information is protected by the Federal Confidentiality of Alcohol and Drug Abuse Patient Records regulations: The Federal rules restrict any use of the information to criminally investigate or prosecute any alcohol or drug abuse patient.[facility] Care Teams (unrecognized sec tion and content) Online Content Editor Relationship Specialty Start Date End Date Verenice Worthy [address] [place] [phone] PCP - General 10/03/03 Alonzo Mercado Referring Physical Medicine and Rehab 09/07/20 Online Content Editor Relationship Specialty Start Date End Date Verenice Worthy W [address] [place] [phone] PCP - General 10/03/03 02/02/22 Armand Ma MD [address] [place] [address] PCP - General Family Practice 02/03/22 Alonzo Mercado Referring Physical Medicine and Rehab 09/07/20 Online Content Editor Relationship Specialty Start Date End Date Armand Ma MD [address] [place] [address] PCP - General Family Practice 02/03/22 Alonzo Mercado Referring Physical Medicine and Rehab 09/07/20 Online Content Editor Relationship Specialty Start Date End Date Armand Ma MD [address] [place] [address] PCP - General Family Practice 02/03/22 Alonzo Mercado Referring Physical Medicine and Rehab 09/07/20 Online Content Editor Relationship Specialty Start Date End Date Armand Ma MD [address] [place] [address] PCP - General Family Practice 02/03/22 Alonzo Mercado Referring Physical Medicine and Rehab 09/07/20 Online Content Editor Relationship Specialty Start Date End Date Armand Ma MD [address] [place] [address] PCP - General Family Practice 02/03/22 Alonzo Mercado Referring Physical Medicine and Rehab 09/07/20 Online Content Editor Relationship Specialty Start Date End Date Armand Ma MD [address] [place] [address] PCP - General Family Practice 02/03/22 Alonzo Mercado Referring Physical Medicine and Rehab 09/07/20 Online Content Editor Relationship Specialty Start Date End Date Armand Ma MD [address] [place] [address] PCP - General Family Practice 02/03/22 Alonzo Mercado Referring Physical Medicine and Rehab 09/07/20 Online Content Editor Relationship Specialty Start Date End Date Armand Ma MD [address] [place] [address] PCP - General Family Practice 02/03/22 Alonzo Mercado Referring Physical Medicine and Rehab 09/07/20 Online Content Editor Relationship Specialty Start Date End Date Armand Ma MD [address] [place] [address] PCP - General Family Medicine 02/03/22 Alonzo Mercado Referring Physical Medicine and Rehab 09/07/20 Online Content Editor Relationship Specialty Start Date End Date Armand Ma MD [address] [place] [address] PCP - General Family Medicine 02/03/22 Alonzo Mercado Referring Physical Medicine and Rehab 09/07/20 Online Content Editor Relationship Specialty Start Date End Date Armand Ma MD [address] [place] [address] PCP - General Family Medicine 02/03/22 Alonzo Mercado Referring Physical Medicine and Rehab 09/07/20 Online Content Editor Relationship Specialty Start Date End Date Armand Ma MD PCP - General Family Medicine 02/03/22 Alonzo Mercado Referring Physical Medicine and Rehab 09/07/20 Online Content Editor Relationship Specialty Start Date End Date Armand Ma MD PCP - General Family Medicine 02/03/22 Alonzo Mercado Referring Physical Medicine and Rehab 09/07/20 Online Content Editor Relationship Specialty Start Date End Date Armand Ma MD PCP - General Family Medicine 02/03/22 Alonzo Mercado Referring Physical Medicine and Rehab 09/07/20 Online Content Editor Relationship Specialty Start Date End Date Armand Ma MD PCP - General Family Medicine 02/03/22 Alonzo Mercado Referring Physical Medicine and Rehab 09/07/20 Online Content Editor Relationship Specialty Start Date End Date Armand Ma MD PCP - General Family Medicine 02/03/22 Alonzo Mercado Referring Physical Medicine and Rehab 09/07/20 Online Content Editor Relationship Specialty Start Date End Date Armand Ma MD PCP - General Family Medicine 02/03/22 Alonzo Mercado Referring Physical Medicine and Rehab 09/07/20 Team Status: Active Member Role Status Dates Dr. Armand Ma MD Family Provider Active Dr. Armand Ma MD Primary Care Provider Active Team Status: Inactive Member Role Status Dates Dr. Armand Ma MD Primary Care Provider, Referring P cristina Active Dr. Ayala Mcgee MD Attending Provider Active Team Status: Inactive Member Role Status Dates Dr. Armand Ma MD Primary Care Provider Active Dr. Ayala Mcgee MD Attending Provider Active Team Status: Active Member Role Status Dates Dr. Armand Ma MD Primary Care Provide r, Attending Provider, Referring Provider Active Team Status: Inactive Member Role Status Dates Dr. Armand Ma MD Primary Care Provider Active Dalila Nova NP-C Attending Provider, Referring Pr ovider Active Online Content Editor Relationship Specialty Start Date End Date Armand Ma MD PCP - General Family Medicine 02/03/22 Alonzo Mercado Referring Physical Medicine and Rehab 09/07/20 Online Content Editor Relationship Specialty Start Date End Date Armand Ma MD PCP - General Family Medicine 02/03/22 Alonzo Mercado Referring Physical Medicine and Rehab 09/07/20 Online Content Editor Relationship Specialty Start Date End Date Armand Ma MD PCP - General Family Medicine 02/03/22 Alonzo Mercado Referring Physical Medicine and Rehab 09/07/20 Online Content Editor Relationship Specialty Start Date End Date Armand aM MD PCP - General Family Medicine 02/03/22 Alonzo Mercado Referring Physical Medicine and Rehab 09/07/20 Online Content Editor Relationship Specialty Start Date End Date Armand Ma MD PCP - General Family Medicine 02/03/22 Alonzo Mercado Referring Physical Medicine and Rehab 09/07/20 Online Content Editor Relationship Specialty Start Date End Date Armnad Ma MD PCP - General Family Medicine 02/03/22 Alonzo Mercdao Referring Physical Medicine and Rehab 09/07/20 Online Content Editor Relationship Specialty Start Date End Date Armand Ma MD PCP - General Family Medicine 02/03/22 Alonzo Mercado DO Referring Physical Medicine and Rehab 09/07/20 Online Content Editor Relationship Specialty Start Date End Date Armand Ma MD PCP - General Family Medicine 02/03/22 Alonzo Mercado DO Referring Physical Medicine and Rehab 09/07/20 Online Content Editor Relationship Specialty Start Date End Date Armand Ma MD PCP - General Family Medicine 02/03/22 Alonzo Mercado DO Referring Physical Medicine and Rehab 09/07/20 Online Content Editor Relationship Specialty Start Date End Date Armand Ma MD PCP - General Family Medicine 02/03/22 Alonzo Mercado DO Referring Physical Medicine and Rehab 09/07/20 Online Content Editor Relationship Specialty Start Date End Date Armand Ma MD PCP - General Family Medicine 02/03/22 Alonzo Mercado DO Referring Physical Medicine and Rehab 09/07/20 Team Status: Inactive Member Role Status Dates Dr. Armand Ma MD Primary Care Provider Active Dr. Ayala Mcgee MD Attending Provider, Referr ing Provider Active Online Content Editor Relationship Specialty Start Date End Date Armand Ma MD PCP - General Family Medicine 02/03/22 Alonzo Mercado DO Referring Physical Medicine and Rehab 09/07/20 Online Content Editor Relationship Specialty Start Date End Date Armand Ma MD PCP - General Family Medicine 02/03/22 Alonzo Mercado DO Referring Physical Medicine and Rehab 09/07/20 Online Content Editor Relationship Specialty Start Date End Date Armand Ma MD PCP - General Family Medicine 02/03/22 Alonzo Mercado DO Referring Physical Medicine and Rehab 09/07/20 Online Content Editor Relationship Specialty Start Date End Date Armand Ma MD PCP - General Family Medicine 02/03/22 Alonzo Mercado DO Referring Physical Medicine and Rehab 09/07/20 Online Content Editor Relationship Specialty Start Date End Date Armand Ma MD PCP - General Family Medicine 02/03/22 Alonzo Mercado DO Referring Physical Medicine and Rehab 09/07/20 Online Content Editor Relationship Specialty Start Date End Date Armand Ma MD PCP - General Family Medicine 02/03/22 Alonzo Mercado DO Referring Physical Medicine and Rehab 09/07/20 Online Content Editor Relationship Specialty Start Date End Date Armand Ma MD PCP - General Family Medicine 02/03/22 Alonzo Mercado DO Referring Physical Medicine and Rehab 09/07/20 Online Content Editor Relationship Specialty Start Date End Date Verenice Worthy [address] [phone] PCP - General 10/03/03 02/02/22 Alonzo Mercado DO [address] [phone] Referring Physical Medicine and Rehab 09/07/20 Online Content Editor Relationship Specialty Start Date End Date Armand Ma MD PCP - General Family Medicine 02/03/22 Alonzo Mercado DO Referring Physical Medicine and Rehab 09/07/20 Online Content Editor Relationship Specialty Start Date End Date Armand Ma MD PCP - General Family Medicine 02/03/22 Alonzo Mercado DO Referring Physical Medicine and Rehab 09/07/20 Online Content Editor Relationship Specialty Start Date End Date Armand Ma MD PCP - General Family Medicine 02/03/22 Alonzo Mercado DO Referring Physical Medicine and Rehab 09/07/20 Online Content Editor Relationship Specialty Start Date End Date Armand Ma MD PCP - General Family Medicine 02/03/22 Alonzo Mercado DO Referring Physical Medicine and Rehab 09/07/20 Team Status: Active Member Role Status Dates Dr. Armand Ma MD Primary Care Provider Active Team Status: Inactive Member Role Status Dates Dr. Armand Ma MD Primary Care Provider Active Start: September 30, 2024 End: September 30, 2024 Dr. Armand Ma MD Attending Provider Active St art: September 30, 2024 End: September 30, 2024 Dr. Armand Ma MD Referring Provider Active St art: September 30, 2024 End: September 30, 2024 Team Status: Inactive Member Role Status Dates Dr. Armand Ma MD Primary Care Provider Active Start: October 17, 2024 End: October 17, 2024 Dr. Armand Ma MD Referring Provider Active St art: October 17, 2024 End: October 17, 2024 GEORGE Prado Attending Provider Active Start: October 17, 2024 End: October 17, 2024 Team Status: Inactive Member Role Status Dates Dr. Armand Ma MD Primary Care Provider Active Start: November 01, 2024 End: November 01, 2024 GEORGE Prado Attending Provider Active Start: November 01, 2024 End: November 01, 2024 GEORGE Prado Referring Provider Active Start: November 01, 2024 End: November 01, 2024 Team Status: Inactive Member Role Status Dates Dr. Armand Ma MD Primary Care Provider Active Start: November 15, 2024 End: November 15, 2024 Dr. Armand Ma MD Referring Provider Active St art: November 15, 2024 End: November 15, 2024 Dr. Mateo Hunter MD Attending Provider Active Start: November 15, 2024 End: November 15, 2024 Team Status: Inactive Member Role Status Dates Dr. Armand Ma MD Primary Care Provider Active Start: December 16, 2024 End: December 16, 2024 Dr. Mateo Hunter MD Attending Provider Active Start: December 16, 2024 End: December 16, 2024 Dr. Mateo Hunter MD Referring Provider Active Start: December 16, 2024 End: December 16, 2024 Team Status: Active Member Role Status Dates Dr. Armand Ma MD Primary Care Provider Active Start: December 16, 2024 Dr. Gomez Moore MD Attending Provider Active S tart: December 16, 2024 Team Status: Active Member Role Status Dates Dr. Armand Ma MD Primary Care Provider Active Start: December 19, 2024 RANDOLPH JIMENEZ Attending Provider Active Start: [facility] 2024 RANDOLPH JIMENEZ Referring Provider Active Start: [facility] 2024 Online Content Editor Relationship Specialty Start Date End Date Armand Ma MD PCP - General Family Medicine 02/03/22 Alonzo Mercado DO Referring Physical Medicine and Rehab 09/07/20 Online Content Editor Relationship Specialty Start Date End Date Armand Ma MD PCP - General Family Medicine 02/03/22 Alonzo Mercado DO Referring Physical Medicine and Rehab 09/07/20 Online Content Editor Relationship Specialty Start Date End Date Armand Ma MD PCP - General Family Medicine 02/03/22 Alonzo Mercado DO Referring Physical Medicine and Rehab 09/07/20 Online Content Editor Relationship Specialty Start Date End Date Armand Ma MD PCP - General Family Medicine 02/03/22 Alonzo Mercado DO Referring Physical Medicine and Rehab 09/07/20 Team Status: Inactive Member Role Status Dates Dr. Armand Ma MD Primary Care Provider Active Start: February 04, 2025 End: February 04, 2025 RANDOLPH JIMENEZ Attending Provider Active Start: Anusha alvarez 2024 End: February 04, 2025 RANDOLPH JIMENEZ Referring Provider Active Start: Anusha alvarez 2024 End: February 04, 2025 Online Content Editor Relationship Specialty Start Date End Date Armand Ma MD PCP - General Family Medicine 02/03/22 Alonzo Mercado DO Referring Physical Medicine and Rehab 09/07/20 Online Content Editor Relationship Specialty Start Date End Date Armand Ma MD PCP - General Family Medicine 02/03/22 Alonzo Mercado DO Referring Physical Medicine and Rehab 09/07/20 Online Content Editor Relationship Specialty Start Date End Date Armand Ma MD PCP - General Family Medicine 02/03/22 Alonzo Mercado DO Referring Physical Medicine and Rehab 09/07/20 Online Content Editor Relationship Specialty Start Date End Date Armand Ma MD PCP - General Family Medicine 02/03/22 Alonzo Mercado DO Referring Physical Medicine and Rehab 09/07/20 Team Status: Active Member Role/Relationship Status Dates Dr. Armand Ma MD Primary Care Provider Active Team Status: Inactive Member Role/Relationship Status Dates Dr. Armand Ma MD Primary Care Provider Active Start: February 04, 2025 End: February 04, 2025 RANDOLPH JIMENEZ Attending Provider Active Start: Anusha alvarez 2024 End: February 04, 2025 RANDOLPH JIMENEZ Referring Provider Active Start: Anusha alvarez 2024 End: February 04, 2025 Team Status: Inactive Member Role/Relationship Status Dates Dr. Armand Ma MD Primary Care Provider Active Start: May 09, 2025 End: May 09, 2025 Dr. Armand Ma MD Referring Provider Active St art: May 09, 2025 End: May 09, 2025 Shanna HILARIO, PA Attending Provider Active Start: May 09, 2025 End: May 09, 2025 Reason for Visit (unrecogniz ed section and content) Reason Comments Radiology CT Specialty Diagnoses / Procedures Referred By Contac t Referred To Contact CT IMAGING Diagnoses Abdominal pain, unspecified abdominal location Procedures CT ENTEROGRAPHY W IVCON CT ABD & PELVIS W/CONTRAST Logan Elmore MD [address] [facility] [place] [address] Ct Imaging [place] [address] Referral ID Status Reason Start Date Expiration Date V isits Requested Visits Authorized [id number] Closed Auto-Generate d Referral 11/18/2022 01/02/2023 1 1 Reason Comments Chemotherapy Treatment Specialty Diagnoses / Procedures Referred By Contac t Referred To Contact Diagnoses Seronegative rheumatoid arthritis (HCC) Procedures INFLIXIMAB INJECTION Sincere Dickson MD [address] [place] [id number] [facility] [address] [place] [address] Referral ID Status Reason Start Date Expiration Date V isits Requested Visits Authorized [id number] Authorized 01/19/2023 09/24/2023 99 99 Reason Onset Date Comments Refill Request 01/31/2022 Reason Onset Date Comments Refill Request 04/13/2022 Reason Comments New Patient Specialty Diagnoses / Procedures Referred By Contac t Referred To Contact Cardiology Diagnoses Diastolic dysfunction Procedures CONSULT TO CARDIOLOGY OFFICE/OUTPATIENT NEW HIGH MDM 60-74 MINUTES Sincere Dickson MD [address] [facility] [place] [id number] Referral ID Status Reason Start Date Expiration Date V isits Requested Visits Authorized [id number] Closed PCP Requested Referral 02/23/2022 02/23/2023 1 1 Reason Comments Refill Request Reason Comments Follow Up Reason Onset Date Comments Refill Request 08/04/2022 Reason Onset Date Comments Refill Request 09/20/2022 Reason Onset Date Comments SPP Inflammatory Conditions - Treatment Referral 11/09/2022 [employer] Insurance Authorization 11/09/2022 SUL[employer] submi ssion pending Reason Comments New Patient Inflammatory bowel d isease Specialty Diagnoses / Procedures Referred By Contac t Referred To Contact Gastroenterology Diagnoses Inflammatory bowel disease Procedures CONSULT TO GASTROENTEROLOGY OFFICE/OUTPATIENT NEW HIGH MDM 60-74 MINUTES Sincere Dickson MD [address] [place] [address] Referral ID Status Reason Start Date Expiration Date V isits Requested Visits Authorized [id number] Closed PCP Requested Referral 10/20/2022 10/20/2023 1 1 Reason Onset Date Comments Refill Request 11/22/[address] Reason Comments Non-Chemotherapy Treatment Specialty Diagnoses / Procedures Referred By Contac t Referred To Contact Diagnoses Seronegative rheumatoid arthritis (HCC) Procedures INFLIXIMAB INJECTION Sincere Dickson MD [address] [facility] [place] [address] [facility] [address] [id number] Referral ID Status Reason Start Date Expiration Date V isits Requested Visits Authorized [id number] Authorized 12/13/2022 09/24/2023 99 99 Reason Comments Benefits Investigation Reason Comments Patient Question Orders Referral ID Status Reason Start Date Expiration Date V isits Requested Visits Authorized [id number] Authorized 01/19/2023 04/19/2023 1 1 Reason Comments Appointment Reason Comments Insurance Authorization Prior Auth Delay ed: Additional Info Requested Reason Comments Joint Pain Referral ID Status Reason Start Date Expiration Date V isits Requested Visits Authorized [id number] Authorized 01/19/2023 05/04/2024 11 11 Reason Comments Insurance Authorization Prior Auth Delay ed: Additional Info Needed Specialty Diagnoses / Procedures Referred By Contac t Referred To Contact Diagnoses Seronegative rheumatoid arthritis (HCC) Rheumatoid arthritis with rheumatoid factor of multiple sites without organ or systems involvement Procedures INFLIXIMAB INJECTION INJECTION, TASHAECTRA Sincere Dickson MD [address] [facility] [place] [address] [facility] [address] [place] [address] Referral ID Status Reason Start Date Expiration Date V isits Requested Visits Authorized [id number] Authorized 01/19/2023 10/31/2024 15 15 Reason Onset Date Comments Refill Request 08/09/2024 Specialty Diagnoses / Procedures Referred By Contac t Referred To Contact Diagnoses Seronegative rheumatoid arthritis (HCC) Rheumatoid arthritis with rheumatoid factor of multiple sites without organ or systems involvement Procedures INFLIXIMAB INJECTION INJECTION, INFLECTRA Sincere Dickson MD [address] [facility] [place] [address] Phone: tel: fax: Hematology/Oncology [address] [place] [address] Phone: tel: fax: Referral ID Status Reason Start Date Expiration Date Visits Requested Visits Authorized [id number] Pending Review Patient Cleared - Admin/Chair man/Directo r advise to proceed or did not respond 01/19/2023 10/31/2024 15 15 Reason Comments Medical Nutrition Therapy Weight managem ent Specialty Diagnoses / Procedures Referred By Contac t Referred To Contact Diagnoses Obesity, unspecified class, unspecified obesity type, unspecified whether serious comorbidity present Procedures ENDOCRINOLOGY DIETITIAN VISIT (MNT) MEDICAL NUTRITION ASSMT&IVNTJ INDIV EACH 15 [place] MEDICAL NUTRITION ASSMT&IVNTJ INDIV EACH 15 [place] MEDICAL NUTRITION ASSMT&IVNTJ INDIV EACH 15 [place] MEDICAL NUTRITION ASSMT&IVNTJ INDIV EACH 15 [place] Sincere Dickson MD [address] [place] [address] Phone: tel: fax: Referral ID Status Reason Start Date Expiration Date V isits Requested Visits Authorized [id number] Closed PCP Requested Referral 11/28/2024 11/28/2025 1 1 Reason Comments Orders Reason Comments Received Outside Medical Records Referral ID Status Reason Start Date Expiration Date Visits Requested Visits Authorized [id number] Authorized Patient Cleared - Admin/Chairm an/Director advise to proceed or did not respond 01/19/2023 11/03/2025 23 23 Reason Comments Medical Weight Management Reason Comments Insurance Authorization [employer] ght loss, (WEGOVY) 0.25 mg/0.5 mL pen injector Reason Comments Benefit Check Reason Comments New Patient Obesity Reason Comments Obesity Reason Comments Medication Problem Specialty Diagnoses / Procedures Referred By Topher valentine Referred To Contact Diagnoses Seronegative rheumatoid arthritis (HCC) Rheumatoid arthritis with rheumatoid factor of multiple sites without organ or systems involvement (HCC) Procedures INFLIXIMAB INJECTION INJECTION, INFLECTRA Sincere Dickson MD [address] [place] [address] Phone: tel: fax: Hematology/Oncology [address] [place] [address] Phone: tel: fax: Goals (unrecognized section and content) Goals may be documented in a n alternate sectionGoals may be documented in an alternate sectionGoals may be documented in an alternate sectionGoals may be documented in an alternate sectionGoals may be documented in an alternate sectionGoals may be documented in an alternate sectionGoals may be documented in an alternate sectionGoals may be documented in an alternate sectionGoals may be documented in an alternate section Inactive Administered Medications - up to 3 most recent administrations Administered Medications (un recognized section and content) Medication Order MAR Action Action Date Dose Rate Site acetaminophen 650 mg tab(s) (TYLENOL) 650 mg, ORAL, ONCE, 1 dose, On [place]via 11/16/23 at 0830, No more than 4000 mg of acetaminophen should be given per day (FROM ALL SOURCES), If ordered PRN for pain, patient/guardian may elect to receive this medication for higher pain levels INSTEAD of the opioid, if preferred: N/A Given 11/16/2023 8:16 AM EST 650 mg diphenhydrAMINE 25 mg (BENADRYL) 25 mg, ORAL, ONCE, 1 dose, On [place] 11/16/23 at 0830 Given 11/16/2023 8:16 AM EST 25 mg inFLIXimab-dyyb 1,000 mg in NaCl 0.9% 250 mL (INFLECTRA) 1,000 mg (rounded from 1,096.9 mg = 7 mg/kg/dose 156.7 kg Treatment plan Recorded weight), INTRAVENOUS, at 83.33-250 mL/hr, Administer over 1-3 Hours, ONCE, 1 dose, On [place] 2/22/24 at 0830, Total Volume: = 250 mL exp 0800 11/17/23 (room temp) Administer with 0.2 micron filter., Medication Substitution: [facility] preferred product has been replaced with the insurance mandated product New Bag/Syringe/Bottle 11/16/2023 8:31 AM EST 1,000 mg 250 mL/hr Inactive Administered Medications - up to 3 most recent administrations Medication Order MAR Action Action Date Dose Rate Site acetaminophen 650 mg tab(s) (TYLENOL) 650 mg, ORAL, ONCE, 1 dose, On [place] 01/04/24 at 1100, No more than 4000 mg of acetaminophen should be given per day (FROM ALL SOURCES), If ordered PRN for pain, patient/guardian may elect to receive this medication for higher pain levels INSTEAD of the opioid, if preferred: N/A Given 01/04/2024 10:57 AM EDT 650 mg diphenhydrAMINE 25 mg capsule (BENADRYL) 25 mg, ORAL, ONCE, 1 dose, On [place] 01/04/24 at 1100 Given 01/04/2024 10:57 AM EDT 25 mg inFLIXimab-dyyb 1,000 mg in NaCl 0.9% 250 mL (INFLECTRA) 1,000 mg (rounded from 1,096.9 mg = 7 mg/kg/dose 156.7 kg Treatment plan Recorded weight), INTRAVENOUS, at 83.33-250 mL/hr, Administer over 1-3 Hours, ONCE, 1 dose, On [place] 01/04/24 at 1100, Total Volume: = 250 mL exp 1100 01/05/24 (room temp) Administer with 0.2 micron filter., Medication Substitution: [facility] preferred product has been replaced with the insurance mandated product New Bag/Syringe/Bottle 01/04/2024 11:21 AM EDT 1,000 mg 250 mL/hr FOR RECORDS PERTAINING TO PATIENTS WHO ARE OR HAVE BEEN ENROLLED IN A CHEMICAL DEPENDENCY/SUBSTANCEABUSE PROGRAM, SOME INFORMATION MAY BE OMITTED. This clinical summary was aggregated from multiple sources. Caution should be exercised in using it in the provision of clinical care. This summary normalizes information from multiple sources, and as a consequence, information in this document may materially change the coding, format and clinical context of patient data. In addition, data may be omitted in some cases. CLINICAL DECISIONS SHOULD BE BASED ON THE PRIMARY CLINICAL RECORDS. [facility] provides no warranty or guarantee of the accuracy or completeness of information in this document.
== END | disposition home or self-care (01) ==
LOC: MRI 06:59
PROVIDERS: PCP Family Medicine; Referring Provider Podiatrist; Visit Provider Podiatrist
DX: M76.61 Achilles tendinitis, right leg (principal); M77.31 Calcaneal spur, right foot
CPT/HCPCS: 73721